=== PATIENT | male | born 1945 | race Caucasian/White ===

== ENCOUNTER 2021-03-30 22:18 | Emergency (ER) | payer MEDICARE, SELFPAY ==
[2021-03-30 22:19] VITALS: BP 193/104; PULSE 123; RESP 18; TEMP 37; O2SAT 97; BMI 27.3
--- NOTE | 2021-03-30 22:24 | XRR_ITS ---
PROCEDURE INFORMATION: Exam: XR Chest Exam date and time: 03/30/2021 10:59 PM Age: 76 years old Clinical indication: Cough and shortness of breath; Chest pain; Prior surgery; Surgery type: Stent; Additional info: Cough, SOB, cp TECHNIQUE: Imaging protocol: XR of the chest. Views: 1 view. COMPARISON: CR Chest 1 [place] [id number] 04/16/2018 12:31 PM FINDINGS: Lungs: Mild pulmonary vascular congestion and cardiomegaly. Pleural spaces: Unremarkable. No pleural effusion. No pneumothorax. Heart/Mediastinum: Unremarkable. No cardiomegaly. Bones/joints: Unremarkable. XR/XR chest 1V portable [id number] IMPRESSION: Mild pulmonary vascular congestion and cardiomegaly.
--- NOTE | 2021-03-30 22:52 | ECG_ITS ---
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 Measurements Intervals [place] Rate: 104 P: [place]: QRS: 55 QRSD: 105 T: 55 QT: 337 QTc: 445 Interpretive Statements ATRIAL FIBRILLATION WITH RAPID VENTRICULAR RESPONSE MODERATE ST DEPRESSION [0.05+ mV ST DEPRESSION] Compared to ECG 04/16/2018 14:58:10 ST (T wave) deviation now present T-wave abnormality no longer present Electronically Signed On 03-31-2021 18:23:51 CDT by Kelsy Urrutia M.D. [email or web address]/[id number]
--- NOTE | 2021-03-30 22:56 | W.ED.SOB ---
HPI - SOB/Dyspnea General: Chief Complaint: Shortness of Breath/Dyspnea Stated Complaint: cough x 4days Time Seen by Provider: 03/30/21 22:45 Source: patient Mode of arrival: ambulatory Limitations: no limitations History of Present Illness: HPI Narrative: 76-year-old male states over the last 3 to 4 days he has been having increasing cough has been productive in nature. He states he has had shortness of breath and wheezing as well. Patient denies any chest pain or fever. He is in distress here with tachypnea. Denies any vomiting or diarrhea. He denies any history of smoking. He has no history of COPD or CHF. Associated symptoms: Reports chest pain; Deny abdominal pain, fever(s), nausea or vomiting Review of Systems Const: Denies: fever(s), chills, body aches or change in appetite Eyes: Denies: blurry vision or eye discomfort ENMT: Denies: throat pain or dental pain Card: Reports: chest pain Resp: Reports: dyspnea and non-productive cough GI: Denies: abdominal pain, nausea, vomiting or diarrhea : Denies: dysuria Musc: Denies: neck pain or back pain Skin/Breast: Denies: rash Neuro: Denies: headache(s) Psych: Denies: depression Romulo/Lymph: Denies: easy bruising All/Imm: Denies: urticaria Physical Exam Const: COMMON NORMALS: no acute distress, patient oriented x3 and healthy appearing HENMT: COMMON NORMALS: normocephalic and atraumatic HEAD & SCALP: normocephalic and atraumatic Eye: COMMON NORMALS: Equal, round and reactive pupils present and EOMs intact bilaterally PUPIL: Yes Equal, round and reactive pupils present Neck/C-Spine: COMMON NORMALS: full ROM and supple Chest: COMMONS NORMALS: normal inspection of the chest and normal palpation of entire chest wall Resp: COMMON NORMALS: No retractions and No use of accessory muscles EFFORT & INSPECTION: Yes tachypneic AUSCULTATION: crackles and rales Cardio: COMMON NORMALS: No murmurs present (Cardio) RATE: tachycardic RHYTHM: abnormal rhythm irregularly irregular GI: COMMON NORMALS: Normal to inspection, nondistended, normoactive bowel sounds present, Soft to palpation, non-tender and no masses PALPATION: Yes Soft to palpation Extremity: COMMON NORMALS: normal to inspection and full ROM Neuro: COMMON NORMALS: patient oriented x3, moves all extremities and no focal motor deficits Psych: COMMON NORMALS: mental status grossly normal, Normal thought process present and cooperative THOUGHT PROCESS: Normal thought process present Skin: COMMON NORMALS: no rashes or lesions noted and no wounds GENERAL SKIN EXAM: no rashes or lesions noted Course Vital Signs: Vital signs: Vital Signs Temperature 98.6 F 03/30/21 22:19 Pulse Rate 107 H 03/31/21 01:31 Respiratory Rate 18 03/31/21 00:14 Blood Pressure 157/89 03/31/21 01:31 Pulse Oximetry 97 03/31/21 00:14 MDM - SOB/Dyspnea MDM Narrative: Medical decision making narrative: 9Cerica presents here with cough along with A. fib with RVR. His cough is actually been going on for over a year. Quinalapril believe this could be causing his cough and I will have him stop that. We will increase his metoprolol from 100 twice daily to 200 twice daily. Patient is to follow-up his PCP in 5 to 7 days return if worsening. Change agrees plan. Lab Data: Labs: Lab Results 03/30/21 03/30/21 03/30/21 Range/Units 22:50 22:50 22:50 WBC 8.6 (4.0-10.0) 10^3/ uL RBC 4.20 (4.1-5.3) 10^6/u L Hgb 12.7 (11.7-16.6) g/dL Hct 38.1 L (42.0-52.0) % MCV 90.7 (80-94) fL MCH 30.2 (28.0-34.0) pg MCHC 33.3 (30.0-36.0) g/dL RDW 13.6 (12.1-15.1) % Plt Count 249 (130-400) 10^3/c mm MPV 9.9 (7.4-10.4) fL Neut % (Auto) 72.6 % Lymph % (Auto) 16.3 % Borden % (Auto) 7.0 % Eos % (Auto) 3.0 % Baso % (Auto) 0.6 % Neut # (Auto) 6.22 (1.8-7.7) 10^3/u L Lymph # (Auto) 1.4 (0.8-4.8) 10^3/u L Borden # (Auto) 0.6 (0.2-0.9) 10^3/u L Eos # (Auto) 0.3 (0.0-0.8) 10^3/u L Baso # (Auto) 0.1 (0.0-0.1) 10^3/u L Nucleated RBC % (a uto) 0 % Nucleated RBCs # 0.0 /100WBC PT 21.40 H (12.1-14.9) SECO NDS INR 1.81 H (0.8-1.2) D-Dimer 0.34 (0-0.59) ug/mIFE U Sodium 130 L (136-145) mmol/L Potassium 3.4 L (3.5-5.1) mmol/L Chloride 89 L (98-107) mmol/L Carbon Dioxide 27 (22-29) mmol/L Anion Gap 17.4 (5-19) BUN 10 (8-23) mg/dL Creatinine 0.6 L (0.7-1.2) mg/dL GFR Calculation Not Reportable Glucose 98 (65-115) mg/dL Calculated Osmolal ity 269 L (285-295) mOsm/k g Calcium 8.4 L (8.5-10.5) mg/dL Total Bilirubin 0.4 (0.15-1.2) mg/dL AST 17 (0-40) U/L ALT 12 (0-41) U/L Alkaline Phosphata se 75 (40-130) IU/L Troponin T Baselin e (0-15) ng/L Troponin T 120 Min bisi (0-15) ng/L Delta Troponin T (0-10) ABS# NT-Pro-B Natriuret Pep 723 H (0-450) pg/mL Total Protein 7.5 (6.6-8.7) g/dL Albumin 4.0 (3.5-5.2) g/dL Globulin 3.5 (1.3-4.6) g/dL SARS-CoV-2 Ag (Rap id) (Negative) 03/30/21 03/30/21 03/31/21 Range/Units 22:50 23:00 01:00 WBC (4.0-10.0) 10^3/ uL RBC (4.1-5.3) 10^6/u L Hgb (11.7-16.6) g/dL Hct (42.0-52.0) % MCV (80-94) fL MCH (28.0-34.0) pg MCHC (30.0-36.0) g/dL RDW (12.1-15.1) % Plt Count (130-400) 10^3/c mm MPV (7.4-10.4) fL Neut % (Auto) % Lymph % (Auto) % Borden % (Auto) % Eos % (Auto) % Baso % (Auto) % Neut # (Auto) (1.8-7.7) 10^3/u L Lymph # (Auto) (0.8-4.8) 10^3/u L Borden # (Auto) (0.2-0.9) 10^3/u L Eos # (Auto) (0.0-0.8) 10^3/u L Baso # (Auto) (0.0-0.1) 10^3/u L Nucleated RBC % (a uto) % Nucleated RBCs # /100WBC PT (12.1-14.9) SECO NDS INR (0.8-1.2) D-Dimer (0-0.59) ug/mIFE U Sodium (136-145) mmol/L Potassium (3.5-5.1) mmol/L Chloride (98-107) mmol/L Carbon Dioxide (22-29) mmol/L Anion Gap (5-19) BUN (8-23) mg/dL Creatinine (0.7-1.2) mg/dL GFR Calculation Glucose (65-115) mg/dL Calculated Osmolal ity (285-295) mOsm/k g Calcium (8.5-10.5) mg/dL Total Bilirubin (0.15-1.2) mg/dL AST (0-40) U/L ALT (0-41) U/L Alkaline Phosphata se (40-130) IU/L Troponin T Baselin e 15 (0-15) ng/L Troponin T 120 Min bisi 13.30 (0-15) ng/L Delta Troponin T -1.70 L (0-10) ABS# NT-Pro-B Natriuret Pep (0-450) pg/mL Total Protein (6.6-8.7) g/dL Albumin (3.5-5.2) g/dL Globulin (1.3-4.6) g/dL SARS-CoV-2 Ag (Rap id) Negative (Negative) Imaging Data^: CXR: Radiologist's impression: [address] [address] XRay Report Signed Patient: Narciso Rider Unit #: [id number] : 1945 Age/Sex: 76 / M ADM Date: 03/30/21 Loc: ER Room/Bed: Attending Dr: Ordering Provider/Ordering MD: Chaz Chi MD Date of Service: 03/30/21 Procedure(s): XR chest 1V portable [id number] Accession Number(s): [id number] Report Number: [id number] PROCEDURE INFORMATION: Exam: XR Chest Exam date and time: 03/30/2021 10:59 PM Age: 76 years old Clinical indication: Cough and shortness of breath; Chest pain; Prior surgery; Surgery type: Stent; Additional info: Cough, SOB, cp TECHNIQUE: Imaging protocol: XR of the chest. Views: 1 view. COMPARISON: CR Chest 1 [place] [id number] 04/16/2018 12:31 PM FINDINGS: Lungs: Mild pulmonary vascular congestion and cardiomegaly. Pleural spaces: Unremarkable. No pleural effusion. No pneumothorax. Heart/Mediastinum: Unremarkable. No cardiomegaly. Bones/joints: Unremarkable. XR/XR chest 1V portable [id number] IMPRESSION: Mild pulmonary vascular congestion and cardiomegaly. EKG Data^: EKG 1: Attestation: I personally reviewed and interpreted this EKG as follows: EKG Interpretation Date: 03/30/21 EKG interpretation time: 23:03 Interpretation: afib with rvr hr [address] or t wave abnormalities qrs 105 qtc 398 EKG 2: Attestation: I personally reviewed and interpreted this EKG as follows: EKG Interpretation Date: 03/31/21 EKG interpretation time: 01:35 Interpretation: afib hr [address] or t wave abnormalities qrs 113 qtc 422 Discharge Plan Discharge Patient Disposition: Home Clinical Impression: Cough A-fib Qualifiers: Atrial fibrillation type: unspecified Qualified Code(s): I48.91 - Unspecified atrial fibrillation Condition: Stable Prescriptions: Changed metoprolol tartrate 100 mg tablet 200 mg PO BID Qty: 60 RF: 2 Discontinued quinapril 40 mg tablet BID RF: 0 No Action digoxin 250 mcg (0.25 mg) tablet DAILY RF: 0 omeprazole 40 mg capsule,delayed release(DR/EC) BID RF: 0 hydrochlorothiazide 25 mg tablet DAILY RF: 0 warfarin 3 mg tablet DAILY RF: 0 atorvastatin 20 mg tablet DAILY RF: 0 Discharge Orders: Discharge ED (Routine); Ordered 03/31/21 Ordered By: Chaz Chi Referrals: Narciso Botello DO [Primary Care Provider] - 1-3 days Discharge Diet: Advance as tolerated Discharge Activity: Resume usual activity Patient Instructions: Atrial Fibrillation (ED), Acute Cough (ED) Coding Level of Care Code 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
[2021-03-30 22:59] VITALS: BP 202/121; PULSE 104; RESP 18; O2SAT 95
[2021-03-30 23:00] VITALS: PULSE 110; RESP 18; O2SAT 95
[2021-03-30] MEDS: albuterol 8 gm MDI 2 PUFF INHALATION (23:00)
[2021-03-30 23:01] LABS: Basophils # 0.1 10^3/uL (0.0-0.1); Basophils % 0.6 %; Eosinophils # 0.3 10^3/uL (0.0-0.8); Hematocrit 38.1 % (42.0-52.0); Hemoglobin 12.7 g/dL (11.7-16.6); Lymphocytes # 1.4 10^3/uL (0.8-4.8); Lymphocytes % 16.3 %; Mean Corpuscular HGB Conc 33.3 g/dL (30.0-36.0); Mean Corpuscular Hemoglobin 30.2 pg (28.0-34.0); Mean Corpuscular Volume 90.7 fL (80-94); Mean Platelet Volume 9.9 fL (7.4-10.4); Monocytes # 0.6 10^3/uL (0.2-0.9); Neutrophils # 6.22 10^3/uL (1.8-7.7); Neutrophils % 72.6 %; Nucleated Red Blood Cells % 0 %; Platelet Count 249 10^3/cmm (130-400); Red Cell Distribution Width 13.6 % (12.1-15.1); White Blood Count 8.6 10^3/uL (4.0-10.0)
[2021-03-30 23:07] VITALS: PULSE 112
[2021-03-30] MEDS: labetalol 5 mg/mL SDV 20mL 10 MG IVP (23:07)
[2021-03-30 23:12] LABS: INR 1.81 (0.8-1.2)
[2021-03-30 23:15] LABS: D Dimer 0.34 ug/mIFEU (0-0.59)
[2021-03-30 23:19] LABS: Troponin(5th) Baseline 15 ng/L (0-15)
[2021-03-30 23:22] LABS: SARS Covid-2 Antigen Negative (Negative)
[2021-03-30 23:25] VITALS: BP 190/123; PULSE 121; O2SAT 95
[2021-03-30 23:55] LABS: Alanine Aminotransferase 12 U/L (0-41); Alkaline Phosphatase 75 IU/L (40-130); Anion Gap 17.4 (5-19); Aspartate Amino Transferase 17 U/L (0-40); Blood Urea Nitrogen 10 mg/dL (8-23); Calcium 8.4 mg/dL (8.5-10.5); Carbon Dioxide 27 mmol/L (22-29); Chloride 89 mmol/L (98-107); Globulin 3.5 g/dL (1.3-4.6); Glucose 98 mg/dL (65-115); NT Pro B Type Natriuretic Pept 723 pg/mL (0-450); Osmolality Calculated 269 mOsm/kg (285-295); Potassium 3.4 mmol/L (3.5-5.1); Sodium 130 mmol/L (136-145); Total Bilirubin 0.4 mg/dL (0.15-1.2); Total Protein 7.5 g/dL (6.6-8.7)
[2021-03-30 23:56] VITALS: BP 138/79; PULSE 105; RESP 21; O2SAT 93
[2021-03-31] VITALS: BP 147/96; PULSE 96; O2SAT 94
[2021-03-31 00:14] VITALS: PULSE 98; RESP 18; O2SAT 97
[2021-03-31] MEDS: ipratropium-albuterol 3 mL Neb INHALATION (00:14)
[2021-03-31 00:22] VITALS: PULSE 98
--- NOTE | 2021-03-31 00:52 | ECG_ITS ---
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 Measurements Intervals [place] Rate: 94 P: [place]: QRS: 39 QRSD: 113 T: 39 QT: 371 QTc: 464 Interpretive Statements ATRIAL FIBRILLATION MODERATE INTRAVENTRICULAR CONDUCTION DELAY [110+ ms QRS DURATION] MODERATE ST DEPRESSION [0.05+ mV ST DEPRESSION] Compared to ECG 03/30/2021 23:03:59 Intraventricular conduction delay now present ST (T wave) deviation still present Electronically Signed On 03-31-2021 18:27:36 CDT by Kelsy Urrutia M.D. [email or web address] Thoughtful Bread [email or web address] [id number] f
[2021-03-31 01:31] VITALS: BP 157/89; PULSE 107
[2021-03-31 02:11] VITALS: BP 174/95; PULSE 109; RESP 18; TEMP 36.6; O2SAT 94
== END 2021-03-31 02:14 | disposition home or self-care (01) ==
PROVIDERS: Emergency Provider Emergency Medicine; PCP Internal Medicine
DX: R05 Cough (principal); I48.91 Unspecified atrial fibrillation; Z79.01 Long term (current) use of anticoagulants
CPT/HCPCS: 36415; 71045; 80053; 83880; 84484; 85025; 85378; 85610; 87070; 87077; 87205; 87426; 93005; 94640; 96374; 96375; 99284; J2930; J3490; J3535

== ENCOUNTER → 2021-08-27 09:05 | Outpatient (BNVA) | payer MEDICARE, SELFPAY | PROVIDERS: PCP Internal Medicine; Visit Provider Urology | DX: R97.20 Elevated prostate specific antigen [PSA] (principal) | CPT/HCPCS: 81003; 84153 ==

== ENCOUNTER → 2021-11-30 12:49 | Outpatient (BNVA) | payer MEDICARE, SELFPAY | PROVIDERS: PCP Internal Medicine; Visit Provider Urology | DX: N40.2 Nodular prostate without lower urinary tract symptoms (principal) | CPT/HCPCS: 81003 ==

== ENCOUNTER → 2021-12-10 11:57 | Outpatient (BNVA) | payer MEDICARE, SELFPAY | PROVIDERS: PCP Internal Medicine; Visit Provider Urology | DX: N40.2 Nodular prostate without lower urinary tract symptoms (principal); R97.20 Elevated prostate specific antigen [PSA] | CPT/HCPCS: 88305 ==

== ENCOUNTER 2022-01-10 07:27 | Outpatient (CLI) | payer MEDICARE, SELFPAY ==
[2022-01-10 08:32] LABS: Blood Urea Nitrogen 9 mg/dL (8-23)
== END 2022-01-10 07:28 | disposition home or self-care (01) ==
PROVIDERS: PCP Internal Medicine; Visit Provider Urology
DX: C61 Malignant neoplasm of prostate (principal)
CPT/HCPCS: 36415; 82565; 84520

== ENCOUNTER 2022-01-10 07:29 | Outpatient (CLI) | payer MEDICARE, SELFPAY ==
--- NOTE | 2022-01-10 07:43 | NM_ITS ---
WS: [id number] NUCLEAR MEDICINE BONE SCAN Radiopharmaceutical: 25.1 Tc-99m MDP mCi IV Injection site: RIGHT antecubital Postinjection imaging delay: 1 hr CLINICAL INFORMATION: PROSTATE CANCER. History of recent fall with LEFT rib injury COMPARISON: None. FINDINGS: Bone lesions: There are no osseous lesions suspicious for metastatic disease. Focal uptake in a far L EFT anterior rib approximately 8th rib with some callus formation seen on the concurrent CT Soft tissue contours: Normal. Kidneys: Normal. Other findings: Degenerative type uptake in both AC joints and sternoclavicular joint. NM/NM bone scan whole body* [id number] IMPRESSION: 1. No evidence of osseous metastatic disease. 2. Suspected healing fracture in the far anterior 8th rib laterally as seen on the concurrent CT
--- NOTE | 2022-01-10 09:00 | CT_ITS ---
WS: [id number] CT ABDOMEN PELVIS TECHNIQUE: Noncontrast CT of the abdomen and contrast-enhanced CT of the abdomen and pelvis with charisse nal and sagittal reformatted images. CLINICAL INFORMATION: PROSTATE CANCER COMPARISON: CT December 27, 2017 DLP: 2006.[address] scans at [facility] use at least one of these dose optimization techniques: automated e xposure control; mA and/or kV adjustment per patient size (includes targeted exams where dose is matc hed to clinical indication); or iterative reconstruction. FINDINGS: Mild diffuse fatty infiltration of the liver. Hepatic cysts. Normal portal vein and splenic vein. Nor mal spleen. Normal GE junction. Normal gallbladder. Normal pancreatic parenchymal enhancement. Adrenal glands are normal. Normal renal parenchymal enhanc ement. No hydronephrosis. Small cortical cysts. Aortic calcification. Normal excretion on the delayed images. No hydronephrosis. Normal filling of the bladder. Enlarged pr ostate measuring 4.8 cm calcification. Thickening of the seminal vesicles bilaterally. Normal sigmoid colon. No evidence of high-grade small or large bowel obstruction. No bony lesions to indicate metastatic disease. Suspected healing fracture in the far anterior 8th ri b laterally likely corresponds to the bone scan findings. CT/CT abdomen pelvis wo/w [id number] IMPRESSION: 1. No evidence of metastatic disease in the abdomen or pelvis. No lymphadenopa thy. 2. Enlarged prostate with thickening of the seminal vesicles.Prostate measures 4.8 cm. 3. A few incidental hepatic cysts. 4. Normal renal parenchymal enhancement. No hydronephrosis. Normal excretion o n the delayed images. 5. No bony lesions to indicate metastatic disease. 6. Suspected healing fracture in the far anterior 8th rib laterally likely cor responds to the bone scan findings.
[2022-01-10] MEDS: iohexol 300 mg/mL 100 mL Btl IV (09:50)
== END 2022-01-10 07:30 | disposition home or self-care (01) ==
LOC: RAD 07:30
PROVIDERS: PCP Internal Medicine; Visit Provider Urology
DX: C61 Malignant neoplasm of prostate (principal); N40.0 Benign prostatic hyperplasia without lower urinary tract symptoms; K76.89 Other specified diseases of liver
CPT/HCPCS: 36415; 74178; 78306; 82565; 84520; A9561

== ENCOUNTER 2022-01-17 14:57 | Outpatient (CLI) | payer MEDICARE, SELFPAY ==
[2022-01-17 16:59] LABS: Basophils % 0.7 %; Eosinophils # 0.2 10^3/uL (0.0-0.8); Eosinophils % 3.5 %; Hematocrit 37.9 % (42.0-52.0); Hemoglobin 12.7 g/dL (11.7-16.6); Lymphocytes # 1.4 10^3/uL (0.8-4.8); Lymphocytes % 26.6 %; Mean Corpuscular HGB Conc 33.5 g/dL (30.0-36.0); Mean Corpuscular Hemoglobin 29.9 pg (28.0-34.0); Mean Corpuscular Volume 89.2 fl (80-94); Mean Platelet Volume 11.1 fL (7.4-10.4); Monocytes # 0.5 10^3/uL (0.2-0.9); Monocytes % 10.1 %; Neutrophils # 3.16 10^3/uL (1.8-7.7); Neutrophils % 58.9 %; Nucleated Red Blood Cells % 0 %; Platelet Count 165 10^3/cmm (130-400); Red Blood Count 4.25 10^6/uL (4.1-5.3); Red Cell Distribution Width 14.1 % (12.1-15.1); White Blood Count 5.4 10^3/uL (4.0-10.0)
--- NOTE | 2022-01-17 17:15 | ONC CON_ITS ---
Dr. Marcano New Patient Note Patient: Narciso Rider Unit #: [id number]: 1945 Dicatated By: Michaela Marcano M.D.Date of Visit: Jan 17, 2022 Onc MED New Patient/Consult Referring Physician: Dr. Syed Loya M.D. History of Present Illness: Mr. Alvino Rider, is a 77-year-old gentleman with a history of elevated PSA, who was referred to Dr. Loya, urologist and underwent SUYAPA exam which was abnormal with a nodular right apical lesion underwent TRUS P/biopsy on December 10, 2021 which confirmed 4 out of 10 core biopsy positive for high-grade prostate cancer including Roseville score 5+5 in the right apex core biopsy with 100% involvement and 4+4 in the right mid area with about 85% involvement and left lateral apex 4+4 about 15% involvement, with foamy gland variant. With a PSA, in August 2021 it was 22.6, on November 30, 2021 it was 25.6. Staging work-up with CT scan of abdomen and pelvis And bone scan done on January 10, 2022, showed no evidence of metastatic disease, old healing Anterior lateral eighth rib fracture. Patient has history of atrial fibrillation for which he is on chronic anticoagulation with Coumadin. Patient also has history of coronary artery disease for which he underwent stent placement in the past Patient denies smoking or alcohol use, Denies any bone pain denies any weight loss, denies any dysuria or hematuria, patient is very active and still riding horses Past Medical History: Mr. Rider's medical history consists of congestive heart failure and coronary artery disease. Past Surgical History: Mr. Rider's surgical/procedural history consists of TRUSP/bx. Medications: Acetaminophen Extra Strength 2 Tablet (of 500 mg) Oral b.i.d., Atorvastatin Calcium Tablet Oral daily, Digoxin 1 Tablet (of 250 mcg) Oral daily, Finasteride 1 Tablet (of 5 mg) Oral daily, hydroCHLOROthiazide 1 Tablet (of 25 mg) Oral daily, Ipratropium-Albuterol 1 Inhalation (of 0.5-2.5 (3) mg/3mL) Solution Inhalation four times a day, Metoprolol Tartrate 1 Tablet (of 100 mg) Oral b.i.d., Nitroglycerin 1 Tablet (of 0.4 mg) Tablet, sublingual Sublingual q 5 minutes PRN, Omeprazole 1 Tablet (of 40 mg) Tablet, enteric coated Oral b.i.d., Warfarin Sodium 1 Tablet (of 3 mg) Oral daily, Zofran ODT 1 Tablet (of 4 mg) Tablet Dispersable Oral q 4 hours PRN Allergies: No Known Allergies. Social History: Mr. Rider is . Mr. Rider no longer smokes. He has no history of drinking. Family History: Mr. Rider's mother is alive: bleeding disorder. Mr. Rider's father at age 53: heart disease, and myocardial infarction. Review Of Symptoms: Review of Systems is not available for this patient. Vital Signs: Performed on Jan 17, 2022 16:13: 5, 25.12, 2.06 sq.m, 72 in, 99 %, 63 /min, 16 /min, 161/88 mm(hg) (HIGH), 98.6 F, and 185.2 lbs (HIGH). Performance Status: 0 - Fully active, able to carry on all predisease activities without restrictions. (ECOG) Physical Examination: ENMT - No mouth sores, no thrush, no jaundice, Respiratory - Lungs are clear to auscultation, Cardiovascular - Irregular rate and rhythm, Abdomen - Soft, bowel sounds present, Extremities - No visible edema. Lab/Imaging: Most recent lab results are not available for this patient. Impression: Prostatic adenocarcinoma per TUR SP/biopsy done on December 10, 2021, final pathology report showed right apex biopsy shows Roseville score 5+5, with tumor involvement 100%, right mid lobe biopsy shows prostatic adenocarcinoma, Rose[place] score 4+4 with 85% involvement left lateral apex Clau score 4+4 about 15% involvement ,left lateral mid, Rose[place] score 4+4 with about 10% involvement with foamy gland variant, PSA checked on November 30, 2021 was 25.6, Clinically, T2a, NX MX patient has very high risk prostate cancer, Roseville score 5+5, PSA more than 20 CT scan of abdomen pelvis Done on January 10, 2022 showed no evidence of metastatic disease, Healing fracture of anterior lateral eighth rib Bone scan showed no evidence of metastatic disease History of coronary artery disease status post stent placement Atrial fibrillation, on Coumadin Plan: Discussed with patient regarding his disease status and treatment options, as per patient Dr. Loya, urologist informed him that he is not a candidate for surgery, so he was referred to us regarding further treatment options, based on his histopathology report and PSA at the time of presentation, patient was in very high risk group, Clau score 5+5, PSA more than 20 As per patient, he was told that he is not a candidate for surgery And now he is considering ADT/radiation therapy . All the side effect possible benefits associated with ADT including but not limited to hot flashes, decreased libido, generalized weakness and fatigue, gynecomastia, mood swings were mentioned, also mention about hepatic toxicity especially with Casodex, further teaching will be done by chemotherapy nurse, will start him on Casodex 50 mg p.o. daily for 1 month and also consider starting him on 3 monthly Zoladex with long-term adjuvant therapy and refer him to radiation oncology for evaluation for concurrent radiation therapy, if his follow-up PSA level shows suboptimal response, may consider adding abiraterone. We will obtain baseline CBC, CMP , testosterone level and PSA today then return to clinic in 1 month with CMP and PSA Signed By: Michaela Marcano M.D. <<Signature on File>>
[2022-01-17 17:31] LABS: Alanine Aminotransferase 15 U/L (0-41); Albumin Level 4.2 g/dL (3.5-5.2); Alkaline Phosphatase 76 IU/L (40-130); Anion Gap 14.5 (5-19); Aspartate Amino Transferase 21 U/L (0-40); Blood Urea Nitrogen 11 mg/dL (8-23); Calcium 9.1 mg/dL (8.5-10.5); Carbon Dioxide 28 mmol/L (22-29); Chloride 99 mmol/L (98-107); Globulin 2.5 g/dL (1.3-4.6); Glucose 89 mg/dL (65-115); Osmolality Calculated 285 mOsm/kg (285-295); Potassium 3.5 mmol/L (3.5-5.1); Sodium 138 mmol/L (136-145); Testosterone Total 328.4 ng/dL (193-740); Total Bilirubin 0.4 mg/dL (0.15-1.2); Total Protein 6.7 g/dL (6.6-8.7)
== END 2022-01-17 14:58 | disposition home or self-care (01) ==
PROVIDERS: Internal Medicine Hematology & Oncology; PCP Internal Medicine; Visit Provider Internal Medicine Medical Oncology
DX: C61 Malignant neoplasm of prostate (principal); I48.91 Unspecified atrial fibrillation; I25.10 Atherosclerotic heart disease of native coronary artery without angina pectoris; I50.9 Heart failure, unspecified; Z79.01 Long term (current) use of anticoagulants; Z79.899 Other long term (current) drug therapy; Z87.891 Personal history of nicotine dependence
CPT/HCPCS: 36415; 80053; 84153; 84403; 85025; 99205

== ENCOUNTER 2022-01-26 13:28 | Outpatient (CLI) | payer MEDICARE, SELFPAY ==
[2022-01-26] MEDS: lidocaine 1% INJ 20 mL INJECTION (14:00)
[2022-01-26] MEDS: goserelin acetate 10.8 mg Implant SUBCUT (14:10)
== END 2022-01-26 13:29 | disposition home or self-care (01) ==
PROVIDERS: PCP Internal Medicine; Visit Provider Internal Medicine Medical Oncology
DX: C61 Malignant neoplasm of prostate (principal)
CPT/HCPCS: 96402; J9202

== ENCOUNTER 2022-02-21 13:22 | Outpatient (CLI) | payer MEDICARE, SELFPAY ==
[2022-02-21 14:51] LABS: Alanine Aminotransferase 22 U/L (0-41); Albumin Level 4.4 g/dL (3.5-5.2); Alkaline Phosphatase 84 IU/L (40-130); Anion Gap 13.5 (5-19); Aspartate Amino Transferase 22 U/L (0-40); Blood Urea Nitrogen 17 mg/dL (8-23); Calcium 9.1 mg/dL (8.5-10.5); Carbon Dioxide 29 mmol/L (22-29); Chloride 96 mmol/L (98-107); Globulin 2.9 g/dL (1.3-4.6); Glucose 104 mg/dL (65-115); Osmolality Calculated 280 mOsm/kg (285-295); Potassium 4.5 mmol/L (3.5-5.1); Prostate Specific Antigen 0.458 ng/mL (0-4); Sodium 134 mmol/L (136-145); Total Bilirubin 0.3 mg/dL (0.15-1.2); Total Protein 7.3 g/dL (6.6-8.7)
--- NOTE | 2022-02-22 08:35 | ONC FU_ITS ---
Johnna Gifford Progress Note Patient: Narciso Rider Unit #: [id number]: 1945 Dicatated By: Johnna Gifford N.P.Date of Visit:Feb 21, 2022 Onc MED Follow-up/Prog Note Chief Complaint: Prostate cancer History of Present Illness: Mr. Alvino Rider, is a 77-year-old gentleman with a history of elevated PSA, who was referred to Dr. Loya, urologist and underwent SUYAPA exam which was abnormal with a nodular right apical lesion underwent TRUS P/biopsy on December 10, 2021 which confirmed 4 out of 10 core biopsy positive for high-grade prostate cancer including [place] score 5+5 in the right apex core biopsy with 100% involvement and 4+4 in the right mid area with about 85% involvement and left lateral apex 4+4 about 15% involvement, with foamy gland variant. With a PSA, in August 2021 it was 22.6, on November 30, 2021 it was 25.6. Staging work-up with CT scan of abdomen and pelvis done on, showed no evidence of metastatic disease, old healing rib fracture. Patient has history of atrial fibrillation for which he is on chronic anticoagulation with Coumadin. Patient also has history of coronary artery disease for which he underwent stent placement in the past Patient denies smoking or alcohol use, Denies any bone pain denies any weight loss, denies any dysuria or hematuria, patient is very active and still riding horses Patient presents today for follow-up. He started his Zoladex on 01/26/2022. He continues to have fatigue but is able to be active. He states his appetite has been good. No fever, chills, night sweats. No sinus drainage or sore throat. No shortness of breath, cough, chest pain no nausea or vomiting. He does experience constipation that is well controlled with [id number] medications. No urinary symptoms. No joint or bone pain. No headaches or dizziness. Review Of Symptoms:See above. Past Medical History: Congestive heart failure Coronary artery disease Past Surgical History: TRUSP/bx Allergies: No Known Allergies. Medications: Acetaminophen Extra Strength 2 Tablet (of 500 mg) Oral b.i.d. Atorvastatin Calcium Tablet Oral daily Digoxin 1 Tablet (of 250 mcg) Oral daily Finasteride 1 Tablet (of 5 mg) Oral daily hydroCHLOROthiazide 1 Tablet (of 25 mg) Oral daily Ipratropium-Albuterol 1 Inhalation (of 0.5-2.5 (3) mg/3mL) Solution Inhalation four times a day Metoprolol Tartrate 1 Tablet (of 100 mg) Oral b.i.d. Nitroglycerin 1 Tablet (of 0.4 mg) Tablet, sublingual Sublingual q 5 minutes PRN Omeprazole 1 Tablet (of 40 mg) Tablet, enteric coated Oral b.i.d. Warfarin Sodium 1 Tablet (of 3 mg) Oral daily Zofran ODT 1 Tablet (of 4 mg) Tablet Dispersable Oral q 4 hours PRN Family History: Mr. Rider's mother is alive: bleeding disorder. Mr. Rider's father at age 53: heart disease, and myocardial infarction. Social History: Mr. Rider is . Mr. Rider no longer smokes. He has no history of drinking. Physical Examination: Performed on Feb 21, 2022 15:24: Height - 72.00 in, Weight - 183 lbs (LOW), BSA - 2.05 sq.m, BMI - 24.82, Temperature - 97.4 F (LOW), Pulse - 63 /min, Respiration - 16 /min, BP - 178/80 mm(hg) (HIGH), O2 Sat - 99 %, Pain - 0, and Fatigue - 0. Performance Status: 0 - Fully active, able to carry on all predisease activities without restrictions. (ECOG) Constitutional Alert, cooperative, oriented. Mood and affect appropriate. Appears close to chronological age. Well nourished. Well developed. Head Normocephalic; no scars. Hematologic/Lymphatic No petechiae or purpura. No tender or palpable lymph nodes in the cervical, supraclavicular, axillary or inguinal area. Respiratory Lungs are clear to auscultation without rhonchi or wheezing. Cardiovascular Regular rate and rhythm of heart without murmurs, gallops or rubs. Abdomen Non-tender, non-distended, no masses, ascites or hepatosplenomegaly. Good bowel sounds. No guarding or rebound tenderness. Extremities No visible deformities, no cyanosis, clubbing or edema. Pulses 3+ and equal bilaterally. Musculoskeletal No tenderness or swelling, normal range of motion without obvious weakness. Psychiatric Alert and oriented times three. Coherent speech. Verbalizes understanding of our discussions today. Laboratory: Test performed on Feb 21, 2022 13:53 Sodium 134 mmol/L Potassium 4.5 mmol/L Chloride 96 mmol/L CO2 29 mmol/L Anion Gap 13.5 BUN 17 mg/dL Creatinine 0.8 mg/dL Cr Clearance (Est) 89.3500 mL/min Glucose 104 mg/dL Osmolality - Calculated 280 mOsm/kg Calcium 9.1 mg/dL Protein, Total 7.3 g/dL Albumin 4.4 g/dL Globulin 2.9 g/dL Bilirubin, Total 0.3 mg/dL ALT (SGPT) 22 U/L AST (SGOT) 22 U/L Alkaline Phosphatase 84 IU/L PSA 0.458 ng/mL Impression: Prostatic adenocarcinoma per TUR SP/biopsy done on December 10, 2021, final pathology report showed right apex biopsy shows Clau score 5+5, with tumor involvement 100%, right mid lobe biopsy shows prostatic adenocarcinoma, Clau score 4+4 with 85% involvement left lateral apex Clau score 4+4 about 15% involvement ,left lateral mid, Clau score 4+4 with about 10% involvement with foamy gland variant, PSA checked on November 30, 2021 was 25.6, Clinically, patient has very high risk prostate cancer, [place] score 5+5, PSA more than 20 CT scan of abdomen pelvis showed no evidence of metastatic disease Bone scan showed no evidence of metastatic disease History of coronary artery disease status post stent placement Atrial fibrillation, on Coumadin Plan: Discussed with patient regarding his disease status and treatment options, as per patient Dr. Loya, urologist informed him that he is not a candidate for surgery, so he was referred to us regarding further treatment options, based on his histopathology report and PSA at the time of presentation, patient was in very high risk group, Clau score 5+5, PSA more than [address] with [address] Loya regarding surgical option but patient is considering hormonal therapy/radiation therapy. All the side effect possible benefits associated with ADT including but not limited to hot flashes, decreased libido, generalized weakness and fatigue, gynecomastia, mood swings were mentioned, also mention about hepatic toxicity especially with Casodex, further teaching will be done by chemotherapy nurse, will start him on Casodex 50 mg p.o. daily for 1 month and also consider starting him on 3 monthly Zoladex with long-term adjuvant therapy and refer him to radiation oncology for evaluation for concurrent radiation therapy, if his follow-up PSA level shows suboptimal response, may consider adding abiraterone. Patient presents today for follow-up. He is tolerating his Zoladex injections well. He has been taking Casodex 50 mg p.o. daily and he was instructed to discontinue that today. His PSA has improved from 18.090 on 01/17/2022 to 0.458 today. His radiation therapy appointment has been scheduled. At this time we will hold off on adding abiraterone due to the good response he is having from the Zoladex. He will return to the clinic in 2 months for his second Zoladex injection with a CBC, CMP, PSA. Signed By: Johnna Gifford N.P. <<Signature on File>>
== END 2022-02-21 13:23 | disposition home or self-care (01) ==
PROVIDERS: PCP Internal Medicine; Visit Provider Nurse Practitioner Family
DX: C61 Malignant neoplasm of prostate (principal); I25.10 Atherosclerotic heart disease of native coronary artery without angina pectoris; Z95.811 Presence of heart assist device; I48.20 Chronic atrial fibrillation, unspecified; Z79.01 Long term (current) use of anticoagulants; Z79.818 Long term (current) use of other agents affecting estrogen receptors and estrogen levels
CPT/HCPCS: 36415; 80053; 84153; 99214

== ENCOUNTER 2022-03-16 11:29 | Outpatient (RCR) | payer MEDICARE, SELFPAY ==
--- NOTE | 2022-03-16 | CT_ITS ---
Radiation Therapy Planning CT images; total exam DLP: 976.78 mGy-cm MTDD
== END 2022-03-19 23:59 | disposition home or self-care (01) ==
LOC: ONCMED 11:29
PROVIDERS: PCP Internal Medicine; Visit Provider Radiology Radiation Oncology
DX: Z51.0 Encounter for antineoplastic radiation therapy (principal); C61 Malignant neoplasm of prostate; Z79.899 Other long term (current) drug therapy
CPT/HCPCS: 77300; 77301; 77334; 77338; 77470; Q9967

== ENCOUNTER 2022-04-19 12:45 | Oncology outpatient (recurring) (ONCR) | payer MEDICARE, SELFPAY ==
--- NOTE | 2022-03-29 14:05 | ONCRAD TMN_ITS ---
Radiation Oncology Treatment Management Note Patient Name: Narciso Rider Date of : 1945 Date of Service: 03/29/2022 Attending Physician: Abebe Ugalde M.D. Narciso Rider is a 77 year old white male diagnosed with a clinical stage IIIC (T2aN0) very high-risk stratification prostate cancer. He initially was identified to have an elevated PSA level (22.6 ng/mL) in July 2021 by his primary care physician. He was referred to Syed Loya M.D. A digital rectal exam revealed a large, right prostatic lobe nodule. Repeat PSA level was 25.6 ng/mL. He declined a biopsy at that time. A transrectal ultrasound-guided biopsy performed on December 10, 2021 demonstrated a 34 cc prostate gland with a 1.2 cm hypoechoic lesion within the right lateral aspect of the prostate. The pathology report (personally reviewed in [facility]) diagnosed an adenocarcinoma the prostate gland with a Clau score of 5+5 = 10 (grade group 5) involving the right apex (100%) and a Hague score of 4+4 = 8 (grade group 4) in the cores biopsied from the right mid-gland, left lateral apex, and left lateral mid-gland. A nuclear medicine bone scintigraphy scan and an abdominopelvic CT scan metastatic disease did not identify metastatic disease. The patient presents for radiotherapeutic options. A GnRH agonist (Zoladex) was administered on January 21, 2022. The patient has received 10 Gy of a prescribed 46 Power to the prostate and regional lymph nodes with an intensity modulated radiotherapy plan utilizing a step and shoot treatment technique. An additional 32 Power will be delivered to the prostate gland subsequent to the initial miles. He has received neoadjuvant hormonal therapy. Upon review of systems, he denied any genitourinary complaints related to radiotherapy. On physical examination, the patient weighed 187 lbs. His temperature was 96.7 ???F and the blood pressure was 164/86 mmHg. The pulse was 75 bpm and his respiratory rate was 20. There was no erythema within the treatment miles. Continue pelvic radiotherapy as prescribed. Signed by: Abebe Ugalde 03/29/2022 2:03:34 PM
--- NOTE | 2022-04-05 13:55 | ONCRAD TMN_ITS ---
Radiation Oncology Treatment Management Note Patient Name: Narciso Rider Date of : 1945 Date of Service: 04/05/2022 Attending Physician: Abebe Ugalde M.D. Narciso Rider is a 77 year old white male diagnosed with a clinical stage IIIC (T2aN0) very high-risk stratification prostate cancer. He initially was identified to have an elevated PSA level (22.6 ng/mL) in July 2021 by his primary care physician. He was referred to Syed Loya M.D. A digital rectal exam revealed a large, right prostatic lobe nodule. Repeat PSA level was 25.6 ng/mL. He declined a biopsy at that time. A transrectal ultrasound-guided biopsy performed on December 10, 2021 demonstrated a 34 cc prostate gland with a 1.2 cm hypoechoic lesion within the right lateral aspect of the prostate. The pathology report (personally reviewed in [facility]) diagnosed an adenocarcinoma the prostate gland with a Clau score of 5+5 = 10 (grade group 5) involving the right apex (100%) and a Clarinda score of 4+4 = 8 (grade group 4) in the cores biopsied from the right mid-gland, left lateral apex, and left lateral mid-gland. A nuclear medicine bone scintigraphy scan and an abdominopelvic CT scan metastatic disease did not identify metastatic disease. The patient presents for radiotherapeutic options. A GnRH agonist (Zoladex) was administered on January 21, 2022. The patient has received 20 Gy of a prescribed 46 Power to the prostate and regional lymph nodes with an intensity modulated radiotherapy plan utilizing a step and shoot treatment technique. An additional 32 Power will be delivered to the prostate gland subsequent to the initial miles. He has received neoadjuvant hormonal therapy. Upon review of systems, he reported nocturia of twice. On physical examination, the patient weighed 186 lbs. His temperature was 96.5 ???F and the blood pressure was 167/80 mmHg. The pulse was 62 bpm and his respiratory rate was 16. There was no erythema within the treatment miles. Continue pelvic radiotherapy as planned. Signed by: Abebe Ugalde 04/05/2022 1:53:49 PM
--- NOTE | 2022-04-12 14:09 | ONCRAD TMN_ITS ---
Radiation Oncology Weekly Treatment Management Patient: Tereso Chan MR#: [id number] : 1945> Attending Physician: Dr. Chico Merino Date of Service: 04/12/2022 Referring Physician(s) : Dr. Syed Loya Diagnosis: C61 - Malignant neoplasm of prostate, Diagnosed 12/10/2021 (Active) Stage IIIC, T2b, N0, M0, P>=20, G5 Radiotherapy to date: Course: Prostate 2021, Treatment Site: Prostate Ca - High-Risk, Ref. ID: [id number], Energy: 15X, Dose/Fx (cGy): 200, #Fx: , Dose Correction (cGy): 0, Total Dose (cGy): 3,000, Start Date: 03/23/2022, Elapsed Days: 20 Reason for visit: The patient is being seen today as part of his regularly scheduled weekly on treatment visits to assess for acute toxicities from radiotherapy. Review of Systems: Mr. Perdomo has developed diarrhea. He took 2 Imodium A-D last night and that controlled the problem. No other GI complaints. His bladder function is stable. He has slight burning or itching in midstream at times when he urinates. He has not had any severe discomfort. He has no hesitancy, intermittency, or difficulty getting empty. Performance status is stable. He received Zoladex 01/21/2022. Vital Signs: Performed on 04/12/2022 1:32 PM BMI - 25.118 kg/m2 (high), Height - 72 in, Weight - 185.2 lbs, Temperature - 96.6 f, Pulse - 55 /min (low), Respiration - 20 /min, O2 Sat - 100 %, Pain - 0, Fatigue - 8 and BP - 173/ 96 mm(hg)(high). Physical Exam: Alert, oriented, no acute distress. Normal gait. There is no skin reaction over the anterior pelvis or in the intergluteal fold. Imaging: Radiation therapy imaging related to accurate target localization (i.e. KV, MV and CBCT) was reviewed. Appropriate changes, if any, were made to ensure treatment accuracy. Plan: Continue treatment according to plan. We discussed his treatment volume. Signed by: Dr. Chico Merino 04/12/2022 2:06:58 PM
--- NOTE | 2022-04-19 13:47 | ONCRAD TMN_ITS ---
Radiation Oncology Treatment Management Note Patient Name: Narciso Rider Date of : 1945 Date of Service: 04/19/2022 Attending Physician: Abebe Ugalde M.D. Narciso Rider is a 77 year old white male diagnosed with a clinical stage IIIC (T2aN0) very high-risk stratification prostate cancer. He initially was identified to have an elevated PSA level (22.6 ng/mL) in July 2021 by his primary care physician. He was referred to Syed Loya M.D. A digital rectal exam revealed a large, right prostatic lobe nodule. Repeat PSA level was 25.6 ng/mL. He declined a biopsy at that time. A transrectal ultrasound-guided biopsy performed on December 10, 2021 demonstrated a 34 cc prostate gland with a 1.2 cm hypoechoic lesion within the right lateral aspect of the prostate. The pathology report (personally reviewed in [facility]) diagnosed an adenocarcinoma the prostate gland with a Clau score of 5+5 = 10 (grade group 5) involving the right apex (100%) and a Trinidad score of 4+4 = 8 (grade group 4) in the cores biopsied from the right mid-gland, left lateral apex, and left lateral mid-gland. A nuclear medicine bone scintigraphy scan and an abdominopelvic CT scan metastatic disease did not identify metastatic disease. The patient presents for radiotherapeutic options. A GnRH agonist (Zoladex) was administered on January 21, 2022. The patient has received 38 Gy of a prescribed 46 Power to the prostate and regional lymph nodes with an intensity modulated radiotherapy plan utilizing a step and shoot treatment technique. An additional 32 Power will be delivered to the prostate gland subsequent to the initial miles. He has received neoadjuvant hormonal therapy. Upon review of systems, he denied changes in urination. On physical examination, the patient weighed 182 lbs. His temperature was 96.7 ???F and the blood pressure was 156/87 mmHg. The pulse was 59 bpm and his respiratory rate was 18. There was no erythema within the treatment miles. Continue pelvic radiotherapy as prescribed. Signed by: Dr. Abebe Ugalde 04/19/2022 1:46:04 PM
== END 2022-04-19 23:59 | disposition home or self-care (01) ==
PROVIDERS: PCP Internal Medicine; Visit Provider Radiology Radiation Oncology
DX: Z51.11 Encounter for antineoplastic chemotherapy (principal); C61 Malignant neoplasm of prostate
CPT/HCPCS: 77014; 77336; 77385; 77427

== ENCOUNTER 2022-05-17 13:12 | Oncology outpatient (recurring) (ONCR) | payer MEDICARE, SELFPAY ==
--- NOTE | 2022-04-26 14:58 | ONCRAD TMN_ITS ---
Radiation Oncology Treatment Management Note Patient Name: aNrciso Rider Date of : 1945 Date of Service: 04/26/2022 Attending Physician: Abebe Ugalde M.D. Narciso Rider is a 77 year old white male diagnosed with a clinical stage IIIC (T2aN0) very high-risk stratification prostate cancer. He initially was identified to have an elevated PSA level (22.6 ng/mL) in July 2021 by his primary care physician. He was referred to Syed Loya M.D. A digital rectal exam revealed a large, right prostatic lobe nodule. Repeat PSA level was 25.6 ng/mL. He declined a biopsy at that time. A transrectal ultrasound-guided biopsy performed on December 10, 2021 demonstrated a 34 cc prostate gland with a 1.2 cm hypoechoic lesion within the right lateral aspect of the prostate. The pathology report (personally reviewed in [email or web address]) diagnosed an adenocarcinoma the prostate gland with a Clau score of 5+5 = 10 (grade group 5) involving the right apex (100%) and a [place]ne[place] score of 4+4 = 8 (grade group 4) in the cores biopsied from the right mid-gland, left lateral apex, and left lateral mid-gland. A nuclear medicine bone scintigraphy scan and an abdominopelvic CT scan metastatic disease did not identify metastatic disease. The patient presents for radiotherapeutic options. A GnRH agonist (Zoladex) was administered on January 21, 2022. The patient has received 48 Gy of a prescribed 78 Power to the prostate and regional lymph nodes with an intensity modulated radiotherapy plan utilizing a step and shoot treatment technique. He has received neoadjuvant hormonal therapy. Upon review of systems, he described fatigue. On physical examination, the patient weighed 180 lbs. His temperature was 96.6 ???F and the blood pressure was 152/75 mmHg. The pulse was 60 bpm and his respiratory rate was 16. There was no erythema within the treatment miles. Continue pelvic radiotherapy as planned. Signed by: Dr. Abebe Ugalde 04/26/2022 2:56:41 PM
[2022-04-28 12:00] LABS: Basophils % 0.7 %; Eosinophils # 0.4 10^3/uL (0.0-0.8); Eosinophils % 8.3 %; Hematocrit 37.6 % (42.0-52.0); Hemoglobin 12.8 g/dL (11.7-16.6); Lymphocytes # 0.4 10^3/uL (0.8-4.8); Lymphocytes % 9.2 %; Mean Corpuscular Hemoglobin 31.2 pg (28.0-34.0); Mean Corpuscular Volume 91.7 fl (80-94); Mean Platelet Volume 10.4 fL (7.4-10.4); Monocytes # 0.4 10^3/uL (0.2-0.9); Monocytes % 8.5 %; Neutrophils # 3.24 10^3/uL (1.8-7.7); Neutrophils % 72.9 %; Nucleated Red Blood Cells % 0 %; Platelet Count 156 10^3/cmm (130-400); Red Cell Distribution Width 14.9 % (12.1-15.1); White Blood Count 4.5 10^3/uL (4.0-10.0)
[2022-04-28 12:35] LABS: Alanine Aminotransferase 26 U/L (0-41); Albumin Level 3.8 g/dL (3.5-5.2); Alkaline Phosphatase 68 IU/L (40-130); Anion Gap 13.4 (5-19); Aspartate Amino Transferase 22 U/L (0-40); Blood Urea Nitrogen 10 mg/dL (8-23); Calcium 8.7 mg/dL (8.5-10.5); Carbon Dioxide 30 mmol/L (22-29); Chloride 92 mmol/L (98-107); Globulin 3.2 g/dL (1.3-4.6); Glucose 98 mg/dL (65-115); Osmolality Calculated 273 mOsm/kg (285-295); Potassium 3.4 mmol/L (3.5-5.1); Prostate Specific Antigen 0.075 ng/mL (0-4); Sodium 132 mmol/L (136-145); Total Bilirubin 0.4 mg/dL (0.15-1.2)
[2022-04-28] MEDS: goserelin acetate 10.8 mg Implant SUBCUT (15:33)
[2022-04-28] MEDS: lidocaine 1% INJ 20 mL SUBCUT (15:37)
--- NOTE | 2022-05-03 13:40 | ONCRAD TMN_ITS ---
Radiation Oncology Treatment Management Note Patient Name: Narciso Rider Date of : 1945 Date of Service: 05/03/2022 Attending Physician: Abebe Ugalde M.D. Narciso Rider is a 77 year old white male diagnosed with a clinical stage IIIC (T2aN0) very high-risk stratification prostate cancer. He initially was identified to have an elevated PSA level (22.6 ng/mL) in July 2021 by his primary care physician. He was referred to Syed Loya M.D. A digital rectal exam revealed a large, right prostatic lobe nodule. Repeat PSA level was 25.6 ng/mL. He declined a biopsy at that time. A transrectal ultrasound-guided biopsy performed on December 10, 2021 demonstrated a 34 cc prostate gland with a 1.2 cm hypoechoic lesion within the right lateral aspect of the prostate. The pathology report (personally reviewed in [facility]) diagnosed an adenocarcinoma the prostate gland with a Clau score of 5+5 = 10 (grade group 5) involving the right apex (100%) and a Metcalf score of 4+4 = 8 (grade group 4) in the cores biopsied from the right mid-gland, left lateral apex, and left lateral mid-gland. A nuclear medicine bone scintigraphy scan and an abdominopelvic CT scan metastatic disease did not identify metastatic disease. The patient presents for radiotherapeutic options. A GnRH agonist (Zoladex) was administered on January 21, 2022. The patient has received 58 Gy of a prescribed 78 Power to the prostate and regional lymph nodes with an intensity modulated radiotherapy plan utilizing a step and shoot treatment technique. He has received neoadjuvant hormonal therapy. Upon review of systems, he denied any new symptoms. On physical examination, the patient weighed 181 lbs. His temperature was 97 ???F and the blood pressure was 155/78 mmHg. The pulse was 59 bpm and his respiratory rate was 18. There was no erythema within the treatment miles. Continue pelvic radiotherapy as prescribed. Signed by: Dr. Abebe Ugalde 05/03/2022 1:39:39 PM
--- NOTE | 2022-05-10 13:43 | ONCRAD TMN_ITS ---
Radiation Oncology Treatment Management Note Patient Name: Narciso Rider Date of : 1945 Date of Service: 05/10/2022 Attending Physician: Abebe Ugalde M.D. Narciso Rider is a 77 year old white male diagnosed with a clinical stage IIIC (T2aN0) very high-risk stratification prostate cancer. He initially was identified to have an elevated PSA level (22.6 ng/mL) in July 2021 by his primary care physician. He was referred to Syed Loya M.D. A digital rectal exam revealed a large, right prostatic lobe nodule. Repeat PSA level was 25.6 ng/mL. He declined a biopsy at that time. A transrectal ultrasound-guided biopsy performed on December 10, 2021 demonstrated a 34 cc prostate gland with a 1.2 cm hypoechoic lesion within the right lateral aspect of the prostate. The pathology report (personally reviewed in [email or web address]) diagnosed an adenocarcinoma the prostate gland with a Clau score of 5+5 = 10 (grade group 5) involving the right apex (100%) and a Cameron score of 4+4 = 8 (grade group 4) in the cores biopsied from the right mid-gland, left lateral apex, and left lateral mid-gland. A nuclear medicine bone scintigraphy scan and an abdominopelvic CT scan metastatic disease did not identify metastatic disease. Cycle 2 of a GnRH agonist (Zoladex) was administered on April 28, 2022. The patient has received 68 Gy of a prescribed 78 Power to the prostate and regional lymph nodes with an intensity modulated radiotherapy plan utilizing a step and shoot treatment technique. He has received neoadjuvant hormonal therapy. Upon review of systems, he did not report any complaints. On physical examination, the patient weighed 179 lbs. His temperature was 97.9 ???F and the blood pressure was 174/70 mmHg. The pulse was 61 bpm and his respiratory rate was 18. There was no erythema within the treatment miles. Continue pelvic radiotherapy as planned. Signed by: Dr. Abebe Ugalde 05/10/2022 1:43:08 PM
--- NOTE | 2022-05-17 13:19 | N.ONRD TS_ITS ---
Radiation OncologyTreatment Summary Patient Name: Narciso Rider Date of : 1945 Date of Service: 05/17/2022 Attending Physician: Abebe Ugalde M.D. Narciso Rider has completed definitive prostate radiotherapy for the management of a clinical stage IIIC (T2aN0) very high-risk stratification prostate cancer. He initially was identified to have an elevated PSA level (22.6 ng/mL) in July 2021 by his primary care physician. He was referred to Syed Loya M.D. A digital rectal exam revealed a large, right prostatic lobe nodule. Repeat PSA level was 25.6 ng/mL. He declined a biopsy at that time. A transrectal ultrasound-guided biopsy performed on December 10, 2021 demonstrated a 34 cc prostate gland with a 1.2 cm hypoechoic lesion within the right lateral aspect of the prostate. The pathology report (personally reviewed in [employer]) diagnosed an adenocarcinoma the prostate gland with a Felton score of 5+5 = 10 (grade group 5) involving the right apex (100%) and a Clau score of 4+4 = 8 (grade group 4) in the cores biopsied from the right mid-gland, left lateral apex, and left lateral mid-gland. A nuclear medicine bone scintigraphy scan and an abdominopelvic CT scan metastatic disease did not identify metastatic disease. Cycle 2 of a GnRH agonist (Zoladex) was administered on April 28, 2022. Pelvic radiation therapy was delivered between the dates of March 23, 2022 through May 17, 2022. A prescribed dose of 78 Gy was delivered in 39 fractions encompassing 56 elapsed days. The prostate gland, seminal vesicles, and regional lymph node stations were treated utilizing an intensity modulated radiotherapy plan with a step and shoot treatment technique. The plan arranged nine gantry angles (0???, 40???, 80???, 120???, 160???, 200???, 240???, 280???, and 320???) replicating an arc. The collimator rotation was 0???. The field sizes spanned between 18.1 cm x 16.3 cm to 20.9 cm x 16.3 cm. The SSDs measured a minimum of 80.2 cm to a maximum of 89 cm. The ports delivered 184 MU, 208 MU, 172 MU, 160 MU, 157 MU, 167 MU, 147 MU, 169 MU, and 203 MU corresponding to the gantry angles described. The initial miles began on March 23 and continued through April 25, 2022. A prescribed dose of 46 Power was administered 23 fractions over 34 elapsed days. The prostate gland and seminal vesicles were subsequently treated incorporating and intensity modulated radiotherapy plan with a step and shoot treatment technique. The plan designed nine gantry angles (0???, 40???, 80???, 120???, 160???, 200???, 240???, 280???, and 320???) replicating an arc. The collimator rotation was 0???. The field measured between 11.3 cm x 7.8 cm to 12.6 cm x 8 cm. The SSDs breadths were 79.2 cm to 88.1 cm. The ports allocated 125 MU, 117 MU, 73 MU, 65 MU, 127 MU, 116 MU, 73 MU, 78 MU, and 90 MU corresponding to the gantry angles described. The reduced ports started on April 26, 2022 and concluded on May 17, 2022. An additional 32 Gy was allocated in 16 fractions over 22 elapsed days. All treatments were performed with the [employer] linear accelerator and an isocentric technique. High energy photons were prescribed. The dose was calculated by Anisotropic Analytic Algorithm with the plan normalized to deliver 100% of the prescription dose to 98% of the planning target volume. Signed by: Dr. Abebe Ugalde 05/17/2022 1:17:46 PM
--- NOTE | 2022-05-17 13:48 | ONCRAD TMN_ITS ---
Radiation Oncology Treatment Management Note Patient Name: Narciso Rider Date of : 1945 Date of Service: 05/17/2022 Attending Physician: Abebe Ugalde M.D. Narciso Rider is a 77 year old white male diagnosed with a clinical stage IIIC (T2aN0) very high-risk stratification prostate cancer. He initially was identified to have an elevated PSA level (22.6 ng/mL) in July 2021 by his primary care physician. He was referred to Syed Loya M.D. A digital rectal exam revealed a large, right prostatic lobe nodule. Repeat PSA level was 25.6 ng/mL. He declined a biopsy at that time. A transrectal ultrasound-guided biopsy performed on December 10, 2021 demonstrated a 34 cc prostate gland with a 1.2 cm hypoechoic lesion within the right lateral aspect of the prostate. The pathology report (personally reviewed in [employer]) diagnosed an adenocarcinoma the prostate gland with a Clau score of 5+5 = 10 (grade group 5) involving the right apex (100%) and a [place] score of 4+4 = 8 (grade group 4) in the cores biopsied from the right mid-gland, left lateral apex, and left lateral mid-gland. A nuclear medicine bone scintigraphy scan and an abdominopelvic CT scan metastatic disease did not identify metastatic disease. Cycle 2 of a GnRH agonist (Zoladex) was administered on April 28, 2022. The patient has received 78 Gy of a prescribed 78 Power to the prostate and regional lymph nodes with an intensity modulated radiotherapy plan utilizing a step and shoot treatment technique. He has received neoadjuvant hormonal therapy. Upon review of systems, he did not report any complaints. On physical examination, the patient weighed 180 lbs. His temperature was 97 ???F and the blood pressure was 168/70 mmHg. The pulse was 56 bpm and his respiratory rate was 16. There was no erythema within the treatment miles. Prostate radiotherapy was completed today. Signed by: Dr. Abebe Ugalde 05/17/2022 1:47:00 PM
== END 2022-05-19 23:59 | disposition home or self-care (01) ==
PROVIDERS: Internal Medicine Hematology & Oncology; PCP Internal Medicine; Visit Provider Radiology Radiation Oncology
DX: Z51.0 Encounter for antineoplastic radiation therapy (principal); C61 Malignant neoplasm of prostate
CPT/HCPCS: 36415; 77014; 77300; 77336; 77338; 77385; 77427; 80053; 84153; 85025; 96372; 96402; 99214; J9202

== ENCOUNTER 2022-06-14 08:49 | Oncology outpatient (recurring) (ONCR) | payer MEDICARE, SELFPAY ==
[2022-06-07 10:49] LABS: Alanine Aminotransferase 26 U/L (0-41); Albumin Level 3.9 g/dL (3.5-5.2); Alkaline Phosphatase 70 IU/L (40-130); Blood Urea Nitrogen 7 mg/dL (8-23); Calcium 8.8 mg/dL (8.5-10.5); Carbon Dioxide 31 mmol/L (22-29); Chloride 97 mmol/L (98-107); Globulin 2.9 g/dL (1.3-4.6); Glucose 96 mg/dL (65-115); Osmolality Calculated 280 mOsm/kg (285-295); Prostate Specific Antigen 0.032 ng/mL (0-4); Sodium 136 mmol/L (136-145); Total Bilirubin 0.4 mg/dL (0.15-1.2); Total Protein 6.8 g/dL (6.6-8.7)
[2022-06-07 10:50] LABS: Anion Gap 11.7 (5-19); Potassium 3.7 mmol/L (3.5-5.1)
[2022-06-07 11:13] LABS: Aspartate Amino Transferase 30 U/L (0-40)
== END 2022-06-19 23:59 | disposition home or self-care (01) ==
PROVIDERS: Internal Medicine Hematology & Oncology; PCP Internal Medicine; Visit Provider Radiology Radiation Oncology
DX: C61 Malignant neoplasm of prostate; R97.20 Elevated prostate specific antigen [PSA]; Z92.3 Personal history of irradiation
CPT/HCPCS: 36415; 80053; 84153; 99214

== ENCOUNTER 2022-07-20 14:00 | Oncology outpatient (recurring) (ONCR) | payer MEDICARE, SELFPAY ==
--- NOTE | 2022-06-24 10:52 | ONCRAD EPV_ITS ---
Radiation Oncology Follow-Up Note Patient Name: Narciso Rider Date of : 1945 Date of Service: 06/24/2022 Attending Physician: Abebe Ugalde M.D. Narciso Rider returned to my office this morning for a routinely scheduled follow-up appointment. He completed definitive prostate radiotherapy in April for the management of a clinical stage IIIC (T2aN0) very high-risk stratification prostate cancer. He initially was identified to have an elevated PSA level (22.6 ng/mL) in July 2021 by his primary care physician. He was referred to Syed Loya M.D. A digital rectal exam revealed a large, right prostatic lobe nodule. Repeat PSA level was 25.6 ng/mL. He declined a biopsy at that time. A transrectal ultrasound-guided biopsy performed on December 10, 2021 demonstrated a 34 cc prostate gland with a 1.2 cm hypoechoic lesion within the right lateral aspect of the prostate. The pathology report (personally reviewed in [employer]) diagnosed an adenocarcinoma the prostate gland with a Clau score of 5+5 = 10 (grade group 5) involving the right apex (100%) and a [place] score of 4+4 = 8 (grade group 4) in the cores biopsied from the right mid-gland, left lateral apex, and left lateral mid-gland. A nuclear medicine bone scintigraphy scan and an abdominopelvic CT scan metastatic disease did not identify metastatic disease. Cycle 2 of a GnRH agonist (Zoladex) was administered on April 28, 2022. Pelvic radiation therapy was delivered between the dates of March 23, 2022 through May 17, 2022. A prescribed dose of 78 Gy was delivered in 39 fractions encompassing 56 elapsed days. On review of systems, he On physical examination, the patient weighed 186 pounds. The temperature is 98.1???F and his blood pressure was 182/96 mmHg. The pulse was 61 bpm and his respiratory rate was 15 breaths per minute. Genitourinary exam was deferred. In summary, Mr. Rider returned for a routine post-radiotherapy follow-up. There are no significant sequelae from treatment. A PSA obtained in April was 0.03 ng/mL. He is currently receiving adjuvant ADT (Zoladex) and has an appointment to discuss chemotherapy his medical oncologist. Signed by: Dr. Abebe Ugalde 06/24/2022 10:50:20 AM
== END 2022-07-20 23:59 | disposition home or self-care (01) ==
PROVIDERS: PCP Internal Medicine; Visit Provider Radiology Radiation Oncology
DX: C61 Malignant neoplasm of prostate (principal)
CPT/HCPCS: 99024

== ENCOUNTER 2022-07-22 08:50 | Oncology outpatient (recurring) (ONCR) | payer MEDICARE, SELFPAY ==
[2022-07-22 09:49] LABS: Prostate Specific Antigen < 0.014 ng/mL (0-4)
[2022-07-22] MEDS: leuprolide 22.5 mg Kit IM (11:14)
== END 2022-08-19 23:59 | disposition home or self-care (01) ==
PROVIDERS: Internal Medicine Hematology & Oncology; PCP Internal Medicine; Visit Provider Radiology Radiation Oncology
DX: C61 Malignant neoplasm of prostate; Z79.818 Long term (current) use of other agents affecting estrogen receptors and estrogen levels; Z92.3 Personal history of irradiation; Z87.891 Personal history of nicotine dependence
CPT/HCPCS: 84153; 96402; 99214; J9217

== ENCOUNTER 2022-10-28 08:17 | Oncology outpatient (recurring) (ONCR) | payer MEDICARE, SELFPAY ==
[2022-10-28 09:34] LABS: Prostate Specific Antigen < 0.014 ng/mL (0-4)
[2022-10-28] MEDS: leuprolide 22.5 mg Kit IM (10:13)
== END 2022-11-19 23:59 | disposition home or self-care (01) ==
PROVIDERS: Internal Medicine Hematology & Oncology; PCP Internal Medicine; Visit Provider Radiology Radiation Oncology
DX: C61 Malignant neoplasm of prostate (principal); Z79.818 Long term (current) use of other agents affecting estrogen receptors and estrogen levels; Z92.3 Personal history of irradiation; Z87.891 Personal history of nicotine dependence; R53.83 Other fatigue; R53.1 Weakness
CPT/HCPCS: 84153; 96402; 99214; J9217

== ENCOUNTER 2022-11-28 00:53 | Emergency (ER) | payer MEDICARE, SELFPAY ==
[2022-11-28 00:57] VITALS: BMI 25.0
[2022-11-28 01:00] VITALS: BP 144/74; PULSE 77; RESP 17; TEMP 36.6; O2SAT 96
--- NOTE | 2022-11-28 01:11 | XRR_ITS ---
PROCEDURE INFORMATION: Exam: XR Chest Exam date and time: 11/28/2022 1:34 AM Age: 77 years old Clinical indication: Pain; Chest pressure; Additional info: Chest pain TECHNIQUE: Imaging protocol: Radiologic exam of the chest. Views: 1 view. COMPARISON: CR XR chest 1V portable [id number] 03/30/2021 11:02 PM FINDINGS: Tubes, catheters and devices: EKG monitoring leads overlie the thoracic wall. Lungs: There is no evidence of focal pulmonary consolidation. Pleural spaces: No pleural effusion or pneumothorax. Heart/Mediastinum: The heart and mediastinum are normal in size. Bones/joints: Unremarkable. XR/XR chest 1V portable [id number] IMPRESSION: No acute findings.
--- NOTE | 2022-11-28 01:11 | ECG_ITS ---
[facility] Test Date: 2022-11-28 Pat Name: Narciso Rider Department: Room: Gender: Male Him Manager: : 1945 Requested By: Silvia Vargas Order Number: [id number] Rey MD: Thien Peres M.D. Measurements Intervals [place] Rate: 59 P: 0 [place]: 0 QRS: 71 QRSD: 106 T: 36 QT: 385 QTc: 383 Interpretive Statements ATRIAL FIBRILLATION WITH SLOW VENTRICULAR RESPONSE NONSPECIFIC ST & T-WAVE ABNORMALITY ABNORMAL RHYTHM ECG Compared to ECG 03/31/2021 01:35:45 T-wave abnormality now present Intraventricular conduction delay no longer present ST (T wave) deviation no longer present Electronically Signed On 11-28-2022 20:25:34 [employer] by Thien Peres M.D. [id number]
--- NOTE | 2022-11-28 01:22 | ED_ITS ---
Documented by User: LUIS Rayo 11/28/22 04:10 HPI - Chest Pain General: Chief Complaint: Chest Pain Stated Complaint: CHEST PAIN Time Seen by Provider: 11/28/22 01:11 Source: patient Mode of arrival: EMS Limitations: no limitations History of Present Illness: Patient presents emergency department today brought by EMS for evaluation treatment of headache and chest pain. EMS report indicates patient had called them for concerns of chest pains. He reportedly took some nitro he had at home but was significantly . Patient received nitro and full dose aspirin in route by EMS and indicated to the EMS crew his chest pain was improved upon arrival. However, patient continues to complain of headache. He states his headache started prior to taking nitro and originated on the top of his head. He states that went back to the back and is now also fe lt in the front. He has not had any visual changes. He has not had any nausea or vomiting. Patient reports some diarrhea recently. Patient has had some cough but denies any fevers or sore throat. Patient's active problems list indicate prostate cancer and is currently receiving chemo injections-last injection was in October, however, patient takes digoxin, metoprolol, hydrochlorothiazide, and atorvastatin. 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 Indicatedin the room that his back was sore. Associated symptoms: Deny syncope Review of Systems General: Reports: 10 or more systems reviewed and unremarkable except in HPI and below Card: Reports: chest pain and irregular heart rhythm (chronic); Denies: syncope Resp: Reports: non-productive cough Neuro: Reports: headache(s) (originated in top of head, now back and front); Denies: dizziness, confusion, Slurred speech present or difficulty communicating thoughts PFS ED PFSH: Medical History Elevated PSA >13 September 2021. Unaware of prior remote PSAs. 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 Declined biopsy August 2021 did agree to follow-up though Surgical History History of coronary angioplasty Family History Mother Bleeding disorder Father , AT AGE 53 Heart disease Social History Smoking and tobacco status: former smoker (smoked 30 years) Alcohol intake: never Marital status: / Current occupational status: retired History of recent travel: No Physical Exam Const: COMMON NORMALS: no acute distress, patient oriented x3 and alert HENMT: COMMON NORMALS: normocephalic, atraumatic, hearing grossly normal bilaterally and moist oral mucous membranes HEAD & SCALP: normocephalic and atraumatic Eye: COMMON NORMALS: Equal, round and reactive pupils present, EOMs intact bilaterally and conjunctivae normal CONJUNCTIVA: Yes conjunctivae normal PUPIL: Yes Equal, round and reactive pupils present Neck/C-Spine: COMMON NORMALS: full ROM and no JVD Lymph: LYMPHATIC: no lymphadenopathy noted Resp: COMMON NORMALS: normal respiratory effort, No retractions, No use of accessory muscles and clear to auscultation bilaterally AUSCULTATION: clear to auscultation bilaterally Cardio: COMMON NORMALS: no JVD and regular rate RATE: regular rate RHYTHM: abnormal rhythm GI: COMMON NORMALS: Normal to inspection, nondistended, normoactive bowel sounds present, Soft to palpation and non-tender PALPATION: Yes Soft to palpation Back/Pelvis: COMMON NORMALS: negative for no thoracic nor lumbar tenderness Extremity: COMMON NORMALS: normal to inspection, full ROM and capillary refill normal Neuro: COMMON NORMALS: patient oriented x3 SENSORIUM/ORIENTATION: Yes alert Psych: COMMON NORMALS: mental status grossly normal, Normal thought process present, cooperative (Somewhat difficult to get to answer history and participate in HPI.), normal affect and activity/motor behavior normal THOUGHT PROCESS: Normal thought process present Skin: COMMON NORMALS: no rashes or lesions noted and no wounds GENERAL SKIN EXAM: no rashes or lesions noted Course Vital Signs: Vital signs: Vital Signs Temperature 97.8 F 11/28/22 01:00 Pulse Rate 68 11/28/22 05:04 Respiratory Rate 18 11/28/22 05:04 Blood Pressure 142/78 11/28/22 05:04 Pulse Oximetry 96 11/28/22 05:04 Oxygen Delivery Me thod 11/28/22 02:30 MDM - Chest Pain Medical Decision Making Patient presents to the emergency department today for complaints of chest pains as well as headache. Patient was given aspirin and nitro in route by EMS and indicated improvement of his chest pain but, patient continues to have a significant headache. Patient is currently undergoing chemotherapy. He is also on blood thinners and blood pressure medications. Lab work showed a decrease in hemoglobin but, patient is only a few weeks out from his chemotherapy injection and could be related to cancer treatment. Patient is just slightly supratherapeutic on his digoxin level. Patient is therapeutic on his PT/INR. D-dimer was negative. Chest x-ray was negative. Patient's baseline troponin is minimally elevated. Discussed with patient I do not have a good reason for his significant headache and requested CT of his head. Patient agreed. Transfer of care given to Dr. Up while still waiting for CT results. Differential Diagnosis Likely acute massive pulmonary embolism and acute myocardial infarction (ICH, TIA, pneumonia, pleural effusion, CHF) Lab Data 11/28/22 01:02 11/28/22 01:02 Radiology Impressions Chest X-Ray 11/28/22 01:11 IMPRESSION: No acute findings. Head CT 11/28/22 02:51 IMPRESSION: 1. No evidence of acute intracranial hemorrhage, midline shift of brain edema. 2. Mild ventriculomegaly that may represent central atrophy or normal pressure hydrocephalus. Workup for normal pressure hydrocephalus may be considered if clinically indicated. 3. Mild chronic microischemic changes of white matter. 4. 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 5. Paranasal sinus disease as above. Laboratory Results WBC 4.0 10^3/uL (4.0-10.0) 11/28/22 01:02 RBC 3.28 10^6/uL (4.1-5.3) L 11/28/22 01:02 Hgb 10.4 g/dL (11.7-16.6) L 11/28/22 01:02 Hct 31.8 % (42.0-52.0) L 11/28/22 01: MCV 97.0 fl (80-94) H 11/28/22 01:02 MCH 31.7 pg (28.0-34.0) 11/28/22 01:02 MCHC 32.7 g/dL (30.0-36.0) 11/28/22 01: RDW 14.4 % (12.1-15.1) 11/28/22 01:02 Plt Count 163 10^3/cmm (130-400) 11/28/22 01:02 MPV 10.3 fL (7.4-10.4) 11/28/22 01:02 Neut % (Auto) 74.1 % 11/28/22 01:02 Lymph % (Auto) 13.2 % 11/28/22 01:02 [place] % (Auto) 5.8 % 11/28/22 01:02 Eos % (Auto) 6.1 % 11/28/22 01:02 Baso % (Auto) 0.5 % 11/28/22 01:02 Neut # (Auto) 2.93 10^3/uL (1.8-7.7) 11/28/22 01:02 Lymph # (Auto) 0.5 10^3/uL (0.8-4.8) L 11/28/22 01:02 [place] # (Auto) 0.2 10^3/uL (0.2-0.9) 11/28/22 01:02 Eos # (Auto) 0.2 10^3/uL (0.0-0.8) 11/28/22 01:02 Baso # (Auto) 0.0 10^3/uL (0.0-0.1) 11/28/22 01:02 Nucleated RBC % (auto) 0 % 11/28/22 01:02 Nucleated RBCs # 0.0 /100WBC 11/28/22 01:02 PT 17.10 SECONDS (12.1-14.9) H 11/28/22 01:02 INR 1.36 (0.8-1.2) H 11/28/22 01:02 APTT 32.6 SECONDS (23.9-36.7) 11/28/22 01:02 D-Dimer 0.31 ug/mIFEU (0-0.59) 11/28/22 01:02 Sodium 139 mmol/L (136-145) 11/28/22 01:02 Potassium 3.2 mmol/L (3.5-5.1) L 11/28/22 01:02 Chloride 103 mmol/L (98-107) 11/28/22 01:02 Carbon Dioxide 25 mmol/L (22-29) 11/28/22 01:02 Anion Gap 14.2 (5-19) 11/28/22 01:02 BUN 9 mg/dL (8-23) 11/28/22 01:02 Creatinine 0.6 mg/dL (0.7-1.2) L 11/28/22 01:02 GFR Calculation Not Reportable 11/28/22 01:02 Glucose 102 mg/dL (65-115) 11/28/22 01:02 Calculated Osmolality 287 mOsm/kg (285-295) 11/28/22 01:02 Calcium 8.3 mg/dL (8.5-10.5) L 11/28/22 01:02 Total Bilirubin 0.2 mg/dL (0.15-1.2) 11/28/22 01:02 AST 17 U/L (0-40) 11/28/22 01:02 ALT 18 U/L (0-41) 11/28/22 01:02 Alkaline Phosphatase 69 U/L (40-130) 11/28/22 01:02 Troponin T Baseline 20 ng/L (0-15) H 11/28/22 01:02 Troponin T 120 Minute 18.62 ng/L (0-15) H 11/28/22 03:47 Delta Troponin T -1.38 ABS# (0-10) L 11/28/22 03:47 Total Protein 6.1 g/dL (6.6-8.7) L 11/28/22 01:02 Albumin 3.8 g/dL (3.5-5.2) 11/28/22 01:02 Globulin 2.3 g/dL (1.3-4.6) 11/28/22 01:02 Urine Color Light yellow (Yellow) 11/28/22 03:09 Urine Appearance Clear (CLEAR) 11/28/22 03:09 Urine pH 7 (5-7) 11/28/22 03:09 Ur Specific [place] 1.005 (1.005-1.030) 11/28/22 03:09 Urine Protein Neg (Negative) 11/28/22 03:09 Urine Glucose (UA) Norm (Normal) 11/28/22 03:09 Urine Ketones Negative (Negative) 11/28/22 03:09 Urine Blood 2+ (Negative) H 11/28/22 03:09 Urine Nitrate Negative (Negative) 11/28/22 03:09 Urine Bilirubin Neg (Negative) 11/28/22 03:09 Urine Urobilinogen Neg mg/dL (Negative) 11/28/22 03:09 Ur Leukocyte Esterase Negative (Negative) 11/28/22 03:09 Urine RBC 5-10 /hpf (0-2) H 11/28/22 03:09 Urine WBC 0-4 /hpf (0-5) H 11/28/22 03:09 Ur Squamous Epith Cells 0-4 /hpf (0-5) H 11/28/22 03:09 Amorphous Sediment Not Reportable 11/28/22 03:09 Urine Bacteria Trace /hpf (NONE) 11/28/22 03:09 Digoxin 1.4 ng/mL (0.6-1.2) H 11/28/22 01:02 Discharge Plan Discharge Patient Disposition: Home Clinical Impression: Chest pain Condition: Stable Prescriptions: No Action finasteride 5 mg tablet 5 mg PO DAILY acetaminophen [Tylenol Extra Strength] 500 mg tablet 1,000 mg PO BID PRN nitroglycerin 0.4 mg tablet, sublingual 0.4 mg sublingual Q5M PRN Rx Instructions: do not exceed 3 doses per episode metoprolol tartrate 100 mg tablet 200 mg PO BID diazepam 10 mg tablet 10 mg PO ONCE Qty: 1 0RF Rx Instructions: 1 hour before procedure potassium chloride 20 mEq tablet extended release 20 meq PO DAILY 2 Days Qty: 2 0RF bicalutamide 50 mg tablet See Rx Instructions .ROUTE .COMPLEX Qty: 30 3RF Dose Instruction: TAKE 1 TABLET BY MOUTH EVERY DAY Rx Instructions: TAKE 1 TABLET BY MOUTH EVERY DAY digoxin 250 mcg (0.25 mg) tablet DAILY omeprazole 40 mg capsule,delayed release(DR/EC) BID hydrochlorothiazide 25 mg tablet DAILY warfarin 3 mg tablet DAILY atorvastatin 20 mg tablet DAILY Compazine 10 mg tablet 10 mg PO Q4H PRN (Reason: Mild Nausea) Qty: 30 3RF lorazepam 1 mg tablet 0.5 - 1 mg PO Q6H PRN (Reason: Severe Nausea) Qty: 30 3RF Discharge Orders: Discharge ED (Routine); Ordered 11/28/22 Ordered By: Ryan Up Referrals: Narciso Botello DO [Primary Care Provider] - 1-3 days Patient Instructions: Chest Pain (ED) Activity Restrictions/Additional Instructions: Hold your digoxin dose today as your level was mildly high. Resume it tomorrow. Return for worsening pain, worsening shortness of breath, other concerning symptoms. See your doctor in the next couple of days. They may wish to run mo re outpatient tests. Coding Level of Care Code ED Neuroscience Director Na for Chg Fwd Exam Comprehensive Documented by User: Ryan Up DO 11/29/22 12:59 HPI - Chest Pain General: Chief Complaint: Chest Pain Stated Complaint: CHEST PAIN Time Seen by Provider: 11/28/22 01:11 PFS ED PFSH: Medical History Elevated PSA >13 September 2021. Unaware of prior remote PSAs. 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 Declined biopsy August 2021 did agree to follow-up though Surgical History History of coronary angioplasty Family History Mother Bleeding disorder Father , AT AGE 53 Heart disease Social History Smoking and tobacco status: former smoker (smoked 30 years) Alcohol intake: never Marital status: / Current occupational status: retired History of recent travel: No Course Vital Signs: Vital signs: Vital Signs Temperature 97.8 F 11/28/22 01:00 Pulse Rate 68 11/28/22 05:04 Respiratory Rate 18 11/28/22 05:04 Blood Pressure 142/78 11/28/22 05:04 Pulse Oximetry 96 11/28/22 05:04 Oxygen Delivery Me thod 11/28/22 02:30 MDM - Chest Pain Medical Decision Making Patient presents to the emergency department today for complaints of chest pains as well as headache. Patient was given aspirin and nitro in route by EMS and indicated improvement of his chest pain but, patient continues to have a significant headache. Patient is currently undergoing chemotherapy. He is also on blood thinners and blood pressure medications. Lab work showed a decrease in hemoglobin but, patient is only a few weeks out from his chemotherapy injection and could be related to cancer treatment. Patient is just slightly suprat herapeutic on his digoxin level. Patient is therapeutic on his PT/INR. D-dimer was negative. Chest x-ray was negative. Patient's baseline troponin is minimally elevated. Discussed with patient I do not have a good reason for his significant headache and requested CT of his head. Patient agreed. Transfer of care given to Dr. Up while still waiting for CT results. Taken over at change of shift. There was only mild increased ventricle size on CT likely related to age. 2nd troponin did not elevate signficantly. He'll be allowed home. Lab Data 11/28/22 01:02 11/28/22 01:02 Radiology Impressions Chest X-Ray 11/28/22 01:11 IMPRESSION: No acute findings. Head CT 11/28/22 02:51 IMPRESSION: 1. No evidence of acute intracranial hemorrhage, midline shift of brain edema. 2. Mild ventriculomegaly that may represent central atrophy or normal pressure hydrocephalus. Workup for normal pressure hydrocephalus may be considered if clinically indicated. 3. Mild chronic microischemic changes of white matter. 4. 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 5. Paranasal sinus disease as above. Laboratory Results WBC 4.0 10^3/uL (4.0-10.0) 11/28/22 01:02 RBC 3.28 10^6/uL (4.1-5.3) L 11/28/22 01:02 Hgb 10.4 g/dL (11.7-16.6) L 11/28/22 01:02 Hct 31.8 % (42.0-52.0) L 11/28/22 01:02 MCV 97.0 fl (80-94) H 11/28/22 01:02 MCH 31.7 pg (28.0-34.0) 11/28/22 01:02 MCHC 32.7 g/dL (30.0-36.0) 11/28/22 01:02 RDW 14.4 % (12.1-15.1) 11/28/22 01:02 Plt Count 163 10^3/cmm (130-400) 11/28/22 01:02 MPV 10.3 fL (7.4-10.4) 11/28/22 01:02 Neut % (Auto) 74.1 % 11/28/22 01:02 Lymph % (Auto) 13.2 % 11/28/22 01:02 [place] % (Auto) 5.8 % 11/28/22 01:02 Eos % (Auto) 6.1 % 11/28/22 01:02 Baso % (Auto) 0.5 % 11/28/22 01:02 Neut # (Auto) 2.93 10^3/uL (1.8-7.7) 11/28/22 01:02 Lymph # (Auto) 0.5 10^3/uL (0.8-4.8) L 11/28/22 01:02 [place] # (Auto) 0.2 10^3/uL (0.2-0.9) 11/28/22 01:02 Eos # (Auto) 0.2 10^3/uL (0.0-0.8) 11/28/22 01:02 Baso # (Auto) 0.0 10^3/uL (0.0-0.1) 11/28/22 01:02 Nucleated RBC % (auto) 0 % 11/28/22 01:02 Nucleated RBCs # 0.0 /100WBC 11/28/22 01:02 PT 17.10 SECONDS (12.1-14.9) H 11/28/22 01:02 INR 1.36 (0.8-1.2) H 11/28/22 01:02 APTT 32.6 SECONDS (23.9-36.7) 11/28/22 01:02 D-Dimer 0.31 ug/mIFEU (0-0.59) 11/28/22 01:02 Sodium 139 mmol/L (136-145) 11/28/22 01:02 Potassium 3.2 mmol/L (3.5-5.1) L 11/28/22 01:02 Chloride 103 mmol/L (98-107) 11/28/22 01:02 Carbon Dioxide 25 mmol/L (22-29) 11/28/22 01:02 Anion Gap 14.2 (5-19) 11/28/22 01:02 BUN 9 mg/dL (8-23) 11/28/22 01:02 Creatinine 0.6 mg/dL (0.7-1.2) L 11/28/22 01:02 GFR Calculation Not Reportable 11/28/22 01:02 Glucose 102 mg/dL (65-115) 11/28/22 01:02 Calculated Osmolality 287 mOsm/kg (285-295) 11/28/22 01:02 Calcium 8.3 mg/dL (8.5-10.5) L 11/28/22 01:02 Total Bilirubin 0.2 mg/dL (0.15-1.2) 11/28/22 01:02 AST 17 U/L (0-40) 11/28/22 01:02 ALT 18 U/L (0-41) 11/28/22 01:02 Alkaline Phosphatase 69 U/L (40-130) 11/28/22 01:02 Troponin T Baseline 20 ng/L (0-15) H 11/28/22 01:02 Troponin T 120 Minute 18.62 ng/L (0-15) H 11/28/22 03:47 Delta Troponin T -1.38 ABS# (0-10) L 11/28/22 03:47 Total Protein 6.1 g/dL (6.6-8.7) L 11/28/22 01:02 Albumin 3.8 g/dL (3.5-5.2) 11/28/22 01:02 Globulin 2.3 g/dL (1.3-4.6) 11/28/22 01:02 Urine Color Light yellow (Yellow) 11/28/22 03:09 Urine Appearance Clear (CLEAR) 11/28/22 03:09 Urine pH 7 (5-7) 11/28/22 03:09 Ur Specific [place] 1.005 (1.005-1.030) 11/28/22 03:09 Urine Protein Neg (Negative) 11/28/22 03:09 Urine Glucose (UA) Norm (Normal) 11/28/22 03:09 Urine Ketones Negative (Negative) 11/28/22 03:09 Urine Blood 2+ (Negative) H 11/28/22 03:09 Urine Nitrate Negative (Negative) 11/28/22 03:09 Urine Bilirubin Neg (Negative) 11/28/22 03:09 Urine Urobilinogen Neg mg/dL (Negative) 11/28/22 03:09 Ur Leukocyte Esterase Negative (Negative) 11/28/22 03:09 Urine RBC 5-10 /hpf (0-2) H 11/28/22 03:09 Urine WBC 0-4 /hpf (0-5) H 11/28/22 03:09 Ur Squamous Epith Cells 0-4 /hpf (0-5) H 11/28/22 03:09 Amorphous Sediment Not Reportable 11/28/22 03:09 Urine Bacteria Trace /hpf (NONE) 11/28/22 03:09 Digoxin 1.4 ng/mL (0.6-1.2) H 11/28/22 01:02 Discharge Plan Discharge Patient Disposition: Home Clinical Impression: Chest pain Condition: Stable Prescriptions: No Action finasteride 5 mg tablet 5 mg PO DAILY acetaminophen [Tylenol Extra Strength] 500 mg tablet 1,000 mg PO BID PRN nitroglycerin 0.4 mg tablet, sublingual 0.4 mg sublingual Q5M PRN Rx Instructions: do not exceed 3 doses per episode metoprolol tartrate 100 mg tablet 200 mg PO BID diazepam 10 mg tablet 10 mg PO ONCE Qty: 1 0RF Rx Instructions: 1 hour before procedure potassium chloride 20 mEq tablet extended release 20 meq PO DAILY 2 Days Qty: 2 0RF bicalutamide 50 mg tablet See Rx Instructions .ROUTE .COMPLEX Qty: 30 3RF Dose Instruction: TAKE 1 TABLET BY MOUTH EVERY DAY Rx Instructions: TAKE 1 TABLET BY MOUTH EVERY DAY digoxin 250 mcg (0.25 mg) tablet DAILY omeprazole 40 mg capsule,delayed release(DR/EC) BID hydrochlorothiazide 25 mg tablet DAILY warfarin 3 mg tablet DAILY atorvastatin 20 mg tablet DAILY Compazine 10 mg tablet 10 mg PO Q4H PRN (Reason: Mild Nausea) Qty: 30 3RF lorazepam 1 mg tablet 0.5 - 1 mg PO Q6H PRN (Reason: Severe Nausea) Qty: 30 3RF Discharge Orders: Discharge ED (Routine); Ordered 11/28/22 Ordered By: Ryan Up Referrals: Narciso Botello DO [Primary Care Provider] - 1-3 days Patient Instructions: Chest Pain (ED) Activity Restrictions/Additional Instructions: Hold your digoxin dose today as your level was mildly high. Resume it tomorrow. Return for worsening pain, worsening shortness of breath, other concerning symptoms. See your doctor in the next couple of days. They may wish to run more outpatient tests. Coding Level of Care Code ED Neuroscience Director Na for Karlyg Fwd Exam Comprehensive
[2022-11-28 01:30] LABS: Basophils % 0.5 %; Eosinophils # 0.2 10^3/uL (0.0-0.8); Eosinophils % 6.1 %; Hematocrit 31.8 % (42.0-52.0); Hemoglobin 10.4 g/dL (11.7-16.6); Lymphocytes # 0.5 10^3/uL (0.8-4.8); Lymphocytes % 13.2 %; Mean Corpuscular HGB Conc 32.7 g/dL (30.0-36.0); Mean Corpuscular Hemoglobin 31.7 pg (28.0-34.0); Mean Platelet Volume 10.3 fL (7.4-10.4); Monocytes # 0.2 10^3/uL (0.2-0.9); Monocytes % 5.8 %; Neutrophils # 2.93 10^3/uL (1.8-7.7); Neutrophils % 74.1 %; Nucleated Red Blood Cells % 0 %; Platelet Count 163 10^3/cmm (130-400); Red Blood Count 3.28 10^6/uL (4.1-5.3); Red Cell Distribution Width 14.4 % (12.1-15.1)
[2022-11-28 01:36] LABS: INR 1.36 (0.8-1.2); Partial Thromboplastin Time 32.6 SECONDS (23.9-36.7)
[2022-11-28 01:39] LABS: D Dimer 0.31 ug/mIFEU (0-0.59)
[2022-11-28 01:41] LABS: Troponin(5th) Baseline 20 ng/L (0-15)
[2022-11-28 01:44] LABS: Alanine Aminotransferase 18 U/L (0-41); Albumin Level 3.8 g/dL (3.5-5.2); Alkaline Phosphatase 69 U/L (40-130); Anion Gap 14.2 (5-19); Aspartate Amino Transferase 17 U/L (0-40); Blood Urea Nitrogen 9 mg/dL (8-23); Calcium 8.3 mg/dL (8.5-10.5); Carbon Dioxide 25 mmol/L (22-29); Chloride 103 mmol/L (98-107); Digoxin 1.4 ng/mL (0.6-1.2); Globulin 2.3 g/dL (1.3-4.6); Glucose 102 mg/dL (65-115); Osmolality Calculated 287 mOsm/kg (285-295); Potassium 3.2 mmol/L (3.5-5.1); Sodium 139 mmol/L (136-145); Total Bilirubin 0.2 mg/dL (0.15-1.2); Total Protein 6.1 g/dL (6.6-8.7)
[2022-11-28 02:30] VITALS: BP 139/85; PULSE 63; RESP 18; O2SAT 99
[2022-11-28 02:31] VITALS: RESP 16; O2SAT 98
[2022-11-28] MEDS: morphine 4 mg/mL SDV 1 mL IVP (02:31)
[2022-11-28] MEDS: ondansetron 2 mg/ML SDV 2 mL 4 MG IVP (02:31)
--- NOTE | 2022-11-28 02:51 | CTR_ITS ---
PROCEDURE INFORMATION: Exam: CT Head Without Contrast Exam date and time: 11/28/2022 2:59 AM Age: 77 years old Clinical indication: Pain; Headache not specified; Additional info: Sudden headache tonight TECHNIQUE: Imaging protocol: Computed tomography of the head without contrast. Radiation optimization: All CT scans at this facility use at least one of these dose optimization techniques: automated exposure control; mA and/or kV adjustment per patient size (includes targeted exams where dose is matched to clinical indication); or iterative reconstruction. COMPARISON: NM bone scan whole body* [id number] 01/10/2022 7:43 AM RADIATION DOSE METRICS: Total DLP (mGy-cm): 1235.98 FINDINGS: Brain: There is no evidence of intracranial hemorrhage. No mass effect or midline shift. No territorial edema. There are mild confluent periventricular hypodensities consistent with chronic microischemic changes of white matter. There is cavum septum pellucidum et vergae, anatomic variant. There is encephalomalacia of the right occipital lobe consistent with a remote infarct. There is mild cerebellar atrophy. Cerebral ventricles: There is moderate volume loss. Mild ventriculomegaly is noted, somewhat out of proportion to the degree of sulcal prominence. Paranasal sinuses: There is mucoperiosteal thickening of multiple ethmoid air cells with opacification of some bilateral air cells. There is mild mucoperiosteal thickening and a small air-fluid level in the right maxillary sinus. Mastoid air cells: The visualized mastoid air cells are well aerated. Bones/joints: No acute fracture. Soft tissues: Unremarkable. Vasculature: There is atheromatous calcification of the intracranial internal carotid and vertebral arteries. CT/CT head wo con* [id number] IMPRESSION: 1. No evidence of acute intracranial hemorrhage, midline shift of brain edema. 2. Mild ventriculomegaly that may represent central atrophy or normal pressure hydrocephalus. Workup for normal pressure hydrocephalus may be considered if clinically indicated. 3. Mild chronic microischemic changes of white matter. 4. 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 5. Paranasal sinus disease as above.
[2022-11-28] MEDS: acetaminophen 325 mg Tablet 650 MG PO (03:43)
[2022-11-28 03:46] VITALS: BP 158/91; PULSE 66; RESP 16; O2SAT 97
[2022-11-28 03:48] LABS: Add Urine Microscopic? YES; Bilirubin Urine Neg (Negative); Blood Urine 2+ (Negative); Glucose Urine UA Norm (Normal); Ketones Urine Negative (Negative); Leukocyte Esterase Urine Negative (Negative); Nitrate Urine Negative (Negative); Protein Urine Neg (Negative); Specific Gravity, Urine 1.005 (1.005-1.030); Urine Appearance Clear (CLEAR); Urine Color Light yellow (Yellow); Urobilinogen Urine Neg (Negative); pH Urine 7 (5-7)
[2022-11-28 04:03] LABS: Add Urine Culture? No; Bacteria Urine TRACE /hpf; Squamous Epithelial Cell Urine 0-4 /hpf (0-5); WBC Urine 0-4 /hpf (0-5)
[2022-11-28 04:18] LABS: Troponin 5 2HR 18.62 ng/L (0-15)
[2022-11-28 04:20] LABS: Troponin 5 2HR Delta -1.38 ABS# (0-10)
[2022-11-28 04:45] VITALS: BP 166/84; PULSE 66; RESP 12; O2SAT 97
[2022-11-28 05:04] VITALS: BP 142/78; PULSE 68; RESP 18; O2SAT 96
== END 2022-11-28 05:40 | disposition home or self-care (01) ==
PROVIDERS: Emergency Medicine; Emergency Provider Physician Assistant; PCP Internal Medicine
DX: R07.9 Chest pain, unspecified (principal); Z79.01 Long term (current) use of anticoagulants; Z85.46 Personal history of malignant neoplasm of prostate; Z98.61 Coronary angioplasty status; Z87.891 Personal history of nicotine dependence
CPT/HCPCS: 70450; 71045; 80053; 80162; 81001; 84484; 85025; 85378; 85610; 85730; 93005; 96374; 96375; 99285; J2270; J2405

== ENCOUNTER 2023-01-30 11:14 | Oncology outpatient (recurring) (ONCR) | payer MEDICARE, SELFPAY ==
[2023-01-30 12:00] LABS: Basophils % 0.8 %; Eosinophils # 0.2 10^3/uL (0.0-0.8); Eosinophils % 5.6 %; Hematocrit 36.4 % (42.0-52.0); Hemoglobin 11.5 g/dL (11.7-16.6); Lymphocytes # 0.6 10^3/uL (0.8-4.8); Lymphocytes % 17.2 %; Mean Corpuscular HGB Conc 31.6 g/dL (30.0-36.0); Mean Corpuscular Hemoglobin 29.9 pg (28.0-34.0); Mean Corpuscular Volume 94.8 fl (80-94); Mean Platelet Volume 9.6 fL (7.4-10.4); Monocytes # 0.4 10^3/uL (0.2-0.9); Monocytes % 9.9 %; Neutrophils # 2.35 10^3/uL (1.8-7.7); Neutrophils % 66.2 %; Nucleated Red Blood Cells % 0 %; Platelet Count 139 10^3/cmm (130-400); Red Blood Count 3.84 10^6/uL (4.1-5.3); Red Cell Distribution Width 14.6 % (12.1-15.1); White Blood Count 3.6 10^3/uL (4.0-10.0)
[2023-01-30 12:36] LABS: Alanine Aminotransferase 20 U/L (0-41); Albumin Level 3.9 g/dL (3.5-5.2); Alkaline Phosphatase 74 U/L (40-130); Anion Gap 15.8 (5-19); Aspartate Amino Transferase 23 U/L (0-40); Blood Urea Nitrogen 14 mg/dL (8-23); Calcium 9.2 mg/dL (8.5-10.5); Carbon Dioxide 25 mmol/L (22-29); Chloride 105 mmol/L (98-107); Glucose 108 mg/dL (65-115); Osmolality Calculated 293 mOsm/kg (285-295); Potassium 4.8 mmol/L (3.5-5.1); Sodium 141 mmol/L (136-145); Total Bilirubin 0.2 mg/dL (0.15-1.2); Total Protein 6.9 g/dL (6.6-8.7)
[2023-01-30 12:39] LABS: Prostate Specific Antigen < 0.014 ng/mL (0-4)
[2023-01-30 13:01] LABS: Testosterone Total 9.8 ng/dL (193-740)
[2023-01-30] MEDS: leuprolide 22.5 mg Kit IM (14:46)
== END 2023-02-17 23:59 | disposition home or self-care (01) ==
PROVIDERS: Internal Medicine Hematology & Oncology; PCP Internal Medicine; Visit Provider Radiology Radiation Oncology
DX: C61 Malignant neoplasm of prostate (principal); Z79.818 Long term (current) use of other agents affecting estrogen receptors and estrogen levels; Z92.3 Personal history of irradiation; Z79.899 Other long term (current) drug therapy; D72.819 Decreased white blood cell count, unspecified; D64.9 Anemia, unspecified
CPT/HCPCS: 36415; 80053; 84153; 84403; 85025; 96402; 99214; J9217

== ENCOUNTER 2023-05-04 12:24 | Oncology outpatient (recurring) (ONCR) | payer MEDICARE, SELFPAY ==
[2023-05-04 14:20] LABS: Basophils % 0.6 %; Eosinophils # 0.3 10^3/uL (0.0-0.8); Eosinophils % 8.3 %; Hematocrit 32.3 % (42.0-52.0); Hemoglobin 10.5 g/dL (11.7-16.6); Lymphocytes # 0.6 10^3/uL (0.8-4.8); Lymphocytes % 15.8 %; Mean Corpuscular HGB Conc 32.5 g/dL (30.0-36.0); Mean Corpuscular Hemoglobin 30.6 pg (28.0-34.0); Mean Corpuscular Volume 94.2 fl (80-94); Mean Platelet Volume 9.9 fL (7.4-10.4); Monocytes # 0.3 10^3/uL (0.2-0.9); Monocytes % 8.9 %; Neutrophils # 2.37 10^3/uL (1.8-7.7); Neutrophils % 65.8 %; Nucleated Red Blood Cells % 0 %; Platelet Count 152 10^3/cmm (130-400); Red Blood Count 3.43 10^6/uL (4.1-5.3); Red Cell Distribution Width 15.3 % (12.1-15.1); White Blood Count 3.6 10^3/uL (4.0-10.0)
[2023-05-04 15:01] LABS: Alanine Aminotransferase 14 U/L (0-41); Albumin Level 3.7 g/dL (3.5-5.2); Alkaline Phosphatase 72 U/L (40-130); Aspartate Amino Transferase 17 U/L (0-40); Blood Urea Nitrogen 7 mg/dL (8-23); Calcium 8.8 mg/dL (8.5-10.5); Carbon Dioxide 27 mmol/L (22-29); Chloride 104 mmol/L (98-107); Globulin 2.9 g/dL (1.3-4.6); Glucose 94 mg/dL (65-115); Osmolality Calculated 288 mOsm/kg (285-295); Prostate Specific Antigen < 0.014 ng/mL (0-4); Sodium 140 mmol/L (136-145); Total Bilirubin 0.3 mg/dL (0.15-1.2); Total Protein 6.6 g/dL (6.6-8.7)
[2023-05-04] MEDS: leuprolide 22.5 mg Kit IM (15:30)
[2023-05-04 15:44] LABS: Ferritin 32 ng/mL (30-400); Iron 48 ug/dL (59-158); Percent Saturation 14.3 % (20-50); Total Iron Binding Capacity 335 mcg/dl; Unsaturated Iron Binding 287 ug/dL (112-347)
[2023-05-04 16:01] LABS: Vitamin B12 351 pg/mL (232-1245)
[2023-05-04 16:56] VITALS: BP 151/96; PULSE 96; RESP 16; TEMP 36.2; O2SAT 96
== END 2023-05-19 23:59 | disposition home or self-care (01) ==
PROVIDERS: PCP Internal Medicine; Visit Provider Internal Medicine Hematology & Oncology
DX: C61 Malignant neoplasm of prostate (principal); Z79.818 Long term (current) use of other agents affecting estrogen receptors and estrogen levels; Z92.3 Personal history of irradiation; D72.819 Decreased white blood cell count, unspecified; D64.9 Anemia, unspecified
CPT/HCPCS: 96372; 80053; 82607; 82728; 83540; 83550; 84153; 85025; 96402; 99214; J9217

== ENCOUNTER 2023-07-02 03:17 | Observation (INO) | payer MEDICARE, SELFPAY ==
[2023-07-02] VITALS (17 sets, daily range): BP systolic 120–168; BP diastolic 68–102; PULSE 79–101; RESP 16–30; TEMP 36.4–37.1; O2SAT 86–99; BMI 27.1
--- NOTE | 2023-07-02 03:21 | ECG_ITS ---
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 Measurements Intervals Foley Rate: 80 P: 0 AK: 0 QRS: 54 QRSD: 113 T: 56 QT: 373 QTc: 432 Interpretive Statements ATRIAL FIBRILLATION MODERATE INTRAVENTRICULAR CONDUCTION DELAY [110+ ms QRS DURATION] VOLTAGE CRITERIA FOR LVH [MEETS CRITERIA IN ONE OF: R(aVL), S(V1), R(V5), R(V5/V6)+S(V1)] Compared to ECG 11/28/2022 01:07:05 Intraventricular conduction delay now present Left ventricular hypertrophy now present T-wave abnormality no longer present Electronically Signed On 07-02-2023 11:30:14 CDT by Devyn Tuttle M.D. [id number]
--- NOTE | 2023-07-02 03:21 | XRR_ITS ---
PROCEDURE INFORMATION: Exam: XR Chest Exam date and time: 07/02/2023 3:29 AM Age: 78 years old Clinical indication: Cough and shortness of breath; Patient HX: Cough with SOB. History of copd. TECHNIQUE: Imaging protocol: Radiologic exam of the chest. Views: 1 view. COMPARISON: CR XR chest 1V portable [id number] 11/28/2022 1:34 AM FINDINGS: Lungs: Small calcified nodules are noted in the periphery of the right mid lung near the convexity. Pleural spaces: Unremarkable. No pleural effusion. No pneumothorax. Heart/Mediastinum: Unremarkable. No cardiomegaly. Bones/joints: Unremarkable. XR/XR chest 1V portable [id number] IMPRESSION: No acute cardiopulmonary disease.
--- NOTE | 2023-07-02 03:22 | ED_ITS ---
HPI - SOB/Dyspnea General: Chief Complaint: Shortness of Breath/Dyspnea Stated Complaint: RESP. DISTRESS Time Seen by Provider: 07/02/23 03:21 Source: patient and EMS Mode of arrival: EMS Limitations: no limitations History of Present Illness: HPI Narrative: 78-year-old male has a history of COPD states has been having shortness of breath along with cough throughout the day he states that tonight it worsened he is given breathing treatment along with Solu-Medrol in route he does not wear oxygen at home here his room air sats 86%. States some slight right-sided chest pain that sharp in nature with his cough. Associated symptoms: Deny abdominal pain, chest pain, fever(s), nausea or vomiting Review of Systems Const: Denies: fever(s), chills, body aches or change in appetite ENMT: Denies: throat pain or dental pain Card: Denies: chest pain Resp: Reports: dyspnea and productive cough GI: Denies: abdominal pain, nausea, vomiting or diarrhea Musc: Denies: neck pain or back pain Skin/Breast: Denies: rash Neuro: Denies: headache(s) PFSH ED PFSH: Medical History Elevated PSA >13 September 2021. Unaware of prior remote PSAs. 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 Declined biopsy August 2021 did agree to follow-up though Surgical History History of coronary angioplasty Family History Mother Bleeding disorder Father , AT AGE 53 Heart disease Social History Smoking and tobacco status: former smoker (smoked 30 years) Alcohol intake: never Substance/Drug Use: never Marital status: / Current occupational status: retired Physical Exam Const: COMMON NORMALS: patient oriented x3 GENERAL APPEARANCE: ill appearing HENMT: COMMON NORMALS: normocephalic and atraumatic HEAD & SCALP: normocephalic and atraumatic Neck/C-Spine: COMMON NORMALS: full ROM and supple Chest: COMMONS NORMALS: normal inspection of the chest and normal palpation of entire chest wall Resp: COMMON NORMALS: No use of accessory muscles EFFORT & INSPECTION: Yes tachypneic, Yes respiratory distress and Yes labored AUSCULTATION: wheezes Cardio: COMMON NORMALS: regular rate, regular rhythm and No murmurs present (Cardio) RATE: regular rate RHYTHM: regular rhythm GI: COMMON NORMALS: Normal to inspection, nondistended, normoactive bowel sounds present, Soft to palpation, non-tender and no masses PALPATION: Yes Soft to palpation Extremity: COMMON NORMALS: normal to inspection and full ROM Neuro: COMMON NORMALS: patient oriented x3, moves all extremities and no focal motor deficits Psych: COMMON NORMALS: mental status grossly normal, Normal thought process present and cooperative THOUGHT PROCESS: Normal thought process present Skin: COMMON NORMALS: no rashes or lesions noted and no wounds GENERAL SKIN EXAM: no rashes or lesions noted Course Vital Signs: Vital signs: Vital Signs Temperature 98.7 F 07/02/23 03:17 Pulse Rate 87 07/02/23 03:50 Respiratory Rate 18 07/02/23 03:50 Blood Pressure 162/102 07/02/23 03:36 Pulse Oximetry 95 07/02/23 03:50 Oxygen Delivery Me thod Nasal Cannula 07/02/23 03:50 Oxygen Flow Rate 4 07/02/23 03:50 MDM - SOB/Dyspnea Medical Decision Making Patient presents here with COPD exacerbation patient is requiring oxygen he is on 3 to 4 L of oxygen currently his breathing has improved here after breathing treatments no pneumonia COVID is negative spoke to hospitalist will admit for observation at this time Medical Records I reviewed the patient's medical records. Lab Data I reviewed the patient's lab results. 07/02/23 03:19 07/02/23 03:41 Labs/Radiology: Radiology Impressions Chest X-Ray 07/02/23 03:21 IMPRESSION: No acute cardiopulmonary disease. Laboratory Results WBC 8.5 10^3/uL (4.0-10.0) 07/02/23 03:19 RBC 4.08 10^6/uL (4.1-5.3) L 07/02/23 03:19 Hgb 12.7 g/dL (11.7-16.6) 07/02/23 03:19 Hct 38.3 % (42.0-52.0) L 07/02/23 03:19 MCV 93.9 fl (80-94) 07/02/23 03:19 MCH 31.1 pg (28.0-34.0) 07/02/23 03:19 MCHC 33.2 g/dL (30.0-36.0) 07/02/23 03:19 RDW 16.1 % (12.1-15.1) H 07/02/23 03:19 Plt Count 176 10^3/cmm (130-400) 07/02/23 03:19 MPV 11.0 fL (7.4-10.4) H 07/02/23 03:19 Neut % (Auto) 78.9 % 07/02/23 03:19 Lymph % (Auto) 9.1 % 07/02/23 03:19 [place] % (Auto) 6.7 % 07/02/23 03:19 Eos % (Auto) 4.7 % 07/02/23 03:19 Baso % (Auto) 0.4 % 07/02/23 03:19 Neut # (Auto) 6.68 10^3/uL (1.8-7.7) 07/02/23 03:19 Lymph # (Auto) 0.8 10^3/uL (0.8-4.8) 07/02/23 03:19 [place] # (Auto) 0.6 10^3/uL (0.2-0.9) 07/02/23 03:19 Eos # (Auto) 0.4 10^3/uL (0.0-0.8) 07/02/23 03:19 Baso # (Auto) 0.0 10^3/uL (0.0-0.1) 07/02/23 03:19 Nucleated RBC % (auto) 0 % 07/02/23 03:19 Nucleated RBCs # 0.0 /100WBC 07/02/23 03:19 Specimen Type Arterial 07/02/23 03:25 Sample Site Radial, right 07/02/23 03:25 ABG pH 7.44 (7.35-7.45) 07/02/23 03:25 ABG pCO2 33.9 mmHg (35-45) L 07/02/23 03:25 ABG pO2 55.9 mmHg (80.0-100.0) L 07/02/23 03:25 ABG HCO3 23.0 mmol/L (22-26) 07/02/23 03:25 ABG Base Excess -0.7 mmol/L (-2.0-2.0) 07/02/23 03:25 Mike Test Pos 07/02/23 03:25 Hematocrit 38.2 % (42-52) L 07/02/23 03:25 Hgb O2 Saturation 87.5 % (95-100) L 07/02/23 03:25 Carboxyhemoglobin 0.2 %THgb (0.4-20.1) L 07/02/23 03:25 Methemoglobin 0.4 % (0.4-1.5) 07/02/23 03:25 Total Hemoglobin 12.4 g/dL (14-18) L 07/02/23 03:25 O2 Delivery Device Nc 07/02/23 03:25 O2 Liters/Min 3.0 % 07/02/23 03:25 FiO2 32.0 % 07/02/23 03:25 Board Lining Machine Operator ID Alewe 07/02/23 03:25 Sodium 136 mmol/L (136-145) 07/02/23 03:41 Potassium 4.4 mmol/L (3.5-5.1) 07/02/23 03:41 Chloride 100 mmol/L (98-107) 07/02/23 03:41 Carbon Dioxide 23 mmol/L (22-29) 07/02/23 03:41 Anion Gap 17.4 (5-19) 07/02/23 03:41 BUN 19 mg/dL (8-23) 07/02/23 03:41 Creatinine 0.8 mg/dL (0.7-1.2) 07/02/23 03:41 GFR Calculation Not Reportable 07/02/23 03:41 Glucose 124 mg/dL (65-115) H 07/02/23 03:41 Calculated Osmolality 286 mOsm/kg (285-295) 07/02/23 03:41 Calcium 8.7 mg/dL (8.5-10.5) 07/02/23 03:41 Total Bilirubin 0.3 mg/dL (0.15-1.2) 07/02/23 03:41 AST 16 U/L (0-40) 07/02/23 03:41 ALT 15 U/L (0-41) 07/02/23 03:41 Alkaline Phosphatase 71 U/L (40-130) 07/02/23 03:41 Troponin T Baseline 11 ng/L (0-15) 07/02/23 03:41 NT-Pro-B Natriuret Pep 635 pg/mL (0-450) H 07/02/23 03:41 Total Protein 6.7 g/dL (6.6-8.7) 07/02/23 03:41 Albumin 3.8 g/dL (3.5-5.2) 07/02/23 03:41 Globulin 2.9 g/dL (1.3-4.6) 07/02/23 03:41 SARS-CoV-2 Ag (Rapid) negative (Negative) 07/02/23 03:26 Discharge Plan Discharge Patient Disposition: Admitted As Inpatient Clinical Impression: Acute exacerbation of chronic obstructive airways disease Condition: Stable Prescriptions: No Action finasteride 5 mg tablet 5 mg PO DAILY acetaminophen [Tylenol Extra Strength] 500 mg tablet 1,000 mg PO BID PRN nitroglycerin 0.4 mg tablet, sublingual 0.4 mg sublingual Q5M PRN Rx Instructions: do not exceed 3 doses per episode metoprolol tartrate 100 mg tablet 200 mg PO BID diazepam 10 mg tablet 10 mg PO ONCE Qty: 1 0RF Rx Instructions: 1 hour before procedure potassium chloride 20 mEq tablet extended release 20 meq PO DAILY 2 Days Qty: 2 0RF bicalutamide 50 mg tablet See Rx Instructions .ROUTE .COMPLEX Qty: 30 3RF Dose Instruction: TAKE 1 TABLET BY MOUTH EVERY DAY Rx Instructions: TAKE 1 TABLET BY MOUTH EVERY DAY omeprazole 40 mg capsule,delayed release(DR/EC) BID hydrochlorothiazide 25 mg tablet DAILY warfarin 3 mg tablet DAILY atorvastatin 20 mg tablet DAILY Compazine 10 mg tablet 10 mg PO Q4H PRN (Reason: Mild Nausea) Qty: 30 3RF lorazepam 1 mg tablet 0.5 - 1 mg PO Q6H PRN (Reason: Severe Nausea) Qty: 30 3RF Referrals: Narciso Botello DO [Primary Care Provider] - Coding Level of Care Code 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
[2023-07-02 03:34] LABS: ABG PCO2 33.9 mmHg (35-45); ABG PH Result 7.44 (7.35-7.45); Arterial Blood Gas Hematocrit 38.2 % (42-52); Base Excess ABG -0.7 mmol/L (-2.0-2.0); Blood Gas Allen Test Pos; Blood Gas Sample Site Radial, right; Blood Gas Sample Type Arterial; Carboxyhemoglobin 0.2 %THgb (0.4-20.1); HGB O2 Sat 87.5 % (95-100); Methemoglobin 0.4 % (0.4-1.5); Oxygen Device NC; PO2 ABG 55.9 mmHg (80.0-100.0); Total Hemoglobin 12.4 g/dL (14-18)
[2023-07-02 03:36] LABS: Basophils % 0.4 %; Eosinophils # 0.4 10^3/uL (0.0-0.8); Eosinophils % 4.7 %; Hematocrit 38.3 % (42.0-52.0); Hemoglobin 12.7 g/dL (11.7-16.6); Lymphocytes # 0.8 10^3/uL (0.8-4.8); Lymphocytes % 9.1 %; Mean Corpuscular HGB Conc 33.2 g/dL (30.0-36.0); Mean Corpuscular Hemoglobin 31.1 pg (28.0-34.0); Mean Corpuscular Volume 93.9 fl (80-94); Monocytes # 0.6 10^3/uL (0.2-0.9); Monocytes % 6.7 %; Neutrophils # 6.68 10^3/uL (1.8-7.7); Neutrophils % 78.9 %; Nucleated Red Blood Cells % 0 %; Platelet Count 176 10^3/cmm (130-400); Red Blood Count 4.08 10^6/uL (4.1-5.3); Red Cell Distribution Width 16.1 % (12.1-15.1); White Blood Count 8.5 10^3/uL (4.0-10.0)
[2023-07-02] MEDS: albuterol 2.5 mg/3 mL Neb 5 MG INHALATION (03:42)
[2023-07-02 03:53] LABS: SARS Covid-2 Antigen negative (Negative)
[2023-07-02 04:16] LABS: Troponin(5th) Baseline 11 ng/L (0-15)
[2023-07-02 04:22] LABS: Alanine Aminotransferase 15 U/L (0-41); Albumin Level 3.8 g/dL (3.5-5.2); Alkaline Phosphatase 71 U/L (40-130); Anion Gap 17.4 (5-19); Aspartate Amino Transferase 16 U/L (0-40); Blood Urea Nitrogen 19 mg/dL (8-23); Calcium 8.7 mg/dL (8.5-10.5); Carbon Dioxide 23 mmol/L (22-29); Chloride 100 mmol/L (98-107); Globulin 2.9 g/dL (1.3-4.6); Glucose 124 mg/dL (65-115); NT Pro B Type Natriuretic Pept 635 pg/mL (0-450); Osmolality Calculated 286 mOsm/kg (285-295); Potassium 4.4 mmol/L (3.5-5.1); Sodium 136 mmol/L (136-145); Total Bilirubin 0.3 mg/dL (0.15-1.2); Total Protein 6.7 g/dL (6.6-8.7)
--- NOTE | 2023-07-02 07:21 | PM.HP ---
Providers/Chief Complaint Admitting Physician: Kaylah Gilmore MD Primary Care Provider: Narciso Botello DO Chief Complaint: RESP. DISTRESS History of Present Illness Narciso Rider is a 78 year old male history of A-fib, chronic anticoagulation with Coumadin, prostate cancer status post radiotherapy currently on medical therapy follows up with Dr. Marcano,Coronary disease status post stents in the past, CHF, former smoker presented today with chief complaint of productive cough and shortness of breath.His shortness of breath and symptoms of productive cough worsened that prompted his visit to the ER he has not noted significant fever, chest pain, nausea, vomiting. He has been noticing right-sided chest discomfort which sharp pain worsens with coughing spells. In the ER chest did not show any pneumonia, no leukocytosis or fever however he is requiring oxygen which is new for him and we were not able to wean him off despite breathing treatment and steroids hence decision was made to admit him and observe I have requested D-dimer, COVID antigen negative Review of Systems Const: Reports: chills Eyes: Denies: change in vision ENMT: Denies: throat pain Card: Reports: chest pain Resp: Reports: dyspnea GI: Denies: abdominal pain : Denies: flank pain or urinary dribbling Musc: Denies: neck pain Skin/Breast: Reports: rash Neuro: Denies: headache(s) Psych: Reports: anxiety Medications/Allergies Home Medications Medication Instructions Recorded Confirmed Last Taken Type atorvastatin 20 mg tablet 20 mg PO QPM 03/31/21 07/02/23 Unknown History hydrochlorothiazide 25 mg tablet 25 mg PO DAILY 03/31/21 07/02/23 Unknown History omeprazole 40 mg capsule,delayed 40 mg PO BID 03/31/21 07/02/23 Unknown History release acetaminophen 500 mg tablet 1,000 mg PO BID PRN Pain 08/27/21 07/02/23 Unknown History (Tylenol Extra Strength) finasteride 5 mg tablet 5 mg PO DAILY 08/27/21 07/02/23 Unknown History nitroglycerin 0.4 mg sublingual 0.4 mg sublingual Q5M PRN Chest 08/27/21 07/02/23 Unknown History tablet Pain metoprolol tartrate 100 mg tablet 200 mg PO BID 11/30/21 07/02/23 Unknown History potassium chloride 20 mEq 20 meq PO DAILY 2 days #2 tabs 04/28/22 07/02/23 Unknown Rx tablet,extended release lorazepam 1 mg tablet 0.5 - 1 mg PO Q6H PRN Severe 07/22/22 07/02/23 Unknown Rx Nausea #30 tabs prochlorperazine maleate 10 mg 10 mg PO Q4H PRN Mild Nausea #30 /01/1107/02/23 Unknown Rx tablet (Compazine) tabs warfarin 2 mg tablet See Rx Instructions .Route .COMPLEX 07/02/23 07/02/23 Unknown History Allergies Allergy/AdvReac Type Severity Reaction Status Date / Time No Known Allergies Allergy Verified 07/02/23 09:34 PFSH Acute PFSH: Medical History Elevated PSA >13 September 2021. Unaware of prior remote PSAs. 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 Declined biopsy August 2021 did agree to follow-up though Surgical History History of coronary angioplasty Family History Mother Bleeding disorder Father , AT AGE 53 Heart disease Social History Smoking and tobacco status: former smoker (smoked 30 years) Alcohol intake: never Substance/Drug Use: never Marital status: / Current occupational status: retired Vitals/I&O/Wt Last Vital Signs Temp 97.7 F 07/02/23 07:11 Pulse 96 07/02/23 07:11 Resp 18 07/02/23 07:11 BP 148/84 07/02/23 07:11 Pulse Ox 96 07/02/23 07:11 O2 Del Method Nasal Cannula 07/02/23 07:11 O2 Flow Rate 2 07/02/23 06:05 07/01/23 07/02/23 07/02/23 22:59 06:59 14:59 Output Total 400 / 400 Balance -400 / -400 Weight last 48 hrs Weight 90.718 kg Physical Exam Narrative: Pleasant cooperative male Variable S1-S2 without RVR Abdomen soft gcs 15 No significant wheezing or audible stridor Nonfocal neuro exam GCS 15 Appears stated age Currently on 2 L of oxygen No respiratory distress No conversational dyspnea Edema of legs Hard of hearing Data 07/02/23 03:19 07/02/23 03:41 Micro: Microbiology 07/02/23 06:15 Blood Culture - Preliminary Blood SPECIMEN COLLECTED A&P Assessment and plan (1) Acute exacerbation of chronic obstructive airways disease: (2) Prostate cancer: Plan Acute hypoxia Concern related to COPD as patient has history of smoking in the past Chest x-ray showing mild pulmonary vascular congestion with hyperinflated lungs: low dose lasix No official diagnosis of COPD with pulmonary function test Request D-dimer to rule out PE I will request echo as patient carries history of congestive heart failure however no significant signs of heart failure at this point, chest pressure without pulm edema I will start patient on azithromycin for possible bronchitis Patient is afebrile with no signs of pneumonia or leukocytosis Start DuoNeb Patient will need optimization of inhalers at the time of discharge and home oxygen evaluation He will also need pulmonary referral for pulmonary function test Patient is stating that he only uses albuterol nebulizer at home which is prescribed by the PCP Mild acute CHF exacerbation Preserved ejection fraction We will give him IV Lasix with potassium supplementation, chest x-ray consistent with mild vascular congestion A-fib without RVR Continue anticoagulating agent and metoprolol Right-sided pleuritic pain No history of metastatic disease as per previous bone scan Troponin trending down without significant delta Patient carries history of coronary disease Full code Cardiac diet DVT prophylaxis covered with Coumadin Anticipate discharge within 48 hours Attestations Medical Necessity Statement*: Anticipating discharge within 48 hours Diagnoses Acute exacerbation of chronic obstructive airways disease J44.1 Prostate cancer C61
[2023-07-02 08:06] LABS: D Dimer 0.31 ug/mIFEU (0-0.59)
[2023-07-02 08:14] LABS: Troponin 5 2HR 12.94 ng/L (0-15); Troponin 5 2HR Delta 1.94 ABS# (0-10)
[2023-07-02] MEDS: ipratropium-albuterol 3 mL Neb INHALATION ×3 (08:39→20:17)
[2023-07-02] MEDS: potassium chloride ER 20 mEq Tablet PO (08:53)
[2023-07-02] MEDS: sennosides-docusate Tablet 1 TAB PO (08:53)
[2023-07-02] MEDS: predniSONE 20 mg Tablet 40 MG PO ×2 (08:53→08:56)
[2023-07-02] MEDS: atorvastatin 40 mg Tablet 20 MG PO (08:53)
[2023-07-02] MEDS: hydroCHLOROthiazide 25 mg Tablet PO (08:54)
[2023-07-02] MEDS: finasteride 5 mg Tablet PO (08:54)
[2023-07-02] MEDS: metoprolol tartrate 50 mg Tablet 100 MG PO ×2 (08:54→18:18)
[2023-07-02] MEDS: azithromycin 250 mg Tablet 500 MG PO (08:54)
--- NOTE | 2023-07-02 08:59 | ECG_ITS ---
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 Measurements Intervals [place] Rate: 95 P: 0 OK: 0 QRS: 35 QRSD: 114 T: 19 QT: 375 QTc: 473 Interpretive Statements ATRIAL FIBRILLATION MODERATE INTRAVENTRICULAR CONDUCTION DELAY [110+ ms QRS DURATION] MINIMAL VOLTAGE CRITERIA FOR LVH, CONSIDER NORMAL VARIANT [MEETS CRITERIA IN ONE OF: R(aVL), S(V1), R(V5), R(V5/V6)+S(V1)] ABNORMAL RHYTHM ECG Compared to ECG 07/02/2023 03:33:05 No significant changes Electronically Signed On 07-02-2023 11:38:40 CDT by Devyn Tuttle M.D. [email or web address]
[2023-07-02] MEDS: FUROsemide 10 mg/mL SDV 2mL 20 MG IVP ×2 (09:08→15:58)
[2023-07-02 10:34] LABS: INR 2.08 (0.8-1.2)
[2023-07-02] MEDS: warfarin 3 mg Tablet PO (10:53)
[2023-07-02 11:10] LABS: Troponin 5 6HR 11.71 ng/L (0-15); Troponin 5 6HR Delta 0.71 ng/L (0-12)
--- NOTE | 2023-07-02 15:25 | PM.MISC ---
Miscellaneous Note Purpose of Documentation: Overnight labs and H&P reviewed. Patient reports breathing is slightly better. However still difficult to take a deep breath. Make Duonebs scheduled, add budesonide inhalation. Hold HCTZ while on Lasix. D dimer negative, less likely PE
[2023-07-02] MEDS: budesonide 0.5 mg/2 mL Neb INHALATION (20:17)
[2023-07-03] VITALS (7 sets, daily range): BP systolic 148–155; BP diastolic 77–86; PULSE 72–82; RESP 16–18; TEMP 36.5–36.6; O2SAT 96–98
[2023-07-03] MEDS: ipratropium-albuterol 3 mL Neb INHALATION ×2 (01:03→09:29)
[2023-07-03 04:53] LABS: Basophils % 0.1 %; Hematocrit 33.4 % (42.0-52.0); Hemoglobin 11.3 g/dL (11.7-16.6); Lymphocytes # 0.7 10^3/uL (0.8-4.8); Lymphocytes % 6.3 %; Mean Corpuscular HGB Conc 33.8 g/dL (30.0-36.0); Mean Corpuscular Volume 91.5 fl (80-94); Monocytes # 0.5 10^3/uL (0.2-0.9); Monocytes % 4.8 %; Neutrophils # 9.76 10^3/uL (1.8-7.7); Neutrophils % 88.3 %; Nucleated Red Blood Cells % 0 %; Platelet Count 154 10^3/cmm (130-400); Red Blood Count 3.65 10^6/uL (4.1-5.3); Red Cell Distribution Width 15.4 % (12.1-15.1); White Blood Count 11.1 10^3/uL (4.0-10.0)
[2023-07-03 05:05] LABS: INR 2.41 (0.8-1.2)
[2023-07-03 05:23] LABS: Anion Gap 16.6 (5-19); Blood Urea Nitrogen 16 mg/dL (8-23); C Reactive Protein 18.6 mg/L (0.0-4.9); Carbon Dioxide 24 mmol/L (22-29); Chloride 94 mmol/L (98-107); Glucose 130 mg/dL (65-115); Magnesium 1.6 mg/dL (1.7-2.3); Osmolality Calculated 275 mOsm/kg (285-295); Phosphorus 4.1 mg/dL (2.5-4.5); Potassium 3.6 mmol/L (3.5-5.1); Sodium 131 mmol/L (136-145)
[2023-07-03] MEDS: predniSONE 20 mg Tablet 40 MG PO (08:12)
[2023-07-03] MEDS: atorvastatin 40 mg Tablet 20 MG PO (08:12)
[2023-07-03] MEDS: metoprolol tartrate 50 mg Tablet 100 MG PO (08:12)
[2023-07-03] MEDS: finasteride 5 mg Tablet PO (08:13)
[2023-07-03] MEDS: azithromycin 250 mg Tablet 500 MG PO (08:13)
[2023-07-03] MEDS: sennosides-docusate Tablet 1 TAB PO (08:14)
[2023-07-03] MEDS: potassium chloride ER 20 mEq Tablet PO (08:14)
[2023-07-03] MEDS: warfarin 3 mg Tablet PO (08:23)
--- NOTE | 2023-07-03 09:26 | USCV_ITS ---
Narciso Rider Age: 78 Gender: M : 1945 Exam Date: 07/03/2023 12:29 Ordering Phys: Sal Juarez MD Technologist: Klever Rodriguez Exam Location: [facility] [place] Indication: CHF BP: 134 / 76 HR: 87 Rhythm: Sinus Technical Quality: Adequate MEASUREMENTS (Male / Female) Normal Values 2D ECHO LV Diastolic Diameter PLAX 4.5 cm 4.2 - 5.9 / 3.9 - 5.3 cm LV Systolic Diameter PLAX 3.2 cm IVS Diastolic Thickness 1.3 cm 0.6 - 1.0 / 0.6 - 0.9 cm IVS Systolic Thickness 1.6 cm LVPW Diastolic Thickness 1.1 cm 0.6 - 1.0 / 0.6 - 0.9 cm LVPW Systolic Thickness 1.7 cm LVOT Diameter 2.1 cm LV Ejection Fraction 2D Teich 55.4 % LV Ejection Fraction MOD 2C 62.4 % LV Ejection Fraction 2C AL 62.3 % LA Diameter 3.8 cm IVC Diameter 1.6 cm M-MODE Aortic Annulus Diameter 3.8 cm LA Ao Ratio MM 0.9 MV E Point Septal Separation 1.0 cm DOPPLER AV Peak Velocity 111.0 cm/s LVOT Peak Velocity 79.0 cm/s AV Area Cont Eq vti 1.8 cm squared AV Area Cont Eq pk 2.5 cm squared MV Area PHT 5.0 cm squared Mitral E to A Ratio 3.2 MV E' Velocity 62.0 cm/s Mitral E to MV E' Ratio 9.9 Mitral E to LV E' Lateral Ratio 8.6 Mitral E to LV E' Septal Ratio 11.6 TR Peak Velocity 239.0 cm/s TR Peak Gradient 22.8 mmHg Right Atrial Pressure 3.0 mmHg Pulmonary Artery Systolic Pressu 25.8 mmHg RV Acceleration Time 0.1 s FINDINGS Left Ventricle Left ventricle is normal in size. LV systolic function is normal with EF of 55 to 60%. No regional wall motion abnormalities are seen. Right Ventricle Normal in size and function Right Atrium Normal in size Left Atrium Dilated Mitral Valve Structurally normal mitral valve. Mild mitral regurgitation. Aortic Valve Structurally normal aortic valve. No significant stenosis. Mild aortic regurgitation. Tricuspid Valve Mild tricuspid regurgitation. Pulmonary artery systolic pressure is normal. Pulmonic Valve Not well visualized Pericardium Normal Aorta Normal in size IVC Appears to be normal CONCLUSIONS LV systolic function is normal with EF of 55 to 60%. Left atrial dilation Mild mitral regurgitation Mild aortic regurgitation Mild tricuspid regurgitation Compared to prior echocardiogram from 2017, no significant changes are noted. Richar Ness MD (Electronically Signed) Final Date: 03 July 2023 18:26 S
[2023-07-03] MEDS: budesonide 0.5 mg/2 mL Neb INHALATION (09:29)
[2023-07-03] MEDS: magnesium sulfate premix 2 GM/50 ML PIGGYBACK IV (10:22)
--- NOTE | 2023-07-03 12:02 | P.DS_ITS ---
Discharge Providers Date of Admission: 07/02/23 06:34 Date of Discharge: July 03, 2023 Attending Provider at Admission: Kaylah Gilmore MD Attending Provider at Discharge: Sal Juarez Primary Care Provider: Narciso Botello DO Diagnoses at Discharge Discharge Diagnosis (1) Acute exacerbation of chronic obstructive airways disease: Status: Acute (2) Prostate cancer: Status: Acute Reason for Visit Reason for Visit: RESP. DISTRESS Hospital Course Hospital Course 78-year-old gentleman with history of A-fib on anticoagulation with Coumadin, prostate cancer, CAD, status post stenting, CHF, former smoker, was admitted after presenting with worsening productive cough, also had an episode of right- sided chest discomfort. On presentation with finding of acute bronchitis with suspected underlying COPD with acute exacerbation, hypoxia, additionally with finding of pulmonary vascular congestion and suspected mild acute CHF, possibly diastolic, type unknown. Was started on prednisone, azithromycin, breathing treatments. Additionally received IV Lasix and potassium supplementation. Weaned off oxygen down to room air. This morning initially feeling not the best, with some upper respiratory symptoms, but in the afternoon doing much better, ambulating without oxygen, did not qualify for oxygen on home O2 study. Will complete brief course of prednisone and antibiotic at home and is asked to follow-up with primary provider for reassessment, and after recovers please refer for additional assessment by PFT. Currently volume status is compensated. Does not appear in decompensated CHF on exam. He is referred for assessment by outpatient TTE. Asked to maintain cardiac diet. Prescription given for Lasix as needed in case of edema or weight gain. Physical Exam Const: COMMON NORMALS: patient oriented x3 and alert GENERAL APPEARANCE: cooperative ORIENTATION/CONSCIOUSNESS: Yes awake HENMT: COMMON NORMALS: oropharynx normal Neck/C-Spine: COMMON NORMALS: no JVD Resp: COMMON NORMALS: normal respiratory effort AUSCULTATION: rhonchi (mild) Cardio: COMMON NORMALS: no JVD, regular rhythm, S1 normal heart sound present, S2 normal heart sound present and No murmurs present (Cardio) RHYTHM: regular rhythm HEART SOUNDS: S1 normal heart sound present and S2 normal heart sound present GI: COMMON NORMALS: Normal to inspection, nondistended, normoactive bowel sounds present, Soft to palpation and non-tender PALPATION: Yes Soft to palpation Extremity: COMMON NORMALS: no joint enlargement and no pedal edema Neuro: COMMON NORMALS: patient oriented x3 and moves all extremities SENSORIUM/ORIENTATION: Yes alert Skin: COMMON NORMALS: no rashes or lesions noted GENERAL SKIN EXAM: no rashes or lesions noted Discharge Data Studies Completed and Pending Completed Studies During Hospitalization Category Date Time Status XR chest 1V portable [id number] Stat Exams 07/02/23 03:21 Completed Pending at discharge Category Date Time Status Basic Metabolic Panel AM LABS Lab 07/04/23 04:00 Ordered Basic Metabolic Panel AM LABS Lab 07/05/23 04:00 Ordered Basic Metabolic Panel AM LABS Lab 07/06/23 04:00 Ordered Blood Culture Stat Lab 07/02/23 09:28 Results Complete Blood Count w/Auto AM LABS Lab 07/04/23 04:00 Ordered Complete Blood Count w/Auto AM LABS Lab 07/05/23 04:00 Ordered Complete Blood Count w/Auto AM LABS Lab 07/06/23 04:00 Ordered Magnesium AM LABS Lab 07/04/23 04:00 Ordered Respiratory Panel 2 Routine Lab 07/03/23 09:27 Ordered CV. echo complete* [id number] Routine Ultrasound 07/03/23 09:26 Ordered Radiology Impressions Chest X-Ray 07/02/23 03:21 IMPRESSION: No acute cardiopulmonary disease. Laboratory Results WBC 11.1 10^3/uL (4.0-10.0) H 07/03/23 04:19 RBC 3.65 10^6/uL (4.1-5.3) L 07/03/23 04:19 Hgb 11.3 g/dL (11.7-16.6) L 07/03/23 04:19 Hct 33.4 % (42.0-52.0) L 07/03/23 04:19 MCV 91.5 fl (80-94) 07/03/23 04:19 MCH 31.0 pg (28.0-34.0) 07/03/23 04:19 MCHC 33.8 g/dL (30.0-36.0) 07/03/23 04:19 RDW 15.4 % (12.1-15.1) H 07/03/23 04:19 Plt Count 154 10^3/cmm (130-400) 07/03/23 04:19 MPV 11.0 fL (7.4-10.4) H 07/03/23 04:19 Neut % (Auto) 88.3 % 07/03/23 04:19 Lymph % (Auto) 6.3 % 07/03/23 04:19 [place] % (Auto) 4.8 % 07/03/23 04:19 Eos % (Auto) 0.0 % 07/03/23 04:19 Baso % (Auto) 0.1 % 07/03/23 04:19 Neut # (Auto) 9.76 10^3/uL (1.8-7.7) H 07/03/23 04:19 Lymph # (Auto) 0.7 10^3/uL (0.8-4.8) L 07/03/23 04:19 [place] # (Auto) 0.5 10^3/uL (0.2-0.9) 07/03/23 04:19 Eos # (Auto) 0.0 10^3/uL (0.0-0.8) 07/03/23 04:19 Baso # (Auto) 0.0 10^3/uL (0.0-0.1) 07/03/23 04:19 Nucleated RBC % (auto) 0 % 07/03/23 04:19 Nucleated RBCs # 0.0 /100WBC 07/03/23 04:19 PT 27.10 SECONDS (12.1-14.9) H 07/03/23 04:19 INR 2.41 (0.8-1.2) H 07/03/23 04:19 D-Dimer 0.31 ug/mIFEU (0-0.59) 07/02/23 03:45 Specimen Type Arterial 07/02/23 03:25 Sample Site Radial, right 07/02/23 03:25 ABG pH 7.44 (7.35-7.45) 07/02/23 03:25 ABG pCO2 33.9 mmHg (35-45) L 07/02/23 03:25 ABG pO2 55.9 mmHg (80.0-100.0) L 07/02/23 03:25 ABG HCO3 23.0 mmol/L (22-26) 07/02/23 03:25 ABG Base Excess -0.7 mmol/L (-2.0-2.0) 07/02/23 03:25 Mike Test Pos 07/02/23 03:25 Hematocrit 38.2 % (42-52) L 07/02/23 03:25 Hgb O2 Saturation 87.5 % (95-100) L 07/02/23 03:25 Carboxyhemoglobin 0.2 %THgb (0.4-20.1) L 07/02/23 03:25 Methemoglobin 0.4 % (0.4-1.5) 07/02/23 03:25 Total Hemoglobin 12.4 g/dL (14-18) L 07/02/23 03:25 O2 Delivery Device Nc 07/02/23 03:25 O2 Liters/Min 3.0 % 07/02/23 03:25 FiO2 32.0 % 07/02/23 03:25 Trust Officer ID Alewe 07/02/23 03:25 Sodium 131 mmol/L (136-145) L 07/03/23 04:19 Potassium 3.6 mmol/L (3.5-5.1) 07/03/23 04:19 Chloride 94 mmol/L (98-107) L 07/03/23 04:19 Carbon Dioxide 24 mmol/L (22-29) 07/03/23 04:19 Anion Gap 16.6 (5-19) 07/03/23 04:19 BUN 16 mg/dL (8-23) 07/03/23 04:19 Creatinine 0.6 mg/dL (0.7-1.2) L 07/03/23 04:19 GFR Calculation Not Reportable 07/03/23 04:19 Glucose 130 mg/dL (65-115) H 07/03/23 04:19 Calculated Osmolality 275 mOsm/kg (285-295) L 07/03/23 04:19 Calcium 9.0 mg/dL (8.5-10.5) 07/03/23 04:19 Phosphorus 4.1 mg/dL (2.5-4.5) 07/03/23 04:19 Magnesium 1.6 mg/dL (1.7-2.3) L 07/03/23 04:19 Total Bilirubin 0.3 mg/dL (0.15-1.2) 07/02/23 03:41 AST 16 U/L (0-40) 07/02/23 03:41 ALT 15 U/L (0-41) 07/02/23 03:41 Alkaline Phosphatase 71 U/L (40-130) 07/02/23 03:41 Troponin T Baseline 11 ng/L (0-15) 07/02/23 03:41 Troponin T 120 Minute 12.94 ng/L (0-15) 07/02/23 06:15 Delta Troponin T 1.94 ABS# (0-10) 07/02/23 06:15 Troponin T Hi Sens 6Hr 11.71 ng/L (0-15) 07/02/23 09:28 Troponin T Hi Sens 6Hr Delta 0.71 ng/L (0-12) 07/02/23 09:28 C-Reactive Protein 18.6 mg/L (0.0-4.9) H 07/03/23 04:19 NT-Pro-B Natriuret Pep 635 pg/mL (0-450) H 07/02/23 03:41 Total Protein 6.7 g/dL (6.6-8.7) 07/02/23 03:41 Albumin 3.8 g/dL (3.5-5.2) 07/02/23 03:41 Globulin 2.9 g/dL (1.3-4.6) 07/02/23 03:41 SARS-CoV-2 Ag (Rapid) negative (Negative) 07/02/23 03:26 Vitals Last Vital Signs Temp 97.7 F 07/03/23 11:12 Pulse 72 07/03/23 11:12 Resp 17 07/03/23 11:12 BP 155/80 07/03/23 11:12 Pulse Ox 98 07/03/23 11:34 O2 Del Method Nasal Cannula 07/03/23 09:25 O2 Flow Rate 1 07/03/23 09:25 Discharge Plan Discharge Patient Disposition: Home Condition: Stable Prescriptions: New azithromycin 250 mg Tablet 250 mg PO DAILY Qty: 4 0RF prednisone 20 mg Tablet 40 mg PO DAILY Qty: 4 0RF albuterol sulfate 90 mcg/actuation HFA aerosol inhaler 2 inh inhalation Q6H PRN (Reason: shortness of breath or wheezing) Qty: 8.5 0RF benzonatate 100 mg Capsule 200 mg PO Q6H PRN (Reason: Cough) Qty: 30 0RF guaifenesin [Mucinex] 600 mg Tablet Extended Release 12hr 1,200 mg PO BID Qty: 60 0RF furosemide 20 mg tablet 20 mg PO QAM PRN (Reason: edema) Qty: 30 0RF Continued finasteride 5 mg tablet 5 mg PO DAILY acetaminophen [Tylenol Extra Strength] 500 mg tablet 1,000 mg PO BID PRN (Reason: Pain) nitroglycerin 0.4 mg tablet, sublingual 0.4 mg sublingual Q5M PRN (Reason: Chest Pain) Rx Instructions: do not exceed 3 doses per episode metoprolol tartrate 100 mg tablet 200 mg PO BID potassium chloride 20 mEq tablet extended release 20 meq PO DAILY 2 Days Qty: 2 0RF omeprazole 40 mg capsule,delayed release(DR/EC) 40 mg PO BID hydrochlorothiazide 25 mg tablet 25 mg PO DAILY atorvastatin 20 mg tablet 20 mg PO QPM prochlorperazine maleate [Compazine] 10 mg tablet 10 mg PO Q4H PRN (Reason: Mild Nausea) Qty: 30 3RF lorazepam 1 mg tablet 0.5 - 1 mg PO Q6H PRN (Reason: Severe Nausea) Qty: 30 3RF warfarin 2 mg tablet See Rx Instructions .ROUTE .COMPLEX Rx Instructions: 2 mg ON AND 4MG ON ALL OTHER DAYS Discharge Orders: Discharge Order (Routine); Ordered 07/03/23 Ordered By: Sal Juarez Other Ambulatory Orders: CV. echo complete* [id number] (Routine) Timeframe: 2 Days Facility: [facility] - Location: Radiology Ordered By: Sal Juarez Referrals: Narciso Botello DO [Primary Care Provider] - 07/05/23 2:30 pm Discharge Diet: Cardiac Discharge Activity: Increase activity as tolerated Patient Instructions: Benzonatate (By mouth), Furosemide (By mouth), Prednisone (By mouth), Guaifenesin (By mouth), Azithromycin (By mouth), Heart Failure (GEN), Acute Bronchitis (GEN), COPD (Chronic Obstructive Pulmonary Disease) (GEN) Activity Restrictions/Additional Instructions: Continue flutter valve, complete antibiotic and prednisone course. Please follow-up with your primary doctor for reassessment after bronchitis, suspected undiagnosed chronic obstructive airway disease. Please have your [facility] doctor refer you for pulmonary function testing once you recover from acute episode. Discussed with your primary doctor also concern for mild acute decompensation of congestive heart failure which improved with diuretic. You are prescribed Lasix as needed in case of worsening edema or weight gain more than 3 pounds in 2 days. You are referred for echocardiogram for additional assessment, please discuss with your primary doctor regarding the results. Seek medical attention in case of any worsening or new concerning symptomsIncluding any worsening shortness of breath, chest pain or pressure, lower extremity swelling despite taking a diuretic, ability to urinate, or any other concerns. Discharge Attestations Time Spent in Discharge Care*: greater than 30 min Quality Metrics Clinical Quality Measures [ No reported AMI, CVA or VTE this stay] Coding Level of Care Code 13050 Total time (in minutes) for Discharge: 40 Diagnoses Acute exacerbation of chronic obstructive airways disease J44.1 Prostate cancer C61
== END 2023-07-03 13:56 | disposition home or self-care (01) ==
LOC: ER 05:21 → MEDSURG 05:53
PROVIDERS: Student in an Organized Health Care Education/Training Program; Admitting Provider Internal Medicine; Emergency Provider Emergency Medicine; PCP Internal Medicine; Visit Provider Internal Medicine
DX: J44.1 Chronic obstructive pulmonary disease with (acute) exacerbation (principal); I48.91 Unspecified atrial fibrillation; I50.9 Heart failure, unspecified; I25.10 Atherosclerotic heart disease of native coronary artery without angina pectoris; I08.3 Combined rheumatic disorders of mitral, aortic and tricuspid valves; I45.9 Conduction disorder, unspecified; Z79.899 Other long term (current) drug therapy; Z79.01 Long term (current) use of anticoagulants; Z85.46 Personal history of malignant neoplasm of prostate; Z92.3 Personal history of irradiation; Z87.891 Personal history of nicotine dependence; Z95.5 Presence of coronary angioplasty implant and graft; Z99.81 Dependence on supplemental oxygen
CPT/HCPCS: 36415; 36600; 71045; 80048; 80053; 82805; 83735; 83880; 84100; 84484; 85025; 85378; 85610; 86140; 87040; 87426; 93005; 93306; 94640; 94664; 94760; 96365; 96375; 96376; 99285; G0378; J1940; J3475; J7512; J7613; J7626; J8999; Q0144

== ENCOUNTER 2023-08-03 12:19 | Oncology outpatient (recurring) (ONCR) | payer MEDICARE, SELFPAY ==
[2023-08-03 12:41] LABS: Basophils % 0.9 %; Eosinophils # 0.3 10^3/uL (0.0-0.8); Eosinophils % 6.8 %; Hematocrit 36.2 % (37-53); Lymphocytes # 0.5 10^3/uL (0.8-4.8); Lymphocytes % 12.6 %; Mean Corpuscular HGB Conc 33.1 g/dL (30-55); Mean Corpuscular Hemoglobin 32.1 pg (27-33); Mean Corpuscular Volume 96.8 fl (82-101); Mean Platelet Volume 10.2 fL (7.4-10.4); Monocytes # 0.4 10^3/uL (0.2-0.9); Monocytes % 10.3 %; Neutrophils # 2.95 10^3/uL (1.8-7.7); Neutrophils % 68.9 %; Nucleated Red Blood Cells % 0 %; Platelet Count 149 10^3/cmm (157-399); Red Blood Count 3.74 10^6/uL (3.85-5.65); Red Cell Distribution Width 15.3 % (12.1-15.1); White Blood Count 4.28 10^3/uL (3.29-11.43)
[2023-08-03 13:19] LABS: Alanine Aminotransferase 13 U/L (0-41); Alkaline Phosphatase 74 U/L (40-130); Aspartate Amino Transferase 14 U/L (0-40); Blood Urea Nitrogen 11 mg/dL (8-23); Calcium 8.6 mg/dL (8.5-10.5); Carbon Dioxide 26 mmol/L (22-29); Chloride 103 mmol/L (98-107); Globulin 2.7 g/dL (1.3-4.6); Glucose 87 mg/dL (65-115); Osmolality Calculated 285 mOsm/kg (285-295); Sodium 138 mmol/L (136-145); Total Bilirubin 0.3 mg/dL (0.15-1.2); Total Protein 6.7 g/dL (6.6-8.7)
[2023-08-03 13:25] LABS: Prostate Specific Antigen < 0.014 ng/mL (0-4)
[2023-08-03] MEDS: leuprolide 22.5 mg Kit IM (13:53)
== END 2023-08-19 23:59 | disposition home or self-care (01) ==
PROVIDERS: Internal Medicine Medical Oncology; PCP Internal Medicine; Visit Provider Internal Medicine Hematology & Oncology
DX: C61 Malignant neoplasm of prostate (principal); Z79.818 Long term (current) use of other agents affecting estrogen receptors and estrogen levels; Z79.899 Other long term (current) drug therapy; Z92.3 Personal history of irradiation; D72.819 Decreased white blood cell count, unspecified; D64.9 Anemia, unspecified; Z53.9 Procedure and treatment not carried out, unspecified reason
CPT/HCPCS: 36415; 80053; 84153; 85025; 96402; 99214; J9217

== ENCOUNTER 2023-11-02 08:49 | Oncology outpatient (recurring) (ONCR) | payer MEDICARE, SELFPAY ==
[2023-11-02 10:39] LABS: Basophils % 0.5 %; Eosinophils # 0.3 10^3/uL (0.0-0.8); Eosinophils % 6.9 %; Hematocrit 38.6 % (37-53); Lymphocytes # 0.5 10^3/uL (0.8-4.8); Lymphocytes % 11.8 %; Mean Corpuscular HGB Conc 32.6 g/dL (30-55); Mean Corpuscular Hemoglobin 32.1 pg (27-33); Mean Corpuscular Volume 98.2 fl (82-101); Mean Platelet Volume 10.3 fL (7.4-10.4); Monocytes # 0.3 10^3/uL (0.2-0.9); Monocytes % 6.9 %; Neutrophils % 73.4 %; Nucleated Red Blood Cells % 0 %; Platelet Count 186 10^3/cmm (157-399); Red Blood Count 3.93 10^6/uL (3.85-5.65); Red Cell Distribution Width 13.2 % (12.1-15.1); White Blood Count 4.08 10^3/uL (3.29-11.43)
[2023-11-02 11:14] LABS: Alanine Aminotransferase 14 U/L (0-41); Alkaline Phosphatase 80 U/L (40-130); Anion Gap 11.7 (5-19); Aspartate Amino Transferase 13 U/L (0-40); Blood Urea Nitrogen 13 mg/dL (8-23); Calcium 8.9 mg/dL (8.5-10.5); Carbon Dioxide 29 mmol/L (22-29); Chloride 101 mmol/L (98-107); Glucose 89 mg/dL (65-115); Osmolality Calculated 286 mOsm/kg (285-295); Potassium 3.7 mmol/L (3.5-5.1); Sodium 138 mmol/L (136-145); Total Bilirubin 0.4 mg/dL (0.15-1.2)
[2023-11-02 11:18] LABS: Prostate Specific Antigen < 0.014 ng/mL (0-4)
[2023-11-02 11:46] LABS: Testosterone Total 24.2 ng/dL (193-740)
[2023-11-02] MEDS: leuprolide 22.5 mg Kit IM (11:59)
[2023-11-02 12:05] VITALS: BP 170/90; PULSE 81; RESP 18; TEMP 36.2; O2SAT 99
== END 2023-11-19 23:59 | disposition home or self-care (01) ==
PROVIDERS: Nurse Practitioner Family; PCP Internal Medicine; Visit Provider Internal Medicine Hematology & Oncology
DX: C61 Malignant neoplasm of prostate (principal); Z79.818 Long term (current) use of other agents affecting estrogen receptors and estrogen levels; Z79.899 Other long term (current) drug therapy; Z92.3 Personal history of irradiation; D72.819 Decreased white blood cell count, unspecified; D64.9 Anemia, unspecified
CPT/HCPCS: 36415; 80053; 84153; 84403; 85025; 96402; 99214; J9217

== ENCOUNTER 2024-01-25 09:20 | Oncology outpatient (recurring) (ONCR) | payer MEDICARE, SELFPAY ==
[2024-01-25 09:59] LABS: Eosinophils # 0.2 10^3/uL (0.0-0.8); Eosinophils % 5.6 %; Hematocrit 36.7 % (37-53); Lymphocytes # 0.7 10^3/uL (0.8-4.8); Lymphocytes % 16.9 %; Mean Corpuscular HGB Conc 33.2 g/dL (30-55); Mean Corpuscular Hemoglobin 32.4 pg (27-33); Mean Corpuscular Volume 97.6 fl (82-101); Mean Platelet Volume 10.3 fL (7.4-10.4); Monocytes # 0.3 10^3/uL (0.2-0.9); Monocytes % 8.6 %; Neutrophils # 2.67 10^3/uL (1.8-7.7); Neutrophils % 67.4 %; Nucleated Red Blood Cells % 0 %; Platelet Count 147 10^3/cmm (157-399); Red Blood Count 3.76 10^6/uL (3.85-5.65); Red Cell Distribution Width 13.7 % (12.1-15.1); White Blood Count 3.96 10^3/uL (3.29-11.43)
[2024-01-25 10:32] LABS: Alanine Aminotransferase 18 U/L (0-41); Albumin Level 3.7 g/dL (3.5-5.2); Alkaline Phosphatase 91 U/L (40-130); Anion Gap 14.7 (5-19); Aspartate Amino Transferase 16 U/L (0-40); Blood Urea Nitrogen 13 mg/dL (8-23); Calcium 8.6 mg/dL (8.5-10.5); Carbon Dioxide 27 mmol/L (22-29); Chloride 100 mmol/L (98-107); Globulin 3.3 g/dL (1.3-4.6); Glucose 95 mg/dL (65-115); Osmolality Calculated 284 mOsm/kg (285-295); Potassium 4.7 mmol/L (3.5-5.1); Sodium 137 mmol/L (136-145); Testosterone Total 20.9 ng/dL (193-740); Total Bilirubin 0.3 mg/dL (0.15-1.2)
[2024-01-25 10:37] LABS: Prostate Specific Antigen < 0.014 ng/mL (0-4)
[2024-01-25] MEDS: leuprolide 22.5 mg Kit IM (11:29)
[2024-01-25 11:34] VITALS: BP 140/98; PULSE 78; RESP 17; TEMP 36.6; O2SAT 98
== END 2024-02-18 23:59 | disposition home or self-care (01) ==
LOC: ONCMED 09:21
PROVIDERS: Nurse Practitioner Family; PCP Internal Medicine; Visit Provider Internal Medicine Hematology & Oncology
DX: C61 Malignant neoplasm of prostate (principal); Z79.818 Long term (current) use of other agents affecting estrogen receptors and estrogen levels; Z79.899 Other long term (current) drug therapy; Z92.3 Personal history of irradiation; D72.819 Decreased white blood cell count, unspecified; D64.9 Anemia, unspecified
CPT/HCPCS: 36415; 80053; 84153; 84403; 85025; 96402; 99214; J9217

== ENCOUNTER 2024-02-02 09:11 | Outpatient (CLI) | payer MEDICARE, SELFPAY ==
--- NOTE | 2024-02-02 10:00 | USCV_ITS ---
Narciso Rider Age: 79 Gender: M : 1945 Exam Date: 02/02/2024 09:33 Ordering Phys: Emerald Zamarripa APRN Technologist: MAYRA [place] [facility] [place] Indication: LE Swelling and Pain Risk Factors: Previous Vascular Surgery: RIGHT LEFT BP: 157.0 / 86.00 BP: 162.0/ 88.00 0 0 Waveform Velocity (cm/s) Velocity (cm/s) Waveform Triphasic 51.0 Iliac Prox Triphasic 57.3 Iliac Mid Triphasic 78.5 Iliac Distal Triphasic CO CHAIRMAN 134.0 Triphasic 73.0 SFA Prox Triphasic 83.0 SFA Mid Triphasic 86.0 SFA Dist Triphasic 37.0 POP Triphasic 69.0 TIRE SPECIALIST Triphasic 100.0 DPA 1.1 STARR FINDINGS 1.07 STARR based off of DPA TIRE SPECIALIST was noncompressible Mild to moderate plaque in the SFA CONCLUSIONS Normal resting STARR on the right side. Mild to moderate plaque in the superficial femoral artery No significant stenosis, based on the above findings Dr Thien Peres MD [facility] (Electronically Signed) Final Date: 02 February 2024 18:22 S
== END 2024-02-02 09:12 | disposition home or self-care (01) ==
LOC: RAD 09:11
PROVIDERS: PCP Internal Medicine; Visit Provider Nurse Practitioner Family
DX: I70.211 Atherosclerosis of native arteries of extremities with intermittent claudication, right leg (principal); R55 Syncope and collapse
CPT/HCPCS: 93926

== ENCOUNTER → 2024-02-20 13:26 | Outpatient (BNVA) | payer MEDICARE, SELFPAY | PROVIDERS: PCP Internal Medicine; Visit Provider Nurse Practitioner Family | DX: L57.0 Actinic keratosis (principal); C44.222 Squamous cell carcinoma of skin of right ear and external auricular canal; D48.5 Neoplasm of uncertain behavior of skin; C61 Malignant neoplasm of prostate; L81.4 Other melanin hyperpigmentation; D22.4 Melanocytic nevi of scalp and neck; L85.3 Xerosis cutis; L57.8 Other skin changes due to chronic exposure to nonionizing radiation; D84.9 Immunodeficiency, unspecified | CPT/HCPCS: 11102; 17000; 69100; 99213 ==

== ENCOUNTER → 2024-03-20 08:24 | Outpatient (BNVA) | payer MEDICARE, SELFPAY | PROVIDERS: PCP Internal Medicine; Visit Provider Dermatology | DX: D48.5 Neoplasm of uncertain behavior of skin (principal); C44.529 Squamous cell carcinoma of skin of other part of trunk; L57.0 Actinic keratosis; L82.0 Inflamed seborrheic keratosis; L82.1 Other seborrheic keratosis; L81.4 Other melanin hyperpigmentation | CPT/HCPCS: 11102; 13101; 17000; 17110; 17313; 99213 ==

== ENCOUNTER → 2024-04-01 10:25 | Outpatient (BNVA) | payer MEDICARE, SELFPAY | PROVIDERS: PCP Internal Medicine; Visit Provider Dermatology | DX: Z48.02 Encounter for removal of sutures (principal) | CPT/HCPCS: 99212 ==

== ENCOUNTER 2024-04-18 10:38 | Oncology outpatient (recurring) (ONCR) | payer MEDICARE, SELFPAY ==
[2024-04-18 11:23] LABS: Basophils % 0.9 %; Eosinophils # 0.2 10^3/uL (0.0-0.8); Eosinophils % 5.2 %; Hematocrit 36.8 % (37-53); Lymphocytes # 0.7 10^3/uL (0.8-4.8); Lymphocytes % 20.3 %; Mean Corpuscular HGB Conc 32.3 g/dL (30-55); Mean Corpuscular Hemoglobin 30.6 pg (27-33); Mean Corpuscular Volume 94.6 fl (82-101); Mean Platelet Volume 10.3 fL (7.4-10.4); Monocytes # 0.3 10^3/uL (0.2-0.9); Monocytes % 8.9 %; Neutrophils # 2.09 10^3/uL (1.8-7.7); Neutrophils % 64.4 %; Nucleated Red Blood Cells % 0 %; Platelet Count 150 10^3/cmm (157-399); Red Blood Count 3.89 10^6/uL (3.85-5.65); White Blood Count 3.25 10^3/uL (3.29-11.43)
[2024-04-18 12:05] LABS: Alanine Aminotransferase 12 U/L (0-41); Albumin Level 3.9 g/dL (3.5-5.2); Alkaline Phosphatase 85 U/L (40-130); Aspartate Amino Transferase 15 U/L (0-40); Blood Urea Nitrogen 10 mg/dL (8-23); Calcium 8.5 mg/dL (8.5-10.5); Carbon Dioxide 26 mmol/L (22-29); Chloride 103 mmol/L (98-107); Globulin 3.1 g/dL (1.3-4.6); Glucose 104 mg/dL (65-115); Osmolality Calculated 283 mOsm/kg (285-295); Sodium 137 mmol/L (136-145); Total Bilirubin 0.3 mg/dL (0.15-1.2)
[2024-04-18 12:08] LABS: Anion Gap 12.8 (5-19); Potassium 4.8 mmol/L (3.5-5.1); Prostate Specific Antigen < 0.014 ng/mL (0-4)
[2024-04-18] MEDS: leuprolide 22.5 mg Kit IM (14:15)
== END 2024-04-19 23:59 | disposition home or self-care (01) ==
PROVIDERS: Nurse Practitioner Family; PCP Internal Medicine; Visit Provider Internal Medicine Hematology & Oncology
DX: Z53.9 Procedure and treatment not carried out, unspecified reason (principal); C61 Malignant neoplasm of prostate; Z79.899 Other long term (current) drug therapy; Z51.12 Encounter for antineoplastic immunotherapy; Z79.818 Long term (current) use of other agents affecting estrogen receptors and estrogen levels
CPT/HCPCS: 36415; 80053; 84153; 84403; 85025; 96402; 99214; J9217

== ENCOUNTER → 2024-04-22 08:57 | Outpatient (BNVA) | payer MEDICARE, SELFPAY | PROVIDERS: PCP Internal Medicine; Visit Provider Dermatology | DX: C44.329 Squamous cell carcinoma of skin of other parts of face (principal) | CPT/HCPCS: 13132; 17311 ==

== ENCOUNTER → 2024-04-30 13:27 | Outpatient (BNVA) | payer MEDICARE, SELFPAY | PROVIDERS: PCP Internal Medicine; Visit Provider Internal Medicine | DX: R07.9 Chest pain, unspecified (principal); I48.91 Unspecified atrial fibrillation; M79.606 Pain in leg, unspecified; I25.10 Atherosclerotic heart disease of native coronary artery without angina pectoris | CPT/HCPCS: 93005; 99214 ==

== ENCOUNTER 2024-05-16 14:15 | Oncology outpatient (recurring) (ONCR) | payer MEDICARE, SELFPAY ==
--- NOTE | 2024-05-14 12:30 | USCV_ITS ---
Narciso Rider Age: 79 Gender: M : 1945 Exam Date: 05/14/2024 12:32 Ordering Phys: Richar Ness M.D ([email or web address]) Technologist: EVERARDO [place] [facility] [place]ication: HISTORY: Pt's legs are hurting. PROCEDURES: FINDINGS: Some Reflux The veins were found to be easily compressible with spontaneous blood flow. Non pulsatile flow pattern. Significant venous reflux. Noted at the level of the saphenofemoral junction, proximal, mid and distal greater saphenous vein segments on the right side. The reflux time where or 2.23, 1.28, 0.82 and 0.82 seconds respectively at these levels. The venous diameter was 0.56, 0.38, 0.32 and 0.26 cm respectively. These segments are around 1 cm deep from the surface. On the left side, significant venous reflux was noted at the saphenofemoral junction, proximal, mid and below-knee segments of the greater saphenous vein. The venous segments were measuring 0.5, 0.3, 0.3 and 0.12 cm in diameter. The proximal and mid 70 segments were greater than 1 cm deep from the surface. The below-knee segment was 0.7 cm deep from the surface CONCLUSIONS 1. Normal evidence of any DVT in the above-mentioned veins 2. Significant venous reflux at the proximal, mid and distal segments of the greater saphenous vein on the right side. But the venous segments were of small caliber and just about 1 cm deep from the surface 3. On the left side, Significant venous reflux were noted at the proximal, mid and below-knee segments of the greater saphenous vein. The venous segments were of relatively small caliber. The proximal and mid segment were greater than 1 cm deep from the surface. The below-knee segment was found to be superficial. 4. No significant reflux in the deep veins Dr Thien Peres MD [facility] (Electronically Signed) Final Date: 17 May 2024 15:30 S
--- NOTE | 2024-05-16 14:15 | USCV_ITS ---
TeresoNarciso bazzi Age: 79 Gender: M : 1945 Exam Date: 05/16/2024 14:04 Ordering Phys: Richar Ness M.D ([email or web address]) Technologist: CARINA Exam Location: [facility] [place] Indication: LE PAIN Risk Factors: Previous Vascular Surgery: RIGHT LEFT BP: 113.0 / 84.00 BP: 191.0/ 110.00 0 0 Waveform Velocity (cm/s) Velocity (cm/s) Waveform Triphasic 54.8 Iliac Prox 46.5 Triphasic Triphasic 51.4 Iliac Mid 38.9 Triphasic Triphasic 70.0 Iliac Distal 104.1 Triphasic Triphasic 77.0 ECG TECHNICIAN 74.0 Triphasic Triphasic 104.0 SFA Prox 105.0 Triphasic Triphasic 86.0 SFA Mid 56.0 Biphasic Triphasic 86.0 SFA Dist 63.0 Biphasic Triphasic 46.0 POP 57.0 Biphasic Triphasic 82.0 CRITICAL CARE TRANSPORT NURSE 55.0 Biphasic Triphasic 115.0 DPA 68.0 Biphasic FINDINGS STARR could not be calculated due to vessels being noncompressible. Mild diffuse plaque in the iliac, femoral and popliteal arteries bilaterally. Normal arterial Doppler waveforms bilaterally on the right side Near normal arterial Doppler waveforms on the left side Ankle vessels are noncompressible bilateral CONCLUSIONS 1. Mild diffuse plaques in the iliac, femoral and popliteal arteries bilaterally 2. Normal/near normal Doppler waveforms bilaterally. 3. Features suggestive of extensive arterial sclerosis with no significant obstruction Dr Thien Peres MD [facility] (Electronically Signed) Final Date: 17 May 2024 20:29 S
== END 2024-05-19 23:59 | disposition home or self-care (01) ==
LOC: ONCMED 06-04 07:34
PROVIDERS: PCP Internal Medicine; Visit Provider Internal Medicine
DX: C61 Malignant neoplasm of prostate (principal); Z79.818 Long term (current) use of other agents affecting estrogen receptors and estrogen levels; Z79.899 Other long term (current) drug therapy; Z92.3 Personal history of irradiation; D72.819 Decreased white blood cell count, unspecified; D64.9 Anemia, unspecified; M79.604 Pain in right leg; M79.605 Pain in left leg
CPT/HCPCS: 93925; 93970

== ENCOUNTER 2024-05-30 08:19 | Outpatient (CLI) | payer MEDICARE, SELFPAY ==
--- NOTE | 2024-05-30 08:53 | ECG_ITS ---
[facility] Test Date: 2024-05-30 Pat Name: Narciso Rider Department: Room: Gender: Male Process Improvement Consultant: : 1945 Requested By: Richar Ness Order Number: [id number] Reading MD: Interpretive Statements Lung unchanged pre/post procedure; Intraprocedure shortess of breath; Symptoms resoled by discharge [email or web address]
--- NOTE | 2024-05-30 08:53 | NMCV_ITS ---
NM jackson perf SPECT r/s* [id number] Narciso Rider Age: 79 Gender: M : 1945 Exam Date: 05/30/2024 09:56 Ordering Phys: Richar Ness M.D ([email or web address]) Technologist: JEAN Guido Exam Location: [facility] Indications: CP STRESS TEST [facility] IMAGE PROTOCOL Rest/Stress 1 Lexiscan Day Radiopharmaceutical Dose (mCi) Administration Site Administered by Rest: Tc-99m 10.7 IV JEAN Gudio Sestamibi Stress:Tc-99m 32.6 IV JEAN Guido Sestamibi Rest: 30-May-2024 60 Discovery 630 Stress: 30-May-2024 30 Discovery 630 0.4mg Lexiscan. Images obtained in supine and prone position. SPECT RESULTS Technical Quality: Excellent Raw Data Analysis: Normal Image Corrections: No attenuation or motion correction applied Summed Stress Score: 10 Summed Rest Score: 12 Summed Difference Score: 0 PERFUSION FINDINGS There is a large area of fixed perfusion defect noted in the inferior and inferolateral muller. 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 FUNCTIONAL RESULTS (calculated via Gated SPECT) Stress Image LV EF (%): 56 Stress EDV (mL):120 TID: 0.98 Stress ESV (mL):53 FUNCTIONAL FINDINGS: There is normal left ventricular systolic function. IMPRESSIONS 1. Abnormal myocardial perfusion imaging with large area of prior infarct seen in the RCA and left circumflex artery territory. 2. LV systolic function is normal. Richar Ness MD (Electronically Signed) Final Date: 31 May 2024 09:07 S
[2024-05-30 08:59] VITALS: BMI 27.0
[2024-05-30] MEDS: regadenoson 0.4 Mg/5 ml Syringe IVP (10:39)
[2024-05-30 11:06] VITALS: BP 157/96; PULSE 88
== END 2024-05-30 08:20 | disposition home or self-care (01) ==
PROVIDERS: PCP Internal Medicine; Visit Provider Internal Medicine
DX: R07.9 Chest pain, unspecified (principal); R94.39 Abnormal result of other cardiovascular function study
CPT/HCPCS: 36415; 78452; 93017; 96374; A9500; J2785

== ENCOUNTER → 2024-07-02 13:44 | Outpatient (BNVA) | payer MEDICARE, SELFPAY | PROVIDERS: PCP Internal Medicine; Visit Provider Internal Medicine | DX: M79.606 Pain in leg, unspecified (principal); I25.10 Atherosclerotic heart disease of native coronary artery without angina pectoris; I48.91 Unspecified atrial fibrillation; R07.9 Chest pain, unspecified; Z87.891 Personal history of nicotine dependence; Z79.01 Long term (current) use of anticoagulants | CPT/HCPCS: 99214 ==

== ENCOUNTER → 2024-07-18 11:13 | Outpatient (BNVA) | payer MEDICARE, SELFPAY | PROVIDERS: PCP Internal Medicine; Visit Provider Nurse Practitioner Family | DX: L57.0 Actinic keratosis (principal); I87.2 Venous insufficiency (chronic) (peripheral); D84.9 Immunodeficiency, unspecified; L85.3 Xerosis cutis; L81.4 Other melanin hyperpigmentation; D22.4 Melanocytic nevi of scalp and neck; Z85.828 Personal history of other malignant neoplasm of skin | CPT/HCPCS: 17000; 99213 ==

== ENCOUNTER 2024-07-24 06:00 | Oncology outpatient (recurring) (ONCR) | payer MEDICARE, SELFPAY | END 2024-08-19 23:59 | disposition home or self-care (01) | PROVIDERS: PCP Internal Medicine; Visit Provider Nurse Practitioner Family | DX: C61 Malignant neoplasm of prostate (principal); Z79.899 Other long term (current) drug therapy; M79.604 Pain in right leg; M79.605 Pain in left leg; Z51.11 Encounter for antineoplastic chemotherapy; Z79.818 Long term (current) use of other agents affecting estrogen receptors and estrogen levels; Z92.3 Personal history of irradiation; Z87.891 Personal history of nicotine dependence; R05.3 Chronic cough | CPT/HCPCS: 71260; 74177 ==

== ENCOUNTER 2024-07-24 12:44 | Oncology outpatient (recurring) (ONCR) | payer MEDICARE, SELFPAY ==
[2024-07-11 13:00] LABS: Basophils % 0.9 %; Eosinophils # 0.3 10^3/uL (0.0-0.8); Eosinophils % 6.9 %; Hematocrit 39.5 % (37-53); Lymphocytes # 0.7 10^3/uL (0.8-4.8); Lymphocytes % 16.9 %; Mean Corpuscular HGB Conc 31.9 g/dL (30-55); Mean Corpuscular Hemoglobin 30.8 pg (27-33); Mean Corpuscular Volume 96.6 fl (82-101); Mean Platelet Volume 10.5 fL (7.4-10.4); Monocytes # 0.4 10^3/uL (0.2-0.9); Monocytes % 8.5 %; Neutrophils # 2.91 10^3/uL (1.8-7.7); Neutrophils % 66.6 %; Nucleated Red Blood Cells % 0 %; Platelet Count 162 10^3/cmm (157-399); Red Blood Count 4.09 10^6/uL (3.85-5.65); Red Cell Distribution Width 14.4 % (12.1-15.1); White Blood Count 4.37 10^3/uL (3.29-11.43)
[2024-07-11 13:29] LABS: Alanine Aminotransferase 16 U/L (0-41); Albumin Level 4.1 g/dL (3.5-5.2); Alkaline Phosphatase 94 U/L (40-130); Anion Gap 14.4 (5-19); Aspartate Amino Transferase 18 U/L (0-40); Blood Urea Nitrogen 11 mg/dL (8-23); Calcium 8.8 mg/dL (8.5-10.5); Carbon Dioxide 27 mmol/L (22-29); Chloride 102 mmol/L (98-107); Creatinine Clr Calc Pharmacy 84.4838; Globulin 3.2 g/dL (1.3-4.6); Glucose 99 mg/dL (65-115); Osmolality Calculated 287 mOsm/kg (285-295); Potassium 4.4 mmol/L (3.5-5.1); Sodium 139 mmol/L (136-145); Testosterone Total 28.6 ng/dL (193-740); Total Bilirubin 0.3 mg/dL (0.15-1.2); Total Protein 7.3 g/dL (6.6-8.7)
[2024-07-11 13:34] LABS: Prostate Specific Antigen < 0.014 ng/mL (0-4)
[2024-07-11] MEDS: leuprolide 22.5 mg Kit IM (15:42)
--- NOTE | 2024-07-24 14:15 | CT_ITS ---
WS: [id number] CT CHEST, ABDOMEN AND PELVIS WITH CONTRAST HISTORY: significant abdominal pain, hx prostate cancer, lower abdominal pain and short of breath for 2 months. TECHNIQUE: Contiguous 5 mm axial imaging performed through the chest, abdomen and pelvis with IV cont rast, oral contrast has been provided. Coronal and sagittal reformats chest. Coronal and sagittal ref ormats through the abdomen and pelvis. All CT scans at [facility] use at least one of these d ose optimization techniques: automated exposure control; mA and/or kV adjustment per patient size (in cludes targeted exams where dose is matched to clinical indication); or iterative reconstruction. CONTRAST: Omnipaque 350; 100 mL IV. DLP: 1003.02 mGy.cm COMPARISON: 01/10/2022 CT abdomen and pelvis, chest CT 12/14/[address]: Mild breathing motion artifact. Lungs are hyperexpanded from emphysema. There are a few sca ttered benign granulomata which are calcified. No mass, nodule or pneumonia. Small nodules may be obs cured with this at amount of breathing. No pericardial or pleural effusions. The heart is slightly en larged. More significant LEFT atrial enlargement. No mediastinal or hilar lymph nodes. There is a sma ll amount of debris layering in the posterior trachea. This is likely secretions due to its frothy ap pearance and there are few foci of air present. Moderate atherosclerotic plaque thoracic aorta. Plaqu e extends into the great vessels. Moderate increase in thoracic kyphosis. Bones are significantly ost eopenic. Bridging along the anterior longitudinal ligament. Mild anterior wedging of T11. No osteobla stic disease noted. Abdomen CT: Normal size liver and spleen. There are a few scattered stable hypodensities within the l iver. Normal portal vein. No bile duct dilatation. Normal gallbladder and pancreas. No adrenal mass. Normal size kidneys with no hydronephrosis. Bilateral small cortical cysts are stable. No solid mass. Dense atherosclerotic plaque within the abdominal aorta. No aneurysm. Moderate plaque at the origin of the celiac axis and SMA. Plaque continues throughout the SMA but no obstruction. No thrombus. No small bowel obstruction. Stomach is normally distended. There is mild constipation but no obstruct ing lesion in the colon. No colitis. Pelvic CT: No free fluid or adenopathy. Moderate atherosclerotic plaque continues into the iliac and femoral arteries. No mass identified in the pelvis. Urinary bladder is moderately well distended. Mild increase in the lumbar lordosis. No osteoblastic or osteolytic disease. CT/CT chest abdpel w/*[id number] IMPRESSION: 1. Chronic emphysematous changes with no pneumonia or mass identified. 2. No adenopathy in the chest, abdomen or pelvis. 3. Increased soft tissue in the posterior dependent trachea has the appearance most consistent with bronchial secretions. 4. Moderate atherosclerotic plaque within the abdominal aorta and mesenteric a rteries. There is no occlusion but there is a component of mild to moderate tasia nosis of the SMA and celiac axis. 5. No GI tract obstruction. 6. No ascites. 7. Bones are diffusely osteopenic. No osteoblastic or osteolytic disease ident ified.
[2024-07-24] MEDS: iohexol 350 mg/mL 500 mL Btl (per mL) PO (14:41)
[2024-07-24] MEDS: iohexol 350 mg/mL 500 mL Btl (per mL) IV (14:41)
== END 2024-07-24 23:59 | disposition home or self-care (01) ==
LOC: RAD 12:44 → ONCMED 12:44
PROVIDERS: PCP Internal Medicine; Visit Provider Nurse Practitioner Family
DX: Z53.9 Procedure and treatment not carried out, unspecified reason
CPT/HCPCS: 71260; 74177; 80053; 84153; 84403; 85025; 96402; 99214; J9217

== ENCOUNTER 2024-10-03 10:24 | Oncology outpatient (recurring) (ONCR) | payer MEDICARE, SELFPAY ==
[2024-10-03 10:43] LABS: Basophils % 0.7 %; Eosinophils # 0.2 10^3/uL (0.0-0.8); Eosinophils % 5.1 %; Hematocrit 36.2 % (37-53); Lymphocytes # 0.9 10^3/uL (0.8-4.8); Lymphocytes % 20.6 %; Mean Corpuscular HGB Conc 32.3 g/dL (30-55); Mean Corpuscular Hemoglobin 30.2 pg (27-33); Mean Corpuscular Volume 93.3 fl (82-101); Mean Platelet Volume 9.9 fL (7.4-10.4); Monocytes # 0.5 10^3/uL (0.2-0.9); Monocytes % 12.3 %; Neutrophils # 2.52 10^3/uL (1.8-7.7); Neutrophils % 61.1 %; Nucleated Red Blood Cells % 0 %; Platelet Count 170 10^3/cmm (157-399); Red Blood Count 3.88 10^6/uL (3.85-5.65); Red Cell Distribution Width 14.3 % (12.1-15.1); White Blood Count 4.13 10^3/uL (3.29-11.43)
[2024-10-03 11:09] LABS: Albumin Level 4.1 g/dL (3.5-5.2); Alkaline Phosphatase 88 U/L (40-130); Anion Gap 14.7 (5-19); Aspartate Amino Transferase 19 U/L (0-40); Blood Urea Nitrogen 12 mg/dL (8-23); Calcium 8.3 mg/dL (8.5-10.5); Carbon Dioxide 27 mmol/L (22-29); Chloride 100 mmol/L (98-107); Creatinine Clr Calc Pharmacy 84.6692; Globulin 2.9 g/dL (1.3-4.6); Glucose 93 mg/dL (65-115); Osmolality Calculated 283 mOsm/kg (285-295); Potassium 4.7 mmol/L (3.5-5.1); Sodium 137 mmol/L (136-145); Total Bilirubin 0.3 mg/dL (0.15-1.2)
[2024-10-03 11:11] LABS: Prostate Specific Antigen < 0.014 ng/mL (0-4)
[2024-10-03 11:21] LABS: Alanine Aminotransferase 19 U/L (0-41)
[2024-10-03] MEDS: leuprolide 22.5 mg Kit IM (14:21)
== END 2024-10-19 23:59 | disposition home or self-care (01) ==
PROVIDERS: PCP Internal Medicine; Visit Provider Nurse Practitioner Family
DX: C61 Malignant neoplasm of prostate (principal); Z51.11 Encounter for antineoplastic chemotherapy; Z87.891 Personal history of nicotine dependence; K92.1 Melena; Z79.899 Other long term (current) drug therapy
CPT/HCPCS: 36415; 80053; 84153; 84403; 85025; 96402; 99214; J9217

== ENCOUNTER → 2024-11-18 09:52 | Outpatient (BNVA) | payer MEDICARE, SELFPAY | PROVIDERS: PCP Internal Medicine; Visit Provider Nurse Practitioner Family | DX: L81.4 Other melanin hyperpigmentation (principal); D18.01 Hemangioma of skin and subcutaneous tissue; Z08 Encounter for follow-up examination after completed treatment for malignant neoplasm; Z85.828 Personal history of other malignant neoplasm of skin; L82.0 Inflamed seborrheic keratosis; L53.8 Other specified erythematous conditions; L57.0 Actinic keratosis | CPT/HCPCS: 17000; 17110; 99213 ==

== ENCOUNTER 2025-01-02 11:19 | Oncology outpatient (recurring) (ONCR) | payer MEDICARE, SELFPAY ==
[2025-01-02 12:39] LABS: Basophils % 0.5 %; Eosinophils # 0.1 10^3/uL (0.0-0.8); Eosinophils % 2.4 %; Hematocrit 34.6 % (37-53); Lymphocytes # 0.7 10^3/uL (0.8-4.8); Lymphocytes % 18.4 %; Mean Corpuscular HGB Conc 31.8 g/dL (30-55); Mean Corpuscular Hemoglobin 28.9 pg (27-33); Mean Corpuscular Volume 90.8 fl (82-101); Mean Platelet Volume 10.4 fL (7.4-10.4); Monocytes # 0.3 10^3/uL (0.2-0.9); Monocytes % 8.6 %; Neutrophils # 2.61 10^3/uL (1.8-7.7); Neutrophils % 69.8 %; Nucleated Red Blood Cells % 0 %; Platelet Count 153 10^3/cmm (157-399); Red Blood Count 3.81 10^6/uL (3.85-5.65); Red Cell Distribution Width 15.1 % (12.1-15.1); White Blood Count 3.74 10^3/uL (3.29-11.43)
[2025-01-02 12:59] LABS: Alanine Aminotransferase 14 U/L (0-41); Albumin Level 3.9 g/dL (3.5-5.2); Alkaline Phosphatase 90 U/L (40-130); Anion Gap 16.2 (5-19); Aspartate Amino Transferase 20 U/L (0-40); Blood Urea Nitrogen 11 mg/dL (8-23); Calcium 8.9 mg/dL (8.5-10.5); Carbon Dioxide 25 mmol/L (22-29); Chloride 98 mmol/L (98-107); Creatinine Clr Calc Pharmacy 84.3614; Globulin 3.3 g/dL (1.3-4.6); Glucose 107 mg/dL (65-115); Osmolality Calculated 280 mOsm/kg (285-295); Potassium 4.2 mmol/L (3.5-5.1); Sodium 135 mmol/L (136-145); Total Bilirubin 0.3 mg/dL (0.15-1.2); Total Protein 7.2 g/dL (6.6-8.7)
[2025-01-02 13:21] LABS: Prostate Specific Antigen < 0.014 ng/mL (0-4)
[2025-01-02] MEDS: leuprolide 22.5 mg Kit IM (14:06)
== END 2025-01-17 23:59 | disposition home or self-care (01) ==
PROVIDERS: PCP Internal Medicine; Visit Provider Nurse Practitioner Family
DX: Z51.11 Encounter for antineoplastic chemotherapy (principal); Z79.818 Long term (current) use of other agents affecting estrogen receptors and estrogen levels; C61 Malignant neoplasm of prostate; I48.91 Unspecified atrial fibrillation; K92.1 Melena; D64.9 Anemia, unspecified; Z79.01 Long term (current) use of anticoagulants; Z87.891 Personal history of nicotine dependence; Z92.3 Personal history of irradiation; R10.32 Left lower quadrant pain
CPT/HCPCS: 36415; 80053; 84153; 84403; 85025; 96402; 99213; J9217

== ENCOUNTER → 2025-04-17 10:35 | Outpatient (BNVA) | payer MEDICARE, SELFPAY | PROVIDERS: PCP Internal Medicine; Visit Provider Nurse Practitioner Family | DX: L82.1 Other seborrheic keratosis (principal); L81.4 Other melanin hyperpigmentation; B35.3 Tinea pedis; D18.01 Hemangioma of skin and subcutaneous tissue; Z08 Encounter for follow-up examination after completed treatment for malignant neoplasm; Z85.828 Personal history of other malignant neoplasm of skin; S10.86XA Insect bite of other specified part of neck, initial encounter; X58.XXXA Exposure to other specified factors, initial encounter; L57.0 Actinic keratosis | CPT/HCPCS: 10120; 17000; 99213 ==

== ENCOUNTER 2025-05-01 12:19 | Oncology outpatient (recurring) (ONCR) | payer MEDICARE, SELFPAY ==
[2025-05-01 13:00] LABS: Basophils % 0.8 %; Eosinophils # 0.1 10^3/uL (0.0-0.8); Eosinophils % 3.7 %; Hematocrit 29.6 % (37-53); Lymphocytes # 0.6 10^3/uL (0.8-4.8); Lymphocytes % 16.5 %; Mean Corpuscular HGB Conc 29.4 g/dL (30-55); Mean Corpuscular Hemoglobin 25.5 pg (27-33); Mean Corpuscular Volume 86.8 fl (82-101); Mean Platelet Volume 10.2 fL (7.4-10.4); Monocytes # 0.4 10^3/uL (0.2-0.9); Monocytes % 9.3 %; Neutrophils % 69.4 %; Nucleated Red Blood Cells % 0 %; Platelet Count 185 10^3/cmm (157-399); Red Blood Count 3.41 10^6/uL (3.85-5.65); Red Cell Distribution Width 18.5 % (12.1-15.1); White Blood Count 3.75 10^3/uL (3.29-11.43)
[2025-05-01 13:36] LABS: Alanine Aminotransferase 10 U/L (0-41); Albumin Level 3.6 g/dL (3.5-5.2); Alkaline Phosphatase 77 U/L (40-130); Anion Gap 16.6 (5-19); Aspartate Amino Transferase 14 U/L (0-40); Blood Urea Nitrogen 7 mg/dL (8-23); Calcium 7.9 mg/dL (8.5-10.5); Carbon Dioxide 24 mmol/L (22-29); Chloride 102 mmol/L (98-107); Globulin 2.5 g/dL (1.3-4.6); Glucose 95 mg/dL (65-115); Lactate Dehydrogenase 183 U/L (135-225); Osmolality Calculated 286 mOsm/kg (285-295); Potassium 3.6 mmol/L (3.5-5.1); Sodium 139 mmol/L (136-145); Testosterone Total 25.7 ng/dL (193-740); Total Bilirubin 0.2 mg/dL (0.15-1.2); Total Protein 6.1 g/dL (6.6-8.7)
[2025-05-01 13:39] LABS: Prostate Specific Antigen < 0.014 ng/mL (0-4)
[2025-05-01 14:45] LABS: Calcium 8.5 mg/dL (8.5-10.5)
[2025-05-01 15:02] LABS: 25 Hydroxy Vitamin D 12 ng/mL (30-100)
[2025-05-01 15:32] LABS: Parathyroid Hormone 62.1 pg/mL (15-65)
== END 2025-05-19 23:59 | disposition home or self-care (01) ==
PROVIDERS: Internal Medicine; PCP Internal Medicine; Visit Provider Nurse Practitioner Family
DX: Z08 Encounter for follow-up examination after completed treatment for malignant neoplasm (principal); Z85.46 Personal history of malignant neoplasm of prostate; R03.0 Elevated blood-pressure reading, without diagnosis of hypertension; K92.1 Melena; D64.9 Anemia, unspecified; I48.91 Unspecified atrial fibrillation; I25.10 Atherosclerotic heart disease of native coronary artery without angina pectoris; R10.9 Unspecified abdominal pain; E83.51 Hypocalcemia; K31.7 Polyp of stomach and duodenum; N40.2 Nodular prostate without lower urinary tract symptoms; Z92.3 Personal history of irradiation; R97.20 Elevated prostate specific antigen [PSA]; Z87.891 Personal history of nicotine dependence
CPT/HCPCS: 36415; 80053; 82306; 82310; 83615; 83970; 84153; 84403; 85025; 99214

== ENCOUNTER → 2025-05-21 09:26 | Outpatient (BNVA) | payer MEDICARE, SELFPAY | PROVIDERS: PCP Family Medicine; Visit Provider Internal Medicine | DX: I25.10 Atherosclerotic heart disease of native coronary artery without angina pectoris (principal); I48.91 Unspecified atrial fibrillation; M79.606 Pain in leg, unspecified; Z98.61 Coronary angioplasty status; Z87.891 Personal history of nicotine dependence | CPT/HCPCS: 99214 ==

== ENCOUNTER 2025-07-31 10:53 | Oncology outpatient (recurring) (ONCR) | payer MEDICARE, SELFPAY ==
[2025-07-31 11:18] LABS: Hematocrit 36.8 % (37-53); Hemoglobin 11.60 g/dL (11.27-16.99); Mean Corpuscular HGB Conc 31.5 g/dL (30-55); Mean Corpuscular Hemoglobin 29.9 pg (27-33); Mean Corpuscular Volume 94.8 fl (82-101); Nucleated Red Blood Cells % 0 %; Platelet Count 181 10^3/cmm (157-399); Red Blood Count 3.88 10^6/uL (3.85-5.65); White Blood Count 5.86 10^3/uL (3.29-11.43)
[2025-07-31 11:36] LABS: Alanine Aminotransferase 15 U/L (0-41); Albumin Level 4.0 g/dL (3.5-5.2); Alkaline Phosphatase 95 U/L (40-130); Anion Gap 14.1 (5-19); Aspartate Amino Transferase 16 U/L (0-40); Blood Urea Nitrogen 12 mg/dL (8-23); Calcium 9.0 mg/dL (8.5-10.5); Carbon Dioxide 25 mmol/L (22-29); Chloride 104 mmol/L (98-107); Globulin 3.3 g/dL (1.3-4.6); Glucose 89 mg/dL (65-115); Osmolality Calculated 287 mOsm/kg (285-295); Potassium 4.1 mmol/L (3.5-5.1); Sodium 139 mmol/L (136-145); Total Protein 7.3 g/dL (6.6-8.7)
[2025-07-31 11:47] LABS: Prostate Specific Antigen < 0.014 ng/mL (0-4)
== END 2025-08-19 23:59 | disposition home or self-care (01) ==
PROVIDERS: Internal Medicine; PCP Family Medicine; Visit Provider Nurse Practitioner Family
DX: Z08 Encounter for follow-up examination after completed treatment for malignant neoplasm (principal); Z85.46 Personal history of malignant neoplasm of prostate; E83.51 Hypocalcemia; D64.9 Anemia, unspecified; R97.20 Elevated prostate specific antigen [PSA]; I48.20 Chronic atrial fibrillation, unspecified; Z87.891 Personal history of nicotine dependence; Z92.3 Personal history of irradiation; Z79.899 Other long term (current) drug therapy; I25.10 Atherosclerotic heart disease of native coronary artery without angina pectoris
CPT/HCPCS: 36415; 80053; 82306; 83615; 84153; 84403; 85025; 99213

== ENCOUNTER 2025-08-19 16:25 | Emergency (ER) | payer MEDICARE, SELFPAY ==
--- OUTSIDE RECORDS SUMMARY | 2025-08-14 06:33 | XMS_ITS | Encounter Summary ---
Author Organization [facility] Address [address] [place] [address] Care Team Providers Care Consultant Dietitian Name Role Phone Unavailable Primary Care Provider Unavailabl e Reason for Visit * Auth/Cert (Routine) Specialty Diagnoses / Procedures Referred By Contac t Referred To Contact Cardiology Diagnoses Atrial fibrillation, persistent (CMS/HCC) Procedures UT PERQ CLSR TCAT L ATR APNDGE W/ENDOCARDIAL IMPLNT UT ECHO PAOLA GUID TCAT ICAR/VESSEL STRUCTURAL INTVN Left atrial appendage closure percutaneous Kimberlyn Barba DO [address] [place] [phone] Phone: tel: fax: [facility] Supervisor [address] [place] [address] Phone: tel: fax: Referral ID Status Reason Start Date Expiration Date Visits Re quested Visits Authorized [id number] 1 1 Encounter Details Date Type Department Care Team (Latest Contact Info) Description 08/14/2025 6:33 AM CDT - 08/15/2025 3:57 PM CDT Hospital Encounter [facility] 4B Cardiac [address] [place] [address] Kimberlyn Barba DO [address] [place] [phone] Atrial fibrillation, persistent (CMS/HCC) Discharge Disposition: Home or Self Care Social History Tobacco Use Types Packs/Day Years Used Date Smoking Tobacco: Former Cigarettes Smokeless Tobacco: Never Tobacco Cessation:Counseling Given: Not Answered Alcohol Use Standard Drinks/Week Comments Never 0 (1 standard drink = 0.6 oz pur e alcohol) Feeling Safe Answer Date Recorded Are you in a relationship wi th someone who hurts you emotionally and/or physically? 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 Gender Identity Not on file Sexual Orientation Not on file documented as of this encounter Last Filed Vital Signs Vital Sign Reading Time Taken Comments Blood Pressure 154/89 08/15/2025 12:42 PM CDT Pulse 95 08/15/2025 12:42 PM CDT Temperature 36.2 C (97.2 F) 08/15/2025 12:42 PM CDT Respiratory Rate 18 08/15/2025 12:4 2 PM CDT Oxygen Saturation 97% 08/15/2025 12: 42 PM CDT Inhaled Oxygen Concentration - - Weight 87.9 kg (193 lb 12.6 oz) 08/14/2025 7:00 PM CDT Height 182.9 cm (6') 08/14/2025 7:00 PM CDT Body Mass Index 26.28 08/14/2025 7:00 PM CDT documented in this encounter Discharge Summaries * Noris Nunn FNP - 08/15/2025 2:18 PM CDT [facility] Discharge Summary Narciso Rider 80 y.o. male 1945 CSN: [id number] Date of Admission: 08/14/2025 Date of Discharge: 08/15/2025 Discharging Physician: FADI Soto PCP: No primary care provider on file. LOS: 1 day Code Status at Discharge: Full Code Dispo: Home Labs and studies from this hospitalization needing follow up: none Follow-up: Cardiology 4-6 weeks Discharge Diagnoses and Relevant Hospital Course: There are no hospital problems to display for this patient. Narciso Rider is a 80 y.o. male with a hx of chronic afib, CAD< dyslipidemia, HTN, GIB who was admitted to [facility] on 08/14/2025 to undergo watchman which was unsuccessful. He is discharged today in stable condition. Discharge medications and new prescriptions: Medication List CONTINUE taking these medications atorvastatin 20 mg tablet Commonly known as: LIPITOR Take 20 mg by mouth daily. Refills: 0 cholecalciferol 1,250 mcg (50,000 unit) Capsule Take 50,000 Units by mouth every 7 days. Refills: 0 dilTIAZem 120 mg Controlled Delivery 24 hour capsule Commonly known as: CARDIZEM CD, CARTIA XT Take 120 mg by mouth daily. Refills: 0 ferrous gluconate 324 mg (38 mg iron) tablet Take 324 mg by mouth daily. Refills: 0 finasteride 5 mg tablet Commonly known as: PROSCAR Take 5 mg by mouth daily at bedtime. Refills: 0 rbygqgjaymn-hevdgavanxhb-zxbkwegwjc 200-62.5-25 mcg Disk with Device Commonly known as: TRELEGY ELLIPTA Take 1 Puff by inhalation daily. Refills: 0 ipratropium-albuteroL 0.5 mg-3 mg(2.5 mg base)/3 mL Solution for Nebulization Commonly known as: DUONEB Take 3 mL by inhalation every 6 hours as needed. Refills: 0 ketoconazole 2 % Cream Commonly known as: NIZORAL Apply to affected area daily. Refills: 0 mupirocin 2 % Ointment Commonly known as: BACTROBAN APPLY A SMALL AMOUNT TO AFFECTED AREA 3 TIMES A DAY Refills: 0 nitroglycerin 0.4 mg Tablet, Sublingual Commonly known as: NITROSTAT Place 0.4 mg under tongue every 5 minutes as needed. Refills: 0 omeprazole 40 mg Capsule, Delayed Release(E.C.) Commonly known as: PriLOSEC Take 40 mg by mouth 2 times daily. Refills: 0 triamcinolone acetonide 0.1 % Cream Commonly known as: KENALOG Apply to affected area 2 times daily. Refills: 0 STOP taking these medications metoprolol tartrate 100 mg tablet Commonly known as: LOPRESSOR Consultants: None Procedures performed: Procedure(s) (LRB): Left atrial appendage closure percutaneous (N/A) Discharge Lab Data: (Please note date of lab as some may have preceeded admission) Recent Labs 08/14/25 0728 WBC 5.3 HGB 12.0* HCT 37.3* PLT 161 NA 141 K 3.8 CL 103 CO2 25 BUN 12 CREAT 0.71 GLUCOSE 93 ALT 15 AST 17 Estimated Creatinine Clearance: 63.6 mL/min (by C-G formula based on SCr of 0.71 mg/dL). Discharge Exam: BP (!) 154/89 (BP Location: Right arm, Patient Position (BP): Supine) Pulse 95 Temp 97.2 ??F (36.2 ??C) (Temporal) Resp 18 Ht 6' (1.829 m) Wt 87.9 kg (193 lb 12.6 oz) SpO2 97% BMI 26.28kg/m?? Last documented weight: Weight: 87.9 kg (193 lb 12.6 oz) (08/14/25 1900) Physical Exam: GEN: A/O x3; cooperative LUNGS: unlabored respirations; breath sounds clear HEART: RRR EXTREMITIES: No edema NEURO: grossly intact Discharge Condition: stable. Activity: no heavy lifting, pushing, pulling with the implant side for 4 days Primary Emergency Contact: Morena Hardin Signed: FADI Soto This discharge took less than 30 minutes of time to prepare Cosigned by Kimberlyn Barba DO at 08/18/2025 6:30 PM CDT documented in this encounter Discharge Instructions * Discharge Instructions* Juanita Reece RN - 08/15/2025 3:13 PM CDT [facility] Discharge Instructions Discharge & Transfer patient to: Home Symptoms/Diagnosis: <principal problem not specified> Procedures Performed, if any: Procedure(s) (LRB): Left atrial appendage closure percutaneous (N/A) Follow up PCP Your physician, No primary care provider on file., has been notified of this hospitalization. Follow-up: You must follow up with No primary care provider on file. in 3-5 days Follow up consultants With cardiology in 5 weeks No future appointments. If the office does not reach you to make a follow up appointment, please call [phone]. Activity level: up as tolerated DIET: DIET CARDIAC Low Cholesterol (AHA),; 2GM Sodium (Low), Wound Care: Follow up in the Emergency Room For any recurrence or worsening of admission concerns, chest pain, palpitations, shortness of breath, coughing blood, nausea, vomiting, diarrhea, pain, fever, chills, bleeding, bloody or tarry stools, change to urine or bowel output, Contact hospitalist office [phone] for questions if patients are discharged by [facility]. * Attachments The following attachments cannot be sent through Care Everywhere. * Left Atrial Appendage Closure: Percutaneous: Post op (American) * Bacterial Endocarditis (American) * Stroke: Symptoms: General Info (American) documented in this encounter Medications at Time of Discharge dilTIAZem (CARDIZEM CD, CARTIA XT) 120 mg Controlled Delivery 24 hour capsule Take 120 mg by mouth daily. atorvastatin (LIPITOR) 20 mg tablet Take 20 mg by mouth daily. cholecalciferol 1,250 mcg (50,000 unit) Capsule Take 50,000 Units by mouth every 7 days. ferrous gluconate 324 mg (38 mg iron) tablet Take 324 mg by mouth daily. 05/12/2025 finasteride (PROSCAR) 5 mg tablet Take 5 mg by mouth daily at bedtime. fluticasone-umecli dinium-vilanterol (TRELEGY ELLIPTA) 200-62.5-25 mcg Disk with Device Take 1 Puff by inhalation daily. ipratropium-albute roL (DUONEB) 0.5 mg-3 mg(2.5 mg base)/3 mL Solution for Nebulization Take 3 mL by inhalation every 6 hours as needed. ketoconazole (NIZORAL) 2 % Cream Apply to affected area daily. omeprazole (PriLOSEC) 40 mg Capsule, Delayed Release(E.C.) Take 40 mg by mouth 2 times daily. triamcinolone acetonide (KENALOG) 0.1 % Cream Apply to affected area 2 times daily. mupirocin (BACTROBAN) 2 % Ointment APPLY A SMALL AMOUNT TO AFFECTED AREA 3 TIMES A DAY 04/22/2025 nitroglycerin (NITROSTAT) 0.4 mg Tablet, Sublingual Place 0.4 mg under tongue every 5 minutes as needed. documented as of this encounter Progress Notes * Shaunna Colmenares RN - 08/15/2025 3:22 PM CDT Narciso Rider will be discharged via ambulatory to home. Narciso Rider is accompanied by spouse and will be transported via private vehicle. Patient and his verbalized understanding of discharge instructions and s/s to return to ER for. * Shaunna Colmenares RN - 08/15/2025 3:11 PM CDT IV's removed. here to pick patient up for discharge. documented in this encounter H&P Notes * Kimberlyn Barba DO - 08/14/2025 5:31 PM CDT Unsuccessful Watchman deployment secondary to angulation. He had some chest pain post-procedure. ECG reviewed. Stat echo reviewed, no effusion. Plan on admitting to monitor closer. * Kimberlyn Barba DO - 08/14/2025 10:04 AM CDT CARDIOLOGY CLINIC NOTE PT. NAME: Narciso Rider 1945 PT. NUMBER: [id number] DATE: 08/14/2025 TIME: 3:04 PM PRIMARY CARE PHYSICIAN: No primary care provider on file. Referring: Dr. Reardon CHIEF COMPLAINT: watchman HISTORY OF PRESENT ILLNESS: Narciso Rider is a 80 y.o. male with chronic afib, CAD, dyslipidemia, HTN and hx of GI bleed. He has been evaluated for Watchman and presents today for planned MEAGAN occluder placement. He has history of GI bleeds and has not been able to take AC. He has a high [id number] score Past Medical History: Diagnosis Date Atrial fibrillation (CMS/HCC) 07/08/2025 Coronary artery disease Dyslipidemia 07/08/2025 Dyspnea on exertion Emphysema of lung (CMS/HCC) Essential hypertension 07/08/2025 History of GI bleed 07/08/2025 Malignant neoplasm (CMS/HCC) prostate Stroke (CMS/HCC) no residual Past Surgical History: Procedure Laterality Date HX PTCA I've reviewed the home and current hospital medications. Prior to Admission Medications Prescriptions Last Dose Informant Patient Reported? Taking? atorvastatin (LIPITOR) 20 mg tablet 08/14/2025 Morning Yes Yes Sig: Take 20 mg by mouth daily. cholecalciferol 1,250 mcg (50,000 unit) Capsule 08/14/2025 Morning Yes Yes Sig: Take 50,000 Units by mouth every 7 days. dilTIAZem (CARDIZEM CD, CARTIA XT) 120 mg Controlled Delivery 24 hour capsule 08/14/2025 Morning YesYes Sig: Take 120 mg by mouth daily. ferrous gluconate 324 mg (38 mg iron) tablet 08/14/2025 Morning Yes Yes Sig: Take 324 mg by mouth daily. finasteride (PROSCAR) 5 mg tablet 08/14/2025 Morning Yes Yes Sig: Take 5 mg by mouth daily at bedtime. ngkevzpecrh-bdacilpxkxie-emygacwyae (TRELEGY ELLIPTA) 200-62.5-25 mcg Disk with Device 08/14/2025 Morning Yes Yes Sig: Take 1 Puff by inhalation daily. ipratropium-albuteroL (DUONEB) 0.5 mg-3 mg(2.5 mg base)/3 mL Solution for Nebulization 08/13/2025 Yes Yes Sig: Take 3 mL by inhalation every 6 hours as needed. ketoconazole (NIZORAL) 2 % Cream Yes Yes Sig: Apply to affected area daily. metoprolol tartrate (LOPRESSOR) 100 mg tablet Yes Yes Sig: Take 200 mg by mouth 2 times daily. mupirocin (BACTROBAN) 2 % Ointment Yes No Sig: APPLY A SMALL AMOUNT TO AFFECTED AREA 3 TIMES A DAY nitroglycerin (NITROSTAT) 0.4 mg Tablet, Sublingual Unknown Yes No Sig: Place 0.4 mg under tongue every 5 minutes as needed. omeprazole (PriLOSEC) 40 mg Capsule, Delayed Release(E.C.) 08/14/2025 Morning Yes Yes Sig: Take 40 mg by mouth 2 times daily. triamcinolone acetonide (KENALOG) 0.1 % Cream Yes Yes Sig: Apply to affected area 2 times daily. Facility-Administered Medications: None No Known Allergies No family history on file. Social History Socioeconomic History Marital status: Spouse name: Not on file Number of children: Not on file Years of education: Not on file Highest education level: Not on file Occupational History Not on file Tobacco Use Smoking status: Former Types: Cigarettes Smokeless tobacco: Never Vaping Use Vaping status: Never Used Substance and Sexual Activity Alcohol use: Never Drug use: Never Sexual activity: Not on file Other Topics Concern Not on file Social History Narrative Not on file Social Drivers of Health Food Insecurity: Not on file (08/13/2025) Transportation Needs: No Transportation Needs (08/13/2025) Transportation Needs Patient needs follow up regarding:: 1 Feeling Safe: Not At Risk (08/13/2025) Feeling Safe Patient has indicated abuse: : No Housing Stability: Not on file PHYSICAL EXAM: BP (!) 191/96 (BP Location: Right arm, Patient Position (BP): Supine) Pulse 67 Temp 97 ??F (36.1 ??C) (Temporal) Ht 6' (1.829 m) Wt 89.5 kg (197 lb 5 oz) SpO2 98% BMI 26.76 kg/m?? GENERAL: Well nourished, alert, no acute distress SKIN: Warm and dry, no rashes noted HEENT: Conjunctivae clear, oropharynx moist NECK: Supple, jugular venous pressure normal, CHEST: Clear to ausculation, good breath sounds bilaterally CV: irreg, irreg normal S1 and S2, no murmur gallop rub or click ABDOMEN: Soft, nontender EXTREMITIES: No clubbing, cyanosis, edema NEURO: No gross focal or lateralizing deficits PULSES: carotid pulses 2+ and symmetric. No carotid bruits. + 2 pedal pulses bilaterally. LAB: I have reviewed the available labs. IMPRESSIONS: Afib. Afib diagnosis, treatment options, risk, and expected outcomes reviewed. [id number] Moderate-High Risk 3 Total Score 1 Hypertension Hx 2 Age HAS-BLED High Risk 3 Total Score 1 Hypertension Hx 1 Age 1 Taking NSAIDS/Antiplatelet Medication Presents today for planned Watchman. The risks and benefits of the procedure were described in simple details. Risks including: bleeding, need for blood transfusion, arrhythmia, need for emergent surgery, renal failure, allergic reactions, myocardial infarction, stroke and . All questions wereanswered. Informed consent was signed. Anesthesia Kimberlyn Barba DO documented in this encounter Consult Notes * Funmilayo Romano RN - 08/15/2025 6:08 AM CDT Cardiac Rehab screening, per approved protocol. EHR reviewed. Will not initiate for service at thistime in view of patient???s condition not meeting criteria for Cardiac Rehab services. documented in this encounter OR Notes * Richa-OP - Sandra Terrazas RN - 08/14/2025 4:[address] Barba and technology architect at bedside. - SL * Richa-OP - Sandra Terrazas RN - 08/14/2025 4:33 PM CDT Echo called back and states they are coming in to do echo. - SL documented in this encounter Miscellaneous Notes * Care Plan - Mary Lee LPN - 08/15/2025 5:22 AM CDT Shift Summary Pain increased overnight, requiring administration of HYDROcodone-acetaminophen for frequent, radiating upper back pain. Blood pressure remained elevated throughout the shift, with a notable spike at 3:55 AM and RN notification. Troponin levels were elevated on both baseline and 2-hour labs, with no significant delta change. No falls or injuries occurred, and safety checks were consistently completed. Overall, the patient remained alert and oriented, with discharge planning actively discussed. Infection Risk/Actual: Infection prevention, control, or resolution by discharge: No redness was present on skin checks and wound documentation remained within defined limits throughout the shift. Safety/Fall: Absence of fall, injury, harm during hospitalization: No falls occurred and fall risk remained low with appropriate safety checks completed and nurse agreement with risk assessment. AI [employer] generation of preceding information. Patient stable and responding to therapy. Progressing with goals, and remains to be observed on unit. * Care Plan - Caity Carson RN - 08/14/2025 7:51 AM CDT Clinical documentation reviewed. Comprehensive Discharge Planning Risk Assessment was completed. Documentation Related to CDPA score CDPA Documentation Ambulation: independent Transferring: independent Toileting: independent Bathing: independent Dressing: independent Eating: independent Communication: understands/communicates w/o difficulty Weight-Bearing Status: no weight-bearing restrictions Living Arrangements: Lives alone Total Score of 9 or below does not identify immediate needs for discharge. CDPA Risk Assessment Total Score: 11 8 Age 3 Prior Living Status Criteria that do not apply: Self-reported walking limitation Disability Please place consult if needs for discharge are identified. Care Management will continue to follow for discharge planning. 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 [address] [place] [phone] Kimberlyn Barba DO [address] [place] [phone] Dolores Nicole, FADI [address] [place] [phone] Pending Results Name Type Priority Associated Diagnoses Date/Time ECHO TRANSESOPHAGEAL GUIDANCE Echocardiogram Routine Atrial fibrillation, persistent (CMS/HCC) 08/14/2025 3:14 PM CDT Scheduled Orders Name Type Priority Associated Diagnoses Order Schedule ECHO TRANSESOPHAGEAL GUIDANCE Echocardiogram Routine Atrial fibrillation, persistent (CMS/HCC) Rad Once for 1 Occurrences starting 08/14/2025 until 08/14/2025 documented as of this encounter Procedures Procedure Name Priority Date/Time Associated Diagnosis Comments TELEMETRY REPORT 08/18/2025 3:37 AM CDT TROPONIN 6 HR, 5TH GEN Timed Study 08/15/2025 5:08 AM CDT TROPONIN 2 HR, 5TH GEN Timed Study 08/15/2025 1:09 AM CDT TROPONIN BASELINE, 5TH GEN Stat 08/14/2025 11:25 PM CDT ECHO LIMITED W DOPPLER AND COLOR FLOW Stat 08/14/2025 5:04 PM CDT EKG 12-LEAD Stat 08/14/2025 4:28 PM CDT LEFT ATRIAL APPENDAGE CLOSURE PERCUTANEOUS Routine 08/14/2025 2:59 PM CDT Atrial fibrillation, persistent (CMS/HCC) POC ACTIVATED CLOTTING TIME Routine 08/14/2025 2:38 PM CDT POC ACTIVATED CLOTTING TIME Routine 08/14/2025 2:26 PM CDT POC ACTIVATED CLOTTING TIME Routine 08/14/2025 2:11 PM CDT VERIFICATION BLOOD GROUP Stat 08/14/2025 7:30 AM CDT EKG 12-LEAD Pending Discharge 08/14/2025 7:28 AM CDT Atrial fibrillation, persistent (CMS/HCC) CBC WITH DIFFERENTIAL Routine 08/14/2025 7:28 AM CDT Atrial fibrillation, persistent (CMS/HCC) BRAIN NATRIURETIC PEPTIDE, BNP OR PROBNP Routine 08/14/2025 7:28 AM CDT Atrial fibrillation, persistent (CMS/HCC) COMPREHENSIVE METABOLIC PANEL Routine 08/14/2025 7:28 AM CDT Atrial fibrillation, persistent (CMS/HCC) TYPE AND SCREEN Routine 08/14/2025 7:25 AM CDT Atrial fibrillation, persistent (CMS/HCC) PREPARE RED BLOOD CELLS Routine 08/14/2025 6:52 AM CDT PREPARE RED BLOOD CELLS Routine 08/14/2025 6:52 AM CDT Atrial fibrillation, persistent (CMS/HCC) documented in this encounter Results * TELEMETRY REPORT (08/18/2025 3:37 AM CDT) us Provider Scanning ECG ORDERABLES Final Result * (ABNORMAL) TROPONIN 6 HR, 5TH GEN (08/15/2025 5:08 AM CDT) TROPONIN T, 6 HR 5TH GEN 31(H) <=15 ng/L 08/15/2025 6:11 AM CDT [facility] [employer] [facility] DELTA 6HR TROPONIN T -1 See Interp. 08/15/2025 6:11 AM CDT [facility] Blood Venipuncture / Unknown 08/15/2025 5:08 AM CDT 08/15/2025 5:36 AM CDT Narrative [facility] [employer] [facility] - 08/15/2025 6:11 AM CDT Troponin elevated. Delta indeterminate. Delay in collection of timed specimen beyond recommended collection interval. Results must be interpreted in clinical context. Prieto Tobar II, DO CHEMISTRY ORDERABL ES Final Result [facility] CLIA # [id number] [address] [facility] [place] [address] * (ABNORMAL) TROPONIN 2 HR, 5TH GEN (08/15/2025 1:09 AM CDT) TROPONIN T, 2 HR 5TH GEN 32(H) <=15 ng/L 08/15/2025 2:14 AM CDT [facility] DELTA 2HR TROPONIN T 0 See Interp. 08/15/2025 2:14 AM CDT [facility] Blood Venipuncture / Unknown 08/15/2025 1:09 AM CDT 08/15/2025 1:40 AM CDT Narrative [facility] [employer] [facility] - 08/15/2025 2:14 AM CDT Troponin elevated. Delta not changing. Delay in collection of timed specimen beyond recommended collection interval. Results must be interpreted in clinical context. Prieto Tobar II, DO CHEMISTRY ORDERABL ES Final Result [facility] CLIA # [id number] [address] [place] [address] * (ABNORMAL) TROPONIN BASELINE, 5TH GEN (08/14/2025 11:25 PM CDT) TROPONIN T, BASELINE 5TH GEN 32(H) <=15 ng/L 08/15/2025 12:05 AM CDT [facility] Blood Venipuncture / Unknown 08/14/2025 11:25 PM CDT 08/14/2025 11:32 PM CDT [facility] [employer] [facility] - 08/15/2025 12:05 AM CDT Troponin elevated. Prieto Tobar II, DO CHEMISTRY ORDERABL ES Final Result [facility] CLIA # [id number] [address] [facility] [place] [address] * ECHO LIMITED W DOPPLER AND COLOR FLOW (08/14/2025 5:04 PM CDT) EJECTION FRACTION EF: INTERFACE SYSTEM 08/14/2025 4:47 PM CDT Narrative INTERFACE SYSTEM - 08/15/2025 3:22 PM CDT [facility] Cardiovascular Services Echocardiography Laboratory [address] [place] [address] Limited Transthoracic Echocardiography Patient: Narciso Rider Study ECHO LIMITED Regina Farah ID: Gender: M : 1945 Age: 80 Room: [facility] Study 08/14/2025 Pt Inpatient Date: Status: Study 04:47:01 PM CSN #: [id number] Time: Ordering:Kimberlyn Barba DO Summary and Conclusion: - Study data: A limited echo was performed - Left ventricle: Global systolic function is at the lower limits of normal. The estimated ejection fraction is 50-55%. - Right ventricle: Systolic function is normal. - Left atrium: The atrium is dilated. - Right atrium: The atrium is upper normal to mildly dilated. Procedure information: No prior study is available for comparison. Study status: Routine. Procedure: A transthoracic echocardiogram was performed. Image quality was adequate. Scanning was performed from the parasternal, apical, and subcostal acoustic windows. A limited echo was performed Study components: limited 2D. Blood pressure: 171/113 Study date: 08/14/2025. Study time: 04:47 PM. Location: Catheterization laboratory. Cardiac Anatomy: LEFT VENTRICLE: Global systolic function is at the lower limits of normal. The estimated ejection fraction is 50-55%. RIGHT VENTRICLE: Systolic function is normal. LEFT ATRIUM: The atrium is dilated. RIGHT ATRIUM: The atrium is upper normal to mildly dilated. ATRIAL SEPTUM: Not well visualized. AORTIC VALVE: Not well visualized. MITRAL VALVE: Not well visualized. TRICUSPID VALVE: Not well visualized. PULMONIC VALVE: Not visualized. PERICARDIUM: There is no pericardial effusion. PULMONARY ARTERY: Systolic pressure cannot be accurately estimated. [facility] Echo Labs are accredited with the Intersocietal Accreditation Commission - Echocardiography. Prepared and Electronically Authenticated Kimberlyn Barba DO Confirmed 08/15/2025 15:22 Procedure Note Kimberlyn Barba, DO - 08/15/2025 [facility] Cardiovascular Services Echocardiography Laboratory [facility] [place] [address] Limited Transthoracic Echocardiography Patient: Narciso Rider Study ECHO LIMITEDW Liban Farah ID: Gender: M : 1945 Age: 80 Room: [facility] Study 08/14/2025 Pt Inpatient Date: Status: Study 04:47:01 PM CSN #: [id number] Time: Ordering:Kimberlyn Barba DO Summary and Conclusion: - Study data: A limited echo was performed - Left ventricle: Global systolic function is at the lower limits ofnormal. The estimated ejection fraction is 50-55%. - Right ventricle: Systolic function is normal. - Left atrium: The atrium is dilated. - Right atrium: The atrium is upper normal to mildly dilated. Procedure information: No prior study is available for comparison.Study status: Routine. Procedure: A transthoracic echocardiogram wasperformed. Image quality was adequate. Scanning was performed from the parasternal, apical, and subcostal acoustic windows. A limited echo wasperformed Study components: limited 2D. Blood pressure: 171/113 Studydate: 08/14/2025. Study time: 04:47 PM. Location: Catheterizationlaboratory. Cardiac Anatomy: LEFT VENTRICLE: Global systolic function is at the lower limits ofnormal. The estimated ejection fraction is 50-55%. RIGHT VENTRICLE: Systolic function is normal. LEFT ATRIUM: The atrium is dilated. RIGHT ATRIUM: The atrium is upper normal to mildly dilated. ATRIAL SEPTUM: Not well visualized. AORTIC VALVE: Not well visualized. MITRAL VALVE: Not well visualized. TRICUSPID VALVE: Not well visualized. PULMONIC VALVE: Not visualized. PERICARDIUM: There is no pericardial effusion. PULMONARY ARTERY: Systolic pressure cannot be accurately estimated. [facility] are accredited with theIntersocietal Accreditation Commission - Echocardiography. Prepared and Electronically Authenticated Kimberlyn Barba DO Confirmed 08/15/2025 15:22 us Kimberlyn Barba DO ORDERABLES Final Re sult INTERFACE SYSTEM Refer to clinic/hospital department * EKG 12-LEAD (08/14/2025 4:28 PM CDT) 08/14/2025 4:28 PM CDT Narrative INTERFACE SYSTEM - 08/14/2025 5:41 [place] [address] Test Date: 2025-08-14 Pat Name: [facility] Department: 12 Room: PACU PO CVOR PACU Gender: Male Transaction Coordinator: [id number] : 1945 Requested By: Order Number: [id number] Reading MD: Soila Cast Measurements Intervals [place] Rate: 88 P: 0 UT: 0 QRS: 40 QRSD: 108 T: 66 QT: 410 QTc: 496 Interpretive Statements Atrial fibrillation Incomplete left bundle branch block Minimal voltage criteria for LVH, may be normal variant ( Sokolow-Ramon ) Nonspecific ST abnormality QTcB >= 480 msec Abnormal ECG Electronically Signed On 08-14-2025 17:41:05 CDT by Soila Cast Procedure Note Soila Cast MD - 08/14/[address] [address] Test Date: 2025-08-14 Pat Name: [facility] Department: 12 Room: PACU PO CVOR PACU Gender: Male Transaction Coordinator: [id number] : 1945 Requested By: Order Number: [id number] Reading MD: Soila Cast Measurements Intervals [place] Rate: 88 P: 0 UT: 0 QRS: 40 QRSD: 108 T: 66 QT: 410 QTc: 496 Interpretive Statements Atrial fibrillation Incomplete left bundle branch block Minimal voltage criteria for LVH, may be normal variant ( Sokolow-Ramon ) Nonspecific ST abnormality QTcB >= 480 msec Abnormal ECG Electronically Signed On 08-14-2025 17:41:05 CDT by Soila Cast Prieto Rayshawn Heckathorn II, DO ECG ORDERABLES Fi nal Result Performing Organization Address City/[facility]/ZIP Co de Phone Number INTERFACE SYSTEM Refer to clinic/hospital department * LEFT ATRIAL APPENDAGE CLOSURE PERCUTANEOUS (08/14/2025 2:59 PM CDT) Narrative [facility] - 08/15/2025 2:41 PM CDT Unsuccessful Watchman deployment Procedural Indications Significant difficulty crossing intraatrial septum. When we were able to cross with the sheath. The trajectory was suitable for appendage. Kimberlyn Barba DO CUP EP ORDERABLES Final Result Performing Organization Address [facility] Co de Phone Number [facility] CLIA [id number] [address] [facility] [address] [place] [id number], [place] [phone] * (ABNORMAL) POC ACTIVATED CLOTTING TIME (08/14/2025 2:38 PM CDT) ACTIVATED CLOTTING TIME POC 343(H) 116 - 140 sec 08/14/2025 2:38 PM CDT [facility] Blood 08/14/2025 2:38 PM CDT 08/14/2025 2:48 PM CDT Kimberlyn Barba DO POINT OF CARE TESTING Fi nal Result Performing Organization Address [facility] Co de Phone Number [facility] CLIA # [id number] [address] [place] [address] * (ABNORMAL) POC ACTIVATED CLOTTING TIME (08/14/2025 2:26 PM CDT) ACTIVATED CLOTTING TIME POC 297(H) 116 - 140 sec 08/14/2025 2:26 PM CDT [facility] Blood 08/14/2025 2:26 PM CDT 08/14/2025 2:48 PM CDT Kimberlyn Barba DO POINT OF CARE TESTING Fi nal Result Performing Organization Address [facility] Co de Phone Number [facility] [employer] [facility] CLIA # [id number] [address] [place] [address] * (ABNORMAL) POC ACTIVATED CLOTTING TIME (08/14/2025 2:11 PM CDT) [facility] ACTIVATED CLOTTING TIME POC 256(H) 116 - 140 sec 08/14/2025 2:11 PM CDT [facility] [employer] [facility] Blood 08/14/2025 2:11 PM CDT 08/14/2025 2:13 PM CDT Kimberlyn Barba DO POINT OF CARE TESTING Fi nal Result Performing Organization Address [facility] Co de Phone Number [facility] [employer] [facility] CLIA # [id number] [address] [address] * VERIFICATION BLOOD GROUP (08/14/2025 7:30 AM CDT) [facility] ABO GROUP O 08/14/2025 8:25 AM CDT [facility] [employer] [facility] RH (D) TYPE Positive 08/14/2025 8:25 AM CDT [facility] [employer] SERVICES -- [place] Blood Venipuncture / Unknown 08/14/2025 7:30 AM CDT 08/14/2025 7:35 AM CDT Kimberlyn Barba DO BLOOD BANK ORDERABLES Fi nal Result Performing Organization Address [facility] Co de Phone Number [facility] [employer] [facility] CLIA#[id number] [address] [place] [address], * EKG 12-LEAD (08/14/2025 7:28 AM CDT) 08/14/2025 7:28 AM CDT Narrative INTERFACE SYSTEM - 08/14/2025 11:26 [place] [address] Test Date: 2025-08-14 Pat Name: [facility] Department: 12 Room: [facility] 01 Gender: Male Transaction Coordinator: [id number] : 1945 Requested By: Order Number: [id number] Reading MD: Soila Cast Measurements Intervals [place] Rate: 70 P: 0 UT: 0 QRS: 56 QRSD: 104 T: 59 QT: 414 QTc: 447 Interpretive Statements Atrial fibrillation Minimal voltage criteria for LVH, may be normal variant ( Sokolow-Ramon ) Abnormal ECG Electronically Signed On 08-14-2025 11:26:51 CDT by Soila Cast Procedure Note Soila Cast MD - 08/14/2025 [place] [address] Test Date: 2025-08-14 Pat Name: [facility] Department: 12 Room: [place] [address] Gender: Male Transaction Coordinator: [id number] : 1945 Requested By: Order Number: [id number] Reading MD: Soila Cast Measurements Intervals [place] Rate: 70 P: 0 UT: 0 QRS: 56 QRSD: 104 T: 59 QT: 414 QTc: 447 Interpretive Statements Atrial fibrillation Minimal voltage criteria for LVH, may be normal variant ( Sokolow-Ramon ) Abnormal ECG Electronically Signed On 08-14-2025 11:26:51 CDT by Soila Cast us Kimberlyn Barba DO ECG ORDERABLES Final Re sult INTERFACE SYSTEM Refer to clinic/hospital department * COMPREHENSIVE METABOLIC PANEL (08/14/2025 7:28 AM CDT) SODIUM 141 136 - 145 mmol/L 08/14/2025 8:16 AM [facility] POTASSIUM 3.8 3.5 - 5.1 mmol/L 08/14/2025 8:16 AM [facility] CHLORIDE 103 98 - 107 mmol/L 08/14/2025 8:16 AM [facility] CO2 25 22 - 29 mmol/L 08/14/2025 8:16 AM [facility] CALCIUM 9.5 8.8 - 10.2 mg/dL 08/14/2025 8:16 AM [facility] BUN 12 8 - 23 mg/dL 08/14/2025 8:16 AM [facility] CREATININE 0.71 0.67 - 1.17 mg/dL 08/14/2025 8:16 AM [facility] Comment:The GFR result is no t clinically significant on patients <18 or >70 years of age. GLUCOSE 93 74 - 99 mg/dL 08/14/2025 8:16 AM [facility] TOTAL PROTEIN 7.1 6.4 - 8.3 g/dL 08/14/2025 8:16 AM [facility] ALBUMIN 3.9 3.5 - 5.2 g/dL 08/14/2025 8:16 AM [facility] BILIRUBIN TOTAL 0.4 0.0 - 1.0 mg/dL 08/14/2025 8:16 AM [facility] ALKALINE PHOSPHATASE 98 40 - 129 U/L 08/14/2025 8:16 AM [facility] AST 17 10 - 50 U/L 08/14/2025 8:16 AM [facility] ALT 15 <=50 U/L 08/14/2025 8:16 AM [facility] GFR >60 mL/min/1.7 3 sq meter 08/14/2025 8:16 AM [facility] Comment:eGFR calculated with 2020 CKD-EPI equation. Vegetarian diet, extremely high or low muscle mass, and may affect results. Cystatin C with Glomerular Filtration Rate is a suitable alternative for these patients. ANION GAP 13 9 - 20 mmol/L 08/14/2025 8:16 AM CDT [facility] Blood Venipuncture / Unknown 08/14/2025 7:28 AM CDT 08/14/2025 7:35 AM CDT us Kimberlyn Barba DO CHEMISTRY ORDERABLES Fin al Result [facility] CLIA # [id number] [address] [address] [place] [address] * (ABNORMAL) CBC WITH DIFFERENTIAL (08/14/2025 7:28 AM CDT) Pathologist [facility] WBC 5.3 4.8 - 10.8 K/uL 08/14/2025 7:40 AM CDT [facility] RBC 3.91(L) 4.60 - 6.20 M/uL 08/14/2025 7:40 AM CDT [facility] HEMOGLOBIN 12.0(L) 14.0 - 18.0 g/dL 08/14/2025 7:40 AM T [facility] HEMATOCRIT 37.3(L) 41.0 - 53.0 % 08/14/2025 7:40 AM CDT [facility] MCV 95.4 84.0 - 103.0 fL 08/14/2025 7:40 AM CDT [facility] MCH 30.7 27.0 - 34.0 pg 08/14/2025 7:40 AM CDT [facility] MCHC 32.2 30.0 - 35.0 g/dL 08/14/2025 7:40 AM CDT [facility] PLATELETS 161 140 - 440 K/uL 08/14/2025 7:40 AM CDT [facility] MPV 9.9 8.9 - 12.8 fL 08/14/2025 7:40 AM CDT [facility] RDW 18.2(H) 11.0 - 14.5 % 08/14/2025 7:40 AM [facility] RDW-STDEV 64.4(H) 37.0 - 54.0 fL 08/14/2025 7:40 AM T [facility] NEUTROPHILS 71 42 - 75 % 08/14/2025 7:40 AM [facility] LYMPHOCYTES 16(L) 24 - 44 % 08/14/2025 7:40 AM [facility] MONOCYTES 7 2 - 10 % 08/14/2025 7:40 AM T [facility] EOSINOPHILS 5 0 - 7 % 08/14/2025 7:40 AM T [facility] BASOPHILS 1 0 - 1 % 08/14/2025 7:40 AM [facility] IMMATURE GRANULOCYTES 1 0 - 2 % 08/14/2025 7:40 AM [facility] NEUTROPHIL ABSOLUTE 3.81 2.00 - 8.00 K/uL 08/14/2025 7:40 AM [facility] LYMPHOCYTE ABSOLUTE 0.83(L) 1.20 - 4.00 K/uL 08/14/2025 7:40 AM [facility] MONOCYTE ABSOLUTE 0.39 0.10 - 0.60 K/uL 08/14/2025 7:40 AM [facility] EOSINOPHIL ABSOLUTE 0.25 0.00 - 0.70 K/uL 08/14/2025 7:40 AM [facility] BASOPHILS ABSOLUTE 0.03 0.00 - 0.20 K/uL 08/14/2025 7:40 AM [facility] IMMATURE GRANULOCYTES ABSOLUTE 0.03 0.00 - 0.10 K/uL 08/14/2025 7:40 AM [facility] SMEAR REVIEWED: NA - Not Applicable 08/14/2025 7:40 AM [facility] Blood Venipuncture / Unknown 08/14/2025 7:28 AM CDT 08/14/2025 7:35 AM CDT Kimberlyn Barba DO HEMATOLOGY ORDERABLES Fi nal Result Performing Organization Address [facility] Co de Phone Number [facility] [employer] [facility] CLIA # [id number] [address] [address] * (ABNORMAL) BRAIN NATRIURETIC PEPTIDE, BNP OR PROBNP (08/14/2025 7:28 AM CDT) PROBNP, N TERMINAL 1,671(H) 0 - 450 pg/mL 08/14/2025 8:16 AM CDT [facility] [employer] [facility] Comment: INTERPRETIVE COMMENT based on diagnosis: Diagnostic NT pro-BNP cutoffs for Heart Failure in the absence of renal failure is suggested for the following ranges <75 years: <125 pg/mL >=75 years: <450 pg/mL Exclusionary rule out cut-point for Acute Decompensated Heart Failure(ADHF) All ages: <300 pg/mL Diagnostic NT pro-BNP cutoffs for Acute Decompensated Heart Failure(ADHF) in the absence of renal failure is suggested for the following ages <50 years: > 450 pg/mL 50-75 years: > 900 pg/mL >75 years: >1800 pg/mL Blood Venipuncture / Unknown 08/14/2025 7:28 AM CDT 08/14/2025 7:35 AM CDT Kimberlyn Barba DO CHEMISTRY ORDERABLES Fin al Result Performing Organization Address [facility]/ZIP Co de Phone Number [facility] [employer] [facility] CLIA # [id number] [address] [address] * TYPE AND SCREEN (08/14/2025 7:25 AM CDT) ABO GROUP O 08/14/2025 8:52 AM CDT [facility] [place] RH (D) TYPE Positive 08/14/2025 8:52 AM CDT [facility] [employer] [facility] [place] ANTIBODY SCREEN Negative 08/14/2025 8:52 AM CDT [facility] [place] Blood Venipuncture / Unknown 08/14/2025 7:25 AM CDT 08/14/2025 7:35 AM CDT Kimberlyn Barba DO BLOOD BANK ORDERABLES Ed ited Result - Final Performing Organization Address [facility]/ZIP Co de Phone Number [facility] [place] CLIA#[id number] [address] [phone] * PREPARE RED BLOOD CELLS (08/14/2025 6:52 AM CDT) COMPONENT TYPE [id number] [facility] [place] COMPONENT IDENTIFICATION [id number] [facility] [place] UNIT ABO O [employer] [facility] -- [place] UNIT RH [facility] [place] CROSSMATCH Compatible [facility] [place] COMPONENT STATUS Returned [facility] [place] COMPONENT EXPIRATION DATE/TIME [facility] [place] COMPONENT CODING SYSTEM [address] [facility] [place] VOLUME, BLOOD PRODUCT 350 [facility] [place] 08/14/2025 6:52 AM CDT Kimberlyn Barba DO LAB TRANSFUSION ORDERABL ES Edited Result - Final Performing Organization Address [facility] Co de Phone Number [facility] [place] CLIA#[id number] [address] [place] [address], * PREPARE RED BLOOD CELLS (08/14/2025 6:52 AM CDT) COMPONENT TYPE [id number] [facility] [place] COMPONENT IDENTIFICATION [id number] [facility] [place] UNIT ABO O [employer] [facility] [place] UNIT RH POS [employer] [facility] [place] CROSSMATCH Compatible [facility] [place] COMPONENT STATUS Returned [facility] [place] COMPONENT EXPIRATION DATE/TIME [id number] [facility] [place] COMPONENT CODING SYSTEM 5100 [facility] [place] VOLUME, BLOOD PRODUCT 350 [facility] [place] Other, specify 08/14/2025 6: 52 AM CDT us Kimberlyn Barba DO LAB TRANSFUSION ORDERABL ES Edited Result - Final [facility] [place] CLIA#[id number] [address] [place] [address], [place] [phone] documented in this encounter Visit Diagnoses Diagnosis Atrial fibrillation, persistent (CMS/HCC) Atrial fibrillation Atrial fibrillation, persistent (CMS/HCC) Atrial fibrillation documented in this encounter Admitting Diagnoses Diagnosis Atrial fibrillation, persistent (CMS/HCC) Atrial fibrillation documented in this encounter Administered Medications Inactive Administered Medications - up to 3 most recent administrations Medication Order MAR Action Action Date Dose Rate Site aspirin (JAQUELIN CHEWABLE) chewable tablet 81 mg 81 mg, Oral, PRE-PROCEDURE ONCE, 1 dose, Starting on Mon08/14/25 at 0651, Until Mon08/14/25 at 0759, Routine, Pre-Procedure (Invasive Cardiology)Indications:Atrial fibrillation, persistent (CMS/HCC) Given 08/14/2025 7:59 AM CDT 81 mg atorvastatin (LIPITOR) tablet 20 mg 20 mg, Oral, DAILY, First dose on Mon08/15/25 at 0900, Until Discontinued, Routine, Previous Med: atorvastatin (LIPITOR) 20 mg tablet - Orig Sig - Take 20 mg by mouth daily. Given 08/15/2025 8:47 AM CDT 20 mg dilTIAZem (CARDIZEM CD, CARTIA XT) SR 24 hour capsule 120 mg 120 mg, Oral, DAILY, First dose on Mon08/15/25 at 0900, Until Discontinued, Routine, Previous Med: dilTIAZem (CARDIZEM CD, CARTIA XT) 120 mg Controlled Delivery 24 hour capsule - Orig Sig - Take 120 mg by mouth daily. Given 08/15/2025 9:13 AM CDT 120 mg fentaNYL (PF) (SUBLIMAZE) 50 mcg/mL injection 50 mcg 50 mcg, IV, POST-PROCEDURE Q 3 MINUTES PRN, 5 doses, Starting on Mon08/14/25 at 1251, Until Mon08/14/25 at 1858, Pain, Mild, Pain, Moderate, Routine, PACU Given 08/14/2025 4:33 PM CDT 50 mcg fluticasone furoate-vilanteroL (BREO ELLIPTA) 100-25 mcg/dose inhaler 1 Puff 1 Puff, Inhalation, DAILY RESPIRATORY, First dose on Mon08/15/25 at 0800, Until Discontinued, Routine Given 08/15/2025 8:47 AM CDT 1 Puff hydrALAZINE (APRESOLINE) 20 mg/mL injection 5 mg 5 mg, IV, ONE TIME ONLY, 1 dose, On Mon08/14/25 at 1615, Routine Given 08/14/2025 4:06 PM CDT 5 mg HYDROcodone-acetaminophen (NORCO) 5-325 mg per tablet 1 Tablet 1 Tablet, Oral, EVERY 4 HOURS PRN, Starting on Mon08/14/25 at 1732, Until Mon08/15/25 at 1802, Pain (See admin instructions), Routine Given 08/15/2025 4:27 AM CDT 1 Tablet HYDROmorphone (PF) (DILAUDID) injection 0.5 mg 0.5 mg, IV, POST-PROCEDURE Q 5 MINUTES PRN, 5 doses, Starting on Mon08/14/25 at 1251, Until Mon08/14/25 at 1858, Pain, Severe, Routine, PACU Given 08/14/2025 4:55 PM CDT 0.5 mg labetaloL (NORMODYNE;TRANDATE) 5 mg/mL injection 10 mg 10 mg, IV, ONE TIME ONLY, 1 dose, On Mon08/14/25 at 1545, Stat Given 08/14/2025 3:39 PM CDT 10 mg labetaloL (NORMODYNE;TRANDATE) 5 mg/mL injection 10 mg 10 mg, IV, ONE TIME ONLY, 1 dose, On Mon08/14/25 at 1600, Routine Given 08/14/2025 3:51 PM CDT 10 mg lactated ringers infusion IV, at 100 mL/hr, CONTINUOUS, Starting on Mon08/14/25 at 0700, Until Mon08/15/25 at 1802, Routine, Pre-op naloxone (NARCAN) 0.4 mg/mL injection 0.1-0.4 mg 0.1-0.4 mg, IV, SEE ADMIN INSTRUCTIONS, Starting on Vannesa 08/14/25 at 1251, Until Mon08/15/25 at 1802, Routine, PACU sodium chloride 0.9 % infusion IV, at 30 mL/hr, CONTINUOUS, Starting on Vannesa 08/14/25 at 0700, Until Mon08/15/25 at 0659, Routine, Pre-Procedure (Invasive Cardiology)Indications:Atrial fibrillation, persistent (CMS/HCC) New Bag 08/14/2025 1:44 PM CDT New Bag 08/14/2025 1:25 PM CDT Continue from Pre-Op 08/14/2025 1:24 PM CDT 30 mL/hr sodium chloride flush injection 10 mL 10 mL, IV, SEE ADMIN INSTRUCTIONS, Starting on Vannesa 08/14/25 at 0651, Until Mon08/15/25 at 1802, Routine, Pre-op umeclidinium (INCRUSE ELLIPTA) 62.5 mcg/actuation inhaler 1 Puff 1 Puff, Inhalation, DAILY RESPIRATORY, First dose on Mon08/15/25 at 0800, Until Discontinued, Routine Given 08/15/2025 8:47 AM CDT 1 Puff documented in this encounter Active and Recently Administered Medications Times are shown in CDT. Scheduled Medication Order 08/13/2025 08/14/2025 08/15/2025 aspirin (JAQUELIN CHEWABLE) chewable tablet 81 mg (COMPLETED) 81 mg, Oral, PRE-PROCEDURE ONCE, 1 dose, Starting on Mon08/14/25 at 0651, Until Mon08/14/25 at 0759, Routine, Pre-Procedure (Invasive Cardiology) 0759 (Given - Provider: Ana M Hickman RN) atorvastatin (LIPITOR) tablet 20 mg 20 mg, Oral, DAILY, First dose on Mon08/15/25 at 0900, Until Discontinued, Routine, Previous Med: atorvastatin (LIPITOR) 20 mg tablet - Orig Sig - Take 20 mg by mouth daily. 0847 (Given - Provid er: Shaunna Colmenares RN) dilTIAZem (CARDIZEM CD, CARTIA XT) SR 24 hour capsule 120 mg 120 mg, Oral, DAILY, First dose on Mon08/15/25 at 0900, Until Discontinued, Routine, Previous Med: dilTIAZem (CARDIZEM CD, CARTIA XT) 120 mg Controlled Delivery 24 hour capsule - Orig Sig - Take 120 mg by mouth daily. 0913 (Given - Provid er: Shaunna Colmenares RN) finasteride (PROPECIA) tablet 5 mg 5 mg, Oral, DAILY AT BEDTIME, First dose on Mon08/15/25 at 2100, Until Discontinued, Routine, Previous Med: finasteride (PROSCAR) 5 mg tablet - Orig Sig - Take 5 mg by mouth daily at bedtime. fluticasone furoate-vilanteroL (BREO ELLIPTA) 100-25 mcg/dose inhaler 1 Puff 1 Puff, Inhalation, DAILY RESPIRATORY, First dose on Mon08/15/25 at 0800, Until Discontinued, Routine 0847 (Given - Provid er: Shaunna Colmenares RN) hydrALAZINE (APRESOLINE) 20 mg/mL injection 5 mg (COMPLETED) 5 mg, IV, ONE TIME ONLY, 1 dose, On Mon08/14/25 at 1615, Routine 1606 (Given - Provider: Rula Briones RN) labetaloL (NORMODYNE;TRANDATE) 5 mg/mL injection 10 mg (COMPLETED) 10 mg, IV, ONE TIME ONLY, 1 dose, On Mon08/14/25 at 1545, Stat 1539 (Given - Provider: Rula Briones RN) labetaloL (NORMODYNE;TRANDATE) 5 mg/mL injection 10 mg (COMPLETED) 10 mg, IV, ONE TIME ONLY, 1 dose, On Mon08/14/25 at 1600, Routine 1551 (Given - Provider: Rula Briones RN) naloxone (NARCAN) 0.4 mg/mL injection 0.1-0.4 mg 0.1-0.4 mg, IV, SEE ADMIN INSTRUCTIONS, Starting on Mon08/14/25 at 1251, Until Mon08/15/25 at 1802, Routine, PACU sodium chloride flush injection 10 mL 10 mL, IV, SEE ADMIN INSTRUCTIONS, Starting on Mon08/14/25 at 0651, Until Mon08/15/25 at 1802, Routine, Pre-op umeclidinium (INCRUSE ELLIPTA) 62.5 mcg/actuation inhaler 1 Puff 1 Puff, Inhalation, DAILY RESPIRATORY, First dose on Mon08/15/25 at 0800, Until Discontinued, Routine 0847 (Given - Provid er: Shaunna Colmenares RN) Continuous Medication Order 08/13/2025 08/14/2025 08/15/2025 lactated ringers infusion IV, at 100 mL/hr, CONTINUOUS, Starting on Vannesa 08/14/25 at 0700, Until Mon08/15/25 at 1802, Routine, Pre-op 0700 (Due) sodium chloride 0.9 % infusion () IV, at 30 mL/hr, CONTINUOUS, Starting on Vannesa 08/14/25 at 0700, Until Mon08/15/25 at 0659, Routine, Pre-Procedure (Invasive Cardiology) 0730 (New Bag - Provider: Ana M Hickman RN)1324 (Continue from Pre-Op - Provider: Jose Eduardo Mckeon CRNA)1324 (Paused - Provider: Jose Eduardo Mckeon CRNA - Comment: Switch to gravity)1325 (New Bag - Provider: Jose Eduardo Mckeon CRNA)1344 (New Bag - Provider: Jose Eduardo Mckeon CRNA)1524 (Stopped - Provider: Diane Camarena CRNA) PRN Medication Order 08/13/2025 08/14/2025 08/15/2025 ALPRAZolam (XANAX) tablet 0.25 mg 0.25 mg, Oral, FOUR TIMES DAILY PRN, Starting on Vannesa 08/14/25 at 1733, Until Mon08/15/25 at 1802, Anxiety, Routine fentaNYL (PF) (SUBLIMAZE) 50 mcg/mL injection 50 mcg (CANCELED) 50 mcg, IV, POST-PROCEDURE Q 3 MINUTES PRN, 5 doses, Starting on Vannesa 08/14/25 at 1251, Until Vannesa 08/14/25 at 1858, Pain, Mild, Pain, Moderate, Routine, PACU 1633 (Given - Provider: Rula Briones RN) HYDROcodone-acetaminophen (NORCO) 5-325 mg per tablet 1 Tablet 1 Tablet, Oral, EVERY 4 HOURS PRN, Starting on Vannesa 08/14/25 at 1732, Until Mon08/15/25 at 1802, Pain (See admin instructions), Routine 0427 (Given - Provid er: Mary Lee LPN) HYDROmorphone (PF) (DILAUDID) injection 0.5 mg (CANCELED) 0.5 mg, IV, POST-PROCEDURE Q 5 MINUTES PRN, 5 doses, Starting on Vannesa 08/14/25 at 1251, Until Vannesa 08/14/25 at 1858, Pain, Severe, Routine, PACU 1655 (Given - Provider: Rula Briones RN) iopamidoL (ISOVUE-300) 61% injection (drawn from multi-use bulk pack) (CANCELED) ONE TIME PRN, Starting on Mon08/14/25 at 1455, Until Mon08/14/25 at 1500, Routine, Intra-Procedure (Invasive Cardiology) 1455 (Given - Provider: Kimberlyn Barba DO) lidocaine 1 % (XYLOCAINE) injection (CANCELED) ONE TIME PRN, Starting on Vannesa 08/14/25 at 1356, Until Vannesa 08/14/25 at 1500, Routine, Intra-Procedure (Invasive Cardiology) 1356 (Given - Provider: Kimberlyn Barba DO) nitroglycerin (NITROSTAT) tablet 0.4 mg 0.4 mg, Sublingual, EVERY 5 MINUTES PRN, Starting on Mon08/14/25 at 1732, Until Mon08/15/25 at 1802, Chest Pain, Routine, Previous Med: nitroglycerin (NITROSTAT) 0.4 mg Tablet, Sublingual - Orig Sig - Place 0.4 mg under tongue every 5 minutes as needed. documented in this encounter
--- OUTSIDE RECORDS SUMMARY | 2025-08-14 11:30 | XMS_ITS | Encounter Summary ---
Author Organization [facility] Address [address] [place] [address] Care Team Providers Care Manager Inspection Name Role Phone Unavailable Primary Care Provider Unavailabl e Reason for Visit * Auth/Cert (Routine) Specialty Diagnoses / Procedures Referred By Contac t Referred To Contact Cardiology Diagnoses Atrial fibrillation, persistent (CMS/HCC) Procedures IA PERQ CLSR TCAT L ATR APNDGE W/ENDOCARDIAL IMPLNT IA ECHO PAOLA GUID TCAT ICAR/VESSEL STRUCTURAL INTVN Left atrial appendage closure percutaneous Kimberlyn Barba DO [address] [place] [phone] Phone: tel: fax: 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 Cardiac Charging Crane Operator [address] [place] [address] Kibmerlyn Barba DO [address] [place] [phone] Left atrial appendage closure percutaneous Surgery Details Date/Time Status Location OR Service Patient Class Case Class Case Type Trauma Case? 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 Gender Identity Not on file Sexual Orientation Not on file documented as of this encounter Last Filed Vital Signs Vital Sign Reading Time Taken Comments Blood Pressure 191/96 08/14/2025 7:00 AM CDT Pulse 67 08/14/2025 7:00 AM CDT Temperature 36.1 C (97 F) 08/14/2025 7:00 AM CDT Respiratory Rate - - Oxygen Saturation 98% 08/14/2025 7:00 AM CDT Inhaled Oxygen Concentration - - Weight 89.5 kg (197 lb 5 oz) 08/14/2025 7:36 AM CDT Height 182.9 cm (6') 08/14/2025 7:36 AM CDT Body Mass Index 26.28 08/14/2025 7:00 PM CDT documented in this encounter Discharge Summaries * Noris Nunn FNP - 08/15/2025 2:18 PM CDT [facility] Discharge Summary Narciso Rider 80 y.o. male 1945 CSN: [id number] Date of Admission: 08/14/2025 Date of Discharge: [...] dyslipidemia, HTN, GIB who was admitted to [facility] on 08/14/2025 to undergo watchman which was [...] by mouth daily at bedtime. Refills: 0 hzeboyclyiw-zquxezjrbqej-mmqmxhkgpe 200-62.5-25 mcg Disk with Device Commonly known [...] Reece RN - 08/15/2025 3:[address] [facility] Discharge Instructions Discharge & Transfer patient to: [...] make a follow up appointment, please call [phone]. Activity level: up as tolerated DIET: DIET CARDIAC Low Cholesterol (AHA),; 2GM Sodium (Low), Wound Care: Follow up in the Emergency Room For any recurrence or worsening of admission concerns, chest pain, palpitations, shortness of breath, coughing blood, nausea, vomiting, diarrhea, pain, fever, chills, bleeding, bloody or tarry stools, change to urine or bowel output, Contact hospitalist office [phone] for questions if patients are discharged by [facility]ist[facility]. * Attachments The following attachments cannot be sent through Care Everywhere. 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 NAME: Narciso Rider 1945 PT. NUMBER: [id number] DATE: 08/14/2025 TIME: 3:04 PM PRIMARY CARE [...] to take AC. He has a high ZSDHT1Nqme score Past Medical History: Diagnosis Date Atrial [...] 5 mg by mouth daily at bedtime. qufbexbvlvv-gawdesqohmji-dwjhqieaxl (TRELEGY ELLIPTA) 200-62.5-25 mcg Disk with Device [...] treatment options, risk, and expected outcomes reviewed. [id number] Moderate-High Risk 3 Total Score 1 Hypertension [...] 08/14/2025 4:[address] Barba and product safety technical assistant at bedside. - SL * Richa-OP - [...] st Contact Info) Description 09/30/2025 9:00 AM PLATE FITTER Office Visit [facility] [address] [facility] [address] [place] [phone] Kimberlyn Barba, DO [address] [place] [phone] Dolores Nicole, DIESEL LOCOMOTIVE ENGINEER [address] [place] [phone] Pending Results Name Type Priority Associated Diagnoses [...] 31(H) <=15 ng/L 08/15/2025 6:11 AM CDT [facility] [employer] [facility] DELTA 6HR TROPONIN T -1 See Interp. 08/15/2025 6:11 AM CDT [facility] Blood Venipuncture / Unknown 08/15/2025 5:08 AM CDT 08/15/2025 5:36 AM CDT [facility] [employer] [facility] - 08/15/2025 6:11 AM CDT Troponin elevated. Delta indeterminate. Delay in collection of timed specimen beyond recommended collection interval. Results must be interpreted in clinical context. Prieto Tabares Ekaterina II, DO CHEMISTRY ORDERABL ES Final Result Performing Organization Address [facility] Co de Phone Number [facility] CLIA # [id number] [address] [place] [address] * (ABNORMAL) TROPONIN 2 HR, 5TH GEN (08/15/2025 1:09 AM CDT) TROPONIN T, 2 HR 5TH GEN 32(H) <=15 ng/L 08/15/2025 2:14 AM CDT [facility] DELTA 2HR TROPONIN T 0 See Interp. 08/15/2025 2:14 AM CDT [facility] [employer] [facility] Blood Venipuncture / Unknown 08/15/2025 1:09 AM CDT 08/15/2025 1:40 AM CDT [facility] [employer] [facility] - 08/15/2025 2:14 AM CDT Troponin elevated. Delta not changing. Delay in collection of timed specimen beyond recommended collection interval. Results must be interpreted in clinical context. Prieto Rayshawnbenito Tobar II, DO CHEMISTRY ORDERABL ES Final Result Performing Organization Address [facility] Co de Phone Number [facility] CLIA # [id number] [address] [place] [address] * (ABNORMAL) TROPONIN BASELINE, 5TH GEN (08/14/2025 11:25 PM CDT) TROPONIN T, BASELINE 5TH GEN 32(H) <=15 ng/L 08/15/2025 12:05 AM CDT [facility] [employer] [facility] Blood Venipuncture / Unknown 08/14/2025 11:25 PM CDT 08/14/2025 11:32 PM CDT Narrative [facility] - 08/15/2025 12:05 AM CDT Troponin elevated. Prieto Brownafrica II, DO CHEMISTRY ORDERABL ES Final Result [facility] CLIA # [id number] [address] [address] * ECHO LIMITED W DOPPLER AND COLOR FLOW (08/14/2025 5:04 PM CDT) EJECTION FRACTION EF: INTERFACE SYSTEM 08/14/2025 4:47 PM CDT [facility] INTERFACE SYSTEM - 08/15/2025 3:22 PM CDT [facility] Cardiovascular Services Echocardiography Laboratory [address] [place] [address] Limited Transthoracic Echocardiography Patient: Narciso Rider Study ECHO LIMITED Regina Farah ID: Gender: M : 1945 Age: 80 Room: [facility] Study 08/14/2025 Pt Inpatient Date: Status: Study 04:47:01 PM CSN #: [id number] Time: Ordering:Kimberlyn Barba DO Summary and Conclusion: [...] ARTERY: Systolic pressure cannot be accurately estimated. [facility] Echo Labs are accredited with the Intersocietal Accreditation Commission - Echocardiography. Prepared and Electronically Authenticated Kimberlyn Barba DO Confirmed 08/15/2025 15:22 Procedure Note Kimberlyn Barba, DO - 08/15/[address] [facility] Cardiovascular Services Echocardiography Laboratory Critical access hospital[address] [place] [address] Limited Transthoracic Echocardiography Patient: Narciso Rider Study ECHO CORNELIOW Liban Farah ID: Gender: Nadya : 1945 Age: 80 Room: [facility] Study 08/14/2025 Pt Inpatient Date: Status: Study 04:47:01 PM CSN #: [id number] Time: Ordering:Kimberlyn Barba DO Summary and Conclusion: [...] ARTERY: Systolic pressure cannot be accurately estimated. [facility] Echo Labs are accredited with [facility] Accreditation Commission - Echocardiography. 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: [id number] : 1945 Requested By: Order Number: [id number] Reading MD: Soila Cast Measurements Intervals Beauty Rate: 88 P: 0 IA: 0 QRS: 40 QRSD: 108 T: 66 QT: 410 QTc: 496 Interpretive Statements Atrial fibrillation Incomplete left bundle branch block Minimal voltage criteria for LVH, may be normal variant ( Sokolow-Ramon ) Nonspecific ST abnormality QTcB >= 480 msec Abnormal ECG Electronically Signed On 08-14-2025 17:41:05 CDT by Soila Cast Procedure Note Soila Cast MD - 08/14/[address] [address] Test Date: 2025-08-14 Pat Name: NARCISO [facility] Department: 12 Room: PACU PO CVOR PACU Gender: Male 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: [id number] : 1945 Requested By: Order Number: [id number] Reading MD: Soila Cast Measurements Intervals Beauty Rate: 88 P: 0 IA: 0 QRS: 40 QRSD: 108 T: 66 QT: 410 QTc: 496 Interpretive Statements Atrial fibrillation Incomplete left bundle branch block Minimal voltage criteria for LVH, may be normal variant ( Sokolow-Ramon ) Nonspecific ST abnormality QTcB >= 480 msec Abnormal ECG Electronically Signed On 08-14-2025 17:41:05 CDT by Soila Cast Prieto Tobar II, DO ECG ORDERABLES Fi nal Result Performing Organization Address [facility] Co de Phone Number INTERFACE SYSTEM Refer to clinic/hospital department * LEFT ATRIAL APPENDAGE CLOSURE PERCUTANEOUS (08/14/2025 2:59 PM CDT) Narrative [facility] - 08/15/2025 2:41 PM CDT Unsuccessful Watchman deployment Procedural Indications Significant difficulty crossing intraatrial septum. When we were able to cross with the sheath. The trajectory was suitable for appendage. Kimberlyn Barba DO CUP EP ORDERABLES Final Result Performing Organization Address [facility] de Phone Number [facility] CLIA [id number] [address] [place] [address], [place] [phone] * (ABNORMAL) POC ACTIVATED CLOTTING TIME (08/14/2025 2:38 PM CDT) ACTIVATED CLOTTING TIME POC 343(H) 116 - 140 sec 08/14/2025 2:38 PM CDT [facility] [employer] [facility] Blood 08/14/2025 2:38 PM CDT 08/14/2025 2:48 PM CDT Kimberlyn Barba DO POINT OF CARE TESTING Fi nal Result Performing Organization Address [facility] Co de Phone Number [facility] CLIA # [id number] [address] [place] [address] * (ABNORMAL) POC ACTIVATED CLOTTING TIME (08/14/2025 2:26 PM CDT) ACTIVATED CLOTTING TIME POC 297(H) 116 - 140 sec 08/14/2025 2:26 PM CDT [facility] [employer] [facility] Blood 08/14/2025 2:26 PM CDT 08/14/2025 2:48 PM CDT Kimberlyn Barba DO POINT OF CARE TESTING Fi nal Result Performing Organization Address City/[facility]/ZIP Co de Phone Number [facility] CLIA # [id number] [address] [address] [place] [address] * (ABNORMAL) POC ACTIVATED CLOTTING TIME (08/14/2025 2:11 PM CDT) ACTIVATED CLOTTING TIME POC 256(H) 116 - 140 sec 08/14/2025 2:11 PM CDT [facility] [employer] [facility] Blood 08/14/2025 2:11 PM CDT 08/14/2025 2:13 PM CDT Kimberlyn Barba DO POINT OF CARE TESTING Fi nal Result Performing Organization Address [facility] Co de Phone Number [facility] CLIA # [id number] [address] [address] * VERIFICATION BLOOD GROUP (08/14/2025 7:30 AM CDT) ABO GROUP O 08/14/2025 8:25 AM CDT [facility] RH (D) TYPE Positive 08/14/2025 8:25 AM CDT [facility] [place] Blood Venipuncture / Unknown 08/14/2025 7:30 AM CDT 08/14/2025 7:35 AM CDT Kimberlyn Barba DO BLOOD BANK ORDERABLES Fi nal Result [facility] -- [facility]#[id number] [address] [place] [address], [place] [phone] * EKG 12-LEAD (08/14/2025 7:28 AM CDT) 08/14/2025 7:28 AM CDT Narrative INTERFACE SYSTEM - 08/14/2025 11:[place] [address] Test Date: 2025-08-14 Pat Name: NARCISO RIDER Department: 12 Room: [place] [address] Gender: Male 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: [id number] : 1945 Requested By: Order Number: [id number] Reading MD: Soila Cast Measurements Intervals Beauty Rate: 70 P: 0 IA: 0 QRS: 56 QRSD: 104 T: 59 QT: 414 QTc: 447 Interpretive Statements Atrial fibrillation Minimal voltage criteria for LVH, may be normal variant ( Sokolow-Ramon ) Abnormal ECG Electronically Signed On 08-14-2025 11:26:51 CDT by Soila Cast Procedure Note Soila Cast MD - 08/14/[address] [address] Test Date: 2025-08-14 Pat Name: NARCISO RIDER Department: 12 Room: [place] [address] Gender: Male 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: [id number] : 1945 Requested By: Order Number: [id number] Reading MD: Soila Cast Measurements Intervals Beauty Rate: 70 P: 0 IA: 0 QRS: 56 QRSD: 104 T: 59 QT: 414 QTc: 447 Interpretive Statements Atrial fibrillation Minimal voltage criteria for LVH, may be normal variant ( Sokolow-Ramon ) Abnormal ECG Electronically Signed On 08-14-2025 11:26:51 CDT by Sunthosh Parvathaneni us Kimberlyn Barba DO ECG ORDERABLES Final Re sult INTERFACE SYSTEM Refer to clinic/hospital department * COMPREHENSIVE METABOLIC PANEL (08/14/2025 7:28 AM CDT) SODIUM 141 136 - 145 mmol/L 08/14/2025 8:16 AM T [facility] [employer] [facility] POTASSIUM 3.8 3.5 - 5.1 mmol/L 08/14/2025 8:16 AM [facility] CHLORIDE 103 98 - 107 mmol/L 08/14/2025 8:16 AM [facility] [employer] [facility] CO2 25 22 - 29 mmol/L 08/14/2025 8:16 AM [facility] CALCIUM 9.5 8.8 - 10.2 mg/dL 08/14/2025 8:16 AM [facility] [employer] [facility] BUN 12 8 - 23 mg/dL 08/14/2025 8:16 AM [facility] CREATININE 0.71 0.67 - 1.17 mg/dL 08/14/2025 8:16 AM [facility] [employer] [facility] Comment:The GFR result is no t clinically significant on patients <18 or >70 years of age. GLUCOSE 93 74 - 99 mg/dL 08/14/2025 8:16 AM [facility] TOTAL PROTEIN 7.1 6.4 - 8.3 g/dL 08/14/2025 8:16 AM [facility] [employer] [facility] ALBUMIN 3.9 3.5 - 5.2 g/dL 08/14/2025 8:16 AM [facility] [employer] [facility] BILIRUBIN TOTAL 0.4 0.0 - 1.0 mg/dL 08/14/2025 8:16 AM [facility] ALKALINE PHOSPHATASE 98 40 - 129 U/L 08/14/2025 8:16 AM [facility] [employer] [facility] AST 17 10 - 50 U/L 08/14/2025 8:16 AM [facility] [employer] [facility] ALT 15 <=50 U/L 08/14/2025 8:16 AM CDT [facility] GFR >60 mL/min/1.7 3 sq meter 08/14/2025 8:16 AM T [facility] Comment:eGFR calculated with 2020 CKD-EPI equation. Vegetarian diet, extremely high or low muscle mass, and may affect results. Cystatin C with Glomerular Filtration Rate is a suitable alternative for these patients. ANION GAP 13 9 - 20 mmol/L 08/14/2025 8:16 AM T [facility] Blood Venipuncture / Unknown 08/14/2025 7:28 AM CDT 08/14/2025 7:35 AM CDT us Kimberlyn Barba DO CHEMISTRY ORDERABLES Fin al Result [facility] CLIA # [id number] [address] [place] [address] * (ABNORMAL) CBC WITH DIFFERENTIAL (08/14/2025 7:28 AM CDT) WBC 5.3 4.8 - 10.8 K/uL 08/14/2025 7:40 AM [facility] RBC 3.91(L) 4.60 - 6.20 M/uL 08/14/2025 7:40 AM [facility] HEMOGLOBIN 12.0(L) 14.0 - 18.0 g/dL 08/14/2025 7:40 AM T [facility] HEMATOCRIT 37.3(L) 41.0 - 53.0 % 08/14/2025 7:40 AM T [facility] MCV 95.4 84.0 - 103.0 fL 08/14/2025 7:40 AM T [facility] MCH 30.7 27.0 - 34.0 pg 08/14/2025 7:40 AM T [facility] MCHC 32.2 30.0 - 35.0 g/dL 08/14/2025 7:40 AM [facility] PLATELETS 161 140 - 440 K/uL 08/14/2025 7:40 AM [facility] MPV 9.9 8.9 - 12.8 fL 08/14/2025 7:40 AM [facility] RDW 18.2(H) 11.0 - 14.5 % 08/14/2025 7:40 AM [facility] RDW-STDEV 64.4(H) 37.0 - 54.0 fL 08/14/2025 7:40 AM [facility] NEUTROPHILS 71 42 - 75 % 08/14/2025 7:40 AM [facility] LYMPHOCYTES 16(L) 24 - 44 % 08/14/2025 7:40 AM [facility] MONOCYTES 7 2 - 10 % 08/14/2025 7:40 AM [facility] EOSINOPHILS 5 0 - 7 % 08/14/2025 7:40 AM [facility] BASOPHILS 1 0 - 1 % 08/14/2025 7:40 AM [facility] IMMATURE GRANULOCYTES 1 0 - 2 % 08/14/2025 7:40 AM [facility] NEUTROPHIL ABSOLUTE 3.81 2.00 - 8.00 K/uL 08/14/2025 7:40 AM [facility] LYMPHOCYTE ABSOLUTE 0.83(L) 1.20 - 4.00 K/uL 08/14/2025 7:40 AM [facility] MONOCYTE ABSOLUTE 0.39 0.10 - 0.60 K/uL 08/14/2025 7:40 AM [facility] EOSINOPHIL ABSOLUTE 0.25 0.00 - 0.70 K/uL 08/14/2025 7:40 AM [facility] BASOPHILS ABSOLUTE 0.03 0.00 - 0.20 K/uL 08/14/2025 7:40 AM [facility] IMMATURE GRANULOCYTES ABSOLUTE 0.03 0.00 - 0.10 K/uL 08/14/2025 7:40 AM [facility] SMEAR REVIEWED: NA - Not Applicable 08/14/2025 7:40 AM CDT [facility] Blood Venipuncture / Unknown 08/14/2025 7:28 AM CDT 08/14/2025 7:35 AM CDT Kimberlyn Barba DO HEMATOLOGY ORDERABLES Fi nal Result Performing Organization Address [facility] Co de Phone Number [facility] CLIA # [id number] [address] [place], [place] [address] * (ABNORMAL) BRAIN NATRIURETIC PEPTIDE, BNP OR PROBNP (08/14/2025 7:28 AM CDT) PROBNP, N TERMINAL 1,671(H) 0 - 450 pg/mL 08/14/2025 8:16 AM CDT [facility] Comment: INTERPRETIVE COMMENT based on diagnosis: [...] ORDERABLES Fin al Result Performing Organization Address [facility]/ZIP Co de Phone Number [facility] CLIA # [id number] [address] [place] [address] * TYPE AND SCREEN (08/14/2025 7:25 AM CDT) [facility] ABO GROUP O 08/14/2025 8:52 AM CDT [facility] [place] RH (D) TYPE Positive 08/14/2025 8:52 AM CDT [facility] [place] ANTIBODY SCREEN Negative 08/14/2025 8:52 AM CDT [facility] [place] Blood Venipuncture / Unknown 08/14/2025 7:25 AM CDT 08/14/2025 7:35 AM CDT Kimberlyn Barba DO BLOOD BANK ORDERABLES Ed ited Result - Final Performing Organization Address City/[facility]/ZIP Co de Phone Number [facility] [place] CLIA#[id number] [address] [place] [address], * PREPARE RED BLOOD CELLS (08/14/2025 6:52 AM CDT) [facility] COMPONENT TYPE [id number] [facility] [place] COMPONENT IDENTIFICATION [id number] [facility] [place] UNIT ABO O [facility] [place] UNIT RH POS [facility] [place] CROSSMATCH Compatible [facility] [place] COMPONENT STATUS Returned [facility] [place] COMPONENT EXPIRATION DATE/TIME [id number] [facility] [place] COMPONENT CODING SYSTEM 5100 [facility] [place] VOLUME, BLOOD PRODUCT 350 [facility] [place] 08/14/2025 6:52 AM CDT Kimberlyn Barba DO LAB TRANSFUSION ORDERABL ES Edited Result - Final Performing Organization Address [facility]/ZIP Co de Phone Number [facility] [employer] [facility] [place] CLIA#[id number] Critical access hospital[address] [place] [address], * PREPARE RED BLOOD CELLS (08/14/2025 6:52 AM CDT) COMPONENT TYPE [id number] [facility] [place] COMPONENT IDENTIFICATION [id number] [facility] [place] UNIT ABO O [facility] [place] UNIT RH POS [facility] [place] CROSSMATCH Compatible [facility] [place] COMPONENT STATUS Returned [facility] [place] COMPONENT EXPIRATION DATE/TIME [id number] [facility] [place] COMPONENT CODING SYSTEM 5100 [facility] [place] VOLUME, BLOOD PRODUCT 350 [facility] [place] Other, specify 08/14/2025 6: 52 AM CDT us Kimberlyn Barba DO LAB TRANSFUSION ORDERABL ES Edited Result - Final [facility] [place] CLIA#[id number] [address] [place] [address], documented in this encounter Visit Diagnoses Diagnosis Atrial fibrillation, persistent (CMS/HCC) Atrial fibrillation Atrial fibrillation, persistent (CMS/HCC) Atrial fibrillation documented in this encounter Admitting Diagnoses Diagnosis Atrial fibrillation, persistent (CMS/HCC) Atrial fibrillation documented in this encounter Administered Medications Inactive Administered Medications - up to 3 most recent administrations Medication Order MAR Action Action Date Dose Rate Site atorvastatin (LIPITOR) tablet 20 mg 20 mg, [...] Given 08/15/2025 9:13 AM CDT 120 mg fluticasone furoate-vilanteroL (BREO ELLIPTA) 100-25 mcg/dose inhaler 1 Puff 1 Puff, Inhalation, DAILY RESPIRATORY, First dose on Mon08/15/25 at 0800, Until Discontinued, Routine Given 08/15/2025 8:47 AM CDT 1 Puff HYDROcodone-acetaminophen (NORCO) 5-325 mg per tablet 1 Tablet 1 Tablet, Oral, EVERY 4 HOURS PRN, Starting on Mon08/14/25 at 1732, Until Mon08/15/25 at 1802, Pain (See admin instructions), Routine Given 08/15/2025 4:27 AM CDT 1 Tablet iopamidoL (ISOVUE-300) 61% injection (drawn from multi-use bulk pack) ONE TIME PRN, Starting on Mon08/14/25 at 1455, Until Mon08/14/25 at 1500, Routine, Intra-Procedure (Invasive Cardiology) Given 08/14/2025 2:55 PM CDT 20 mL lactated ringers infusion IV, at 100 mL/hr, CONTINUOUS, Starting on Mon08/14/25 at 0700, Until Mon08/15/25 at 1802, Routine, Pre-op lidocaine 1 % (XYLOCAINE) injection ONE TIME PRN, Starting on Mon08/14/25 at 1356, Until Mon08/14/25 at 1500, Routine, Intra-Procedure (Invasive Cardiology) Given 08/14/2025 1:56 PM CDT 10 mL naloxone (NARCAN) 0.4 mg/mL injection 0.1-0.4 mg [...] - Take 20 mg by mouth daily. 846 (Given - Provid er: Shaunna Colmenares RN) dilTIAZem (CARDIZEM CD, CARTIA XT) SR 24 hour capsule 120 mg 120 mg, Oral, DAILY, First dose on Mon08/15/25 at 0900, Until Discontinued, Routine, Previous Med: dilTIAZem (CARDIZEM CD, CARTIA XT) 120 mg Controlled Delivery 24 hour capsule - Orig Sig - Take 120 mg by mouth daily. 912 (Given - Provid er: Shaunna Colmenares RN) [...] on Mon08/15/25 at 0800, Until Discontinued, Routine 08 (Given - Provid er: Shaunna Colmenares RN) hydrALAZINE (APRESOLINE) 20 mg/mL injection 5 mg (COMPLETED) 5 mg, IV, ONE TIME ONLY, 1 dose, On Mon08/14/25 at 1615, Routine 1606 (Given - Provider: Rula Briones RN) labetaloL (NORMODYNE;TRANDATE) 5 mg/mL injection 10 mg (COMPLETED) 10 mg, IV, ONE TIME ONLY, 1 dose, On Mon08/14/25 at 1545, Stat 1539 (Given - Provider: Rula Kay V, VINH) labetaloL (NORMODYNE;TRANDATE) 5 mg/mL injection 10 mg [...] pack) (CANCELED) ONE TIME PRN, Starting on Vannesa 08/14/25 at 1455, Until Vannesa 08/14/25 at 1500, Routine, Intra-Procedure (Invasive Cardiology) 1455 (Given - Provider: Kimberlyn Barba DO) lidocaine 1 % (XYLOCAINE) injection (CANCELED) ONE TIME PRN, Starting on Vannesa 08/14/25 at 1356, Until Vannesa 08/14/25 at 1500, Routine, Intra-Procedure (Invasive Cardiology) 1356 (Given - Provider: Kimberlyn Barba DO) nitroglycerin (NITROSTAT) tablet 0.4 mg 0.4 mg, Sublingual, EVERY 5 MINUTES PRN, Starting on Vannesa 08/14/25 at 1732, Until Mon08/15/25 at 1802, Chest Pain, Routine, Previous Med: nitroglycerin (NITROSTAT) 0.4 mg Tablet, Sublingual - Orig Sig - Place 0.4 mg under tongue every 5 minutes as needed. documented in this encounter
--- OUTSIDE RECORDS SUMMARY | 2025-08-14 13:24 | XMS_ITS | Encounter Summary ---
Author Organization [facility] Address 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 Name Role Phone Unavailable Primary Care Provider Unavailabl e Reason for Visit * Auth/Cert (Routine) Specialty Diagnoses / Procedures Referred By Contac t Referred To Contact Cardiology Diagnoses Atrial fibrillation, persistent (CMS/HCC) Procedures IN PERQ CLSR TCAT L ATR APNDGE W/ENDOCARDIAL IMPLNT IN ECHO PAOLA GUID TCAT ICAR/VESSEL STRUCTURAL INTVN Left atrial appendage closure Kimberlyn Wilson DO [address] [facility] [address] [place] [phone] Phone: tel: fax: [facility] Cardiac Severity Of Illness Coordinator [address] [place] [address] Phone: tel: fax: Referral ID Status Reason Start Date Expiration Date Visits Re quested Visits Authorized [id number] 1 1 Encounter Details Date Type Department Care Team (Late st Contact Info) Description 08/14/2025 1:24 PM CDT Anesthesia Event [facility] Cardiac Severity Of Illness Coordinator [address] [place] [address] Prieto Tobar II [address] [place] [address] Anesthesia Record Procedure Summary Procedure Name Responsible Anesthesiologist Anesthesia Start Time Anesthesia Stop Time Left atrial appendage closure percutaneous Prieto Tobar II, DO 08/14/25 1324 08/14/25 1524 Events Date Time Event Comment 08/14/2025 1136 AN Equip Check Anesthesia eq uipment and materials checked in accordance with local policy. 1254 1324 An Start 1324 An Start Data 1324 Pre-Induction Immediate pre- induction anesthetic assessment performed. Vital signs as noted on graphic. 1325 An Induction 1327 An Intubation 1345 Anesthesia Ready 1407 an jacy now ACT 356 1420 an jacy now ACT 297 1431 an jacy now 1512 An Extubation Emergence unev entful Awake, spontaneous respirations. Adequate muscle strength demonstrated Adequate tidal volume. Orapharynx suctioned. Extubated with positive pressure ventilation. 1512 an stop data 1524 An Stop 1524 Hand-off to [facility]ceiving [facility] tiesha Meds Name Total propofol (DIPRIVAN) 10 mg/mL injection 80 mg rocuronium (ZEMURON) 10mg/mL injection 5 0 mg sugammadex (BRIDION) 100 mg/mL injection 200 mg norepinephrine (LEVOPHED) 4 mg in sodium chloride 0.9 % 250 mL infusion 0.17 mg lidocaine (XYLOCAINE) 4% laryngotracheal solution 4 mL lidocaine PF (XYLOCAINE MPF) 2% injectio n 5 mL ceFAZolin (ANCEF) 1000 mg vial 2,000 mg heparin 1,000 units/mL injection 14,000 Units protamine 10 mg/mL injection 50 mg sodium chloride 0.9 % infusion 750 mL * Agents Name Air Sevoflurane % Sevoflurane O2 N2O Inspired N2O O2 * Blood No blood administrations on file. Lines, Drains, and Airways Type Details Placement Removal Peripheral IV Orientation: Left; Location: Antecubital; Gauge: 20 gauge; Insertion Attempts: 1; Patient Tolerance: tolerated well 08/14/25 0730 by Ana M Hickman RN 08/15/25 1506 by Juanita Reece, VINH Endotracheal Airway Type: ETT; Size: 8; Attempts: 1; Verification: Auscultated bilateral breath sounds, Equal chest movement, Continuous waveform capnography 08/14/25 1327 by Jose Eduardo Mckeon CRNA 08/14/25 1512 by Diane Camarena CRNA Peripheral IV Orientation: Anterio r, Left; Location: Hand; Device: Angiocath; Gauge: 18 gauge; Needle Length: 1.25 in length 08/14/25 1345 by Jose Eduardo Mckeon CRNA 08/15/25 1506 by Juanita Reece, VINH ART Line Orientation: Right:; Location: radial artery; Size (Ga): 20 Ga; Removal Indication: no longer indicated 08/14/25 1345 by Jose Eduardo Mckeon CRNA 08/14/25 1605 by Rula Stahl RN documented in this encounter Social History Tobacco Use Types Packs/Day Years Used Date Smoking Tobacco: Former Cigarettes Smokeless Tobacco: Never Alcohol Use Standard Drinks/Week Comments Never 0 [...] on file 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 Gender Identity Not on file Sexual Orientation Not on file documented as of this encounter OR Notes * Anesthesia Postprocedure Evaluation - Prieto Tobar II, DO - 08/14/2025 3:29 PM CDT Post Anesthesia Evaluation Vitals: Vitals Value Taken Time BP 190/100 08/14/25 15:20 Temp 36 ??C 08/14/25 15:28 Resp 20 08/14/25 15:20 SpO2 100 % 08/14/25 15:20 Pulse 72 08/14/25 15:20 Heart Rate 77 bpm 08/14/25 15:20 Pain Rating: Anesthesia Post Evaluation Patient location during evaluation: PACU Patient participation: patient was able to participate in the post op evaluation Level of consciousness: 0 = alert, responsive, answers simple questions appropriately, able to perform simple tasks Pain management: adequate Airway patency: patent Nausea or Vomiting: none Cardiovascular status: regular rate and rhythm Respiratory status: no respiratory symptoms Hydration status: well hydrated No notable events documented. Prieto Tobar II, DO * Anesthesia Handoff - Diane Camarena CRNA - 08/14/2025 3:24 PM CDT Post-Anesthetic transfer of care report elements to appropriate post-anesthesia recovery environment completed in accordance with procedure. I completed my handoff to the receiving nurse during which we: 1. Identified the patient 2. Identified the responsible provider 3. Reviewed the pertinent medical history 4. Discussed the surgical course 5. Reviewed intra-op anesthesia management and issues during anesthesia 6. Set expectations for post-procedure period 7. Orders as necessary and appropriate for continuation of care are present in Epic. 8. Allowed opportunity for questions and acknowledgement of understanding. Vital Signs: Vitals Value Taken Time BP 190/100 08/14/25 15:20 Temp 35.8 ??C 08/14/25 15:16 Resp 17 08/14/25 15:23 SpO2 98 % 08/14/25 15:23 Pulse 64 08/14/25 15:23 Heart Rate 66 bpm 08/14/25 15:23 Vitals shown include unfiled device data. 3:24 PM Krista Camarena CRNA * Anesthesia Procedure Notes - Jose Eduardo Mckeon CRNA - 08/14/2025 1:55 PM CDT Associated Order(s): Arterial Line Insertion Arterial Line Insertion Start Time: 08/14/2025 1:45 PM Patient location during procedure: OR Staffing Performed: Anesthesiologist (/) Authorized by: Prieto Tobar II, DO Performed by: Jose Eduardo Mckeon CRNA time out called Indications: hemodynamic monitoring Hand hygiene performed prior to procedure Preparation: skin prepped with 2% chlorhexidine Skin prep agent dried: skin prep agent completely dried prior to procedure Patient position: flat Location: right radial Seldinger technique used Catheter size: 20 GAssessment: blood return through port Procedure uneventful Post-procedure: line secured and dressing applied * Anesthesia Procedure Notes - Jose Eduardo Mckeon CRNA - 08/14/2025 1:51 PM CDT Associated Order(s): Airway Airway Date/Time: 08/14/2025 1:27 PM Location: OR Plan: elective intubation Patient Identity Confirmed by: Verbally with patient Airway: not difficult Staffing Performed: FRANCIA/TINY Authorized by: Prieto Tobar II, DO Performed by: Jose Eduardo Mckeon CRNA Indications and Patient Condition: Indications for Airway Management: Anesthesia Sedation Level: general anesthesia Preoxygenated: yes Patient Position: Sniffing Mask Difficulty Assessment: 1 - vent by mask Plan to extubate at end of case: Yes Final Airway Details: Final Airway Type: Endotracheal airway ETT Cuffed: Yes Cuff Volume (mL): 7 Technique Used for Successful ETT Placement: Direct laryngoscopy Blade Type: curved blade Blade Size: 3 Insertion Site: Oral ETT Size (mm): 8.0 Measured from: Lips ETT to Lips (cm): 22 Tube secured with: Tape Placement Verified by: auscultation, end tidal CO2 and chest rise Cormack-Lehane Classification: Grade I - full view of glottis Number of Attempts at Approach: 1 Additional Procedure Information: atraumatic and dentition unchanged * Anesthesia Preprocedure Evaluation - Prieto Tobar II, DO - 08/14/2025 11:45 AM CDT Relevant Problems CARDIOVASCULAR (+) Atrial fibrillation (CMS/HCC) (+) Essential hypertension Anesthesia Evaluation Airway Mallampati: II TM distance: >3 FB Neck ROM: full Dental Pulmonary breath sounds clear to auscultation (+) COPD (-) asthma, shortness of breath, recent URI, sleep apnea Cardiovascular Exercise tolerance: good (+) hypertension, CAD, dysrhythmias (-) pacemaker, valvular problems/murmurs, past [place], CABG/stent, angina, CHF, orthopnea, PND, MASON Rhythm: regular Rate: normal Neuro/Psych (+) CVA (-) neuromuscular disease, TIA, headaches, psychiatric history GI/Hepatic/Renal (-) GERD, PUD, hepatitis, liver disease Endo/Other (-) diabetes mellitus, hypothyroidism, hyperthyroidism Abdominal Anesthesia History No history of anesthetic complications and no history of malignant hyperthermia. Anesthesia Plan ASA Final: 3 MAC (GETA, large bore PIV access, A-line, CVC prn.) Intravenous induction Oral ETT airway maintenance NPO status > 8 hours Anesthetic plan and risks discussed with Patient. Plan discussed with Senior Physician. Post-op Pain Control Plan to use Per surgeon for post-op pain control. Narciso Rider is a 80 y.o. male Date: 08/14/2025 Interview: Pre-Op Preoperative Diagnosis * No pre-op diagnosis entered * Scheduled Procedure Left atrial appendage closure percutaneous NPO: >8 hours (solid food) and >2 hours (clear liquids) No Known Allergies Past Medical History: Diagnosis Date Atrial fibrillation (CMS/HCC) 07/08/2025 Coronary artery disease Dyslipidemia 07/08/2025 Dyspnea on exertion Emphysema of lung ([facility]/HCC) Essential hypertension 07/08/2025 History of GI bleed 07/08/2025 Malignant neoplasm ([facility]/HCC) prostate Stroke ([facility]/HCC) no residual Past Surgical History: Procedure Laterality Date HX PTCA No current facility-administered medications on file prior to encounter. Current Outpatient Medications on File Prior to Encounter Medication Sig Dispense Refill dilTIAZem (CARDIZEM CD, CARTIA XT) 120 mg Controlled Delivery 24 hour capsule Take 120 mg by mouth daily. atorvastatin (LIPITOR) 20 mg tablet Take 20 mg by mouth daily. cholecalciferol 1,250 mcg (50,000 unit) Capsule Take 50,000 Units by mouth every 7 days. ferrous gluconate 324 mg (38 mg iron) tablet Take 324 mg by mouth daily. finasteride (PROSCAR) 5 mg tablet Take 5 mg by mouth daily at bedtime. grqfkebqhrh-hotbczzipsgb-jadxzxppxw (TRELEGY ELLIPTA) 200-62.5-25 mcg Disk with Device Take 1 Puff by inhalation daily. ipratropium-albuteroL (DUONEB) 0.5 mg-3 mg(2.5 mg base)/3 mL Solution for Nebulization Take 3 mL byinhalation every 6 hours as needed. ketoconazole (NIZORAL) 2 % Cream Apply to affected area daily. metoprolol tartrate (LOPRESSOR) 100 mg tablet Take 200 mg by mouth 2 times daily. omeprazole (PriLOSEC) 40 mg Capsule, Delayed Release(E.C.) Take 40 mg by mouth 2 times daily. triamcinolone acetonide (KENALOG) 0.1 % Cream Apply to affected area 2 times daily. mupirocin (BACTROBAN) 2 % Ointment APPLY A SMALL AMOUNT TO AFFECTED AREA 3 TIMES A DAY nitroglycerin (NITROSTAT) 0.4 mg Tablet, Sublingual Place 0.4 mg under tongue every 5 minutes as needed. Physical Exam: Airway Class: II (soft palate, uvula, fauces visible) Dentition: fair Pulmonary: clear to auscultation Cardiac: regular rate and rhythm Neuro: alert Pertinent lab: Results for orders placed or performed during the hospital encounter of 08/14/25 (from the past 24 hours) PREPARE RED BLOOD CELLS Result Value Ref Range COMPONENT TYPE V1255P50 COMPONENT IDENTIFICATION [id number] UNIT ABO O UNIT RH POS CROSSMATCH Compatible COMPONENT STATUS Selected COMPONENT EXPIRATION DATE/TIME COMPONENT CODING SYSTEM 5100 VOLUME, BLOOD PRODUCT 350 PREPARE RED BLOOD CELLS Result Value Ref Range COMPONENT TYPE C3326Y68 COMPONENT IDENTIFICATION [id number] UNIT ABO O UNIT RH POS CROSSMATCH Compatible COMPONENT STATUS Selected COMPONENT EXPIRATION DATE/TIME COMPONENT CODING SYSTEM 5100 VOLUME, BLOOD PRODUCT 350 TYPE AND SCREEN Result Value Ref Range ABO GROUP O RH (D) TYPE Positive ANTIBODY SCREEN Negative BRAIN NATRIURETIC PEPTIDE, BNP OR PROBNP Result Value Ref Range PROBNP, N TERMINAL 1,671 (H) 0 - 450 pg/mL CBC WITH DIFFERENTIAL Result Value Ref Range WBC 5.3 4.8 - 10.8 K/uL RBC 3.91 (L) 4.60 - 6.20 M/uL HEMOGLOBIN 12.0 (L) 14.0 - 18.0 g/dL HEMATOCRIT 37.3 (L) 41.0 - 53.0 % MCV 95.4 84.0 - 103.0 fL MCH 30.7 27.0 - 34.0 pg MCHC 32.2 30.0 - 35.0 g/dL PLATELETS 161 140 - 440 K/uL MPV 9.9 8.9 - 12.8 fL RDW 18.2 (H) 11.0 - 14.5 % RDW-STDEV 64.4 (H) 37.0 - 54.0 fL NEUTROPHILS 71 42 - 75 % LYMPHOCYTES 16 (L) 24 - 44 % MONOCYTES 7 2 - 10 % EOSINOPHILS 5 0 - 7 % BASOPHILS 1 0 - 1 % IMMATURE GRANULOCYTES 1 0 - 2 % NEUTROPHIL ABSOLUTE 3.81 2.00 - 8.00 K/uL LYMPHOCYTE ABSOLUTE 0.83 (L) 1.20 - 4.00 K/uL MONOCYTE ABSOLUTE 0.39 0.10 - 0.60 K/uL EOSINOPHIL ABSOLUTE 0.25 0.00 - 0.70 K/uL BASOPHILS ABSOLUTE 0.03 0.00 - 0.20 K/uL IMMATURE GRANULOCYTES ABSOLUTE 0.03 0.00 - 0.10 K/uL SMEAR REVIEWED: NA - Not Applicable COMPREHENSIVE METABOLIC PANEL Result Value Ref Range SODIUM 141 136 - 145 mmol/L POTASSIUM 3.8 3.5 - 5.1 mmol/L CHLORIDE 103 98 - 107 mmol/L CO2 25 22 - 29 mmol/L CALCIUM 9.5 8.8 - 10.2 mg/dL BUN 12 8 - 23 mg/dL CREATININE 0.71 0.67 - 1.17 mg/dL GLUCOSE 93 74 - 99 mg/dL TOTAL PROTEIN 7.1 6.4 - 8.3 g/dL ALBUMIN 3.9 3.5 - 5.2 g/dL BILIRUBIN TOTAL 0.4 0.0 - 1.0 mg/dL ALKALINE PHOSPHATASE 98 40 - 129 U/L AST 17 10 - 50 U/L ALT 15 <=50 U/L GFR >60 mL/min/1.73 sq meter ANION GAP 13 9 - 20 mmol/L VERIFICATION BLOOD GROUP Result Value Ref Range ABO GROUP O RH (D) TYPE Positive Pertinent lab: Lab Results Component Value Date/Time WBC 5.3 08/14/2025 07:28 AM HGB 12.0 (L) 08/14/2025 07:28 AM HCT 37.3 (L) 08/14/2025 07:28 AM PLT 161 08/14/2025 07:28 AM MCV 95.4 08/14/2025 07:28 AM Lab Results Component Value Date/Time NA 141 08/14/2025 07:28 AM K 3.8 08/14/2025 07:28 AM CL 103 08/14/2025 07:28 AM CO2 25 08/14/2025 07:28 AM CA 9.5 08/14/2025 07:28 AM BUN 12 08/14/2025 07:28 AM CREAT 0.71 08/14/2025 07:28 AM GLUCOSE 93 08/14/2025 07:28 AM TOTALPROTEIN 7.1 08/14/2025 07:28 AM ALBUMIN 3.9 08/14/2025 07:28 AM BILITOTAL 0.4 08/14/2025 07:28 AM ALKPHOS 98 08/14/2025 07:28 AM AST 17 08/14/2025 07:28 AM ALT 15 08/14/2025 07:28 AM ANIONGAP 13 08/14/2025 07:28 AM Receiving beta-ce therapy? Yes Received dose within last 24 hours? Yes The risks and benefits of the proposed anesthetic have been discussed. The patient has agreed to GETA. Anesthesia guideline orders initiated. 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 [facility] [address] [place] [phone] Kimberlyn Barba, DO [address] [facility] [address] [place] [phone] Dolores Nicole, ADJUNCT TRAINER [address] [facility] [address] [place] [phone] documented as of this encounter Procedures Procedure Name Priority Date/Time Associated Diagnosis Comments IN ANES INSERT CATH, ART, PERCUT, SHORTTERM Routine 08/14/2025 1:55 PM CDT IN ANES INSERT ENDOTRACHEAL AIRWAY Routine 08/14/2025 1:27 PM CDT documented in this encounter Results * IN ANES INSERT CATH, ART, PERCUT, SHORTTERM (08/14/2025 1:55 PM CDT) Narrative Jose Eduardo Mckeon CRNA - 08/14/2025 1:55 PM CDT Jose Eduardo Mckeon CRNA 08/14/2025 1:55 PM Arterial Line Insertion Start Time: 08/14/2025 1:45 PM Patient location during procedure: OR Staffing Performed: Anesthesiologist (/) Authorized by: Prieto Tobar II, DO Performed by: Jose Eduardo Mckeon CRNA time out called Indications: hemodynamic monitoring Hand hygiene performed prior to procedure Preparation: skin prepped with 2% chlorhexidine Skin prep agent dried: skin prep agent completely dried prior to procedure Patient position: flat Location: right radial Seldinger technique used Catheter size: 20 GAssessment: blood return through port Procedure uneventful Post-procedure: line secured and dressing applied Prieto Tobar II, DO PROCEDURE/MINOR MONTAÑO RGICAL ORDERABLES Final Result * IN ANES INSERT ENDOTRACHEAL AIRWAY (08/14/2025 1:27 PM CDT) Narrative Jose Eduardo Mckeon CRNA - 08/14/2025 1:27 PM CDT Jose Eduardo Mckeon CRNA 08/14/2025 1:51 PM Airway Date/Time: 08/14/2025 1:27 PM Location: OR Plan: elective intubation Patient Identity Confirmed by: Verbally with patient Airway: not difficult Staffing Performed: FRANCIA/TINY Authorized by: Prieto Tobar II, DO Performed by: Jose Eduardo Mckeon CRNA Indications and Patient Condition: Indications for Airway Management: Anesthesia Sedation Level: general anesthesia Preoxygenated: yes Patient Position: Sniffing Mask Difficulty Assessment: 1 - vent by mask Plan to extubate at end of case: Yes Final Airway Details: Final Airway Type: Endotracheal airway ETT Cuffed: Yes Cuff Volume (mL): 7 Technique Used for Successful ETT Placement: Direct laryngoscopy Blade Type: curved blade Blade Size: 3 Insertion Site: Oral ETT Size (mm): 8.0 Measured from: Lips ETT to Lips (cm): 22 Tube secured with: Tape Placement Verified by: auscultation, end tidal CO2 and chest rise Cormack-Lehane Classification: Grade I - full view of glottis Number of Attempts at Approach: 1 Additional Procedure Information: atraumatic and dentition unchanged Prieto Tboar II, DO PROCEDURE/MINOR MONTAÑO RGICAL ORDERABLES Final Result documented in this encounter Visit Diagnoses Not on filedocumented in this encounter Administered Medications Inactive Administered Medications - up to 3 most recent administrations Medication Order MAR Action Action Date Dose Rate Site ceFAZolin (ANCEF,KEFZOL) vial IV, INTRA-PROCEDURE PRN, Starting on Vannesa 08/14/25 at 1348, Until Vannesa 08/14/25 at 1524, Routine, Anesthesia Intra-op Given 08/14/2025 1:48 PM CDT 2,000 mg heparin injection IV, INTRA-PROCEDURE PRN, Starting on Vannesa 08/14/25 at 1400, Until Vannesa 08/14/25 at 1524, Routine, Anesthesia Intra-op Given 08/14/2025 2:27 PM CDT 3,000 Units Given 08/14/2025 2:12 PM CDT 3,000 Units Given 08/14/2025 2:00 PM CDT 8,000 Units lidocaine (XYLOCAINE) 4 % topical solution Topical, INTRA-PROCEDURE PRN, Starting on Vannesa 08/14/25 at 1327, Until Vannesa 08/14/25 at 1524, Routine, Anesthesia Intra-op Given 08/14/2025 1:27 PM CDT 4 mL lidocaine PF 2% (XYLOCAINE MPF) injection IV, INTRA-PROCEDURE PRN, Starting on Vannesa 08/14/25 at 1325, Until Vannesa 08/14/25 at 1524, Routine, Anesthesia Intra-op Given 08/14/2025 1:25 PM CDT 5 mL norepinephrine (LEVOPHED) 4 mg in sodium chloride 0.9 % 250 mL infusion IV, INTRA-PROCEDURE CONTINUOUS PRN, Starting on Vannesa 08/14/25 at 1352, Until Vannesa 08/14/25 at 1524, Anesthesia Intra-op Bolus 08/14/2025 2:39 PM CDT 8 mcg Restarted 08/14/2025 2:36 PM CDT 0.01 mcg/kg/min 3.356 mL /hr Rate Change 08/14/2025 2:05 PM CDT 0.04 mcg/kg/min 13.425 mL/hr propofoL (DIPRIVAN) injection IV, INTRA-PROCEDURE PRN, Starting on Vannesa 08/14/25 at 1325, Until Vannesa 08/14/25 at 1524, Anesthesia Intra-op Given 08/14/2025 1:25 PM CDT 80 mg protamine 10 mg/mL injection IV, INTRA-PROCEDURE PRN, Starting on Vannesa 08/14/25 at 1457, Until Vannesa 08/14/25 at 1524, Routine, Anesthesia Intra-op Given 08/14/2025 2:57 PM CDT 50 mg rocuronium injection IV, INTRA-PROCEDURE PRN, Starting on Vannesa 08/14/25 at 1325, Until Vannesa 08/14/25 at 1524, Routine, Anesthesia Intra-op Given 08/14/2025 1:25 PM CDT 50 mg sodium chloride 0.9 % infusion IV, at 30 mL/hr, CONTINUOUS, Starting on Vannesa 08/14/25 at 0700, Until Mon08/15/25 at 0659, Routine, Pre-Procedure (Invasive Cardiology)Indications:Atrial fibrillation, persistent (CMS/HCC) New Bag 08/14/2025 1:44 PM CDT New Bag 08/14/2025 1:25 PM CDT Continue from Pre-Op 08/14/2025 1:24 PM CDT 30 mL/hr sugammadex (BRIDION) 100 mg/mL injection IV, INTRA-PROCEDURE PRN, Starting on Vannesa 08/14/25 at 1505, Until Vannesa 08/14/25 at 1524, Routine, Anesthesia Intra-op Given 08/14/2025 3:05 PM CDT 200 mg documented in this encounter
[2025-08-19 16:25] VITALS: BP 182/100; PULSE 90; RESP 16; TEMP 36.6; O2SAT 96; BMI 27.1
--- OUTSIDE RECORDS SUMMARY | 2025-08-19 16:29 | XMS_ITS | Clinical Summary ---
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 Active atorvastatin (LIPITOR) 20 mg tablet Take 20 mg by mouth daily. Active cholecalciferol 1,250 mcg (50,000 unit) Capsule Take 50,000 Units by mouth every 7 days. Active ferrous gluconate 324 mg (38 mg iron) tablet Take 324 mg by mouth daily. 05/12/20 25 Active finasteride (PROSCAR) 5 mg tablet Take 5 mg by mouth daily at bedtime. Active fluticasone-umec lidinium-vilante rol (TRELEGY ELLIPTA) 200-62.5-25 mcg Disk with Device Take 1 Puff by inhalation daily. Active ipratropium-albu teroL (DUONEB) 0.5 mg-3 mg(2.5 mg base)/3 mL Solution for Nebulization Take 3 mL by inhalation every 6 hours as needed. Active ketoconazole (NIZORAL) 2 % Cream Apply to affected area daily. Active mupirocin (BACTROBAN) 2 % Ointment APPLY A SMALL AMOUNT TO AFFECTED AREA 3 TIMES A DAY 04/22/20 25 Active nitroglycerin (NITROSTAT) 0.4 mg Tablet, Sublingual Place 0.4 mg under tongue every 5 minutes as needed. Active omeprazole (PriLOSEC) 40 mg Capsule, Delayed Release(E.C.) Take 40 mg by mouth 2 times daily. Active triamcinolone acetonide (KENALOG) 0.1 % Cream Apply to affected area 2 times daily. Active metoprolol tartrate (LOPRESSOR) 100 mg tablet Take 200 mg by mouth 2 times daily. 025 Discontinued Active Problems Problem Noted Date Diagnosed Date Atrial fibrillation, persistent 07/08/2025 Essential hypertension 07/08/2025 Dyslipidemia 07/08/2025 History of GI bleed 07/08/2025 Encounters Date Type Department Care Team Description 08/14/2025 1:24 PM CDT Anesthesia Event [facility] Cardiac Button Pusher [address] [place] [phone] Ekaterina WALL Prieto Tabares, 08/14/2025 11:30 AM CDT - 08/14/2025 1:18 PM CDT Surgery [facility] Cardiac Button Pusher [address] [place] [phone] Kimberlyn Barba, Left atrial appendage closure percutaneous 08/14/2025 6:33 AM CDT - 08/15/2025 3:57 PM CDT Hospital Encounter [facility] 4B Cardiac [address] [place] [phone] Kimberlyn Barba DO Atrial fibrillation, persistent (CMS/HCC) Discharge Disposition: Home or Self Care 08/14/2025 Travel 08/08/2025 Telephone [place] [address] [place] [phone] Antonio Cordova, RN Information 08/06/2025 Telephone [place] [address] [place] [phone] Antonio Cordova, RN Information 08/05/2025 External Device Data ST[facility] ABSTRACTION Provider, Abstract 08/05/2025 External Device Data [facility] ABSTRACTION Provider, Abstract 08/05/2025 Telephone [place] [address] [place] [phone] Birc[place], Kimberlyn Alicia, DO Test results (CT Heart) 08/05/[address] [facility] [address] [place] [phone] Antonio Cordova, RN Information 07/23/2025 External Device Data STL ABSTRACTION Provider, Abstract 07/17/2025 9:05 AM CDT - 07/17/2025 11:59 PM CDT Hospital Encounter [facility] CT Scan [address] [place] [phone] Kimberlyn Barba, DO Discharge Disposition: Home or Self Care 07/17/2025 8:23 AM CDT - 07/17/2025 11:59 PM CDT Hospital Encounter [facility] CT Scan [address] [place] [phone] Kimberlyn Barba, Discharge Disposition: Home or Self Care 07/09/2025 External Device Data STL ABSTRACTION Provider, Abstract 07/08/2025 External Device Data ST[place] ABSTRACTION Provider, Abstract 06/26/2025 Orders Only [place] [address] [place] [address] [phone] Kimberlyn Barba, Chronic atrial fibrillation (CMS/HCC) (Primary Dx) 06/26/2025 Telephone [place] [address] [place] [address] [phone] Kimberlyn Barba, Follow Up; Question (watchman) 06/10/2025 External Device Data STL ABSTRACTION Provider, Abstract 06/10/2025 External Device Data ST[place] ABSTRACTION Provider, Abstract 06/10/2025 External Device Data STL ABSTRACTION Provider, Abstract 06/04/2025 4:00 PM CDT Office Visit [facility] [address] [place] [phone] Kimberlyn Barba, Atrial fibrillation, unspecified type (CMS/HCC) (Primary Dx); Essential hypertension; Dyslipidemia; History of GI bleed 05/28/2025 Cardiology Conference [facility] [address] [facility] [address] [place] [phone] Emiliana Loera 05/21/2025 Orders Only 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 [address] [facility] [address] [place] [phone] Kimberlyn Barba DO [address] [facility] [address] [place] [phone] Dolores Nicole FNP [address] [facility] [address] [place] [phone] Health Maintenance Due Date Last Done Comments ZOSTER VACCINE (1 of 2) 1994 DTAP/TDAP/TD VACCINES (1 - Tdap) 10/29/2016 10/28/20 16 RSV VACCINE (60+ or ) (1 - 1-dose 75+ series) 2019 Medicare Advantage ([place]) Prev entative Visit/Annual Wellness Visit 11/20/2024 INFLUENZA VACCINE (#1) 2025 07/24/2024, 2022 COVID-19 Vaccine (2023-2 5 season) 2025 07/24/2024, 07/22/2021, 06/24/2021 PNEUMOCOCCAL VACCINE 50+ YEARS Completed 08/01/2023 COLORECTAL SCREENING Discontinued 04/24/2025, 12/14/19 19 Colorectal Cancer Screening Discontinued FIT-DNA Q 3 years Discontinued FIT/FOBT Q 1 year Discontinued Flex Sig/CT Colonography Q 5 years Discontinued Medical Devices Implanted Type Area Program Director Scouting Device Identifier Shelf Expiration Date Model / Serial / Lot Closure Perclose Prostyle Sut Mediate 80827-34 - [id number] Implanted:Qty: 1 on 08/14/2025 by Kimberlyn Barba DO at [facility] Closure Device N/A: Groin TORO- VASC DEVICE [id number] 03/19/2027 [id number] / / [id number] Procedures Procedure Name Priority Date/Time Associated Diagnosis [...] CLOTTING TIME Routine 08/14/2025 2:11 PM CDT MA ANES INSERT CATH, ART, PERCUT, SHORTTERM Routine 08/14/2025 1:55 PM CDT MA ANES INSERT ENDOTRACHEAL AIRWAY Routine 08/14/2025 1:27 PM CDT VERIFICATION BLOOD GROUP Stat 08/14/2025 [...] 6:52 AM CDT Atrial fibrillation, persistent (CMS/HCC) CT CARDIAC CHEST INTERPRETATION Routine 07/17/2025 10:05 AM CDT Chronic atrial fibrillation (CMS/HCC) CT HEART CARD STRUC W 3D W CONT Routine 07/17/2025 10:04 AM CDT Chronic atrial fibrillation (CMS/HCC) POC CREATININE Routine 07/17/2025 8:59 AM CDT from Last 3 Months Results * TELEMETRY REPORT (08/18/2025 3:37 AM CDT) us Provider Scanning ECG ORDERABLES Final Result * (ABNORMAL) TROPONIN 6 HR, 5TH GEN (08/15/2025 5:08 AM CDT) TROPONIN T, 6 HR 5TH GEN 31(H) <=15 ng/L 08/15/2025 6:11 AM CDT [facility] trip.me [facility] DELTA 6HR TROPONIN T -1 See Interp. 08/15/2025 6:11 AM CDT [facility] trip.me [facility] Blood Venipuncture / Unknown 08/15/2025 5:08 AM CDT 08/15/2025 5:36 AM CDT Narrative [facility] - 08/15/2025 6:11 AM CDT Troponin elevated. Delta indeterminate. Delay in collection of timed specimen beyond recommended collection interval. Results must be interpreted in clinical context. Prieto Dooleyjoselyn II, DO CHEMISTRY ORDERABL ES Final Result Performing Organization Address [facility] Co de Phone Number [facility] CLIA # [id number] [address] [address] [place] [address] * (ABNORMAL) TROPONIN 2 HR, 5TH GEN (08/15/2025 1:09 AM CDT) TROPONIN T, 2 HR 5TH GEN 32(H) <=15 ng/L 08/15/2025 2:14 AM CDT [facility] DELTA 2HR TROPONIN T 0 See Interp. 08/15/2025 2:14 AM CDT [facility] Blood Venipuncture / Unknown 08/15/2025 1:09 AM CDT 08/15/2025 1:40 AM CDT Narrative [facility] - 08/15/2025 2:14 AM CDT Troponin elevated. Delta not changing. Delay in collection of timed specimen beyond recommended collection interval. Results must be interpreted in clinical context. Prieto Tabares Ekaterina II, DO CHEMISTRY ORDERABL ES Final Result Performing Organization Address [facility] Co de Phone Number [facility] CLIA # [id number] [address] [address] [place] [address] * (ABNORMAL) TROPONIN BASELINE, 5TH GEN (08/14/2025 11:25 PM CDT) TROPONIN T, BASELINE 5TH GEN 32(H) <=15 ng/L 08/15/2025 12:05 AM CDT [facility] Blood Venipuncture / Unknown 08/14/2025 11:25 PM CDT 08/14/2025 11:32 PM CDT Narrative [facility] - 08/15/2025 12:05 AM CDT Troponin elevated. Prieto Tobar II, DO CHEMISTRY ORDERABL ES Final Result [facility] CLIA # [id number] [address] [id number] * ECHO LIMITED W DOPPLER AND COLOR FLOW (08/14/2025 5:04 PM CDT) EJECTION FRACTION EF: INTERFACE SYSTEM 08/14/2025 4:47 PM CDT [facility] INTERFACE SYSTEM - 08/15/2025 3:22 PM CDT [facility] Cardiovascular Services Echocardiography Laboratory [address] [place] [address] Limited Transthoracic Echocardiography Patient: Narciso Rider Study ECHO LIMITED Regina Liban Gagan ID: Gender: M : 1945 Age: 80 Room: [facility] Study 08/14/2025 Pt Inpatient Date: Status: Study 04:47:01 PM CSN #: [id number] Time: Ordering:Kimberlyn Barba DO Summary and Conclusion: [...] ARTERY: Systolic pressure cannot be accurately estimated. [facility] Echo Labs are accredited with the Intersocietal Accreditation Commission - Echocardiography. Prepared and Electronically Authenticated Kimberlyn Barba DO Confirmed 08/15/2025 15:22 Procedure Note Kimberlyn Barba, DO - 08/15/2025 [facility] Cardiovascular Services Echocardiography Laboratory [address] [place] [address] Limited Transthoracic Echocardiography Patient: Narciso Rider Study ECHO CORNELIOW Liban Farah ID: Gender: M : 1945 Age: 80 Room: [facility] Study 08/14/2025 Pt Inpatient Date: Status: Study 04:47:01 PM CSN #: [id number] Time: Ordering:Kimberlyn Barba DO Summary and Conclusion: [...] Studydate: 08/14/2025. Study time: 04:47 PM. Location: Catheterizationlabrural valleytory. Cardiac Anatomy: LEFT VENTRICLE: Global systolic function [...] ARTERY: Systolic pressure cannot be accurately estimated. [facility] Echo Labs are accredited with theIntersocietal Accreditation Commission - Echocardiography. Prepared and Electronically Authenticated Kimberlyn Barba DO Confirmed 08/15/2025 15:22 us Kimberlyn Barba DO US ORDERABLES Final Re sult INTERFACE SYSTEM Refer to clinic/hospital department * EKG 12-LEAD (08/14/2025 4:28 PM CDT) Only the most recent of2 resultswithin the time period is included. 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: [id number] : 1945 Requested By: Order Number: [id number] Reading MD: Soila Cast Measurements Intervals [place] Rate: 88 P: 0 MA: 0 QRS: 40 QRSD: 108 T: 66 QT: 410 QTc: 496 Interpretive Statements Atrial fibrillation Incomplete left bundle branch block Minimal voltage criteria for LVH, may be normal variant ( Sokolow-Ramon ) Nonspecific ST abnormality QTcB >= 480 msec Abnormal ECG Electronically Signed On 08-14-2025 17:41:05 CDT by Soial Cast Procedure Note Soila Cast MD - 08/14/[address] [address] Test Date: 2025-08-14 Pat Name: NARCISO RIDER Department: 12 Room: PACU PO CVOR PACU 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 Novelty: [id number] : 1945 Requested By: Order Number: [id number] Reading MD: Soila Cast Measurements Intervals [place] Rate: 88 P: 0 MA: 0 QRS: 40 QRSD: 108 T: 66 QT: 410 QTc: 496 Interpretive Statements Atrial fibrillation Incomplete left bundle branch block Minimal voltage criteria for LVH, may be normal variant ( Sokolow-Ramon ) Nonspecific ST abnormality QTcB >= 480 msec Abnormal ECG Electronically Signed On 08-14-2025 17:41:05 CDT by Soila Cast Prieto Tobar II, DO ECG ORDERABLES Fi nal Result Performing Organization Address City/[facility]/ZIP Co de Phone Number INTERFACE SYSTEM Refer to clinic/hospital department * LEFT ATRIAL APPENDAGE CLOSURE PERCUTANEOUS (08/14/2025 2:59 PM CDT) Narrative [facility] - 08/15/2025 2:41 PM CDT Unsuccessful Watchman deployment Procedural Indications Significant difficulty crossing intraatrial septum. When we were able to cross with the sheath. The trajectory was suitable for appendage. us Kimberlyn Barba DO CUP EP ORDERABLES Final Result Performing Organization Address [facility] de Phone Number [facility] CLIA [id number] [address] [facility] [facility] [address] [place] [phone], * (ABNORMAL) POC ACTIVATED CLOTTING TIME (08/14/2025 2:38 PM CDT) Only the most recent of3 resultswithin the time period is included. ACTIVATED CLOTTING TIME POC 343(H) 116 - 140 sec 08/14/2025 2:38 PM CDT [facility] Blood 08/14/2025 2:38 PM CDT 08/14/2025 2:48 PM CDT Kimberlyn Barba DO POINT OF CARE TESTING Fi nal Result Performing Organization Address [facility] Co de Phone Number [facility] CLIA # [id number] [address] [place] [address] * MA ANES INSERT CATH, ART, PERCUT, SHORTTERM (08/14/2025 1:55 PM CDT) Jose Eduardo Dao CRNA - 08/14/2025 1:55 PM CDT Jose [...] PROCEDURE/MINOR MONTAÑO RGICAL ORDERABLES Final Result * MA ANES INSERT ENDOTRACHEAL AIRWAY (08/14/2025 1:27 PM [...] Procedure Information: atraumatic and dentition unchanged Prieto Tobar II, DO PROCEDURE/MINOR MONTAÑO RGICAL ORDERABLES Final Result * VERIFICATION BLOOD GROUP (08/14/2025 7:30 AM CDT) ABO GROUP O 08/14/2025 8:25 AM CDT [facility] RH (D) TYPE Positive 08/14/2025 8:25 AM CDT [facility] Blood Venipuncture / Unknown 08/14/2025 7:30 AM CDT 08/14/2025 7:35 AM CDT Kimberlyn Barba DO BLOOD BANK ORDERABLES Fi nal Result [facility] CLIA#[id number] [address] [place] [address], * (ABNORMAL) CBC WITH DIFFERENTIAL (08/14/2025 7:28 AM CDT) Pathologist [facility] WBC 5.3 4.8 - 10.8 K/uL 08/14/2025 7:40 AM T [facility] RBC 3.91(L) 4.60 - 6.20 M/uL 08/14/2025 7:40 AM T [facility] HEMOGLOBIN 12.0(L) 14.0 - 18.0 g/dL 08/14/2025 7:40 AM T [facility] HEMATOCRIT 37.3(L) 41.0 - 53.0 % 08/14/2025 7:40 AM T [facility] MCV 95.4 84.0 - 103.0 fL 08/14/2025 7:40 AM T [facility] MCH 30.7 27.0 - 34.0 pg 08/14/2025 7:40 AM T [facility] MCHC 32.2 30.0 - 35.0 g/dL 08/14/2025 7:40 AM [facility] PLATELETS 161 140 - 440 K/uL 08/14/2025 7:40 AM [facility] MPV 9.9 8.9 - 12.8 fL 08/14/2025 7:40 AM [facility] RDW 18.2(H) 11.0 - 14.5 % 08/14/2025 7:40 AM [facility] RDW-STDEV 64.4(H) 37.0 - 54.0 fL 08/14/2025 7:40 AM [facility] NEUTROPHILS 71 42 - 75 % 08/14/2025 7:40 AM [facility] LYMPHOCYTES 16(L) 24 - 44 % 08/14/2025 7:40 AM [facility] MONOCYTES 7 2 - 10 % 08/14/2025 7:40 AM [facility] EOSINOPHILS 5 0 - 7 % 08/14/2025 7:40 AM [facility] BASOPHILS 1 0 - 1 % 08/14/2025 7:40 AM [facility] IMMATURE GRANULOCYTES 1 0 - 2 % 08/14/2025 7:40 AM [facility] NEUTROPHIL ABSOLUTE 3.81 2.00 - 8.00 K/uL 08/14/2025 7:40 AM [facility] LYMPHOCYTE ABSOLUTE 0.83(L) 1.20 - 4.00 K/uL 08/14/2025 7:40 AM [facility] MONOCYTE ABSOLUTE 0.39 0.10 - 0.60 K/uL 08/14/2025 7:40 AM [facility] EOSINOPHIL ABSOLUTE 0.25 0.00 - 0.70 K/uL 08/14/2025 7:40 AM [facility] BASOPHILS ABSOLUTE 0.03 0.00 - 0.20 K/uL 08/14/2025 7:40 AM [facility] IMMATURE GRANULOCYTES ABSOLUTE 0.03 0.00 - 0.10 K/uL 08/14/2025 7:40 AM CDT [facility] SMEAR REVIEWED: NA - Not Applicable 08/14/2025 7:40 AM CDT [facility] Blood Venipuncture / Unknown 08/14/2025 7:28 AM CDT 08/14/2025 7:35 AM CDT Kimberlyn Barba DO HEMATOLOGY ORDERABLES Fi nal Result Performing Organization Address [facility]/ZIP Co de Phone Number [facility] CLIA # [id number] [address] [place] [address] * (ABNORMAL) BRAIN NATRIURETIC PEPTIDE, BNP OR PROBNP (08/14/2025 7:28 AM CDT) PROBNP, N TERMINAL 1,671(H) 0 - 450 pg/mL 08/14/2025 8:16 AM CDT [facility] Comment: INTERPRETIVE COMMENT based on diagnosis: Diagnostic [...] ORDERABLES Fin al Result Performing Organization Address City/[facility]/ZIP Co de Phone Number [facility] CLIA # [id number] [address] [place] [address] * COMPREHENSIVE METABOLIC PANEL (08/14/2025 7:28 AM CDT) [facility] SODIUM 141 136 - 145 mmol/L 08/14/2025 8:16 AM [facility] POTASSIUM 3.8 3.5 - 5.1 mmol/L 08/14/2025 8:16 AM [facility] CHLORIDE 103 98 - 107 mmol/L 08/14/2025 8:16 AM [facility] CO2 25 22 - 29 mmol/L 08/14/2025 8:16 AM [facility] CALCIUM 9.5 8.8 - 10.2 mg/dL 08/14/2025 8:16 AM [facility] BUN 12 8 - 23 mg/dL 08/14/2025 8:16 AM [facility] CREATININE 0.71 0.67 - 1.17 mg/dL 08/14/2025 8:16 AM [facility] Comment:The GFR result is no t clinically significant on patients <18 or >70 years of age. GLUCOSE 93 74 - 99 mg/dL 08/14/2025 8:16 AM [facility] TOTAL PROTEIN 7.1 6.4 - 8.3 g/dL 08/14/2025 8:16 AM [facility] ALBUMIN 3.9 3.5 - 5.2 g/dL 08/14/2025 8:16 AM [facility] BILIRUBIN TOTAL 0.4 0.0 - 1.0 mg/dL 08/14/2025 8:16 AM [facility] ALKALINE PHOSPHATASE 98 40 - 129 U/L 08/14/2025 8:16 AM [facility] AST 17 10 - 50 U/L 08/14/2025 8:16 AM [facility] ALT 15 <=50 U/L 08/14/2025 8:16 AM [facility] GFR >60 mL/min/1.7 3 sq meter 08/14/2025 8:16 AM [facility] Comment:eGFR calculated with 2020 CKD-EPI equation. Vegetarian diet, extremely high or low muscle mass, and may affect results. Cystatin C with Glomerular Filtration Rate is a suitable alternative for these patients. ANION GAP 13 9 - 20 mmol/L 08/14/2025 8:16 AM CDT [facility] Blood Venipuncture / Unknown 08/14/2025 7:28 AM CDT 08/14/2025 7:35 AM CDT Kimberlynchandni Barba DO CHEMISTRY ORDERABLES Fin al Result Performing Organization Address [facility] Co de Phone Number [facility] CLIA # [id number] [address] [address] * TYPE AND SCREEN (08/14/2025 7:25 AM CDT) ABO GROUP O 08/14/2025 8:52 AM CDT [facility] trip.me [facility] RH (D) TYPE Positive 08/14/2025 8:52 AM CDT [facility] trip.me [facility] ANTIBODY SCREEN Negative 08/14/2025 8:52 AM CDT [facility] trip.me [facility] Blood Venipuncture / Unknown 08/14/2025 7:25 AM CDT 08/14/2025 7:35 AM CDT Kimberlyn Barba DO BLOOD BANK ORDERABLES Ed ited Result - Final Performing Organization Address [facility] Co de Phone Number [facility] [email or web address] [facility] CLIA#[id number] [facility] [place] [address], * PREPARE RED BLOOD CELLS (08/14/2025 6:52 AM CDT) Only the most recent of2 resultswithin the time period is included. COMPONENT TYPE [id number] [facility] trip.me [facility] COMPONENT IDENTIFICATION [id number] [facility] [place] UNIT ABO O [facility] [place] UNIT RH POS [facility] [place] CROSSMATCH Compatible [facility] [place] COMPONENT STATUS Returned [facility] [place] COMPONENT EXPIRATION DATE/TIME [id number] [facility] [place] COMPONENT CODING SYSTEM 5100 [facility] [place] VOLUME, BLOOD PRODUCT 350 [facility] [place] 08/14/2025 6:52 AM CDT us Kimberlyn Barba DO LAB TRANSFUSION ORDERABL ES Edited Result - Final [facility] [place] CLIA#[id number] [address] [facility] [place] [address], [place] [phone] * CT CARDIAC CHEST INTERPRETATION (07/17/2025 10:05 AM CDT) Anatomical Region Laterality Modality Chest Computed Tomogra phy 07/17/2025 9:11 AM CDT Impressions 07/17/2025 11:56 AM CDT IMPRESSION: No abnormal soft tissue masses, adenopathy or infiltrates at the levels that were scanned. Narrative 07/17/2025 11:56 AM CDT Exam: CT CARDIAC CHEST INTERPRETATION Date/Time of Exam: 07/17/2025 10:05 AM Reason For Exam: Atrial fibrillation/flutter (AF), Left Atrial Appendage assessment for Watchman/Amulet Diagnosis: Chronic atrial fibrillation (CMS/HCC) Axial images were obtained through the chest from the top of the heart to the aortic hiatus of the diaphragm. Sagittal and coronal reformatted images are included. The study was performed without IV contrast. There is no evidence of any abnormal soft tissue masses or adenopathy in the levels scanned. Mild diffuse scarring is seen in the lungs. There is no evidence of any pulmonary infiltrates. There is no evidence of any pleural effusion or other abnormal fluid collections. There is no evidence of any thoracic aortic aneurysm. No pneumothorax is seen. Procedure Note Oliver Babin MD - 07/17/2025 Exam: CT CARDIAC CHEST INTERPRETATION Date/Time of Exam: 07/17/2025 10:05 AM Reason For Exam: Atrial fibrillation/flutter (AF), Left Atrial Appendage assessment for Watchman/Amulet Diagnosis: Chronic atrial fibrillation (CMS/HCC) Axial images were obtained through the chest from the top of the heart to the aortic hiatus of the diaphragm. Sagittal and coronal reformatted images are included. The study was performed without IV contrast. There is no evidence of any abnormal soft tissue masses or adenopathy in the levels scanned. Mild diffuse scarring is seen in the lungs. There is no evidence of any pulmonary infiltrates. There is no evidence of any pleural effusion or other abnormal fluid collections. There is no evidence of any thoracic aortic aneurysm. No pneumothorax is seen. IMPRESSION: No abnormal soft tissue masses, adenopathy or infiltrates at the levels that were scanned. us Kimberlyn Barba DO CT ORDERABLES Final Re sult * CT HEART CARD STRUC W 3D W CONT (07/17/2025 10:04 AM CDT) Anatomical Region Laterality Modality Chest Computed Tomogra phy 07/17/2025 9:11 AM CDT Narrative 07/17/2025 5:59 PM CDT CTA Heart With Cardiac Structure: [place], [place] PATIENT: Narciso Rider PATIENT NUMBER: [id number] BIRTHDATE: 1945 REFERRING PHYSICIAN: No primary care provider on file. DATE: 07/17/2025 TIME: 5:53 PM Image quality is good with uniform contrast. CT structural heart done to evaluate for a possible left atrial appendage closure procedure Findings: 1. Aorta: Aorta was well visualized. The ascending and descending portions were all normal size, there are mild atherosclerotic changes seen in the descending thoracic aorta. Aortic arch was not fully included on this exam. The ascending thoracic aorta measures 3.8 cm in diameter and the descending aorta is 2.6 cm. 2. Pericardium: Thickness is normal, and no pericardial effusion is present. 3. Atria: There is biatrial enlargement. Left atrium measures 6.6 cm, no mass or thrombus present. The interatrial septum is intact. There are 4 pulmonary veins entering the LA in the usual fashion. Left atrial appendage: The orifice measures 3.2 x 2.9 cm and the depth is 4.6 cm. There is hypo attenuation seen in the MEAGAN from the contrasted images. From the [id number] delayed images there is uniform opacification of the MEAGAN and therefore no definite evidence of thrombus within the MEAGAN 4. Right ventricle: The right ventricle is normal size. There is normal atrio-ventricular concordance. 5. Left ventricle: The left ventricle is normal size with normal wall thickness. 6. Aortic valve: The aortic valve is trileaflet and no specific abnormalities detected. 7. Mitral valve: The mitral valve was well visualized with no specific abnormalities detected. 8. Coronary arteries: The scan is not gated for detailed coronary analysis A. Left main: Arises from the left coronary cusp giving rise to the LAD and circumflex. The LAD has significant calcification B. Right coronary artery: RCA arises from the right coronary cusp in the usual fashion. The RCA has significant calcification. Impression: 1. Normal thoracic aorta, no aneurysmal enlargement, with mild aortic atherosclerosis of the descending aorta. Aortic arch is not fully included in the [id number]. 2. No congenital, structural or valvular abnormalities are identified. 3. Coronary CT angiography shows normal origins of the left coronary and RCA. Scan is not gated for detailed coronary analysis. 4. The left atrial appendage measures 3.2 x 2.9 at the orifice. No definite evidence of thrombus within the MEAGAN from the contrasted and [id number] delayed images. 5. Biatrial enlargement, left atrium measures 6.6 cm. us Kimberlyn Barba DO CT ORDERABLES Final Re sult * POC CREATININE (07/17/2025 8:59 AM CDT) CREATININE POC 0.80 0.60 - 1.30 mg/dL 07/17/2025 8:59 AM CDT [facility] Comment:The GFR result is no t clinically significant on patients <18 or >70 years of age. GFR POC >60 mL/min/1.7 3 sq meter 07/17/2025 8:59 AM T [facility] trip.me [facility] Comment:eGFR calculated with 2020 CKD-EPI equation. Vegetarian diet, extremely high or low muscle mass, and may affect results. Cystatin C with Glomerular Filtration Rate is a suitable alternative for these patients. Blood, whole 07/17/2025 8:59 AM CDT 07/17/2025 9:13 AM CDT us Kimberlyn Barba DO POINT OF CARE TESTING Fi nal Result [facility] CLIA # [id number] [address] [address] [place] [address] from Last 3 Months Insurance [facility] [id number] Advance Directives For more information, please contact: [phone] * Full Code (Latest Code Status on File) Date Activated Date Inactivated Comments 08/14/2025 6:51 AM 08/15/2025 6:07 PM
--- OUTSIDE RECORDS SUMMARY | 2025-08-19 16:29 | XMS_ITS | Encounter Summary ---
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 Name Role Phone Unavailable Primary Care Provider Unavailabl e Encounter Details Date Type Department Care Team (Late st Contact Info) Description 03/28/2001 Inpatient Historical Prieto Shrestha MD NO ADDRESS ON FILE Social History Tobacco Use Types Packs/Day Years Used Date Smoking Tobacco: Never Assessed Sex and Gender Information Value Date Recorded Sex Assigned at Not on file 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
--- OUTSIDE RECORDS SUMMARY | 2025-08-19 16:29 | XMS_ITS | Encounter Summary ---
Author Organization [facility] Address 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 Gender Identity Not on file Sexual Orientation Not on file documented as of this encounter Plan of Treatment Upcoming Encounters Date Type Department Care Team (Late st Contact Info) Description 09/30/2025 9:00 AM SUGAR SAMPLER Office Visit [facility] [address] [place] [phone] Kimberlyn Barba, DO [address] [place] [phone] Dolores Nicole, [employer] 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
--- OUTSIDE RECORDS SUMMARY | 2025-08-19 16:29 | XMS_ITS | Data Portability ---
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 f/u in 1 month he is on bid ppi he will move that to prior to breakfast and dinner instead bedtime he will see cardiology in the next two weeks will discuss his case with them. he never started eliquis was on warfarin prior [email or web address] Not available 05/12/2025 10:32:34 06/10/2025 06/10/2025 HASBLEED score is 5 [id number] score is 6 [email or web address] Not available 06/10/2025 10:50:45 Plan of Treatment Reminders Order Date Submit Date Provider Last Modified By Organization Details Last Modified Time Details Appointments RECHECK 15 2024 09:00A M José Antonio Rendon MD Not available Not available Not available Lab CMP, serum or plasma 2024 025 [facility], [address], [place], [address], 07/15/2025 12:25:47 CBC 2024 025 [facility], [address], [place], [address], 07/15/2025 11:44:27 ferritin, serum or plasma 2024 025 [facility], [address] [place] [address], [address], [place], [address], 07/16/2025 04:00:14 CMP, serum or plasma 2024 025 [facility], [address], [place], [address], 06/03/2025 10:20:30 CBC 2024 025 [facility], [address], [address], [place], [address], 06/03/2025 10:02:51 ferritin, serum or plasma 2024 025 [employer] [facility], [address] [place] [address], [address], [place], [address], 06/04/2025 10:42:59 Referral None recorded. Procedures None recorded. Surgeries None recorded. Imaging None recorded. Medication Orders ferrous gluconate 324 mg (38 mg iron) tablet [address]/Pharmacy #[id number], [address], [facility], [place], [address], 07/22/2025 12:18:19 ferrous gluconate 324 mg (38 mg iron) tablet 2024 025 [facility]/Pharmacy #[id number], [address], [facility], [place], [address], 05/12/2025 10:28:51 Patient TargetsNo targets recorded. Patient InstructionsNo instructions recorded. Reason for Referral None Reported. Results Created Date Observation Date Name Description Value Unit Range Abnormal Flag Note LastModifiedBy Organization Detail LastModifiedTime 04/15/2004/1604/16/2025 URIC ACID uric acid 3.3 mg/dL 4.0-8. 0 low Thera peuti c targe t for gout patie nts: <6.0 mg/dL Not Available [facility] [address] [place], [address], 04/16/2025 06:30:02 04/15/20 25 04/16/2025 C-SIM CTIVE PROTE IN C-reactive protein <3.0 mg/L <8.0 normal Not Available [facility] [address] [place], [address], 04/16/2025 06:30:03 04/15/20 25 04/16/2025 ADI TIN ferritin 15 NG/mL 24-380 low Not Available [facility] [address] [place], [address], 04/16/2025 08:05:18 04/15/20 25 04/15/2025 PT/IN R Protime 23.8 Not Available [facility] ([facility]) [address] [place], [address], 04/15/2025 11:25:24 04/15/20 25 04/15/2025 PT/IN R INR 4.5 Not Available [facility] ([facility]) [address] [place], [address], 04/15/2025 11:25:24 04/16/20 25 04/22/2025 CBC WBC 4.5 x10 4.5-10 .5 Not Available [facility] [address] [facility], [place], [address], 04/22/2025 11:46:11 04/16/20 25 04/22/2025 CBC RBC 3.45 x10 4.30-5 .90 low Not Available [facility] [address] [facility] 1, [place], [address], 04/22/2025 11:46:11 04/16/20 25 04/22/2025 CBC HGB 9.1 g/dL 13.5-1 8.0 low Not Available [facility] [address] [facility], [place], [address], 04/22/2025 11:46:11 04/16/20 25 04/22/2025 CBC HCT 29.4 % 35.0-6 0.0 low Not Available [facility] [address] [facility], [place], [address], 04/22/2025 11:46:11 04/16/2004/22/2025 CBC MCV 85.2 fL 80.0-9 9.9 Not Available [facility] [address] [facility], [place], [address], 04/22/2025 11:46:11 04/16/20 25 04/22/2025 CBC MCH 26.3 pg 27.0-3 2.0 low Not Available [facility] [address] [facility], [place], [address], 04/22/2025 11:46:11 04/16/20 25 04/22/2025 CBC MCHC 30.9 g/dL 32.0-3 6.0 low Not Available [facility] [address] [facility], [place], [address], 04/22/2025 11:46:11 04/16/2004/22/2025 CBC RDW 18.1 % 11.5-1 4.5 high Not Available [facility] [address] [facility], [place], [address], 04/22/2025 11:46:11 04/16/20 25 04/22/2025 CBC plt 185.2 x10 150.0- 451.0 Not Available [facility] [address] [address], [place], [address], 04/22/2025 11:46:11 04/16/2004/22/2025 CBC lymphocytes % 15.1 % 20.0-5 0.0 low Not Available [facility] [address] [address], [place], [address], 04/22/2025 11:46:11 04/16/20 25 04/22/2025 CBC granulcytes % 72.0 % 30.0-7 0.0 high Not Available [facility] [address] [address], [place], [address], 04/22/2025 11:46:11 04/16/20 25 04/22/2025 CBC monocytes % 8.6 % 2.0-16 .0 Not Available [facility] [address] [address], [place], [address], 04/22/2025 11:46:11 04/16/20 25 04/22/2025 CBC granulcytes# 3.2 x10 Not Marychuy ilable [facility] [address] [address], [place], [address], 04/22/2025 11:46:11 04/16/20 25 04/22/2025 CBC lymphocytes # 0.7 x10 Not Available [facility] [address] [address], [place], [address], 04/22/2025 11:46:11 04/16/20 25 04/22/2025 CBC monocytes # 0.4 x10 Not Avai lable [facility] [address] [address], [place], [address], 04/22/2025 11:46:11 04/16/20 25 04/16/2025 fecal occul t blood , immun oassa y, stool occult positi ve Not Available [facility] ([facility]) [address] [place], [address], 04/16/2025 13:55:20 04/17/2004/17/2025 PT/IN R Protime 29.4 Not Available [facility] ([facility]) [address] [place], [address], 04/17/2025 12:53:43 04/17/2004/17/2025 PT/IN R INR 2.4 Not Available [facility] ([facility]) [address] [place], [address], 04/17/2025 12:53:43 04/18/20 25 04/18/2025 CBC WBC 4.2 x10 4.5-10 .5 low Not Available [facility] [address] [facility] 1, [place], [address], 04/18/2025 14:17:41 04/18/20 25 04/18/2025 CBC RBC 3.40 x10 4.30-5 .90 low Not Available [facility] [address] [facility] 1, [place], [address], 04/18/2025 14:17:41 04/18/20 25 04/18/2025 CBC HGB 9.1 g/dL 13.5-1 8.0 low Not Available [facility] [address] [facility] 1, [place], [address], 04/18/2025 14:17:41 04/18/20 25 04/18/2025 CBC HCT 29.1 % 35.0-6 0.0 low Not Available [facility] [address] [facility] 1, [place], [address], 04/18/2025 14:17:41 04/18/20 25 04/18/2025 CBC MCV 85.5 fL 80.0-9 9.9 Not Available [facility] [address] [facility], [place], [address], 04/18/2025 14:17:41 04/18/20 25 04/18/2025 CBC MCH 26.7 pg 27.0-3 2.0 low Not Available [facility] [address] [facility] [address], [place], [address], 04/18/2025 14:17:41 04/18/20 25 04/18/2025 CBC MCHC 31.2 g/dL 32.0-3 6.0 low Not Available [facility] [address] [facility], [place], [address], 04/18/2025 14:17:41 04/18/20 25 04/18/2025 CBC RDW 17.9 % 11.5-1 4.5 high Not Available [facility] [address], [place], [address], 04/18/2025 14:17:41 04/18/20 25 04/18/2025 CBC plt 188.4 x10 150.0- 451.0 Not Available [facility] [address] [facility] 1, [place], [address], 04/18/2025 14:17:41 04/18/20 25 04/18/2025 CBC lymphocytes % 18.2 % 20.0-5 0.0 low Not Available [facility] [address] [facility] 1, [place], [address], 04/18/2025 14:17:41 04/18/20 25 04/18/2025 CBC granulcytes % 69.6 % 30.0-7 0.0 Not Available [facility] [address] [facility] 1, [place], [address], 04/18/2025 14:17:41 04/18/20 25 04/18/2025 CBC monocytes % 8.1 % 2.0-16 .0 Not Available [facility] [address] [address], [place], [address], 04/18/2025 14:17:41 04/18/20 25 04/18/2025 CBC granulcytes# 2.9 x10 Not Marychuy ilable [facility] [address] [address], [place], [address], 04/18/2025 14:17:41 04/18/20 25 04/18/2025 CBC lymphocytes # 0.8 x10 Not Available [facility] [address], [address], 04/18/2025 14:17:41 04/18/20 25 04/18/2025 CBC monocytes # 0.3 x10 Not Avai lable [facility] [address], [address], 04/18/2025 14:17:41 04/30/20 25 04/30/2025 PT/IN R Protime 13.7 Not Available [facility]) [address] [place], [address], 04/22/2025 12:18:55 04/30/20 25 04/30/2025 PT/IN R INR 1.1 Not Available [facility] ([facility]) [address] [place], [address], 04/22/2025 12:18:55 05/06/20 25 05/06/2025 CBC WBC 4.5 x10 4.5-10 .5 Not Available [facility] [address] [place] [address], [address], 05/06/2025 13:20:41 05/06/20 25 05/06/2025 CBC RBC 3.47 x10 4.30-5 .90 low Not Available [facility] [address] [facility] 1, [place], [address], 05/06/2025 13:20:41 05/06/20 25 05/06/2025 CBC HGB 9.0 g/dL 13.5-1 8.0 low Not Available [facility] [address] [facility] [address] [facility], [place], [address], 05/06/2025 13:20:41 05/06/20 25 05/06/2025 CBC HCT 29.5 % 35.0-6 0.0 low Not Available [facility] [address] [facility] 1, [place], [address], 05/06/2025 13:20:41 05/06/20 25 05/06/2025 CBC MCV 85.0 fL 80.0-9 9.9 Not Available [facility] [address] [facility] 1, [place], [address], 05/06/2025 13:20:41 05/06/20 25 05/06/2025 CBC MCH 25.8 pg 27.0-3 2.0 low Not Available [facility] [address] [facility] [address] [facility] 1, [place], [address], 05/06/2025 13:20:41 05/06/20 25 05/06/2025 CBC MCHC 30.4 g/dL 32.0-3 6.0 low Not Available [facility] [address] [facility] [address] [facility], [place], [address], 05/06/2025 13:20:41 05/06/20 25 05/06/2025 CBC RDW 17.6 % 11.5-1 4.5 high Not Available [facility] [address] [facility] [address], [place], [address], 05/06/2025 13:20:41 05/06/20 25 05/06/2025 CBC plt 284.2 x10 150.0- 451.0 Not Available [facility] [address], [place], [address], 05/06/2025 13:20:41 05/06/20 25 05/06/2025 CBC lymphocytes % 15.1 % 20.0-5 0.0 low Not Available [facility] [address], [place], [address], 05/06/2025 13:20:41 05/06/20 25 05/06/2025 CBC granulcytes % 73.7 % 30.0-7 0.0 high Not Available [facility] [address] [address], [place], [address], 05/06/2025 13:20:41 05/06/20 25 05/06/2025 CBC monocytes % 7.3 % 2.0-16 .0 Not Available [facility] [address], [place], [address], 05/06/2025 13:20:41 05/06/20 25 05/06/2025 CBC granulcytes# 3.3 x10 Not Marychuy ilable [facility] [address] [address], [place], [address], 05/06/2025 13:20:41 05/06/20 25 05/06/2025 CBC lymphocytes # 0.7 x10 Not Available [facility] [address], [place], [address], 05/06/2025 13:20:41 05/06/20 25 05/06/2025 CBC monocytes # 0.3 x10 Not Avai lable [facility] [address], [place], [address], 05/06/2025 13:20:41 06/03/20 25 06/03/2025 CBC WBC 3.7 x10 4.5-10 .5 low Not Available [facility] [address] [facility] [address], [place], [address], 06/03/2025 10:02:50 06/03/20 25 06/03/2025 CBC RBC 3.71 x10 4.30-5 .90 low Not Available [facility] [address], [place], [address], 06/03/2025 10:02:50 06/03/20 25 06/03/2025 CBC HGB 9.8 g/dL 13.5-1 8.0 low Not Available [facility] [address] [facility], [place], [address], 06/03/2025 10:02:50 06/03/20 25 06/03/2025 CBC HCT 32.5 % 35.0-6 0.0 low Not Available [facility] [address] [facility] [address] [facility], [place], [address], 06/03/2025 10:02:50 06/03/20 25 06/03/2025 CBC MCV 87.5 fL 80.0-9 9.9 Not Available [facility] [address] [facility] [address], [place], [address], 06/03/2025 10:02:50 06/03/2006/03/2025 CBC MCH 26.5 pg 27.0-3 2.0 low Not Available [facility] [address] [facility] [address], [place], [address], 06/03/2025 10:02:50 07/15/06/03/2025 CBC MCHC 30.2 g/dL 32.0-3 6.0 low Not Available [facility] [address] [facility] 1, [place], [address], 06/03/2025 10:02:50 06/03/2006/03/2025 CBC RDW 21.1 % 11.5-1 4.5 high Not Available [facility] [address] [facility] [address], [place], [address], 06/03/2025 10:02:50 06/03/2006/03/2025 CBC plt 211.0 x10 150.0- 451.0 Not Available [facility] [address] [facility] 1, [place], [address], 06/03/2025 10:02:50 06/03/2006/03/2025 CBC lymphocytes % 18.9 % 20.0-5 0.0 low Not Available [facility] [address] [facility] 1, [place], [address], 06/03/2025 10:02:50 06/03/2006/03/2025 CBC granulcytes % 68.2 % 30.0-7 0.0 Not Available [facility] [address], [place], [address], 06/03/2025 10:02:50 06/03/2006/03/2025 CBC monocytes % 7.8 % 2.0-16 .0 Not Available [facility] [address] [facility], [place], [address], 06/03/2025 10:02:50 06/03/2006/03/2025 CBC granulcytes# 2.5 x10 Not Marychuy ilable [facility] [address] [facility], [place], [address], 06/03/2025 10:02:50 06/03/20 25 06/03/2025 CBC lymphocytes # 0.7 x10 Not Available [facility] [address] [address], [place], [address], 06/03/2025 10:02:50 06/03/20 25 06/03/2025 CBC monocytes # 0.3 x10 Not Avai lable [facility] [address] [address], [place], [address], 06/03/2025 10:02:50 06/03/20 25 06/03/2025 CMP (MALE ) glucose 112.0 mg/dL 60.0-9 9.0 high Not Available [facility] [address] [address], [place], [address], 06/03/2025 10:20:30 06/03/20 25 06/03/2025 CMP (MALE ) BUN (blood urea nitrogen) 10.0 mg/dL 10.0-2 6.0 Not Available [facility] [address] [address], [place], [address], 06/03/2025 10:20:30 06/03/20 25 06/03/2025 CMP (MALE ) creatinine (serum) 0.7 mg/dL 0.4-1. 5 Not Available [facility] [address] [address], [place], [address], 06/03/2025 10:20:30 06/03/20 25 06/03/2025 CMP (MALE ) BUN/creatini ne ratio 14.29 ratio Not Available [facility] [address] [address], [place], [address], 06/03/2025 10:20:30 06/03/20 25 06/03/2025 CMP (MALE ) eGFR calculated 115.0 Not Available [facility] [address] [address], [place], [address], 06/03/2025 10:20:30 06/03/20 25 06/03/2025 CMP (MALE ) total protein 7.0 g/dL 6.0-8. 5 Not Available [facility] [address] [facility], [place], [address], 06/03/2025 10:20:30 06/03/20 25 06/03/2025 CMP (MALE ) total bilirubin 0.3 mg/dL 0.2-1. 3 Not Available [facility] [address] [facility], [place], [address], 06/03/2025 10:20:30 06/03/20 25 06/03/2025 CMP (MALE ) albumin 4.0 g/dL 3.5-5. 5 Not Available [facility] [address] [facility], [place], [address], 06/03/2025 10:20:30 06/03/20 25 06/03/2025 CMP (MALE ) globulin 3.[address] [facility] [address] [facility], [place], [address], 06/03/2025 10:20:30 06/03/20 25 06/03/2025 CMP (MALE ) AST (SGOT) 24.0 U/L 0.0-46 .0 Not Available [facility] [address] [facility] [address] [facility], [place], [address], 06/03/2025 10:20:30 06/03/20 25 06/03/2025 CMP (MALE ) altv (SGPT) 18.0 U/L 13.0-6 9.0 normal Not Available [facility] [address] [facility] [address] [facility], [place], [address], 06/03/2025 10:20:30 06/03/20 25 06/03/2025 CMP (MALE ) A/G ratio 1.3 ratio Not Available [facility] [address], [place], [address], 06/03/2025 10:20:30 06/03/20 25 06/03/2025 CMP (MALE ) ALP phos 67.0 U/L 30.0-1 40.0 normal Not Available [facility] [address], [place], [address], 06/03/2025 10:20:30 06/03/20 25 06/03/2025 CMP (MALE ) calcium 9.0 mg/dL 8.4-10 .5 Not Available [facility] [address] [facility] [address], [place], [address], 06/03/2025 10:20:30 06/03/20 25 06/03/2025 CMP (MALE ) sodium 138.0 mmol/ L 136.0- 145.0 Not Available [facility] [address] [facility] [address], [place], [address], 06/03/2025 10:20:30 06/03/20 25 06/03/2025 CMP (MALE ) potassium 4.0 mmol/ L 3.5-5. 1 Not Available [facility] [address] [facility] [address], [place], [address], 06/03/2025 10:20:30 06/03/20 25 06/03/2025 CMP (MALE ) chloride 105.0 mmol/ L 98.0-1 10.0 normal Not Available [facility] [address] [facility] [address], [place], [address], 06/03/2025 10:20:30 06/03/20 25 06/03/2025 CMP (MALE ) C02 24.0 mmol/ L 22.0-3 1.0 Not Available [facility] [address] [facility], [place], [address], 06/03/2025 10:20:30 06/03/20 25 06/03/2025 CMP (MALE ) anion gap 9.0 calc Not Available [facility] [address] [facility], [place], [address], 06/03/2025 10:20:30 06/03/20 25 06/03/2025 CMP (MALE ) osmolality 284.9 calc Not Available [facility] [address] [facility], [place], [address], 06/03/2025 10:20:30 06/03/20 25 06/04/2025 ADI TIN ferritin 16 NG/mL 24-380 low Not Available [facility] [address] [place], [address], 06/04/2025 10:42:59 07/15/20 25 07/15/2025 CBC WBC 4.3 x10 4.5-10 .5 low Not Available [facility] [address] [facility], [place], [address], 07/15/2025 11:44:27 07/15/20 25 07/15/2025 CBC RBC 3.93 x10 4.30-5 .90 low Not Available [facility] [address] [facility], [place], [address], 07/15/2025 11:44:27 07/15/20 25 07/15/2025 CBC HGB 11.5 g/dL 13.5-1 8.0 low Not Available [facility] [address] [facility], [place], [address], 07/15/2025 11:44:27 07/15/20 25 07/15/2025 CBC HCT 37.8 % 35.0-6 0.0 Not Available [facility] [address] [facility] [address] [facility], [place], [address], 07/15/2025 11:44:27 07/15/2007/15/2025 CBC MCV 96.1 fL 80.0-9 9.9 Not Available [facility] [address] [facility], [place], [address], 07/15/2025 11:44:27 07/15/2007/15/2025 CBC MCH 29.2 pg 27.0-3 2.0 Not Available [facility] [address] [facility] [address] [facility], [place], [address], 07/15/2025 11:44:27 07/15/20 25 07/15/2025 CBC MCHC 30.4 g/dL 32.0-3 6.0 low Not Available [facility] [address] [address] [facility], [place], [address], 07/15/2025 11:44:27 07/15/20 25 07/15/2025 CBC RDW 22.3 % 11.5-1 4.5 panic high Not Available [facility] [address] [facility], [place], [address], 07/15/2025 11:44:27 07/15/2007/15/2025 CBC plt 169.7 x10 150.0- 451.0 Not Available [facility] [address] [address] [facility], [place], [address], 07/15/2025 11:44:27 07/15/2007/15/2025 CBC lymphocytes % 16.0 % 20.0-5 0.0 low Not Available [facility] [address] [facility] [address] [facility], [place], [address], 07/15/2025 11:44:27 07/15/2007/15/2025 CBC granulcytes % 69.8 % 30.0-7 0.0 Not Available [facility] [address] [address], [place], [address], 07/15/2025 11:44:27 07/15/2007/15/2025 CBC monocytes % 8.7 % 2.0-16 .0 Not Available [facility] [address] [address], [place], [address], 07/15/2025 11:44:27 07/15/2007/15/2025 CBC granulcytes# 3.0 x10 Not Marychuy ilable [facility] [address] [address], [place], [address], 07/15/2025 11:44:27 07/15/2007/15/2025 CBC lymphocytes # 0.7 x10 Not Available [facility] [address] [address], [place], [address], 07/15/2025 11:44:27 07/15/2007/15/2025 CBC monocytes # 0.4 x10 Not Avai lable [facility] [address] [address], [place], [address], 07/15/2025 11:44:27 07/15/2007/15/2025 CMP (MALE ) glucose 93.0 mg/dL 60.0-9 9.0 Not Available [facility] [address] [address], [place], [address], 07/15/2025 12:25:47 07/15/2007/15/2025 CMP (MALE ) BUN (blood urea nitrogen) 14.0 mg/dL 10.0-2 6.0 Not Available [facility] [address] [address], [place], [address], 07/15/2025 12:25:47 07/15/20 25 07/15/2025 CMP (MALE ) creatinine (serum) 0.8 mg/dL 0.4-1. 5 Not Available [facility] [address] [facility], [place], [address], 07/15/2025 12:25:47 07/15/20 25 07/15/2025 CMP (MALE ) BUN/creatini ne ratio 17.50 ratio Not Available [facility] [address] [facility] [address], [place], [address], 07/15/2025 12:25:47 07/15/20 25 07/15/2025 CMP (MALE ) eGFR calculated 98.6 Not Available [facility] [address] [facility] [address], [place], [address], 07/15/2025 12:25:47 07/15/20 25 07/15/2025 CMP (MALE ) total protein 6.9 g/dL 6.0-8. 5 Not Available [facility] [address] [facility] [address], [place], [address], 07/15/2025 12:25:47 07/15/20 25 07/15/2025 CMP (MALE ) total bilirubin 0.5 mg/dL 0.2-1. 3 Not Available [facility] [address] [facility] [address], [place], [address], 07/15/2025 12:25:47 07/15/20 25 07/15/2025 CMP (MALE ) albumin 4.1 g/dL 3.5-5. 5 Not Available [facility] [address] [facility] [address], [place], [address], 07/15/2025 12:25:47 07/15/20 25 07/15/2025 CMP (MALE ) globulin 2.[address] [facility] [facility] [address] [facility] 1, [place], [address], 07/15/2025 12:25:47 07/15/2007/15/2025 CMP (MALE ) AST (SGOT) 21.0 U/L 0.0-46 .0 Not Available [facility] [address] [facility], [place], [address], 07/15/2025 12:25:47 07/15/20 25 07/15/2025 CMP (MALE ) altv (SGPT) 14.0 U/L 13.0-6 9.0 normal Not Available [facility] [address] [facility] [address], [place], [address], 07/15/2025 12:25:47 07/15/20 25 07/15/2025 CMP (MALE ) A/G ratio 1.5 ratio Not Available [facility] [address] [facility] [address], [place], [address], 07/15/2025 12:25:47 07/15/2007/15/2025 CMP (MALE ) ALP phos 74.0 U/L 30.0-1 40.0 normal Not Available [facility] [address] [facility] [address], [place], [address], 07/15/2025 12:25:47 07/15/2007/15/2025 CMP (MALE ) calcium 9.2 mg/dL 8.4-10 .5 Not Available [facility] [address] [facility] [address], [place], [address], 07/15/2025 12:25:47 07/15/20 25 07/15/2025 CMP (MALE ) sodium 139.0 mmol/ L 136.0- 145.0 Not Available [facility] [address] [facility] [address], [place], [address], 07/15/2025 12:25:47 07/15/2007/15/2025 CMP (MALE ) potassium 4.2 mmol/ L 3.5-5. 1 Not Available [facility] [address] [facility] [address], [place], [address], 07/15/2025 12:25:47 07/15/20 25 07/15/2025 CMP (MALE ) chloride 104.0 mmol/ L 98.0-1 10.0 normal Not Available [facility] [address] [facility] [address], [place], [address], 07/15/2025 12:25:47 07/15/2007/15/2025 CMP (MALE ) C02 28.0 mmol/ L 22.0-3 1.0 Not Available [facility] [address] [facility] [address], [place], [address], 07/15/2025 12:25:47 07/15/20 25 07/15/2025 CMP (MALE ) anion gap 7.0 calc Not Available [facility] [address] [facility] [address], [place], [address], 07/15/2025 12:25:47 07/15/2007/15/2025 CMP (MALE ) osmolality 287.3 calc Not Available [facility] [address] [facility] [address], [place], [address], 07/15/2025 12:25:47 07/15/2007/16/2025 ADI TIN ferritin 20 NG/mL 24-380 low Not Available [facility] [address] , [place], [address], 07/16/2025 04:00:13 04/15/2004/15/2025 XR, toe(s ) No observ ation record ed. [email or web address] [facility] [address] [place], [address], 04/17/2025 16:07:45 04/18/20 25 12/14/2018 upper endos copy proce dure (EGD) (PROC ) No observ ation record ed. [email or web address] Not Available 04/22 09:15:43 04/18/20 25 12/14/2018 colon oscop y proce dure (PROC ) No observ ation record ed. [email or web address] Not Available 04/22 09:16:06 04/18/20 25 12/06/2017 upper endos copy proce dure (EGD) (PROC ) No observ ation record ed. [email or web address] Not Available 04/22 09:16:53 04/29/2004/24/2025 colon oscop y proce dure (PROC ) No observ ation record ed. [address] [place], [address], 04/30/2025 07:42:05 04/29/2004/24/2025 upper endos copy proce dure (EGD) (PROC ) No observ ation record ed. [address] , [place], [address], 04/30/2025 07:42:05 Result Notes None recorded. Problems Name Problem SNOMED Code Status Onset Date Resolution Date Notes Provider Name and Address Organization Details Recorded Time Hyperlip idemia NOS Completed 202006/24/2021 Hyperlip idemia - Status is Resolved ; Resolved Date: 06/24/20; Recorded 06/24/20 10:01AM by Fay Rendon PA-C, Abelati on/Adden dum; Promoted ; acuity set as *; Not Available [facility] 3 03:07:53 Ulcer of lower extremit y 62423519 Completed 202006/24/2021 LOWER EXTREMIT Y ULCERATI ON - Status is Inactive ; Recorded 06/24/20 10:06AM by Fay Rendon PA-C, Annotati on/Adden dum; Promoted ; acuity set as *; Not Available [facility] 3 03:07:53 Acute bronchit is 98575048 Completed 202006/24/2021 ACUTE BRONCHIT IS - Status is Inactive ; Recorded 06/24/20 9:59AM by Fay Rendon PA-C, Annotati on/Adden dum; Promoted ; acuity set as *; Not Available [facility] 03:07:54 Mixed hyperlip idemia 155825954 Active 2022 MIXED HYPERLIP IDEMIA; Recorded 12/05/19 2:10PM by Hermila Gimenez, RN, Office Visit; Promoted ; acuity set as *; FAY RENDON PA-C [address] [place], [address] , [facility] 3 12:47:23 Coronary atherosc lerosis 882917282 Active 2022 CORONARY ATHEROSC LEROSIS; Recorded 12/05/19 2:10PM by Hermila Gimenez, RN, Office Visit; Promoted ; acuity set as *; FAY RENDON PA-C [address] [place], [address] , [facility] 3 12:47:23 Chronic obstruct clifton pulmonar y disease 49060950 Active 2022 FAY RENDON PA-C [address] [place], [address] , [facility] 3 12:46:36 Malignan t neoplasm of prostate 779284524 Active 2022 Stage IIIC (cT2c cN0 cM0 gl 5 + 5=10) KAMERON vizcaino, [facility] 5 14:26:46 [facility] l hyperten alcides 18990308 Active 2022 FAY RENDON PA-C [address] [place], [address] , [facility] 3 12:47:23 Acquired coagulat ion disorder 437238093 Active 2022 FAY RENDON PA-C [address] [place], [address] , [facility] 3 12:46:23 Chronic atrial fibrilla tion 771905187 Active 2022 FAY RENDON PA-C [address] [place], [address] , [facility] 3 12:46:33 Venous stasis edema of bilatera l lower limbs 16577008946 401621 Active 2023 KAMERON vizcaino [facility] 5 12:24:06 History of adenomat ous polyp of colon 886919014 Active 2024 KAMERON vizcaino [facility] 5 12:23:58 Fracture of phalanx of left foot Active 2024 KAMERON vizcaino [facility] 5 12:23:51 Iron deficien cy anemia 82177965 Active 2024 KAMERON vizcaino [facility] 5 12:23:40 Upper gastroin testinal bleeding 80650024 Active 2024 Skye vizcaino [facility] 5 16:15:45 Stented coronary artery 051386788 Active 2024 Skye vizcaino [facility] 5 16:15:35 History of cerebrov ascular accident 184773282 Active 2024 Skye vizcaino [facility] 5 16:15:28 History of myocardi al infarcti on 455125898 Active 2024 Skye Elisabethmily vizcaino [facility], Brenda 5 16:15:31 Problem Notes None recorded. Procedures Surgical History Date Name Laterality Status Provider Name and Address Organization Details Recorded Time 2024 esophagogastroduodenoscopy completed RAJAT THEA AGUAYO [facility], Brenda 5 11:26:16 2024 colonoscopy completed [facility] 11:26:57 2018 colonoscopy completed [facility]Lesley [facility] 08:22:43 placement of stent i n cardiac conduit completed FAY RENDON PA-C [address] [place] [address], [address], [facility] 12:51:52 Imaging Results None recorded. Procedure Notes None recorded. Medical Equipment None Reported. Allergies Allergen ID Allergen Name Allergen Category Reaction Reaction Severity Criticality Documentation Date Start Date Code Code System Note Provider Name and Address Organization Details Recorded Time 83855 adhesive environme nt,medica tion rash Not available Not available 07/22/2025 Skye Elisabethmily vizcaino [facility], [facility] 5 11:37:31 Medications Name Sig Start Date Stop Date Status Note LastModified by Organization Details LastModified Time bicalutam alex 50 mg tablet TAKE 1 TABLET BY MOUTH EVERY DAY 11/27 completed Not Available Not Available Not Available doxycycli ne hyclate 100 mg capsule TAKE 1 CAPSULE BY MOUTH TWICE A DAY FOR 7 DAYS 04/20 completed Not Available Not Available Not Available atorvasta tin 20 mg tablet TAKE 1 TABLET BY MOUTH EVERY DAY active Not Available Not Available No t Available ipratropi um 0.5 mg-albute rol 3 mg (2.5 mg base)/3 mL nebulizat ion soln USE 1 VIAL VIA NEBULIZE R 4 TIMES DAILY NEEDED active Not Available Not Available No t Available azithromy frankie 250 mg tablet 08/01 completed Not Available Not Available Not Available aspirin 325 mg tablet Take 1 tablet every day by oral route for 30 days. 05/12 completed Not Available Not Available Not Available metoprolo l tartrate 100 mg tablet TAKE 2 TABLETS BY MOUTH TWICE A DAY active Not Available Not Available No t Available prednison e 20 mg tablet 11/27 completed Not Available Not Available Not Available digoxin 250 mcg (0.25 mg) tablet TAKE 1 TABLET BY MOUTH EVERY DAY 11/27 completed Not Available Not Available Not Available omeprazol e 40 mg capsule,d elayed release TAKE 1 CAPSULE BY MOUTH TWICE A DAY active Not Available Not Available No t Available triamcino lone acetonide 0.1 % topical cream APPLY TO AFFECTED AREA TWICE A DAY active Not Available Not Available No t Available warfarin 4 mg tablet TAKE 1 TABLET BY MOUTH EVERY DAY active Not Available Not Available No t Available warfarin 3 mg tablet TAKE 1 TABLET BY MOUTH EVERY DAY 04/15 completed Not Available Not Available Not Available benzonata te 100 mg capsule 200 MG (2 X 100 MG) ORALLY THREE TIMES DAILY NEEDED FOR COUGH 03/20 completed Not Available Not Available Not Available warfarin 2 mg tablet TAKE 1 TABLET BY MOUTH EVERY DAY 04/15 completed Not Available Not Available Not Available nitroglyc ziggy 0.4 mg sublingua l tablet PLACE 1 TAB UNDER TONGUE EVERY 5 MINUTES NEEDED FOR CHEST PAIN DO NOT EXCEED 3 DOSES PER EPISODE active Not Available Not Available No t Available diltiazem CD 120 mg capsule,e xtended release 24 hr TAKE 1 CAPSULE BY MOUTH EVERY DAY active Not Available Not Available No t Available hydrochlo rothiazid e 25 mg tablet TAKE 1 TABLET BY MOUTH EVERY DAY 03/20 completed Not Available Not Available Not Available mupirocin 2 % topical ointment APPLY A SMALL AMOUNT TO AFFECTED AREA 3 TIMES A DAY active Not Available Not Available No t Available furosemid e 20 mg tablet 11/27 completed Not Available Not Available Not Available albuterol sulfate HFA 90 mcg/actua tion aerosol inhaler INHALE 2 PUFFS BY MOUTH EVERY 4 HOURS active Not Available Not Available No t Available ketoconaz ole 2 % topical cream APPLY TO AFFECTED AREA TWICE A DAY active Not Available Not Available No t Available cefdinir 300 mg capsule Take 1 capsule every 12 hours by oral route for 7 days. 04/29 completed Not Available Not Available Not Available finasteri de 5 mg tablet TAKE 1 TABLET BY MOUTH EVERYDAY AT BEDTIME 2024 active Not Available Not Available Not Avai lable Mucinex 600 mg tablet, extended release TAKE 2 TABLETS BY MOUTH TWICE A DAY 11/27 completed Not Available Not Available Not Available Ventolin 90 mcg/actua tion aerosol inhaler every four hours, as needed 08/01 completed 0; Recorded 12/05/19 23 2:10PM by Hermila Gimenez RN, Office Visit; Not Available Not Available Not Available Nebulizer Kit misc four times daily, as needed 11/27 completed Not Available Not Available Not Available Lipitor QD 11/27 completed Not Available Not Available Not Available ipratropi um-albute rol four times daily, as needed 11/27 completed Not Available Not Available Not Available Lopressor BID 08/01 completed CS/smf; 98110; Recorded 12/21/19 23 3:09PM by Hermila Gimenez RN (Authori zed through Narciso Botello DO), Annotati on/Adden dum; Refill Quantity : 60; Tablet; Not Available Not Available Not Available Nitrostat as needed 08/01 completed 6; Recorded 07/25/20 17 9:40AM by Aura Persaud LPN (Authori zed through Rahul Sims MD), Annotati on/Adden dum; Refill Quantity : 50; Tab Sublingu al; Not Available Not Available Not Available ferrous gluconate 324 mg (38 mg iron) tablet Take 1 tablet every day by oral route with meal(s), for take at lunch. 2024 active Not Available Not Available Not Avai lable cholecalc iferol (vitamin D3) 1,250 mcg (50,000 unit) capsule TAKE 1 CAPSULE BY MOUTH ONCE WEEKLY active Not Available Not Available No t Available Zyrtec 10 mg capsule daily, as needed 11/27 completed for allergie s Not Available Not Available Not Available Eliquis 5 mg tablet TAKE 1 TABLET TWICE A DAY BY ORAL ROUTE FOR 30 DAYS, FOR ATRIAL FIBRILLA TION. 07/22 completed Not Available Not Available Not Available potassium chloride ER 20 mEq tablet,ex tended release TAKE 1 TABLET BY MOUTH EVERY DAY FOR 2 DAYS 11/27 completed Not Available Not Available Not Available Trelegy Ellipta 200 mcg-62.5 mcg-25 mcg powder for inhalatio n INHALE 1 PUFF BY MOUTH EVERY DAY active Not Available Not Available No t Available Vitals Date Recorded Body height Body mass index (BMI) Body weight Body temperature Heart rate Oxygen saturation Oxygen saturation in Arterial blood by Pulse oximetry Systolic And Diastolic Provider Name and Address Organization Details Last Updated DateTime 5 177.8 cm 29.3 kg/m2 45783.8 4 g 97.3 [degF] 74 /min 97 % 97 % 160/92 mm[Hg] [facility] 5 10:05:49 Date Recorded Body height Body mass index (BMI) Body weight Body temperature Heart rate Oxygen saturation Oxygen saturation in Arterial blood by Pulse oximetry Systolic And Diastolic Provider Name and Address Organization Details Last Updated DateTime 5 177.8 cm 29 kg/m2 45301.6 6 g 97.4 [degF] 62 /min 97 % 97 % 140/80 mm[Hg] [facility] 5 10:45:28 Date Recorded Body height Body mass index (BMI) Body weight Body temperature Heart rate Oxygen saturation Oxygen saturation in Arterial blood by Pulse oximetry Systolic And Diastolic Provider Name and Address Organization Details Last Updated DateTime 5 177.8 cm 28.7 kg/m2 44781.4 7 g 97.4 [degF] 75 /min 98 % 98 % 130/80 mm[Hg] [facility] 5 11:38:31 Social History Question Answer Notes LastModified by Organizat ion Details LastModified Time Tobacco Smoking Status Former Smoker NELLY GIMENEZ [facility], [facility] 05/22/2023 11:43:59 Are You Blind Or Do You Have Difficulty Seeing? No [email or web address] Information not available 02/13/2023 When Did You Quit Smoking? 15+yearssin eliazar rivera Quit Smoking Approx 1994 [email or web address] Information not available 04/22/2025 What Was The Date Of Your Most Recent Tobacco Screening? 04/18/2025 [email or web address] Information not available 04/18/2025 Do You Have Difficulty Walking Or Climbing Stairs? No [email or web address] Information not available 02/13/2023 Sex: Unknown Functional Status Question Answer Note LastModified by Organizat ion Details LastModified Time Do you use any illicit or recreational drugs? No [email or web address] Information not available 11/27/2024 Do you or have you ever used any other forms of tobacco or nicotine? No [email or web address] Information not available 11/27/2024 What is your level of alcohol consumption? None [email or web address] Information not available 11/27/2024 Are you able to walk independently without assistance or assistive devices? YESWOREST [email or web address] Information not available 02/13/2023 Do you have difficulty doing errands alone? No [email or web address] Information not available 02/13/2023 Are you able to care for yourself independently? Yes [email or web address] Information not available 02/13/2023 Do you have difficulty dressing, bathing, grooming, or toileting? No [email or web address] Information not available 02/13/2023 Do you or have you ever used any nicotine-free cigarettes, vape, or chewing tobacco? No [email or web address] Information not available 11/27/2024 Mental Status Question Answer Note LastModified by Organization D etails LastModified Time Do you have difficulty concentrating, remembering or making decisions? No [email or web address] Information no t available 02/13/2023 Family History Relationship Description Onset Age of this Age Resolved Age Notes LastModified by Organization Details LastModified Time Brother Hypertensive disorder [email or web address] Not available 11/27 08:21:26 Medical History No medical history recorded. Immunizations Vaccine Type Date Status Note Provider Nam e and Address Organization Details Recorded Time COVID-19, mRNA, LNP-S, PF, 100 mcg/0.5mL dose or 50 mcg/0.25mL dose 1 completed FAY RENDON PA-C [address] [place], [address], [facility] 08/01/2023 12:35:54 COVID-19, mRNA, LNP-S, PF, 100 mcg/0.5mL dose or 50 mcg/0.25mL dose 1 completed FAY RENDON PA-C [address] [place], [address], [facility] 08/01/2023 12:35:54 COVID-19, mRNA, LNP-S, PF, 50 mcg/0.5 mL 4 completed KAMERON vizcaino [facility] 11/27/2024 10:38:02 Influenza, high-dose, trivalent, PF 4 completed KAMERON vizcaino, [facility] 11/27/2024 10:38:02 Pneumococcal conjugate PCV20, polysaccharide GCH838 conjugate, adjuvant, 3 completed JORY vizcaino [facility] 08/01/2023 13:51:29 Influenza, adjuvanted, quadrivalent, 3 completed JORY vizcaino [facility] 08/01/2023 13:53:00 Td (adult), 2 Lf tetanus toxoid, preservative free, adsorbed 5 completed Not Available [facility] 11/22/2023 11:50:45 DTaP, unspecified formulation 6 completed Not Available [facility] 11/22/2023 11:50:45 Past Encounters Encounter ID Performer Location Encounter Start Date Encounter Closed Date Diagnosis/Indication Diagnosis SNOMED-CT Code Diagnosis ICD10 Code Diagnosis IMO Codes Diagnosis Note [id number] Narciso Botello DO [facility] ([facility]) [address] [place] [address] 02/13/2023 12:12:24 02/13/2023 19:07:22 Chronic atrial fibrillation 889750907 I48.20 Chronic ob structive pulmonary disease 83208238 J44.9 [id number] Narciso Botello DO [facility] ([facility]) [address] [place] [address] 02/27/2023 13:06:33 03/06/2023 12:05:41 Persistent atrial fibrillation 528112395 I48.19 pharmacy didn't receive diltiazem and instead refilled digoxin that we stopped; called them and now it is straight Chronic ob structive pulmonary disease 90150679 J44.9 [id number] Narciso Botello DO [facility] ([facility]) [address] [place] [phone] 03/13/2023 11:51:52 03/13/2023 12:27:49 Atrial fibrillation 83787583 I48.91 started on diltiazem and hr much better; feels better [id number] Narciso Botello DO [facility] ([facility]) [address] [place] [address] 05/22/2023 11:36:03 05/22/2023 13:53:50 Chronic obstructive pulmonary disease 85931295 J44.9 Malignant neoplasm of prostate 802651247 C[address] Marcano Anemia 057609052 D64.[address] 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, but he will today [id number] Narciso Botello DO [facility] ([facility]) [address] [place] [address] 07/12/2023 08:46:29 07/12/2023 13:06:15 Chronic obstructive pulmonary disease 16430404 J44.9 [id number] FAY RENDON PA-C [facility] ([facility]) [address] [place], [place] [address] 08/01/2023 11:27:11 08/01/2023 15:53:07 Adult health examination 419385741 Z00.00 Administra tion of pneumococcal vaccine 32683235 Z23 Administra tion of influenza vaccine 50067597 Z23 Chronic sy stolic heart failure 354933506 I50.9 Acquired c oagulation disorder 427982653 D68.8 Chronic at rial fibrillation 068536948 I48.20 we discussed switching off coumdain for Eliquis. he will think about it and discuss wiht DR. Botello at next appt. Chronic ob structive pulmonary disease 01851230 J44.9 Malignant neoplasm of prostate 522262539 C61 [id number] Narciso Botello DO [facility] ([facility]) [address] [place] [address] 5 09/20/2023 12:35:33 09/20/2023 13:04:45 Acquired coagulation disorder 064967313 D68.8 [id number] Narciso Botello DO [facility] ([facility]) [address] [place] [address] 5 11/22/2023 11:50:04 11/22/2023 13:47:50 Chronic obstructive pulmonary disease 00686744 J44.9 Mixed hyperlipidemia 267 685182 E78.2 Iron defic iency anemia 77161489 D50.9 Chronic at rial fibrillation 352746140 I48.20 [id number] Narciso Botello DO [facility] ([facility]) [address] [place] [phone] 01/09/2024 11:22:42 01/15/2024 13:47:30 Acquired coagulation disorder 631706177 D68.8 [id number] Narciso Botello DO [facility] ([facility]) [address] [place], [place] [phone] 01/15/2024 12:13:38 01/18/2024 06:37:00 Acquired coagulation disorder 590890718 D68.8 [id number] DARRYL MORIN [facility] ([facility]) [address] [place] [id number] 02/05/2024 13:19:52 02/05/2024 15:11:48 Cellulitis of right lower limb 5140086611 [id number] L03.[address] Botello, patients PCP. US results were viewed and reviewed with patient. No evidence of DVT. Will treat the cellulitis and have patient follow up with PCP in 2 weeks. Discussed with patient that if pain worsens or any severe SOB or chest pain occurs, need to go to ED. Patient verbalizes understand ing. [id number] Narciso Botello DO [facility] ([facility]) [address] [place] [phone] 02/19/2024 11:55:47 02/19/2024 13:07:04 Chronic obstructive pulmonary disease 04022555 J44.9 Venous sta sis edema of bilateral lower limbs 0991772299 5719335 I87.2 Chronic at rial fibrillation 551527423 I48.20 [id number] Narciso Botello DO [facility] ([facility]) [address] [place] [id number] 03/20/2024 11:45:11 03/22/2024 10:14:30 Chronic atrial fibrillation 128595028 I48.20 [id number] Narciso Botello DO [facility] ([facility]) [address] [place] [id number] 04/22/2024 12:38:11 04/24/2024 14:22:53 Chronic atrial fibrillation 069624270 I48.20 [id number] Narciso Botello DO [facility] ([facility]) [address] [place] [id number] 05/27/2024 11:33:56 05/27/2024 12:01:03 Chronic obstructive pulmonary disease 56097303 J44.9 Chronic at rial fibrillation 620145290 I48.20 [id number] Narciso Botello DO [facility]) [address] [place] [address] 07/24/2024 16:15:52 07/26/2024 08:42:20 Chronic atrial fibrillation 128223304 I48.20 [id number] Narciso Botello DO [facility] ([facility]) [address] [place] [id number] 5 08/22/2024 11:55:44 08/26/2024 15:50:30 Chronic atrial fibrillation 006151353 I48.20 [id number] Narciso Botello DO [facility] ([facility]) [address] [place] [address] 5 10/01/2024 11:33:26 10/02/2024 12:43:38 Chronic atrial fibrillation 233395922 I48.20 [id number] José Antonio Rendon MD [facility]) [address] [place] [address] 11/06/2024 14:42:35 11/09/2024 21:55:20 Acquired coagulation disorder 019561700 D68.8 [id number] José Antonio Rendon MD [facility]) [address] [place] [address] 5 11/27/2024 10:32:19 11/27/2024 16:53:04 Chronic atrial fibrillation 848369007 I48.20 Chronic ob structive pulmonary disease 61146102 J44.9 Essential hypertension 71138448 I10 Malignant neoplasm of prostate 609583663 C61 Mixed hyperlipidemia 267 024011 E78.2 Anemia 702632034 D64.9 Chronic constipation 236 984827 K59.09 Painful re ctal bleeding 051889249 K62.5 History of adenomatous polyp of colon 972971653 Z86.0100 Lumbago with sciatica 20 0412287 M54.40 [id number] José Antonio Rendon MD [facility] ([facility]) [address] [place] [address] 5 12/11/2024 10:33:47 12/11/2024 15:57:34 Chronic obstructive pulmonary disease [id number] J44.9 Atrial fibrillation 4943 6004 I48.91 [id number] José Antonio Rendon MD [facility] ([facility]) [address] [place] [address] [phone] 5 12/23/2024 13:12:25 12/24/2024 10:36:31 Acquired coagulation disorder [id number] D68.8 [id number] José Antonio Rendon MD [facility] ([facility]) [address] [place] [address] [phone] 5 01/20/2025 12:49:11 01/21/2025 11:18:42 Acquired coagulation disorder [id number] D68.8 [id number] José Antonio Rendon MD [facility] ([facility]) [address] [place], [place] [phone] 5 02/24/2025 13:22:32 02/25/2025 10:04:37 Chronic atrial fibrillation [id number] I48.20 [id number] José Antonio Rendon MD [facility]) [address] [place], [place] [phone] 5 03/12/2025 12:35:05 03/13/2025 14:29:19 Chronic atrial fibrillation 059712036 I48.20 [id number] José Antonio Rendon MD [facility] ([facility]) [address] [place], [place] [phone] 5 03/20/2025 10:26:36 03/20/2025 12:52:07 Acquired coagulation disorder [id number] D68.8 Pain of hip region 16392 002 M25.551 [id number] 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 [id number] José Antonio Rendon MD [facility] ([facility]) [address] [place] [address] [phone] 5 04/15/2025 10:55:40 04/16/2025 09:53:03 Atrial fibrillation 03574126 I48.91 Tinea pedis 4876228 B35. 3 690923 Pain of to e of left foot [id number] 28907 M79.675 346641 [id number] José Antonio Rendon MD [facility] ([facility]) [address] [place] [address] [phone] 5 04/16/2025 13:51:20 04/17/2025 15:09:19 Anemia 445141980 D64.9 [id number] José Antonio Rendon MD [facility] ([facility]) [address] [place] [address] [phone] 5 04/17/2025 12:53:19 04/18/2025 11:37:19 Acquired coagulation disorder [id number] D68.8 [id number] José Antonio Rendon MD [facility] ([facility]) [address] [place] [address] [phone] 5 04/18/2025 12:21:50 04/21/2025 10:53:48 Upper gastrointestinal bleeding 06980686 K92.2 172438 to er if angina, dyspnea, near syncope, significan t fatigue etc [id number] José Antonio Rendon MD [facility] ([facility]) [address] [place] [address] [phone] 5 04/22/2025 11:33:20 04/23/2025 11:03:12 Iron deficiency anemia 45223367 D50.9 [id number] Linus Murray DO [facility]) [address] [place] [address] [phone] 5 04/22/2025 11:37:54 04/23/2025 13:21:26 Upper gastrointestinal bleeding 77647155 K92.2 [id number] I have reviewed and discussed EGD. Discussed risks vs benefits including risk of infection and bleeding, perforatio n, possible need for surgery, reaction to medication s, and sever injury or . We discussed pt requiring sedation and possible general anesthesia . Pt agrees to proceed with EGD at [facility]. Preliminar y procedure date will be 04/24/25. I have reviewed and discussed colon cancer screening options, including colonoscop y. Discussed risks vs benefits including risk of infection and bleeding, perforatio n, possible need for surgery, reaction to medication s, and sever injury or . We discussed pt requiring sedation and possible general anesthesia . Pt agrees to proceed with Colonoscop y at [facility]. Preliminar y procedure date will be 04/24/25. Acquired c oagulation disorder [id number] D68.8 04/22/25: Stopped Warfarin 1 week ago, will check INR level today prior to proceeding with Colonoscop y. Chronic ob structive pulmonary disease 28470059 J44.9 stable. Iron defic iency anemia 14591285 D50.9 [id number] Linus Murray DO [facility] ([facility]) [address] [place] [address] [phone] 5 05/06/2025 11:08:17 05/07/2025 10:43:15 Chronic atrial fibrillation 071278613 I48.20 05/06/25: We had a long discussion and risks and benefits of anticoagul ation for him. He is definately at high risk for recurrent GI bleed, but pt and family are concerned about stroke and AMI. For today, Continue to hold Eliquis at this time, until repeat blood count back, take 325 mgAsa daily. F/u with Dr. Rendon in the next 1 week to discuss retirement plan for anticoagul ation Iron defic iency anemia 56653959 D50.9 [id number] from GI blood loss. Repeat lab today. Malignant neoplasm of prostate 712824997 C61 Following with Oncology every 3 months, seen in April, scheduled to see again in Jul. [id number] José Antonio Rendon MD [facility] ([facility]) [address] [place] [address] [phone] 5 05/12/2025 09:50:42 05/13/2025 17:05:29 Stented coronary artery 751693717 Z95.5 113125 he was re-stented in 2000 he says. his original stent was 1992. he has a hx of mi History of cerebrovascular accident 110872170 Z86.73 840017 it affected my eyes in 6691-9563 History of myocardial infarction 020960716 I25.2 902736 Chronic at rial fibrillation 377639326 I48.20 Acute gastrointestinal hemorrhage 80955878 K92.2 193891 [id number] José Antonio Rendon MD [facility] ([facility]) [address] [place] [address] [phone] 5 06/03/2025 09:30:05 06/04/2025 11:05:39 Iron deficiency anemia 76009113 D50.9 [id number] Essential hypertension 89019341 I10 [id number] José Antonio Rendon MD [facility] ([facility]) [address] [place] [address] 91416-152 5 06/10/2025 10:28:17 06/10/2025 11:26:19 Chronic atrial fibrillation 799878983 I48.20 Coronary atherosclerosis 223508190 I25.10 History of cerebrovascular accident 670182574 Z86.73 281792 it affected my eyes in 2064-4200 Iron defic iency anemia 09834138 D50.9 97058128 hgb is improved 0.8 grams with 6 weeks of oral iron therapy but ferritin remains low at 16. he will continue assess for rebleeding and consider iron infusion. he prefers oral iron at this time. he has had a watchman evaluation . Stented co ronary artery 711697399 Z95.5 714883 he was re-stented in 2000 he says. his original stent was 1992. he has a hx of mi Upper gastrointestinal bleeding 39113724 K92.2 838151 to er if angina, dyspnea, near syncope, significan t fatigue etc Chronic ob structive pulmonary disease 00683899 J44.9 [id number] José Antonio Rendon MD [facility] ([facility]) [address] [place] [address] [phone] 5 07/15/2025 10:51:26 07/16/2025 12:54:47 Essential hypertension 05536253 I10 Iron defic iency anemia 76366090 D50.9 10005446 hgb is improved 0.8 grams with 6 weeks of oral iron therapy but ferritin remains low at 16. he will continue assess for rebleeding and consider iron infusion. he prefers oral iron at this time. he has had a watchman evaluation . [id number] José Antonio Rendon MD [facility] ([facility]) [address] [place] [address] [phone] 5 07/22/2025 11:12:10 07/24/2025 14:34:01 Benign adenomatous polyp of stomach 9919601830 D13.1 79102 discussed risks of this with Chronic gastritis 862246 9 K29.51 11815000 no current signs of hemorrhage Acute gastrointestinal hemorrhage 26777797 K92.2 Health Concerns Section Related Observation LastModified by Organization Detai ls LastModified Time None Recorded Concern Status LastModified by Organization Details LastModified Time None Recorded Advance Directives Directive None Recorded Payers Insurance Date Sequence Insurance Name Policy Number Policy Garcia Covered Member ID Garcia Member ID Guarantor Name 07/15/2025 1 [employer] (MEDICARE REPLACEMENT/A DVANTAGE - PPO) Narciso Rider [id number] Narciso Andrew Tereso 07/21/2025 1 [facility] (MEDICARE REPLACEMENT/A DVANTAGE - PPO) [id number] Narciso Mobleyner [id number] Narciso Monteiroivner 07/15/2025 1 [facility] [id number] Narciso Monteiroivner [id number] Narciso Andrew Tereso 07/15/2025 1 [facility] (MEDICARE REPLACEMENT/A DVANTAGE - PPO) [id number] Narciso Monteiroivner [id number] Narciso Rider Notes Date Note Type Note Provider Name and Address Organization Details Recorded Time 025 text/ht ml ROS as noted in the HPI Note from last visit: Pt presents for f/u after EGD and Colonoscopy. He had procedures done on 04/24/25:EGD with normal esophagus, 6mm polyp in incisura, cauterized, started to bleed with constact with scope. Lower stomach also with contact bleeding from scope, no ulcers. Proximal small bowel normal.Path report on polyp: hyperplastic benign, no H. Pylori identified in stomach bx. Colonoscopy with friable mucosa in rectum with contact bleeding that required cauterization, no polyps/ tumors/ ulcers. He denies any further pain or bleeding. Denies any black/ dark/ tarry/ bloody stools. He continues holding his Eliquis.Daughter at bedside concerned with him holding his Eliquis, d/t risk of stroke with Atrial Fib.He hasn't discussed Watchmen device. Hgb 9.1 on 04/18/25. Recently had f/u with Oncology regarding monitoring Prostate Ca. He has finished Chemo and Radiation as of 6 months ago, now just monitoring regularly, takes a shot every 3 months. He c/o sob. Pt is here for a 1 week f/u. He is still holding blood thinners, but has started aspirin 325mg. He is here to f/u on labs from his appointment with Dr. Murray. José Antonio Rendon MD [address] [place] [address], [phone], [facility], Brenda 05/12/2025 10:32:54 025 text/ht ml Hypertension IM/FMReported by PatientHPIFor associated symptoms, patient reportspalpitationsandexertional dyspnea(mild swelling in lle). For quality, patient reportshere for check-up. For severity, patient reportsat home bp check: ___ mmg/hg(130s-150s systolic, but pt states he hasn't taken it in a long time). For duration, patient reportshtn present for ___ years. For onset/timing, patient reportsgradual onset. For self care, patient reportsnon-smoker. Abdominal PainReported by PatientAbdominal PainFor quality, patient reportsbloating,burning, andfullness. For location, patient reportsrlqandllq. For duration, patient reportsintermittent. For onset/timing, patient reportsstarted: (9 months)andgradual. For associated symptoms, patient reportsno fever,no blood in the urine,no blood in stool, andnormal appetite. For previous tests, treatment and/or diagnostic procedures, patient reportsct of the abdomen with contrast. COPDReported by PatientHPI:For severity, patient reportsnot limiting. For associated symptoms, patient reportsno snoring,no excessive daytime sleepiness,no arousals from sleep,no dyspnea,no decrease in exercise capacity,no fatigue,not coughing up sputum,no cough,no fever,no wheezing,no weight loss,no obesity,no chest tightness,no weight gain,no anxiety, andno depression. For alleviating factors, (relieved with nebulizer meds).patient currently uses his nebulizer, but states he needs a new one because his isn't working anymore Atrial FibrillationReported by PatientHPIFor associated symptoms, patient reportsexertional dyspneabut reportsno associated dizziness. For duration, patient reportshas noted for years. For alleviating factors, patient reportsmedication. he reports his stool is light nance.no black or tarry stool even with iron.no brbprno pain with eating. José Antonio Rendon MD [address] [place] [address], [phone], [facility], [facility] 06/10/2025 11:18:14 025 text/ht ml Hypertension IM/FMReported by PatientHPIFor associated symptoms, patient reportspalpitationsandexertional dyspnea(mild swelling in lle). For quality, patient reportshere for check-up. For severity, patient reportsat home bp check: ___ mmg/hg(130s-150s systolic, but pt states he hasn't taken it in a long time). For duration, patient reportshtn present for ___ years. For onset/timing, patient reportsgradual onset. For self care, patient reportsnon-smoker.abdominal pain resolved completelyhe is eating everything Abdominal PainReported by PatientAbdominal PainFor duration, patient reportsintermittent. For onset/timing, patient reportsstarted: (9 months)andgradual. For associated symptoms, patient reportsno fever,no blood in the urine,no blood in stool, andnormal appetite. For previous tests, treatment and/or diagnostic procedures, patient reportsct of the abdomen with contrast.Pt states his abdominal pain has improved COPDReported by PatientHPI:For severity, patient reportsnot limiting. For associated symptoms, patient reportsno snoring,no excessive daytime sleepiness,no arousals from sleep,no dyspnea,no decrease in exercise capacity,no fatigue,not coughing up sputum,no cough,no fever,no wheezing,no weight loss,no obesity,no chest tightness,no weight gain,no anxiety, andno depression. For alleviating factors, (relieved with nebulizer meds).patient currently uses his nebulizer, but states he needs a new one because his isn't working anymore Atrial FibrillationReported by PatientHPIFor associated symptoms, patient reportsexertional dyspneabut reportsno associated dizziness. For duration, patient reportshas noted for years. For alleviating factors, patient reportsmedication. Pt is here for a 6 week f/u and had labs drawn prior to this appt. Note from last visit: he reports his stool is light nance.no black or tarry stool even with iron.no brbprno pain with eating. about a month ago, he developed a blister on his footsome time in the meantime he developed a rash he is using an ointment for skin cancer on it. José Antonio Rendon MD [address] [place] [address], [phone], [facility] 07/22/2025 12:20:57
--- OUTSIDE RECORDS SUMMARY | 2025-08-19 16:29 | XMS_ITS | Clinical Summary ---
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
--- OUTSIDE RECORDS SUMMARY | 2025-08-19 16:29 | XMS_ITS | Encounter Summary ---
Author Organization [facility] Address [address] [place] [address] Care Team Providers Care Residential Director Name Role Phone Unavailable Primary Care Provider Unavailabl e Encounter Details Date Type Department Care Team (Latest Contact Info) Description 12/08/2003 Inpatient Historical [facility] [address] [place] [address] Prieto Shrestha MD NO ADDRESS ON FILE ESOPHAGEAL REFLUX (Primary Dx) Social History Tobacco Use Types Packs/Day Years Used Date Smoking Tobacco: Never Assessed Sex and Gender Information Value Date Recorded Sex Assigned at Not on file 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
--- NOTE | 2025-08-19 16:32 | ECG_ITS ---
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 Measurements Intervals Spelter Rate: 97 P: 0 MT: 0 QRS: 30 QRSD: 106 T: 40 QT: 385 QTc: 490 Interpretive Statements ATRIAL FIBRILLATION WITH ABERRANT CONDUCTION OR VENTRICULAR PREMATURE COMPLEXES MINIMAL VOLTAGE CRITERIA FOR LVH, CONSIDER NORMAL VARIANT [MEETS CRITERIA IN ONE OF: R(aVL), S(V1), R(V5), R(V5/V6)+S(V1)] MODERATE ST DEPRESSION [0.05+ mV ST DEPRESSION] Compared to ECG 08/19/2025 16:53:37 ST (T wave) deviation now present Electronically Signed On 08-21-2025 08:38:22 CDT by Richar Ness M.D. [email or web address]
--- NOTE | 2025-08-19 16:35 | W.ED.GIBLEED ---
HPI - GI Bleed General: Chief complaint: GI Bleed Stated complaint: rectal bleeding Time Seen by Provider: 08/19/25 16:26 History of Present Illness: 80-year-old man with a history of atrial fibrillation who has been off his blood thinners as they were going to try to do a watchman that did not work, coronary artery disease, peripheral vascular disease, congestive heart failure, COPD and hypertension who presents to the emergency room with bright red blood per rectum. EMS reports he had some chest pain on the way here. He says the same chest pain he always has and it is no different and its gone now. No abdominal pain. He has had a history of GI bleeding in the past. He says my stomach lining looks like hamburger Related Data Home Medications ?Medication ?Instructions ?Recorded ?Confirmed atorvastatin 20 mg tablet 20 mg PO QPM 03/31/21 07/31/25 omeprazole 40 mg capsule,delayed 40 mg PO BID 03/31/21 07/31/25 release acetaminophen 500 mg tablet 1,000 mg PO BID PRN Pain 08/27/21 07/31/25 (Tylenol Extra Strength) metoprolol tartrate 100 mg tablet 200 mg PO BID 11/30/21 07/31/25 diltiazem HCl 120 mg 120 mg PO Q12H 04/30/24 07/31/25 capsule,extended release 12 hr finasteride 5 mg tablet 5 mg PO DAILY 07/02/24 07/31/25 triamcinolone acetonide 0.1 % applic topical 05/01/25 07/31/25 topical cream ferrous sulfate 325 mg (65 mg 325 mg PO DAILY 07/31/25 07/31/25 iron) tablet Previous Rx's ?Medication ?Instructions ?Recorded albuterol sulfate 90 mcg/actuation 2 inh inhalation Q6H PRN shortness 07/03/23 aerosol inhaler of breath or wheezing #8.5 grams nitroglycerin 0.4 mg sublingual 0.4 mg sublingual Q5M PRN Chest 07/02/24 tablet Pain #30 tabs benzonatate 100 mg capsule 200 mg (2 x 100 mg) PO TID PRN 07/11/24 cough #30 caps cholecalciferol (vitamin D3) 1,250 50,000 unit PO .weekly #8 caps 05/01/25 mcg (50,000 unit) capsule clonidine HCl 0.1 mg tablet 0.1 mg PO DAILY PRN hypertension 08/19/25 #20 tabs Allergies Allergy/AdvReac Type Severity Reaction Status Date / Time No Known Allergies Allergy Verified 07/31/25 11:53 Review of Systems Narrative: Constitutional symptoms: Negative except as documented in HPI. Skin symptoms: Negative except as documented in HPI. Eye symptoms: Negative except as documented in HPI. ENMT symptoms: Negative except as documented in HPI. Respiratory symptoms: Negative except as documented in HPI. Cardiovascular symptoms: Negative except as documented in HPI. Gastrointestinal symptoms: Negative except as documented in HPI. Genitourinary symptoms: Negative except as documented in HPI. Musculoskeletal symptoms: Negative except as documented in HPI. Neurologic symptoms: Negative except as documented in HPI. Psychiatric symptoms: Negative except as documented in HPI. Endocrine symptoms: Negative except as documented in HPI. PFSH ED PFSH: Medical History (Updated 08/19/25 @ 18:16 by Evelyn Ramsey MD) Prostate cancer Prostate nodule Consistent with [employer]. Declined biopsy August 2021 did agree to follow-up though Elevated PSA >13 September 2021. Unaware of prior remote PSAs. Declined biopsy Surgical History History of coronary angioplasty Family History Mother Bleeding disorder Father , AT AGE 53 Heart disease Social History Smoking and tobacco/nicotine status: former use of tobacco/nicotine Quit status (tobacco/nicotine): has quit using Year quit tobacco: 1992 Former quit date comment: Smoked 50 years Alcohol intake: never Substance/Drug Use: never Marital status: / Current occupational status: retired Physical Exam Narrative: EXAM NARRATIVE: General: Alert, no acute distress. Skin: Warm, dry. Head: Normocephalic, atraumatic. Neck: Supple, trachea midline. Eye: Extraocular movements are intact. Ears, nose, mouth and throat: mucosa moist. Cardiovascular: Regular, Normal peripheral perfusion. Respiratory: Lungs are clear to auscultation, respirations are non-labored, breath sounds are equal, Symmetrical chest wall expansion. Gastrointestinal: Soft, Nontender, Non distended Musculoskeletal: Normal ROM, no deformity. Neurological: Alert and oriented, No focal neurological deficit observed. Psychiatric: Cooperative, appropriate mood & affect. Course Vital Signs: Vital signs: Vital Signs Temperature 97.9 F 08/19/25 16:25 Pulse Rate 80 08/19/25 17:01 Respiratory Rate 16 08/19/25 17:01 Blood Pressure 162/100 08/19/25 17:01 Pulse Oximetry 96 08/19/25 17:01 Oxygen Delivery Me thod Room Air 08/19/25 17:01 MDM - GI Bleed Medical Decision Making Medical decision making: Differential diagnosis for patient who presents with hematochezia/bright red blood per rectum including but not limited to and based on the above HPI, review of systems and physical exam: Internal hemorrhoid bleeding, diverticular bleeding, irritated colonic mucosa. This is most often not life-threatening. Main concerns would be for anemia. Also if this were a very brisk upper GI bleed there might be an elevation in the BUN. But likely this is lower GI bleeding. Orders placed to evaluate differential diagnosis based on the above differential, HPI and physical exam EKG: Time 1653. Rate 81. Atrial fibrillation with controlled rate, No ST-T changes, no ectopy, This was reviewed and interpreted by myself the ER physician at 1658 Lab Review: Laboratory results were reviewed and interpreted by myself the emergency room physician. Leukopenia. Hemoglobin stable at 10.7. No renal insufficiency. I reviewed the patient's medical record. Reexamination: Patient remained stable. No increased work of breathing. No altered mental status. No focal motor deficits. Assessment and plan: Hematochezia Hypertension ? IV labetalol with improvement in blood pressure. Home with some clonidine. - Discharged home - Discussed plan with patient. Answered any questions. - Evaluation and treatment of this problem were appropriate in the emergency setting. Lab Data 08/19/25 16:41 08/19/25 16:41 Laboratory Results WBC 2.84 10^3/uL (3.29-11.43) L 08/19/25 16:41 RBC 3.40 10^6/uL (3.85-5.65) L 08/19/25 16:41 Hgb 10.70 g/dL (11.27-16.99) L 08/19/25 16:41 Hct 32.8 % (37-53) L 08/19/25 16:41 MCV 96.5 fl (82-101) 08/19/25 16:41 MCH 31.5 pg (27-33) 08/19/25 16:41 MCHC 32.6 g/dL (30-55) 08/19/25 16:41 RDW 17.2 % (12.1-15.1) H 08/19/25 16:41 Plt Count 122 10^3/cmm (157-399) L 08/19/25 16:41 MPV 10.4 fL (7.4-10.4) 08/19/25 16:41 Neut % (Auto) 65.9 % 08/19/25 16:41 Lymph % (Auto) 18.3 % 08/19/25 16:41 [place] % (Auto) 8.8 % 08/19/25 16:41 Eos % (Auto) 5.6 % 08/19/25 16:41 Baso % (Auto) 0.7 % 08/19/25 16:41 Neut # (Auto) 1.87 10^3/uL (1.8-7.7) 08/19/25 16:41 Lymph # (Auto) 0.5 10^3/uL (0.8-4.8) L 08/19/25 16:41 [place] # (Auto) 0.3 10^3/uL (0.2-0.9) 08/19/25 16:41 Eos # (Auto) 0.2 10^3/uL (0.0-0.8) 08/19/25 16:41 Baso # (Auto) 0.0 10^3/uL (0.0-0.1) 08/19/25 16:41 Nucleated RBC % (auto) 0 % 08/19/25 16:41 Nucleated RBCs # 0.0 /100WBC 08/19/25 16:41 PT 13.10 SECONDS (12.1-14.9) 08/19/25 16:41 INR 0.93 (0.8-1.2) 08/19/25 16:41 APTT 28.2 SECONDS (23.9-36.7) 08/19/25 16:41 Sodium 140 mmol/L (136-145) 08/19/25 16:41 Potassium 4.0 mmol/L (3.5-5.1) 08/19/25 16:41 Chloride 106 mmol/L (98-107) 08/19/25 16:41 Carbon Dioxide 23 mmol/L (22-29) 08/19/25 16:41 Anion Gap 15.0 (5-19) 08/19/25 16:41 BUN 11 mg/dL (8-23) 08/19/25 16:41 Creatinine 0.8 mg/dL (0.7-1.2) 08/19/25 16:41 GFR Calculation Not Reportable 08/19/25 16:41 Glucose 109 mg/dL (65-115) 08/19/25 16:41 Calculated Osmolality 290 mOsm/kg (285-295) 08/19/25 16:41 Calcium 8.6 mg/dL (8.5-10.5) 08/19/25 16:41 Total Bilirubin 0.2 mg/dL (0.15-1.2) 08/19/25 16:41 AST 15 U/L (0-40) 08/19/25 16:41 ALT 13 U/L (0-41) 08/19/25 16:41 Alkaline Phosphatase 84 U/L (40-130) 08/19/25 16:41 Troponin T Baseline 16 ng/L (0-15) H 08/19/25 16:41 Total Protein 6.3 g/dL (6.6-8.7) L 08/19/25 16:41 Albumin 3.8 g/dL (3.5-5.2) 08/19/25 16:41 Globulin 2.5 g/dL (1.3-4.6) 08/19/25 16:41 All radiology interpretation(s) finalized by discharge Discharge Plan Discharge Patient Disposition: Home Clinical Impression: Hematochezia, Hypertension Condition: Stable Prescriptions: New clonidine HCl 0.1 mg tablet 0.1 mg PO DAILY PRN (Reason: hypertension) Qty: 20 0RF Rx Instructions: For Systolic >185 diastolic >100. If you are needing this more than once a day you need to follow with your primary care provider No Action acetaminophen [Tylenol Extra Strength] 500 mg tablet 1,000 mg PO BID PRN (Reason: Pain) metoprolol tartrate 100 mg tablet 200 mg PO BID diltiazem HCl 120 mg capsule,extended release 12 hr 120 mg PO Q12H triamcinolone acetonide 0.1 % cream topical cholecalciferol (vitamin D3) 1,250 mcg (50,000 unit) capsule 50,000 unit PO .weekly Qty: 8 0RF ferrous sulfate 325 mg (65 mg iron) tablet 325 mg PO DAILY benzonatate 100 mg capsule 200 mg PO TID PRN (Reason: cough) Qty: 30 2RF finasteride 5 mg tablet 5 mg PO DAILY nitroglycerin 0.4 mg tablet, sublingual 0.4 mg sublingual Q5M PRN (Reason: Chest Pain) Qty: 30 2RF Rx Instructions: do not exceed 3 doses per episode omeprazole 40 mg capsule,delayed release(DR/EC) 40 mg PO BID atorvastatin 20 mg tablet 20 mg PO QPM albuterol sulfate 90 mcg/actuation HFA aerosol inhaler 2 inh inhalation Q6H PRN (Reason: shortness of breath or wheezing) Qty: 8.5 0RF Discharge Orders: Discharge ED (Routine); Ordered 08/19/25 Ordered By: Evelyn Ramsey Referrals: Harrison Rendon MD [Primary Care Provider, Family Practice] Discharge Diet: Usual diet Discharge Activity: Increase activity as tolerated Patient Instructions: Rectal Bleeding (ED), Hypertension (ED), Opioid Safety, Pain Management, Patient Portal & Roberto Instructions Activity Restrictions/Additional Instructions: Thank you for choosing [facility] for your healthcare needs today. You have been screened and evaluated and felt safe for discharge. Health conditions do change or evolve sometimes and as such it is important that you follow up with your Primary Doctor to be re checked, 3-5 days is a general good time frame for follow up. You are always welcome to return to the ED for re assessment if your symptoms are worsening or you have new concerns Print Language: [place] Coding Level of Care Code ED Financial Writer for Mati Esquivel
[2025-08-19 16:50] LABS: Hematocrit 32.8 % (37-53); Hemoglobin 10.70 g/dL (11.27-16.99); Mean Corpuscular HGB Conc 32.6 g/dL (30-55); Mean Corpuscular Hemoglobin 31.5 pg (27-33); Mean Corpuscular Volume 96.5 fl (82-101); Nucleated Red Blood Cells % 0 %; Platelet Count 122 10^3/cmm (157-399); Red Blood Count 3.40 10^6/uL (3.85-5.65); White Blood Count 2.84 10^3/uL (3.29-11.43)
[2025-08-19 17:01] VITALS: BP 162/100; PULSE 80; RESP 16; O2SAT 96
[2025-08-19 17:17] LABS: Troponin(5th) Baseline 16 ng/L (0-15)
[2025-08-19 17:20] LABS: Alanine Aminotransferase 13 U/L (0-41); Albumin Level 3.8 g/dL (3.5-5.2); Alkaline Phosphatase 84 U/L (40-130); Anion Gap 15.0 (5-19); Aspartate Amino Transferase 15 U/L (0-40); Blood Urea Nitrogen 11 mg/dL (8-23); Calcium 8.6 mg/dL (8.5-10.5); Carbon Dioxide 23 mmol/L (22-29); Chloride 106 mmol/L (98-107); Creatinine Clr Calc Pharmacy 84.8608; Globulin 2.5 g/dL (1.3-4.6); Glucose 109 mg/dL (65-115); Osmolality Calculated 290 mOsm/kg (285-295); Potassium 4.0 mmol/L (3.5-5.1); Sodium 140 mmol/L (136-145); Total Protein 6.3 g/dL (6.6-8.7)
[2025-08-19 17:22] LABS: INR 0.93 (0.8-1.2); Prothrombin Time 13.10 SECONDS (12.1-14.9)
[2025-08-19 17:23] LABS: Partial Thromboplastin Time 28.2 SECONDS (23.9-36.7)
[2025-08-19] MEDS: labetalol 5 mg/mL SDV 20mL 20 MG IVP (17:30)
[2025-08-19 18:27] VITALS: BP 149/95; PULSE 86; RESP 16; O2SAT 96
--- NOTE | 2025-08-19 18:32 | ECG_ITS ---
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 Measurements Intervals [place] Rate: 81 P: 0 FL: 0 QRS: 36 QRSD: 110 T: 43 QT: 383 QTc: 445 Interpretive Statements ATRIAL FIBRILLATION WITH ABERRANT CONDUCTION OR VENTRICULAR PREMATURE COMPLEXES VOLTAGE CRITERIA FOR LVH [MEETS CRITERIA IN ONE OF: R(aVL), S(V1), R(V5), R(V5/V6)+S(V1)] Compared to ECG 04/30/2024 13:33:07 Ventricular premature complex(es) now present Aberrant conduction of supraventricular beat(s) now present Electronically Signed On 08-21-2025 09:00:53 CDT by Richar Ness M.D. [email or web address]
== END 2025-08-19 18:26 | disposition home or self-care (01) ==
PROVIDERS: Emergency Provider Emergency Medicine; PCP Family Medicine
DX: K92.1 Melena (principal); I10 Essential (primary) hypertension; Z87.891 Personal history of nicotine dependence; Z85.46 Personal history of malignant neoplasm of prostate
CPT/HCPCS: 36415; 80053; 84484; 85025; 85610; 85730; 93005; 96374; 99285; J3490

== ENCOUNTER 2025-08-23 07:21 | Emergency (ER) | payer MEDICARE, SELFPAY ==
--- NOTE | 2025-08-23 07:20 | ECG_ITS ---
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 Measurements Intervals [place] Rate: 75 P: 0 AL: 0 QRS: 65 QRSD: 101 T: 35 QT: 417 QTc: 466 Interpretive Statements ATRIAL FIBRILLATION WITH ABERRANT CONDUCTION OR VENTRICULAR PREMATURE COMPLEXES VOLTAGE CRITERIA FOR LVH [MEETS CRITERIA IN ONE OF: R(aVL), S(V1), R(V5), R(V5/V6)+S(V1)] Compared to ECG 08/19/2025 17:38:41 ST (T wave) deviation no longer present Electronically Signed On 08-23-2025 14:25:50 CDT by Thien Peres M.D. [email or web address]
--- NOTE | 2025-08-23 07:22 | XRR_ITS ---
PROCEDURE INFORMATION: Exam: XR Chest Exam date and time: 08/23/2025 07:26 AM Age: 80 years old Clinical indication: Pain; Chest pressure; Additional info: Cp TECHNIQUE: Imaging protocol: Radiologic exam of the chest. Views: 1 view. COMPARISON: CT chest abdpel w/*[id number] 07/24/2024 02:21 PM FINDINGS: Lungs: Mildly coarsened interstitial markings , likely chronic in nature. No airspace consolidation. Pleural spaces: Unremarkable. No pleural effusion. No pneumothorax. Heart/Mediastinum: Cardiac size and configuration is stable. Vasculature: Atherosclerotic vascular disease. Mildly ectatic thoracic aorta. Bones/joints: Osteopenia. Degenerative changes of the spine. XR/XR chest 1V portable [id number] IMPRESSION: 1. Mildly coarsened interstitial markings , likely chronic in nature. 2. No airspace consolidation.
[2025-08-23 07:27] VITALS: BP 144/87; PULSE 74; RESP 21; TEMP 36.5; O2SAT 97; BMI 27.1
--- NOTE | 2025-08-23 07:27 | CTR_ITS ---
PROCEDURE INFORMATION: Exam: CT Abdomen And Pelvis With Contrast Exam date and time: 08/23/2025 07:48 AM Age: 80 years old Clinical indication: Abdominal pain; Generalized; Additional info: Ad pain TECHNIQUE: Imaging protocol: Computed tomography of the abdomen and pelvis with contrast. Radiation optimization: All CT scans at this facility use at least one of these dose optimization techniques: automated exposure control; mA and/or kV adjustment per patient size (includes targeted exams where dose is matched to clinical indication); or iterative reconstruction. Contrast material: OMNIPAQUE 350; Contrast volume: 100 ml; Contrast route: INTRAVENOUS (IV); COMPARISON: CT chest abdpel w/*[id number] 07/24/2024 02:21 PM RADIATION DOSE METRICS: Total DLP (mGy-cm): 824.06 FINDINGS: Lungs: Left basilar atelectasis/scarring. Coronary arteries: Coronary artery calcifications. Liver: Small low-attenuation lesions in the left hepatic lobe which are stable from the CT on 07/24/2024, likely hepatic cysts. Gallbladder and biliary ducts: Normal. No calcified stones. No ductal dilation. Pancreas: Normal. No ductal dilation. Spleen: Normal. No splenomegaly. Adrenal glands: Normal. No mass. Kidneys and ureters: Right renal cysts. Stomach and bowel: Decompressed stomach. Decompressed sigmoid colon. Mild stool load. Appendix: No evidence of appendicitis. Intraperitoneal space: Unremarkable. No free air. No significant fluid collection. Vasculature: Atherosclerotic vascular disease. Calcifications of the origin of the celiac axis, SMA and renal arteries. Mild aneurysmal dilatation of the distal abdominal aorta, just proximal to the bifurcation measuring 2.3 x 2.5 cm. 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 Lymph nodes: Unremarkable. No enlarged lymph nodes. Urinary bladder: Unremarkable as visualized. Reproductive: Unremarkable as visualized. Bones/joints: Degenerative changes of the spine with compression deformity at L1. Compression deformity is similar to the CT from 01/10/2022. Significant osteopenia. Multilevel facet arthropathy. Soft tissues: Unremarkable. CT/CT abdomen pelvis w con* [id number] IMPRESSION: 1. No acute process. 2. 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 3. Mild aneurysmal dilatation of the distal abdominal aorta, just proximal to the bifurcation measuring 2.3 x 2.5 cm. 4. 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 5. Degenerative changes of the spine as above. COMMENTS: Consistent with the [employer]'s Incidental Findings Committee white paper (J Am Noa Radiol 2018): Any incidental renal lesion less than 1 cm or classified as too small to characterize, or any incidental cystic renal lesion characterized as simple-appearing, is likely benign. No follow-up imaging is recommended for these lesions per consensus recommendations based on imaging criteria.
--- NOTE | 2025-08-23 07:28 | W.ED.CHESTPA ---
HPI - Chest Pain General: Chief Complaint: Chest Pain Stated Complaint: chest pain Time Seen by Provider: 08/23/25 07:22 Source: patient and EMS Mode of arrival: EMS Limitations: no limitations History of Present Illness: 80-year-old male states he woke up this morning with some burning chest pains along with epigastric pain. States been on for roughly an hour to 2 rates pain 6 out of 10 currently denies any vomiting diarrhea denies any fevers denies any worsening improving factors. He denies any shortness of breath or diaphoresis Associated symptoms: Reports abdominal pain Related Data Home Medications ?Medication ?Instructions ?Recorded ?Confirmed atorvastatin 20 mg tablet 20 mg PO QPM 03/31/21 08/23/25 omeprazole 40 mg capsule,delayed 40 mg PO BID 03/31/21 08/23/25 release acetaminophen 500 mg tablet 1,000 mg PO BID PRN Pain 08/27/21 08/23/25 (Tylenol Extra Strength) metoprolol tartrate 100 mg tablet 200 mg PO BID 11/30/21 08/23/25 diltiazem HCl 120 mg 120 mg PO Q12H 04/30/24 08/23/25 capsule,extended release 12 hr finasteride 5 mg tablet 5 mg PO DAILY 07/02/24 08/23/25 triamcinolone acetonide 0.1 % 1 applic topical BID PRN Skin 05/01/25 08/23/25 topical cream Irritation ferrous sulfate 325 mg (65 mg 325 mg PO DAILY 07/31/25 08/23/25 iron) tablet fluticasone fur. 200 mcg-umeclid 1 inh inhalation DAILY 08/23/25 08/23/25 62.5 mcg-vilant 25 mcg inhalat.powder (Trelegy Ellipta) ipratropium 0.5 mg-albuterol 3 mg 3 ml inhalation QID PRN Shortness 08/23/25 08/23/25 (2.5 mg base)/3 mL nebulization Of Breath soln Previous Rx's ?Medication ?Instructions ?Recorded nitroglycerin 0.4 mg sublingual 0.4 mg sublingual Q5M PRN Chest 07/02/24 tablet Pain #30 tabs benzonatate 100 mg capsule 200 mg (2 x 100 mg) PO TID PRN 07/11/24 cough #30 caps cholecalciferol (vitamin D3) 1,250 50,000 unit PO .weekly #8 caps 05/01/25 mcg (50,000 unit) capsule clonidine HCl 0.1 mg tablet 0.1 mg PO DAILY PRN hypertension 08/19/25 #20 tabs Allergies Allergy/AdvReac Type Severity Reaction Status Date / Time No Known Allergies Allergy Verified 07/31/25 11:53 Review of Systems Card: Reports: chest pain GI: Reports: abdominal pain PFS ED PFSH: Medical History Prostate cancer Prostate nodule 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 Declined biopsy August 2021 did agree to follow-up though Elevated PSA >13 September 2021. Unaware of prior remote PSAs. Declined biopsy Surgical History History of coronary angioplasty Family History Mother Bleeding disorder Father , AT AGE 53 Heart disease Social History Smoking and tobacco/nicotine status: former use of tobacco/nicotine Quit status (tobacco/nicotine): has quit using Year quit tobacco: 1992 Former quit date comment: Smoked 50 years Alcohol intake: never Substance/Drug Use: never Marital status: / Current occupational status: retired Physical Exam Const: COMMON NORMALS: no acute distress, patient oriented x3 and healthy appearing HENMT: COMMON NORMALS: normocephalic and atraumatic HEAD & SCALP: normocephalic and atraumatic Eye: COMMON NORMALS: conjunctivae normal CONJUNCTIVA: Yes conjunctivae normal Neck/C-Spine: COMMON NORMALS: full ROM and supple Chest: COMMONS NORMALS: normal inspection of the chest Resp: COMMON NORMALS: normal respiratory effort, No retractions, No use of accessory muscles and clear to auscultation bilaterally AUSCULTATION: clear to auscultation bilaterally Cardio: COMMON NORMALS: regular rate, regular rhythm and No murmurs present (Cardio) RATE: regular rate RHYTHM: regular rhythm GI: COMMON NORMALS: Normal to inspection, nondistended, normoactive bowel sounds present, Soft to palpation and no masses PALPATION: Yes Soft to palpation OTHER: ruq tenderness Extremity: COMMON NORMALS: normal to inspection and full ROM Neuro: COMMON NORMALS: patient oriented x3, moves all extremities and no focal motor deficits Psych: COMMON NORMALS: mental status grossly normal, Normal thought process present and cooperative THOUGHT PROCESS: Normal thought process present Skin: COMMON NORMALS: no rashes or lesions noted and no wounds GENERAL SKIN EXAM: no rashes or lesions noted Course Vital Signs: Vital signs: Vital Signs Temperature 97.7 F 08/23/25 07:27 Pulse Rate 75 08/23/25 10:22 Respiratory Rate 19 H 08/23/25 09:46 Blood Pressure 171/115 08/23/25 10:22 Pulse Oximetry 96 08/23/25 10:22 Oxygen Delivery Me thod Room Air 08/23/25 08:46 MDM - Chest Pain Medical Decision Making Patient presents here chest pain along with upper abdominal pain has been going on since this morning. Differential includes serious ideologies as ACS pulmonary embolism pneumothorax pancreatitis and cholecystitis. I believe these are unlikely as his initial repeat tropes are normal his chest pain was atypical in nature EKGs were normal with no signs ACS. X-ray showed no signs of pneumothorax he has no shortness of breath or tachycardic with no signs of pulm embolism. His white count lipase electrolytes are normal CT of his abdomen showed no signs of pancreatitis or cholecystitis. He feels much improved here is likely some gastric pain I feel he is stable for discharge he is to follow-up with his PCP and return if worsening. Did review his x-ray films and his EKG. Medical Records I reviewed the patient's medical records. Lab Data I reviewed the patient's lab results. 08/23/25 07:05 08/23/25 07:05 Radiology Impressions Chest X-Ray 08/23/25 07:22 IMPRESSION: 1. Mildly coarsened interstitial markings , likely chronic in nature. 2. No airspace consolidation. Abdomen/Pelvis CT 08/23/25 07:27 IMPRESSION: 1. No acute process. 2. 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 3. Mild aneurysmal dilatation of the distal abdominal aorta, just proximal to the bifurcation measuring 2.3 x 2.5 cm. 4. 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 5. Degenerative changes of the spine as above. COMMENTS: Consistent with the [employer]'s Incidental Findings Committee white paper (J Am Noa Radiol 2018): Any incidental renal lesion less than 1 cm or classified as too small to characterize, or any incidental cystic renal lesion characterized as simple-appearing, is likely benign. No follow-up imaging is recommended for these lesions per consensus recommendations based on imaging criteria. Laboratory Results WBC 4.15 10^3/uL (3.29-11.43) 08/23/25 07:05 RBC 3.62 10^6/uL (3.85-5.65) L 08/23/25 07:05 Hgb 11.20 g/dL (11.27-16.99) L 08/23/25 07:05 Hct 34.9 % (37-53) L 08/23/25 07:05 MCV 96.4 fl (82-101) 08/23/25 07:05 MCH 30.9 pg (27-33) 08/23/25 07:05 MCHC 32.1 g/dL (30-55) 08/23/25 07:05 RDW 16.7 % (12.1-15.1) H 08/23/25 07:05 Plt Count 147 10^3/cmm (157-399) L 08/23/25 07:05 MPV 10.4 fL (7.4-10.4) 08/23/25 07:05 Neut % (Auto) 74.5 % 08/23/25 07:05 Lymph % (Auto) 13.5 % 08/23/25 07:05 [place] % (Auto) 6.5 % 08/23/25 07:05 Eos % (Auto) 4.8 % 08/23/25 07:05 Baso % (Auto) 0.5 % 08/23/25 07:05 Neut # (Auto) 3.09 10^3/uL (1.8-7.7) 08/23/25 07:05 Lymph # (Auto) 0.6 10^3/uL (0.8-4.8) L 08/23/25 07:05 [place] # (Auto) 0.3 10^3/uL (0.2-0.9) 08/23/25 07:05 Eos # (Auto) 0.2 10^3/uL (0.0-0.8) 08/23/25 07:05 Baso # (Auto) 0.0 10^3/uL (0.0-0.1) 08/23/25 07:05 Nucleated RBC % (auto) 0 % 08/23/25 07:05 Nucleated RBCs # 0.0 /100WBC 08/23/25 07:05 PT 12.90 SECONDS (12.1-14.9) 08/23/25 07:05 INR 0.91 (0.8-1.2) 08/23/25 07:05 Sodium 139 mmol/L (136-145) 08/23/25 07:05 Potassium 4.2 mmol/L (3.5-5.1) 08/23/25 07:05 Chloride 103 mmol/L (98-107) 08/23/25 07:05 Carbon Dioxide 26 mmol/L (22-29) 08/23/25 07:05 Anion Gap 14.2 (5-19) 08/23/25 07:05 BUN 14 mg/dL (8-23) 08/23/25 07:05 Creatinine 0.7 mg/dL (0.7-1.2) 08/23/25 07:05 GFR Calculation Not Reportable 08/23/25 07:05 Glucose 114 mg/dL (65-115) 08/23/25 07:05 Calculated Osmolality 289 mOsm/kg (285-295) 08/23/25 07:05 Calcium 9.0 mg/dL (8.5-10.5) 08/23/25 07:05 Total Bilirubin 0.2 mg/dL (0.15-1.2) 08/23/25 07:05 AST 15 U/L (0-40) 08/23/25 07:05 ALT 14 U/L (0-41) 08/23/25 07:05 Alkaline Phosphatase 89 U/L (40-130) 08/23/25 07:05 Troponin T Baseline 20 ng/L (0-15) H 08/23/25 07:05 Troponin T 120 Minute 17.99 ng/L (0-15) H 08/23/25 09:14 Delta Troponin T -2.01 ABS# (0-10) L 08/23/25 09:14 Total Protein 6.7 g/dL (6.6-8.7) 08/23/25 07:05 Albumin 4.1 g/dL (3.5-5.2) 08/23/25 07:05 Globulin 2.6 g/dL (1.3-4.6) 08/23/25 07:05 Lipase 36 U/L (13-60) 08/23/25 07:05 All radiology interpretation(s) finalized by discharge EKG Data EKG 1: I personally reviewed and interpreted this EKG as follows: EKG interpretation date: 08/23/25 EKG interpretation time: 07:20 Interpretation: afib hr [address] elevation qrs 101 qtc 445 Discharge Plan Discharge Patient Disposition: Home Clinical Impression: Chest pain Condition: Stable Prescriptions: No Action acetaminophen [Tylenol Extra Strength] 500 mg tablet 1,000 mg PO BID PRN (Reason: Pain) metoprolol tartrate 100 mg tablet 200 mg PO BID diltiazem HCl 120 mg capsule,extended release 12 hr 120 mg PO Q12H triamcinolone acetonide 0.1 % cream 1 applic topical BID PRN (Reason: Skin Irritation) cholecalciferol (vitamin D3) 1,250 mcg (50,000 unit) capsule 50,000 unit PO .weekly Qty: 8 0RF Rx Instructions: ferrous sulfate 325 mg (65 mg iron) tablet 325 mg PO DAILY benzonatate 100 mg capsule 200 mg PO TID PRN (Reason: cough) Qty: 30 2RF finasteride 5 mg tablet 5 mg PO DAILY nitroglycerin 0.4 mg tablet, sublingual 0.4 mg sublingual Q5M PRN (Reason: Chest Pain) Qty: 30 2RF Rx Instructions: do not exceed 3 doses per episode omeprazole 40 mg capsule,delayed release(DR/EC) 40 mg PO BID atorvastatin 20 mg tablet 20 mg PO QPM clonidine HCl 0.1 mg tablet 0.1 mg PO DAILY PRN (Reason: hypertension) Qty: 20 0RF Rx Instructions: For Systolic >185 diastolic >100. If you are needing this more than once a day you need to follow with your primary care provider ipratropium-albuterol 0.5 mg-3 mg(2.5 mg base)/3 mL solution for nebulization 3 ml INHALATION QID PRN (Reason: Shortness Of Breath) Trelegy Ellipta 200-62.5-25 mcg blister with device 1 inh INHALATION DAILY Discharge Orders: Discharge ED (Routine); Ordered 08/23/25 Ordered By: Chaz Chi Referrals: Harrison Rendon MD [Primary Care Provider, Family Practice] - 4-7 days Discharge Diet: Advance as tolerated Discharge Activity: Resume usual activity Patient Instructions: Chest Pain (ED) Print Language: Danish Coding Level of Care Code ED Fabricating Machine Operator for Chg Fwd Heart Score HEART Score Components History: Slightly Suspicous EKG: Normal Age: 65 or more yrs Risk Factors: 1 or 2 Risk Factors Troponin: Baseline Trop 16-45 ng/L HEART Score RESULT HEART Score: 4
--- OUTSIDE RECORDS SUMMARY | 2025-08-23 07:30 | XMS_ITS | Encounter Summary ---
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
--- OUTSIDE RECORDS SUMMARY | 2025-08-23 07:30 | XMS_ITS | Encounter Summary ---
Author Organization [facility] Address 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 Gender Identity Not on file Sexual Orientation Not on file documented as of this encounter Plan of Treatment Upcoming Encounters Date Type Department Care Team (Late st Contact Info) Description 09/30/2025 9:00 AM DIRECTOR OF HEALTH CARE MARKETING Office Visit [facility] [address] [place] [phone] Kimberlyn Barba, DO [address] [place] [phone] Dolores Nicole, PALLIATIVE CARE NURSE PRACTITIONER [address] [place] [phone] documented as of this encounter Visit Diagnoses Not on filedocumented in this encounter
--- OUTSIDE RECORDS SUMMARY | 2025-08-23 07:31 | XMS_ITS | Clinical Summary ---
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
--- OUTSIDE RECORDS SUMMARY | 2025-08-23 07:31 | XMS_ITS | Clinical Summary ---
Author Organization [facility] Address [address] [place] [address] Phone Care Team Providers Care Shell Molder Name Role Phone Unavailable Primary Care Provider [...] Encounters Date Type Department Care Team Description 08/19/2025 External Device Data STL ABSTRACTION Provider, Abstract 08/19/2025 External Device Data STL ABSTRACTION Provider, Abstract 08/14/2025 1:24 PM CDT Anesthesia Event [facility] Cardiac Pesticide Chemist [address] [place] [phone] Prieto Tobar II, 08/14/2025 11:30 AM CDT - 08/14/2025 1:18 PM CDT Surgery [facility] Cardiac Pesticide Chemist [address] [place] [phone] Kimberlyn Barba, Left atrial appendage closure percutaneous 08/14/2025 6:33 AM CDT - 08/15/2025 3:57 PM CDT Hospital Encounter [facility] 4B Cardiac [address] [place] [phone] Kimberlyn Barba DO Atrial fibrillation, persistent (CMS/HCC) Discharge Disposition: Home or Self Care 08/14/2025 Travel 08/08/2025 Telephone [place] [address] [place] [phone] Antonio Cordova, RN Information 08/06/2025 Telephone [place] [address] [place] [phone] Antonio Cordova, RN Information 08/05/2025 External Device Data STL ABSTRACTION Provider, Abstract 08/05/2025 External Device Data STL ABSTRACTION Provider, Abstract 08/05/2025 Telephone [place] [address] [place] [phone] Kimberlyn Barba, Test results (CT Heart) 08/05/2025 Telephone [place] [address] [place] [phone] Antonio Cordova, RN Information 07/23/2025 External Device Data STL ABSTRACTION Provider, Abstract 07/17/2025 9:05 AM CDT - 07/17/2025 11:59 PM CDT Hospital Encounter [facility] CT Scan [address] [place] [phone] Kimberlyn Barba, Discharge Disposition: Home or Self Care 07/17/2025 8:23 AM CDT - 07/17/2025 11:59 PM CDT Hospital Encounter [facility] CT Scan [address] [place] [phone] Kimberlyn Barba, Discharge Disposition: Home or Self Care 07/09/2025 External Device Data STL ABSTRACTION Provider, Abstract 07/08/2025 External Device Data STL ABSTRACTION Provider, Abstract 06/26/2025 Orders Only [place] [address] [place] [phone] Kimberlyn Barba, Chronic atrial fibrillation (CMS/HCC) (Primary Dx) 06/26/2025 Telephone [place] [address] [place] [phone] Kimberlyn Barba, Follow Up; Question (watchman) 06/10/2025 External Device Data STL ABSTRACTION Provider, Abstract 06/10/2025 External Device Data STL ABSTRACTION Provider, Abstract 06/10/2025 External Device Data STL ABSTRACTION Provider, Abstract 06/04/2025 4:00 PM CDT Office Visit [facility] [address] [place] [phone] Kimberlyn Barba DO Atrial fibrillation, unspecified type (CMS/HCC) (Primary Dx); Essential hypertension; Dyslipidemia; History of GI bleed 05/28/2025 Cardiology Conference [facility] [address] [facility] [address] [place] [phone] Emiliana Loera from Last 3 Months Immunizations Immunization Administration Dates Next Due (PREVNAR 20)(6 WKS UP) PNEUM OCOCCAL CONJUGATE VACCINE 20-VALENT (PCV20), POLYSACCHARIDE [id number] CONJUGATE, ADJUVANT 0.5 ML (PF) IM 08/01/2023 DTaP, Unspecified Formulation 10/28/2016 INFLUENZA VACCINE QUADRIVALENT ADJ 65 YR UP PF I M 08/01/2023 Influenza Vaccine High Dose 65+ Yrs IM 4 Social History Tobacco Use Types Packs/Day Years [...] Legal Sex 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 Gender Identity Not on file Sexual Orientation [...] Info) Description 09/30/2025 9:00 AM DIRECTOR OF MAINTENANCE Office Visit [facility] [address] [facility] [address] [place] [phone] Kimberlyn Barba DO [address] [facility] [address] [place] [phone] DanielrobsonDolores Susie, OTOLARYNGOLOGY REP [address] [facility] [address] [place] [phone] Health Maintenance Due Date Last Done Comments ZOSTER VACCINE (1 of 2) 1994 DTAP/TDAP/TD VACCINES (1 - Tdap) 10/29/2016 10/28/20 16 RSV VACCINE (60+ or ) (1 - 1-dose 75+ series) 2019 [place]) Prev entative Visit/Annual Wellness Visit 11/20/2024 INFLUENZA VACCINE (#1) 2025 07/24/2024, 2022 COVID-19 Vaccine ( - 2023-2 5 season) 2025 07/24/2024, 07/22/2021, 06/24/2021 PNEUMOCOCCAL VACCINE 50+ YEARS Completed 08/01/2023 COLORECTAL SCREENING Discontinued 04/24/2025, 12/14/19 19 Colorectal Cancer Screening Discontinued FIT-DNA Q 3 years Discontinued FIT/FOBT Q 1 year Discontinued Flex Sig/CT Colonography Q 5 years Discontinued Medical Devices Implanted Type Area Box Spring Upholsterer Device Identifier Shelf Expiration Date Model / Serial / Lot Closure Perclose Prostyle Sut Mediate 44922-45 - [id number] Implanted:Qty: 1 on 08/14/2025 by Kimberlyn Barba DO at [facility] Closure Device N/A: Groin TORO- VASC DEVICE [id number] 03/19/2027 [id number] / / [id number] Procedures Procedure Name Priority Date/Time Associated Diagnosis [...] CLOTTING TIME Routine 08/14/2025 2:11 PM CDT SD ANES INSERT CATH, ART, PERCUT, SHORTTERM Routine 08/14/2025 1:55 PM CDT SD ANES INSERT ENDOTRACHEAL AIRWAY Routine 08/14/2025 1:27 [...] 31(H) <=15 ng/L 08/15/2025 6:11 AM CDT [facility] DELTA 6HR TROPONIN T -1 See Interp. 08/15/2025 6:11 AM CDT [facility] Blood Venipuncture / Unknown 08/15/2025 5:08 AM CDT 08/15/2025 5:36 AM CDT Narrative [facility] - 08/15/2025 6:11 AM CDT Troponin elevated. Delta indeterminate. Delay in collection of timed specimen beyond recommended collection interval. Results must be interpreted in clinical context. Prieto Dooleyjoselyn II, DO CHEMISTRY ORDERABL ES Final Result Performing Organization Address [facility]/ZIP Co de Phone Number [facility] CLIA # [id number] [address] [address] [place] [address] * (ABNORMAL) TROPONIN 2 HR, 5TH GEN (08/15/2025 1:09 AM CDT) TROPONIN T, 2 HR 5TH GEN 32(H) <=15 ng/L 08/15/2025 2:14 AM CDT [facility] DELTA 2HR TROPONIN T 0 See Interp. 08/15/2025 2:14 AM CDT [facility] Blood Venipuncture / Unknown 08/15/2025 1:09 AM CDT 08/15/2025 1:40 AM CDT [facility] - 08/15/2025 2:14 AM CDT Troponin elevated. Delta not changing. Delay in collection of timed specimen beyond recommended collection interval. Results must be interpreted in clinical context. Prieto Dooleyjoselyn II, DO CHEMISTRY ORDERABL ES Final Result Performing Organization Address [facility] Co de Phone Number [facility] CLIA # [id number] [address] [address] * (ABNORMAL) TROPONIN BASELINE, 5TH GEN (08/14/2025 11:25 PM CDT) TROPONIN T, BASELINE 5TH GEN 32(H) <=15 ng/L 08/15/2025 12:05 AM CDT [facility] Blood Venipuncture / Unknown 08/14/2025 11:25 PM CDT 08/14/2025 11:32 PM CDT [facility] - 08/15/2025 12:05 AM CDT Troponin elevated. Prieto Crabtreeton Ekaterina II, DO CHEMISTRY ORDERABL ES Final Result [facility]ORATORY [facility] CLIA # [id number] [address] [facility] [place] [address] * ECHO LIMITED W DOPPLER AND COLOR FLOW (08/14/2025 5:04 PM CDT) EJECTION FRACTION EF: INTERFACE SYSTEM 08/14/2025 4:47 PM CDT Narrative INTERFACE SYSTEM - 08/15/2025 3:22 PM CDT [facility] Cardiovascular Services Echocardiography Laboratory [facility] [place] [address] Limited Transthoracic Echocardiography Patient: Narciso Rider Study ECHO LIMITED Regina Farah ID: Gender: M : 1945 Age: 80 Room: [facility] Study 08/14/2025 Pt Inpatient Date: Status: Study 04:47:01 PM [facility] #: [id number] Time: Ordering:Kimberlyn Barba DO Summary and Conclusion: [...] ARTERY: Systolic pressure cannot be accurately estimated. [facility] Echo Labs are accredited with the [facility] Accreditation Commission - Echocardiography. Prepared and Electronically Authenticated Kimberlyn A Freda FARMER Confirmed 08/15/2025 15:22 Procedure Note Kimberlyn Barbae, - 08/15/2025 [facility] Cardiovascular Services Echocardiography Laboratory [address] [place] [address] Limited Transthoracic Echocardiography Patient: Narciso Rider Study ECHO LIMITEDW Liban Farah ID: Gender: Nadya : 1945 Age: 80 Room: [facility] Study 08/14/2025 Pt Inpatient Date: Status: Study 04:47:01 PM CSN #: [id number] Time: Ordering:Kimberlyn Barba DO Summary and Conclusion: [...] ARTERY: Systolic pressure cannot be accurately estimated. [facility] Echo Labs are accredited with theIntersocietal Accreditation [...] INTERFACE SYSTEM - 08/14/2025 5:41 PM CDT [address] [address] Test Date: 2025-08-14 Pat Name: NARCISO RIDER Department: 12 Room: PACU PO CVOR PACU Gender: Male Vb Net Programmer: [id number] : 1945 Requested By: Order Number: [id number] Reading MD: Soila Cast Measurements Intervals Boykin Rate: 88 P: 0 SD: 0 QRS: 40 QRSD: 108 T: 66 QT: 410 QTc: 496 Interpretive Statements Atrial fibrillation Incomplete left bundle branch block Minimal voltage criteria for LVH, may be normal variant ( Sokolow-Ramon ) Nonspecific ST abnormality QTcB >= 480 msec Abnormal ECG Electronically Signed On 08-14-2025 17:41:05 CDT by Soila Cast Procedure Note Soila Cast MD - 08/14/[address] [address] Test Date: 2025-08-14 Pat Name: NARCISO [facility] Department: 12 Room: PACU PO CVOR PACU Gender: Male Vb Net Programmer: [id number] : 1945 Requested By: Order Number: [id number] Reading MD: Soila Cast Measurements Intervals Boykin Rate: 88 P: 0 SD: 0 QRS: 40 QRSD: 108 T: 66 QT: 410 QTc: 496 Interpretive Statements Atrial fibrillation Incomplete left bundle branch block Minimal voltage criteria for LVH, may be normal variant ( Sokolow-Ramon ) Nonspecific ST abnormality QTcB >= 480 msec Abnormal ECG Electronically Signed On 08-14-2025 17:41:05 CDT by Soila Cast Prieto Tobar II, DO ECG ORDERABLES Fi nal Result Performing Organization Address [facility] Co de Phone Number INTERFACE SYSTEM Refer to clinic/hospital department * LEFT ATRIAL APPENDAGE CLOSURE PERCUTANEOUS (08/14/2025 2:59 PM CDT) Narrative [facility] - 08/15/2025 2:41 PM CDT Unsuccessful Watchman deployment Procedural Indications Significant difficulty crossing intraatrial septum. When we were able to cross with the sheath. The trajectory was suitable for appendage. Kimberlyn Barba DO CUP EP ORDERABLES Final Result Performing Organization Address [facility] de Phone Number [facility] CLIA [id number] [address] [facility] [address] [place] [phone], [place] [phone] * (ABNORMAL) POC ACTIVATED CLOTTING TIME (08/14/2025 2:38 PM CDT) Only the most recent of3 resultswithin the time period is included. ACTIVATED CLOTTING TIME POC 343(H) 116 - 140 sec 08/14/2025 2:38 PM CDT [facility] Blood 08/14/2025 2:38 PM CDT 08/14/2025 2:48 PM CDT Kimberlyn Barba DO POINT OF CARE TESTING Fi nal Result Performing Organization Address [facility] Co de Phone Number [facility] CLIA # [id number] [address] [place] [address] * SD ANES INSERT CATH, ART, PERCUT, SHORTTERM (08/14/2025 [...] PROCEDURE/MINOR MONTAÑO RGICAL ORDERABLES Final Result * SD ANES INSERT ENDOTRACHEAL AIRWAY (08/14/2025 1:27 PM CDT) Jose Eduardo Dao CRNA - 08/14/2025 1:27 PM CDT Jose [...] Procedure Information: atraumatic and dentition unchanged Prieto Dooleyselinajuli II, DO PROCEDURE/MINOR MONTAÑO RGICAL ORDERABLES Final Result * VERIFICATION BLOOD GROUP (08/14/2025 7:30 AM CDT) Pathologist [facility] ABO GROUP O 08/14/2025 8:25 AM CDT [facility] [place] RH (D) TYPE Positive 08/14/2025 8:25 AM CDT [facility] [place] Blood Venipuncture / Unknown 08/14/2025 7:30 AM CDT 08/14/2025 7:35 AM CDT Kimberlyn Barba DO BLOOD BANK ORDERABLES Fi nal Result [facility] [place] CLIA#[id number] [address] [place] [address], * (ABNORMAL) CBC WITH DIFFERENTIAL (08/14/2025 7:28 AM CDT) Pathologist [facility] WBC 5.3 4.8 - 10.8 K/uL 08/14/2025 7:[address] [facility] RBC 3.91(L) 4.60 - 6.20 M/uL 08/14/2025 7:[address] [facility] HEMOGLOBIN 12.0(L) 14.0 - 18.0 g/dL 08/14/2025 7:[address] [facility] HEMATOCRIT 37.3(L) 41.0 - 53.0 % 08/14/2025 7:[address] [facility] MCV 95.4 84.0 - 103.0 fL 08/14/2025 7:[address] [facility] MCH 30.7 27.0 - 34.0 pg 08/14/2025 7:[address] [facility] MCHC 32.2 30.0 - 35.0 g/dL 08/14/2025 7:[address] [facility] PLATELETS 161 140 - 440 K/uL 08/14/2025 7:40 AM [facility] MPV 9.9 8.9 - 12.8 fL 08/14/2025 7:40 AM [facility] RDW 18.2(H) 11.0 - 14.5 % 08/14/2025 7:40 AM [facility] RDW-STDEV 64.4(H) 37.0 - 54.0 fL 08/14/2025 7:40 AM [facility] NEUTROPHILS 71 42 - 75 % 08/14/2025 7:40 AM [facility] LYMPHOCYTES 16(L) 24 - 44 % 08/14/2025 7:40 AM [facility] MONOCYTES 7 2 - 10 % 08/14/2025 7:40 AM [facility] EOSINOPHILS 5 0 - 7 % 08/14/2025 7:40 AM [facility] BASOPHILS 1 0 - 1 % 08/14/2025 7:40 AM [facility] IMMATURE GRANULOCYTES 1 0 - 2 % 08/14/2025 7:40 AM [facility] NEUTROPHIL ABSOLUTE 3.81 2.00 - 8.00 K/uL 08/14/2025 7:40 AM [facility] LYMPHOCYTE ABSOLUTE 0.83(L) 1.20 - 4.00 K/uL 08/14/2025 7:40 AM [facility] MONOCYTE ABSOLUTE 0.39 0.10 - 0.60 K/uL 08/14/2025 7:40 AM [facility] EOSINOPHIL ABSOLUTE 0.25 0.00 - 0.70 K/uL 08/14/2025 7:40 AM [facility] BASOPHILS ABSOLUTE 0.03 0.00 - 0.20 K/uL 08/14/2025 7:40 AM [facility] IMMATURE GRANULOCYTES ABSOLUTE 0.03 0.00 - 0.10 K/uL 08/14/2025 7:40 AM [facility] SMEAR REVIEWED: NA - Not Applicable 08/14/2025 7:[address] [facility] Blood Venipuncture / Unknown 08/14/2025 7:28 AM CDT 08/14/2025 7:35 AM CDT us Kimberlyn Barba DO HEMATOLOGY ORDERABLES Fi nal Result Performing Organization Address [facility] Co de Phone Number [facility] CLIA # [id number] [address] [address] * (ABNORMAL) BRAIN NATRIURETIC PEPTIDE, BNP OR PROBNP (08/14/2025 7:28 AM CDT) PROBNP, N TERMINAL 1,671(H) 0 - 450 pg/mL 08/14/2025 8:[address] [facility] Comment: INTERPRETIVE COMMENT based on diagnosis: [...] ORDERABLES Fin al Result Performing Organization Address [facility] Co de Phone Number [facility] CLIA # [id number] [address] [address] * COMPREHENSIVE METABOLIC PANEL (08/14/2025 7:28 AM CDT) Pathologist [facility] SODIUM 141 136 - 145 mmol/L 08/14/2025 8:16 AM [facility] POTASSIUM 3.8 3.5 - 5.1 mmol/L 08/14/2025 8:16 AM [facility] CHLORIDE 103 98 - 107 mmol/L 08/14/2025 8:16 AM [facility] CO2 25 22 - 29 mmol/L 08/14/2025 8:16 AM [facility] CALCIUM 9.5 8.8 - 10.2 mg/dL 08/14/2025 8:16 AM [facility] BUN 12 8 - 23 mg/dL 08/14/2025 8:16 AM [facility] CREATININE 0.71 0.67 - 1.17 mg/dL 08/14/2025 8:16 AM [facility] Comment:The GFR result is no t clinically significant on patients <18 or >70 years of age. GLUCOSE 93 74 - 99 mg/dL 08/14/2025 8:16 AM [facility] TOTAL PROTEIN 7.1 6.4 - 8.3 g/dL 08/14/2025 8:16 AM [facility] ALBUMIN 3.9 3.5 - 5.2 g/dL 08/14/2025 8:16 AM [facility] BILIRUBIN TOTAL 0.4 0.0 - 1.0 mg/dL 08/14/2025 8:16 AM [facility] ALKALINE PHOSPHATASE 98 40 - 129 U/L 08/14/2025 8:16 AM [facility] AST 17 10 - 50 U/L 08/14/2025 8:16 AM [facility] ALT 15 <=50 U/L 08/14/2025 8:16 AM [facility] GFR >60 mL/min/1.7 3 sq meter 08/14/2025 8:16 AM [facility] Comment:eGFR calculated with 2020 CKD-EPI equation. Vegetarian diet, extremely high or low muscle mass, and may affect results. Cystatin C with Glomerular Filtration Rate is a suitable alternative for these patients. ANION GAP 13 9 - 20 mmol/L 08/14/2025 8:16 AM CDT [facility] [place] Blood Venipuncture / Unknown 08/14/2025 7:28 AM CDT 08/14/2025 7:35 AM CDT Kimberlyn Barba DO CHEMISTRY ORDERABLES Fin al Result Performing Organization Address [facility] Co de Phone Number [facility] [place] CLIA # [id number] [address] [address] * TYPE AND SCREEN (08/14/2025 7:25 AM CDT) ABO GROUP O 08/14/2025 8:52 AM CDT [facility] [place] RH (D) TYPE Positive 08/14/2025 8:52 AM CDT [facility] [place] ANTIBODY SCREEN Negative 08/14/2025 8:52 AM CDT [facility] [place] Blood Venipuncture / Unknown 08/14/2025 7:25 AM CDT 08/14/2025 7:35 AM CDT Kimberlyn Barba DO BLOOD BANK ORDERABLES Ed ited Result - Final Performing Organization Address [facility] Co de Phone Number [facility] [place] CLIA#[id number] [facility] [place] [address], * PREPARE RED BLOOD CELLS (08/14/2025 6:52 AM CDT) Only the most recent of2 resultswithin the time period is included. COMPONENT TYPE [id number] [facility] [place] COMPONENT IDENTIFICATION [id number] [facility] [place] UNIT ABO O [facility] [place] UNIT RH POS [facility] [place] CROSSMATCH Compatible [facility] [place] COMPONENT STATUS Returned [facility] [place] COMPONENT EXPIRATION DATE/TIME [id number] [facility] [place] COMPONENT CODING SYSTEM 5100 [facility] [place] VOLUME, BLOOD PRODUCT 350 [facility] [place] 08/14/2025 6:52 AM CDT Kimberlyn Barba DO LAB TRANSFUSION ORDERABL ES Edited Result - Final [facility] [place] CLIA#[id number] [address] [place] [address], * CT CARDIAC CHEST INTERPRETATION (07/17/2025 10:05 [...] PM CDT CTA Heart With Cardiac Structure: [place], [place] PATIENT: Narciso Rider PATIENT NUMBER: [id number] BIRTHDATE: 1945 REFERRING PHYSICIAN: No primary care [...] MEAGAN from the contrasted images. From the [id number] delayed images there is uniform opacification of [...] arch is not fully included in the [id number]. 2. No congenital, structural or valvular abnormalities are identified. 3. Coronary CT angiography shows normal origins of the left coronary and RCA. Scan is not gated for detailed coronary analysis. 4. The left atrial appendage measures 3.2 x 2.9 at the orifice. No definite evidence of thrombus within the MEAGAN from the contrasted and [id number]-cehvyz delayed images. 5. Biatrial enlargement, left atrium measures 6.6 cm. us Kimberlyn Barba DO CT ORDERABLES Final Re sult * POC CREATININE (07/17/2025 8:59 AM CDT) CREATININE POC 0.80 0.60 - 1.30 mg/dL 07/17/2025 8:59 AM CDT [facility] Comment:The GFR result is no t clinically significant on patients <18 or >70 years of age. GFR POC >60 mL/min/1.7 3 sq meter 07/17/2025 8:59 AM CDT [facility] Comment:eGFR calculated with 2020 CKD-EPI equation. Vegetarian diet, extremely high or low muscle mass, and may affect results. Cystatin C with Glomerular Filtration Rate is a suitable alternative for these patients. Blood, whole 07/17/2025 8:59 AM CDT 07/17/2025 9:13 AM CDT Kimberlyn Barba DO POINT OF CARE TESTING Fi nal Result [facility] # [id number] [address] [address] [place] [address] from Last [address] [place] [phone] Advance Directives For more information, please contact: [phone] * Full Code (Latest Code Status on File) Date Activated Date Inactivated Comments 08/14/2025 6:51 AM 08/15/2025 6:07 PM
--- OUTSIDE RECORDS SUMMARY | 2025-08-23 07:31 | XMS_ITS | Encounter Summary ---
Author Organization [facility] Address 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 Gender Identity Not on file Sexual Orientation Not on file documented as of this encounter Plan of Treatment Upcoming Encounters Date Type Department Care Team (Late st Contact Info) Description 09/30/2025 9:00 AM CARD PUNCHING MACHINE OPERATOR Office Visit [facility] [address] [place] [phone] Kimberlyn Barba, DO [address] [place] [phone] Dolores Nicole, ASSISTANT AUTO CENTER MANAGER [address] [place] [phone] documented as of this encounter Visit Diagnoses Not on filedocumented in this encounter
--- OUTSIDE RECORDS SUMMARY | 2025-08-23 07:31 | XMS_ITS | Encounter Summary ---
Author Organization [facility] Address [address] [place] [address] Care Team Providers Care Java Integration Developer Name Role Phone Unavailable Primary Care Provider Unavailabl e Encounter Details Date Type Department Care Team (Latest Contact Info) Description 12/08/2003 Inpatient Historical [facility] Emergency Department [address] [place] [address] Prieto Shrestha MD NO ADDRESS ON FILE ESOPHAGEAL REFLUX (Primary Dx) Social History Tobacco Use Types Packs/Day Years Used Date Smoking Tobacco: Never Assessed Sex and Gender Information Value Date Recorded Sex Assigned at Not on file 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
--- OUTSIDE RECORDS SUMMARY | 2025-08-23 07:31 | XMS_ITS | Data Portability ---
Author Organization ANTOLIN [facility] Address [address] [address] Care Team Providers Care Help Desk Intern Name Role Phone JOSÉ ANTONIO RENDON Primary Care Provider [phone] Assessment Encounter Date Assessment Date Assessment LastModified by Organization Details LastModified Time 05/12/2025 05/12/2025 [id number] score of 6 has bleed score of [...] never started eliquis was on warfarin prior [email or web address] Not available 05/12/2025 10:32:34 06/10/2025 06/10/2025 HASBLEED score is 5 [id number] score is 6 [email or web address] Not available 06/10/2025 10:50:45 Plan of Treatment Reminders Order Date Submit Date Provider Last Modified By Organization Details Last Modified Time Details Appointments OFFICE VISIT LEON 2024 10:00A Nadya Rendon MD Not available Not available Not available RECHECK 15 2024 09:00A Nadya Rendon MD Not available Not available Not available Lab CMP, serum or plasma 2024 025 [facility], [address] [facility], [facility], [place], [address], 07/15/2025 12:25:47 CBC 2024 025 [facility], [address], [address], [place], [address], 07/15/2025 11:44:27 ferritin, serum or plasma 2024 025 [facility], [address] [place] [address] [address], [address], [place], [address], 07/16/2025 04:00:14 CMP, serum or plasma 2024 025 [facility], [address] [facility] [address], [address], [place], [address], 06/03/2025 10:20:30 CBC 2024 025 [facility], [address], [address], [place], [address], 06/03/2025 10:02:51 ferritin, serum or plasma 2024 025 [facility], [address] [place] [address], [address] , [place], [address], 06/04/2025 10:42:59 Referral None recorded. Procedures None recorded. Surgeries None recorded. Imaging None recorded. Medication Orders ferrous gluconate 324 mg (38 mg iron) tablet [address]/Pharmacy #[id number], [address], [address], [place], [address], 07/22/2025 12:18:19 ferrous gluconate 324 mg (38 mg iron) tablet 2024 025 [facility]/Ph[facility]acy #[id number], [address], [address], [place], [address], 05/12/2025 10:28:51 Patient TargetsNo targets recorded. Patient InstructionsNo instructions recorded. Reason for Referral None Reported. Results Created Date Observation Date Name Description Value Unit Range Abnormal Flag Note LastModifiedBy Organization Detail LastModifiedTime 04/15/2004/16/2025 URIC ACID uric acid 3.3 mg/dL 4.0-8. 0 low Thera peave cabralge t for gout patie nts: <6.0 mg/dL Not Available [address] [address] [place], [address], 04/16/2025 06:30:02 04/15/20 25 04/16/2025 C-SIM CTIVE PROTE IN C-reactive protein <3.0 mg/L <8.0 normal Not Available [facility] [address], [address], 04/16/2025 06:30:03 04/15/2004/16/2025 ADI TIN ferritin 15 NG/mL 24-380 low Not Available [address], [address], 04/16/2025 08:05:18 04/15/20 25 04/15/2025 PT/IN R Protime 23.8 Not Available [facility] ([facility]) [address] [place], [address], 04/15/2025 11:25:24 04/15/20 25 04/15/2025 PT/IN R INR 4.5 Not Available [facility] ([facility]) [address] [place], [address], 04/15/2025 11:25:24 04/16/20 25 04/22/2025 CBC WBC 4.5 x10 4.5-10 .5 Not Available [facility] [address] [place] [address], [address], 04/22/2025 11:46:11 04/16/20 25 04/22/2025 CBC RBC 3.45 x10 4.30-5 .90 low Not Available [facility] [address] [facility], [place], [address], 04/22/2025 11:46:11 04/16/20 25 04/22/2025 CBC HGB 9.1 g/dL 13.5-1 8.0 low Not Available [facility] [address] [facility] [address] [facility], [place], [address], 04/22/2025 11:46:11 04/16/2004/22/2025 CBC HCT 29.4 % 35.0-6 0.0 low Not Available [facility] [address] [facility], [place], [address], 04/22/2025 11:46:11 04/16/2004/22/2025 CBC MCV 85.2 fL 80.0-9 9.9 Not Available [facility] [address] [facility] [address] [facility], [place], [address], 04/22/2025 11:46:11 04/16/2004/22/2025 CBC MCH 26.3 pg 27.0-3 2.0 low Not Available [facility] [address] [facility] 1, [place], [address], 04/22/2025 11:46:11 04/16/2004/22/2025 CBC MCHC 30.9 g/dL 32.0-3 6.0 low Not Available [facility] [address] [facility] [facility], [place], [address], 04/22/2025 11:46:11 04/16/2004/22/2025 CBC RDW 18.1 % 11.5-1 4.5 high Not Available [facility] [address] [facility], [place], [address], 04/22/2025 11:46:11 04/16/2004/22/2025 CBC plt 185.2 x10 150.0- 451.0 Not Available [facility] [address] [facility], [place], [address], 04/22/2025 11:46:11 04/16/20 25 04/22/2025 CBC lymphocytes % 15.1 % 20.0-5 0.0 low Not Available [facility] [address] [facility], [place], [address], 04/22/2025 11:46:11 04/16/2004/22/2025 CBC granulcytes % 72.0 % 30.0-7 0.0 high Not Available [facility] [address] [facility] 1, [place], [address], 04/22/2025 11:46:11 04/16/2004/22/2025 CBC monocytes % 8.6 % 2.0-16 .0 Not Available [facility] [address] [address], [place], [address], 04/22/2025 11:46:11 04/16/20 25 04/22/2025 CBC granulcytes# 3.2 x10 Not [facility] ilable [facility] [address] [address], [place], [address], 04/22/2025 11:46:11 04/16/2004/22/2025 CBC lymphocytes # 0.7 x10 Not Available [facility] [address] [address], [place], [address], 04/22/2025 11:46:11 04/16/2004/22/2025 CBC monocytes # 0.4 x10 Not Avai lable [facility] [address] [address], [place], [address], 04/22/2025 11:46:11 04/16/2004/16/2025 fecal occul t blood , immun oassa y, stool occult positi ve Not Available [facility] ([facility]) [address] [place], [address], 04/16/2025 13:55:20 04/17/20 25 04/17/2025 PT/IN R Protime 29.4 Not Available [facility] ([facility]) [address] [place], [address], 04/17/2025 12:53:43 04/17/20 25 04/17/2025 PT/IN R INR 2.4 Not Available [facility] ([facility]) [address] [place], [address], 04/17/2025 12:53:43 04/18/20 25 04/18/2025 CBC WBC 4.2 x10 4.5-10 .5 low Not Available [facility] [address] [facility] [address], [place], [address], 04/18/2025 14:17:41 04/18/20 25 04/18/2025 CBC RBC 3.40 x10 4.30-5 .90 low Not Available [facility] [address] [facility], [place], [address], 04/18/2025 14:17:41 04/18/20 25 04/18/2025 CBC HGB 9.1 g/dL 13.5-1 8.0 low Not Available [facility] [address] [facility], [place], [address], 04/18/2025 14:17:41 04/18/20 25 04/18/2025 CBC HCT 29.1 % 35.0-6 0.0 low Not Available [facility] [address], [place], [address], 04/18/2025 14:17:41 04/18/20 25 04/18/2025 CBC MCV 85.5 fL 80.0-9 9.9 Not Available [facility] [address] [facility] [facility], [place], [address], 04/18/2025 14:17:41 04/18/20 25 04/18/2025 CBC MCH 26.7 pg 27.0-3 2.0 low Not Available [facility] [address], [place], [address], 04/18/2025 14:17:41 04/18/20 25 04/18/2025 CBC MCHC 31.2 g/dL 32.0-3 6.0 low Not Available [facility] [address], [place], [address], 04/18/2025 14:17:41 04/18/20 25 04/18/2025 CBC RDW 17.9 % 11.5-1 4.5 high Not Available [facility] [address], [place], [address], 04/18/2025 14:17:41 04/18/20 25 04/18/2025 CBC plt 188.4 x10 150.0- 451.0 Not Available [facility] [address], [place], [address], 04/18/2025 14:17:41 04/18/20 25 04/18/2025 CBC lymphocytes % 18.2 % 20.0-5 0.0 low Not Available [facility] [address], [place], [address], 04/18/2025 14:17:41 04/18/20 25 04/18/2025 CBC granulcytes % 69.6 % 30.0-7 0.0 Not Available [facility] [address] [address], [place], [address], 04/18/2025 14:17:41 04/18/20 25 04/18/2025 CBC monocytes % 8.1 % 2.0-16 .0 Not Available [facility] [address] [address], [place], [address], 04/18/2025 14:17:41 04/18/20 25 04/18/2025 CBC granulcytes# 2.9 x10 Not Marychuy ilable [facility] [address] [address], [place], [address], 04/18/2025 14:17:41 04/18/20 25 04/18/2025 CBC lymphocytes # 0.8 x10 Not Available [place] [address], [address], 04/18/2025 14:17:41 04/18/20 25 04/18/2025 CBC monocytes # 0.3 x10 Not Avai lable [place] [address], [address], 04/18/2025 14:17:41 04/30/20 25 04/30/2025 PT/IN R Protime 13.7 Not Available [facility] ([facility]) [address] [place], [address], 04/22/2025 12:18:55 04/30/20 25 04/30/2025 PT/IN R INR 1.1 Not Available [facility] ([facility]) [address] [place], [address], 04/22/2025 12:18:55 05/06/20 25 05/06/2025 CBC WBC 4.5 x10 4.5-10 .5 Not Available [facility] [address] [facility], [place], [address], 05/06/2025 13:20:41 05/06/20 25 05/06/2025 CBC RBC 3.47 x10 4.30-5 .90 low Not Available [facility] [address] [facility] [address] [facility], [place], [address], 05/06/2025 13:20:41 05/06/20 25 05/06/2025 CBC HGB 9.0 g/dL 13.5-1 8.0 low Not Available [facility] [address] [facility] [address] [facility], [place], [address], 05/06/2025 13:20:41 05/06/20 25 05/06/2025 CBC HCT 29.5 % 35.0-6 0.0 low Not Available [facility] [address] [facility] [address] [facility], [place], [address], 05/06/2025 13:20:41 05/06/20 25 05/06/2025 CBC MCV 85.0 fL 80.0-9 9.9 Not Available [facility] [address] [facility] [address] [facility], [place], [address], 05/06/2025 13:20:41 05/06/20 25 05/06/2025 CBC MCH 25.8 pg 27.0-3 2.0 low Not Available [facility] [address] [facility] [address] [facility], [place], [address], 05/06/2025 13:20:41 05/06/20 25 05/06/2025 CBC MCHC 30.4 g/dL 32.0-3 6.0 low Not Available [facility] [address] [facility] [address] [facility], [place], [address], 05/06/2025 13:20:41 05/06/20 25 05/06/2025 CBC RDW 17.6 % 11.5-1 4.5 high Not Available [facility] [address] [facility], [place], [address], 05/06/2025 13:20:41 05/06/20 25 05/06/2025 CBC plt 284.2 x10 150.0- 451.0 Not Available [facility] [address] [facility], [place], [address], 05/06/2025 13:20:41 05/06/20 25 05/06/2025 CBC lymphocytes % 15.1 % 20.0-5 0.0 low Not Available [facility] [address] [facility], [place], [address], 05/06/2025 13:20:41 05/06/20 25 05/06/2025 CBC granulcytes % 73.7 % 30.0-7 0.0 high Not Available [facility] [address] [facility], [place], [address], 05/06/2025 13:20:41 05/06/20 25 05/06/2025 CBC monocytes % 7.3 % 2.0-16 .0 Not Available [facility] [address] [facility], [place], [address], 05/06/2025 13:20:41 05/06/20 25 05/06/2025 CBC granulcytes# 3.3 x10 Not Mary[facility]uy ilable [facility] [address] [facility], [place], [address], 05/06/2025 13:20:41 05/06/20 25 05/06/2025 CBC lymphocytes # 0.7 x10 Not Available [facility] [address] [facility], [place], [address], 05/06/2025 13:20:41 05/06/20 25 05/06/2025 CBC monocytes # 0.3 x10 Not Avai lable [facility] [address] [facility], [place], [address], 05/06/2025 13:20:41 06/03/20 25 06/03/2025 CBC WBC 3.7 x10 4.5-10 .5 low Not Available [facility] [address] [facility], [place], [address], 06/03/2025 10:02:50 06/03/20 25 06/03/2025 CBC RBC 3.71 x10 4.30-5 .90 low Not Available [facility] [address] [facility], [place], [address], 06/03/2025 10:02:50 06/03/20 25 06/03/2025 CBC HGB 9.8 g/dL 13.5-1 8.0 low Not Available [facility] [address] [facility], [place], [address], 06/03/2025 10:02:50 06/03/20 25 06/03/2025 CBC HCT 32.5 % 35.0-6 0.0 low Not Available [facility] [address] [facility] [facility], [place], [address], 06/03/2025 10:02:50 06/03/20 25 06/03/2025 CBC MCV 87.5 fL 80.0-9 9.9 Not Available [facility] [address] [facility] [facility], [place], [address], 06/03/2025 10:02:50 06/03/20 25 06/03/2025 CBC MCH 26.5 pg 27.0-3 2.0 low Not Available [facility] [address] [facility], [place], [address], 06/03/2025 10:02:50 06/03/20 25 06/03/2025 CBC MCHC 30.2 g/dL 32.0-3 6.0 low Not Available [facility] [address] [facility] [facility], [place], [address], 06/03/2025 10:02:50 06/03/2006/03/2025 CBC RDW 21.1 % 11.5-1 4.5 high Not Available [facility] [address] [facility], [place], [address], 06/03/2025 10:02:50 06/03/2006/03/2025 CBC plt 211.0 x10 150.0- 451.0 Not Available [facility] [address], [place], [address], 06/03/2025 10:02:50 06/03/20 25 06/03/2025 CBC lymphocytes % 18.9 % 20.0-5 0.0 low Not Available [facility] [address] [facility], [place], [address], 06/03/2025 10:02:50 06/03/20 25 06/03/2025 CBC granulcytes % 68.2 % 30.0-7 0.0 Not Available [facility] [address] [facility], [place], [address], 06/03/2025 10:02:50 06/03/20 25 06/03/2025 CBC monocytes % 7.8 % 2.0-16 .0 Not Available [facility] [address] [facility], [place], [address], 06/03/2025 10:02:50 06/03/20 25 06/03/2025 CBC granulcytes# 2.5 x10 Not Mary[place]uy ilable [facility] [address] [facility], [place], [address], 06/03/2025 10:02:50 06/03/20 25 06/03/2025 CBC lymphocytes # 0.7 x10 Not Available [facility] [address] [facility], [place], [address], 06/03/2025 10:02:50 06/03/20 25 06/03/2025 CBC monocytes # 0.3 x10 Not Avai lable [facility] [address] [facility], [place], [address], 06/03/2025 10:02:50 06/03/20 25 06/03/2025 CMP (MALE ) glucose 112.0 mg/dL 60.0-9 9.0 high Not Available [facility] [address] [address], [place], [address], 06/03/2025 10:20:30 06/03/20 25 06/03/2025 CMP (MALE ) BUN (blood urea nitrogen) 10.0 mg/dL 10.0-2 6.0 Not Available [facility] [address] [address], [place], [address], 06/03/2025 10:20:30 06/03/20 25 06/03/2025 CMP (MALE ) creatinine (serum) 0.7 mg/dL 0.4-1. 5 Not Available [facility] [address] [address], [place], [address], 06/03/2025 10:20:30 06/03/20 25 06/03/2025 CMP (MALE ) BUN/creatini ne ratio 14.29 ratio Not Available [facility] [address] [address], [place], [address], 06/03/2025 10:20:30 06/03/20 06/03/2025 CMP (MALE ) eGFR calculated 115.0 Not Available [facility] [address] [facility] [facility], [place], [address], 06/03/2025 10:20:30 06/03/20 25 06/03/2025 CMP (MALE ) total protein 7.0 g/dL 6.0-8. 5 Not Available [facility] [address] [facility], [place], [address], 06/03/2025 10:20:30 06/03/20 25 06/03/2025 CMP (MALE ) total bilirubin 0.3 mg/dL 0.2-1. 3 Not Available [facility] [address] [facility], [place], [address], 06/03/2025 10:20:30 06/03/2006/03/2025 CMP (MALE ) albumin 4.0 g/dL 3.5-5. 5 Not Available [facility] [address] [facility], [place], [address], 06/03/2025 10:20:30 06/03/2006/03/2025 CMP (MALE ) globulin 3.0 calc Not Available [facility] [address], [place], [address], 06/03/2025 10:20:30 06/03/2006/03/2025 CMP (MALE ) AST (SGOT) 24.0 U/L 0.0-46 .0 Not Available [facility] [address] [facility], [place], [address], 06/03/2025 10:20:30 06/03/20 25 06/03/2025 CMP (MALE ) altv (SGPT) 18.0 U/L 13.0-6 9.0 normal Not Available [facility] [address] [facility], [place], [address], 06/03/2025 10:20:30 06/03/20 25 06/03/2025 CMP (MALE ) A/G ratio 1.3 ratio Not Available [facility] [address] [facility], [place], [address], 06/03/2025 10:20:30 06/03/20 25 06/03/2025 CMP (MALE ) ALP phos 67.0 U/L 30.0-1 40.0 normal Not Available [facility] [address] [facility], [place], [address], 06/03/2025 10:20:30 06/03/20 25 06/03/2025 CMP (MALE ) calcium 9.0 mg/dL 8.4-10 .5 Not Available [facility] [address] [facility], [place], [address], 06/03/2025 10:20:30 06/03/20 25 06/03/2025 CMP (MALE ) sodium 138.0 mmol/ L 136.0- 145.0 Not Available [facility] [address] [facility], [place], [address], 06/03/2025 10:20:30 06/03/20 25 06/03/2025 CMP (MALE ) potassium 4.0 mmol/ L 3.5-5. 1 Not Available [facility] [address] [facility], [place], [address], 06/03/2025 10:20:30 06/03/20 25 06/03/2025 CMP (MALE ) chloride 105.0 mmol/ L 98.0-1 10.0 normal Not Available [facility] [address] [facility], [place], [address], 06/03/2025 10:20:30 06/03/20 25 06/03/2025 CMP (MALE ) C02 24.0 mmol/ L 22.0-3 1.0 Not Available [facility] [address] [facility], [place], [address], 06/03/2025 10:20:30 06/03/20 25 06/03/2025 CMP (MALE ) anion gap 9.0 calc Not Available [facility] [address] [facility], [place], [address], 06/03/2025 10:20:30 06/03/20 25 06/03/2025 CMP (MALE ) osmolality 284.9 calc Not Available [facility] [address] [facility] [facility], [place], [address], 06/03/2025 10:20:30 06/03/20 25 06/04/2025 ADI TIN ferritin 16 NG/mL 24-380 low Not Available [employer] [facility] [address] [place], [address], 06/04/2025 10:42:59 07/15/20 25 07/15/2025 CBC WBC 4.3 x10 4.5-10 .5 low Not Available [facility] [address] [facility] [facility], [place], [address], 07/15/2025 11:44:27 07/15/20 25 07/15/2025 CBC RBC 3.93 x10 4.30-5 .90 low Not Available [facility] [address] [facility] [facility], [place], [address], 07/15/2025 11:44:27 07/15/20 25 07/15/2025 CBC HGB 11.5 g/dL 13.5-1 8.0 low Not Available [facility] [address] [facility], [place], [address], 07/15/2025 11:44:27 07/15/20 25 07/15/2025 CBC HCT 37.8 % 35.0-6 0.0 Not Available [facility] [address] [facility], [place], [address], 07/15/2025 11:44:27 07/15/20 25 07/15/2025 CBC MCV 96.1 fL 80.0-9 9.9 Not Available [facility] [address] [facility] [facility], [place], [address], 07/15/2025 11:44:27 07/15/20 25 07/15/2025 CBC MCH 29.2 pg 27.0-3 2.0 Not Available [facility] [address] [facility] [facility], [place], [address], 07/15/2025 11:44:27 07/15/2007/15/2025 CBC MCHC 30.4 g/dL 32.0-3 6.0 low Not Available [facility] [address] [facility] [facility], [place], [address], 07/15/2025 11:44:27 07/15/20 25 07/15/2025 CBC RDW 22.3 % 11.5-1 4.5 panic high Not Available [facility] [address] [facility] [facility], [place], [address], 07/15/2025 11:44:27 07/15/2007/15/2025 CBC plt 169.7 x10 150.0- 451.0 Not Available [facility] [address] [facility] [facility], [place], [address], 07/15/2025 11:44:27 07/15/2007/15/2025 CBC lymphocytes % 16.0 % 20.0-5 0.0 low Not Available [facility] [address] [facility] [facility], [place], [address], 07/15/2025 11:44:27 07/15/20 25 07/15/2025 CBC granulcytes % 69.8 % 30.0-7 0.0 Not Available [facility] [address] [facility] [facility], [place], [address], 07/15/2025 11:44:27 07/15/2007/15/2025 CBC monocytes % 8.7 % 2.0-16 .0 Not Available [facility] [address] [facility], [place], [address], 07/15/2025 11:44:27 07/15/2007/15/2025 CBC granulcytes# 3.0 x10 Not [facility] ilable [facility] [address] [address], [place], [address], 07/15/2025 11:44:27 07/15/2007/15/2025 CBC lymphocytes # 0.7 x10 Not Available [facility] [address] [facility], [place], [address], 07/15/2025 11:44:27 07/15/2007/15/2025 CBC monocytes # 0.4 x10 Not Avai lable [facility] [address] [address], [place], [address], 07/15/2025 11:44:27 07/15/2007/15/2025 CMP (MALE ) glucose 93.0 mg/dL 60.0-9 9.0 Not Available [facility] [address] [address], [place], [address], 07/15/2025 12:25:47 07/15/20 25 07/15/2025 CMP (MALE ) BUN (blood urea nitrogen) 14.0 mg/dL 10.0-2 6.0 Not Available [facility] [address] [facility], [place], [address], 07/15/2025 12:25:47 07/15/20 25 07/15/2025 CMP (MALE ) creatinine (serum) 0.8 mg/dL 0.4-1. 5 Not Available [facility] [address] [facility], [place], [address], 07/15/2025 12:25:47 07/15/20 25 07/15/2025 CMP (MALE ) BUN/creatini ne ratio 17.50 ratio Not Available [facility] [address], [place], [address], 07/15/2025 12:25:47 07/15/20 25 07/15/2025 CMP (MALE ) eGFR calculated 98.6 Not Available [facility] [address] [address], [place], [address], 07/15/2025 12:25:47 07/15/20 25 07/15/2025 CMP (MALE ) total protein 6.9 g/dL 6.0-8. 5 Not Available [facility] [address] [facility], [place], [address], 07/15/2025 12:25:47 07/15/20 25 07/15/2025 CMP (MALE ) total bilirubin 0.5 mg/dL 0.2-1. 3 Not Available [facility] [address] [facility], [place], [address], 07/15/2025 12:25:47 07/15/20 25 07/15/2025 CMP (MALE ) albumin 4.1 g/dL 3.5-5. 5 Not Available [facility] [address] [facility] [address] [address], [place], [address], 07/15/2025 12:25:47 07/15/20 25 07/15/2025 CMP (MALE ) globulin 2.8 calc Not Available [facility] [address] [facility] [address], [place], [address], 07/15/2025 12:25:47 07/15/20 25 07/15/2025 CMP (MALE ) AST (SGOT) 21.0 U/L 0.0-46 .0 Not Available [facility] [address] [facility] [address], [place], [address], 07/15/2025 12:25:47 07/15/20 25 07/15/2025 CMP (MALE ) altv (SGPT) 14.0 U/L 13.0-6 9.0 normal Not Available [facility] [address] [facility] [address], [place], [address], 07/15/2025 12:25:47 07/15/20 25 07/15/2025 CMP (MALE ) A/G ratio 1.5 ratio Not Available [facility] [address] [facility] [address], [place], [address], 07/15/2025 12:25:47 07/15/20 25 07/15/2025 CMP (MALE ) ALP phos 74.0 U/L 30.0-1 40.0 normal Not Available [facility] [address] [facility] [address], [place], [address], 07/15/2025 12:25:47 07/15/20 25 07/15/2025 CMP (MALE ) calcium 9.2 mg/dL 8.4-10 .5 Not Available [facility] [address], [place], [address], 07/15/2025 12:25:47 07/15/20 25 07/15/2025 CMP (MALE ) sodium 139.0 mmol/ L 136.0- 145.0 Not Available [facility] [address] [address], [place], [address], 07/15/2025 12:25:47 07/15/20 25 07/15/2025 CMP (MALE ) potassium 4.2 mmol/ L 3.5-5. 1 Not Available [facility] [address] [facility] [address], [place], [address], 07/15/2025 12:25:47 07/15/20 25 07/15/2025 CMP (MALE ) chloride 104.0 mmol/ L 98.0-1 10.0 normal Not Available [facility] [address] [facility] [address], [place], [address], 07/15/2025 12:25:47 07/15/20 25 07/15/2025 CMP (MALE ) C02 28.0 mmol/ L 22.0-3 1.0 Not Available [facility] [address] [facility] [address], [place], [address], 07/15/2025 12:25:47 07/15/20 25 07/15/2025 CMP (MALE ) anion gap 7.0 calc Not Available [facility] [address] [facility] [address], [place], [address], 07/15/2025 12:25:47 07/15/20 25 07/15/2025 CMP (MALE ) osmolality 287.3 calc Not Available [facility] [address], [place], [address], 07/15/2025 12:25:47 07/15/20 25 07/16/2025 ADI TIN ferritin 20 NG/mL 24-380 low Not Available [facility] [address] [address], [place], [address], 07/16/2025 04:00:13 04/15/20 25 04/15/2025 XR, toe(s ) No observ ation record ed. [email or web address] [facility] [address], [place], [address], 04/17/2025 16:07:45 04/18/20 25 12/14/2018 upper endos copy proce dure (EGD) (PROC ) No observ ation record ed. [email or web address] Not Available 04/22 09:15:43 04/18/20 25 12/14/2018 colon oscop y proce dure (PROC ) No observ ation record ed. [email or web address] Not Available 04/22 09:16:06 04/18/20 25 12/06/2017 upper endos copy proce dure (EGD) (PROC ) No observ ation record ed. [email or web address] Not Available 04/22 09:16:53 04/29/2004/24/2025 colon oscop y proce dure (PROC ) No observ ation record ed. [email or web address] [place], [address], 04/30/2025 07:42:05 04/29/2004/24/2025 upper endos copy proce dure (EGD) (PROC ) No observ ation record ed. [address] , [place], [address], 04/30/2025 07:42:05 Result Notes None recorded. Problems Name Problem SNOMED Code Status Onset Date Resolution Date Notes Provider Name and Address Organization Details Recorded Time Hyperlip idemia NOS Completed 202006/24/2021 Hyperlip idemia - Status is Resolved ; Resolved Date: 06/24/20; Recorded 06/24/20 10:01AM by Fay Rendon PA-C, Grant on/Adden dum; Promoted ; acuity set as *; Not Available [facility] 3 03:07:53 Ulcer of lower extremit y 27105112 Completed 202006/24/2021 LOWER EXTREMIT Y ULCERATI ON - Status is Inactive ; Recorded 06/24/20 10:06AM by Fay Rendon PA-C, Annotati on/Adden dum; Promoted ; acuity set as *; Not Available [facility] 3 03:07:53 Acute bronchit is 56188073 Completed 202006/24/2021 ACUTE BRONCHIT IS - Status is Inactive ; Recorded 06/24/20 9:59AM by Fay Rendon PA-C, Annotati on/Adden dum; Promoted ; acuity set as *; Not Available [facility] 3 03:07:54 Mixed hyperlip idemia 392224788 Active 2022 MIXED HYPERLIP IDEMIA; Recorded 12/05/19 2:10PM by Hermila Gimenez, RN, Office Visit; Promoted ; acuity set as *; FAY REDNON PA-C [address] [place] [address], [address] , [facility] 3 12:47:23 Coronary atherosc lerosis 590587812 Active 2022 CORONARY ATHEROSC LEROSIS; Recorded 12/05/19 23 2:10PM by Hermila Gimenez, RN, Office Visit; Promoted ; acuity set as *; FAY RENDON PA-C [address] [place] [address], [address] , [facility] 3 12:47:23 Chronic obstruct clifton pulmonar y disease 27612066 Active 2022 FAY RENDON PA-C [address] [place] [address], [address] , [facility] 3 12:46:36 Malignan t neoplasm of prostate 247769606 Active 2022 Stage IIIC (cT2c cN0 cM0 gl 5 + 5=10) [facility] 5 14:26:46 [facility] hyperten alcides 64615128 Active 2022 FAY RENDON PA-C [address] [place], [address] , [facility] 3 12:47:23 Acquired coagulat ion disorder 426728206 Active 2022 FAY RENDON PA-C [address] [place], [address] , [facility], [facility] 3 12:46:23 Chronic atrial fibrilla tion 982374482 Active 2022 FAY RENDON PA-C [address] [place], [address] , [facility] 3 12:46:33 Venous stasis edema of bilatera l lower limbs 95308521743 308940 Active 2023 KAMERON vizcaino [facility] 5 12:24:06 History of adenomat ous polyp of colon 192749687 Active 2024 KAMERON vizcaino, [facility] 5 12:23:58 Fracture of phalanx of left foot Active 2024 KAMERON AGUAYO [facility], [facility] 5 12:23:51 Iron deficien cy anemia 55985175 Active 2024 KAMERON vizcaino [facility] 5 12:23:40 Upper gastroin testinal bleeding 92290943 Active 2024 Skye vizcaino, [facility] 5 16:15:45 Stented coronary artery 496123790 Active 2024 Skye Barber [facility] 5 16:15:35 History of cerebrov ascular accident 887112124 Active 2024 Skye Barber null, [facility], [facility]da 5 16:15:28 History of myocardi al infarcti on 976121358 Active 2024 Skye vizcaino [facility] 5 16:15:31 Problem Notes None recorded. Procedures Surgical History Date Name Laterality Status Provider Name and Address Organization Details Recorded Time 2024 esophagogastroduodenoscopy completed RAJAT AGUAYO [facility] 5 11:26:16 2024 colonoscopy completed KAMERONANGELINA AGUAYO [facility] 5 11:26:57 2018 colonoscopy completed KAMERONArlene AGUAYO [facility] 5 08:22:43 placement of stent i n cardiac conduit completed FAY RENDON PA-C [address] [place] [address], [address], [facility], [facility]da 3 12:51:52 Imaging Results None recorded. Procedure Notes None recorded. Medical Equipment None Reported. Allergies Allergen ID Allergen Name Allergen Category Reaction Reaction Severity Criticality Documentation Date Start Date Code Code System Note Provider Name and Address Organization Details Recorded Time 80676 adhesive environme nt,medica tion rash Not available Not available 07/22/2025 Skye Bangoch carrillo [facility] 5 11:37:31 Medications Name Sig Start Date [...] Not Available Lopressor BID 08/01 completed CS/smf; 82276; Recorded 12/21/19 23 3:09PM by Hermila Gimenez RN (Authori stephanied through Narciso Botello DO), Annotati on/Adden dum; Refill Quantity : 60; Tablet; Not Available Not Available Not Available Nitrostat as needed 08/01 completed 6; Recorded 07/25/20 17 9:40AM by Aura Persaud LPN (Authori zed through Rahul Sims MD), Annotati on/Adden dum; Refill Quantity : 50; Tab Sublingu al; Not Available Not Available Not Available ferrous gluconate 324 mg (38 mg iron) tablet TAKE 1 TABLET EVERY DAY BY MOUTH WITH MEAL(S), TAKE AT LUNCH. active Not Available Not Available No t Available cholecalc iferol (vitamin D3) 1,250 mcg (50,000 [...] Updated DateTime 5 177.8 cm 29.3 kg/m2 58837.8 4 g 97.3 [degF] 74 /min 97 % 97 % 160/92 mm[Hg] [facility] 5 10:05:49 Date Recorded Body height Body mass index (BMI) Body weight Body temperature Heart rate Oxygen saturation Oxygen saturation in Arterial blood by Pulse oximetry Systolic And Diastolic Provider Name and Address Organization Details Last Updated DateTime 5 177.8 cm 29 kg/m2 62205.6 6 g 97.4 [degF] 62 /min 97 % 97 % 140/80 mm[Hg] [facility] 5 10:45:28 Date Recorded Body height Body mass index (BMI) Body weight Body temperature Heart rate Oxygen saturation Oxygen saturation in Arterial blood by Pulse oximetry Systolic And Diastolic Provider Name and Address Organization Details Last Updated DateTime 5 177.8 cm 28.7 kg/m2 50214.4 7 g 97.4 [degF] 75 /min 98 % 98 % 130/80 mm[Hg] [facility] 5 11:38:31 Social History Question Answer Notes LastModified by Organizat [employer] Details LastModified Time Tobacco Smoking Status Former Smoker NELLY GIMENEZ [facility] 05/22/2023 11:43:59 Are You Blind Or Do You Have Difficulty Seeing? No [email or web address] Information not available 02/13/2023 When Did You Quit Smoking? 15+yearssin eliazar rivera Quit Smoking Approx 1994 [email or web address] Information not available 04/22/2025 What Was The Date Of Your Most Recent Tobacco Screening? 04/18/2025 [email or web address] Information not available 04/18/2025 Do You Have Difficulty Walking Or Climbing Stairs? No [email or web address] Information not available 02/13/2023 Sex: Unknown Functional Status Question Answer Note LastModified by [employer] Details LastModified Time Do you use any illicit or recreational drugs? No [email or web address] Information not available 11/27/2024 Do you or have you ever used any other forms of tobacco or nicotine? No Information not available 11/27/2024 What is your level of alcohol consumption? None [email or web address] Information not available 11/27/2024 Are you able to walk independently without assistance or assistive devices? YESWOREST [email or web address] Information not available 02/13/2023 Do you have difficulty doing errands alone? No [email or web address] Information not available 02/13/2023 Are you able to care for yourself independently? Yes [email or web address] Information not available 02/13/2023 Do you have difficulty dressing, bathing, grooming, or toileting? No [email or web address] Information not available 02/13/2023 Do you or have you ever used any nicotine-free cigarettes, vape, or chewing tobacco? No [email or web address] Information not available 11/27/2024 Mental Status Question Answer Note LastModified by Organization D etails LastModified Time Do you have difficulty concentrating, remembering or making decisions? No [email or web address] Information no t available 02/13/2023 Family History Relationship Description Onset Age of this Age Resolved Age Notes LastModified by Organization Details LastModified Time Brother Hypertensive disorder [email or web address] Not available 11/27 08:21:26 Medical History No medical history recorded. Immunizations Vaccine Type Date Status Note Provider Nam e and Address Organization Details Recorded Time COVID-19, mRNA, LNP-S, PF, 100 mcg/0.5mL dose or 50 mcg/0.25mL dose 1 completed FAY RENDON PA-C [address] [place], [address], [facility] 08/01/2023 12:35:54 COVID-19, mRNA, LNP-S, PF, 100 mcg/0.5mL dose or 50 mcg/0.25mL dose 1 completed FAY RENDON PA-C [address] [place], [address], [facility] 08/01/2023 12:35:54 COVID-19, mRNA, LNP-S, PF, 50 mcg/0.5 mL 4 completed KAMERON vizcaino, [facility] 11/27/2024 10:38:02 Influenza, high-dose, trivalent, PF 4 completed KAMERON vizcaino, [facility] 11/27/2024 10:38:02 Pneumococcal conjugate PCV20, polysaccharide VNW881 conjugate, adjuvant, PF 3 completed JORY vizcaino [facility] 08/01/2023 13:51:29 Influenza, adjuvanted, quadrivalent, PF 3 [facility] 08/01/2023 13:53:00 Td (adult), 2 Lf tetanus toxoid, preservative free, adsorbed 5 completed Not Available [facility] 11/22/2023 11:50:45 DTaP, unspecified formulation 6 completed Not Available [facility] 11/22/2023 11:50:45 Past Encounters Encounter ID Performer Location Encounter Start Date Encounter Closed Date Diagnosis/Indication Diagnosis SNOMED-CT Code Diagnosis ICD10 Code Diagnosis IMO Codes Diagnosis Note [id number] Narciso Botello DO [facility] ([facility]) [address] [place] [address] 02/13/2023 12:12:24 02/13/2023 19:07:22 Chronic atrial fibrillation 713822155 I48.20 Chronic ob structive pulmonary disease 73026586 J44.9 [id number] Narciso Botello DO [facility] ([facility]) [address] [place] [address] 02/27/2023 13:06:33 03/06/2023 12:05:41 Persistent atrial fibrillation 373754762 I48.19 pharmacy didn't receive diltiazem and instead refilled digoxin that we stopped; called them and now it is straight Chronic ob structive pulmonary disease 75374067 J44.9 [id number] Narciso Botello DO [facility] ([facility]) [address] [place] [phone] 03/13/2023 11:51:52 03/13/2023 12:27:49 Atrial fibrillation 54212595 I48.91 started on diltiazem and hr much better; feels better [id number] Narciso Botello DO [facility] ([facility]) [address] [place] [phone] 05/22/2023 11:36:03 05/22/2023 13:53:50 Chronic obstructive pulmonary disease 06090790 J44.9 Malignant neoplasm of prostate 263218884 C[address] Marcano Anemia 842774454 D64.[address] 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 due to cost, but he will today [id number] Narciso Botello DO [facility] ([facility]) [address] [place] [address] 07/12/2023 08:46:29 07/12/2023 13:06:15 Chronic obstructive pulmonary disease 69723113 J44.9 [id number] FAY RENDON PA-C [facility] ([facility]) [address] [place] [phone] 08/01/2023 11:27:11 08/01/2023 15:53:07 Adult health examination 047972950 Z00.00 Administra tion of pneumococcal vaccine 23216499 Z23 Administra tion of influenza vaccine 83495321 Z23 Chronic sy stolic heart failure 707566732 I50.9 Acquired c oagulation disorder 379545407 D68.8 Chronic at rial fibrillation 704602336 I48.20 we discussed switching off coumdain for Eliquis. he will think about it and discuss wiht DR. Botello at next appt. Chronic ob structive pulmonary disease 79426241 J44.9 Malignant neoplasm of prostate 972240448 C61 [id number] Narciso Botello DO [facility] ([facility]) [address] [place] [phone] 09/20/2023 12:35:33 09/20/2023 13:04:45 Acquired coagulation disorder 146797495 D68.8 [id number] Narciso Botello DO [facility] ([facility]) [address] [place] [address] 11/22/2023 11:50:04 11/22/2023 13:47:50 Chronic obstructive pulmonary disease 78574657 J44.9 Mixed hyperlipidemia 267 044867 E78.2 Iron defic iency anemia 83350675 D50.9 Chronic at rial fibrillation 747711087 I48.20 [id number] Narciso Botello DO [facility] ([facility]) [address] [place] [phone] 01/09/2024 11:22:42 01/15/2024 13:47:30 Acquired coagulation disorder 065730140 D68.8 [id number] Narciso Botello DO [facility] ([facility]) [address] [place] [id number] 01/15/2024 12:13:38 01/18/2024 06:37:00 Acquired coagulation disorder 911592510 D68.8 [id number] DARRYL MORIN [facility] ([facility]) [address] [place] [id number] 5 02/05/2024 13:19:52 02/05/2024 15:11:48 Cellulitis of right lower limb 0478422034 [id number] L03.[address] Botello, patients PCP. US results were viewed and reviewed with patient. No evidence of DVT. Will treat the cellulitis and have patient follow up with PCP in 2 weeks. Discussed with patient that if pain worsens or any severe SOB or chest pain occurs, need to go to ED. Patient verbalizes understand ing. [id number] Narciso Botello DO [facility] ([facility]) [address] [place] [id number] 02/19/2024 11:55:47 02/19/2024 13:07:04 Chronic obstructive pulmonary disease 11155353 J44.9 Venous sta sis edema of bilateral lower limbs 6793120625 7748890 I87.2 Chronic at rial fibrillation 675455422 I48.20 [id number] Narciso Botello DO [facility] ([facility]) [address] [place] [phone] 03/20/2024 11:45:11 03/22/2024 10:14:30 Chronic atrial fibrillation 724955260 I48.20 [id number] Narciso Botello DO [facility] ([facility]) [address] [place] [id number] 04/22/2024 12:38:11 04/24/2024 14:22:53 Chronic atrial fibrillation 084709659 I48.20 [id number] Narciso Botello DO [facility] ([facility]) [address] [place] [id number] 5 05/27/2024 11:33:56 05/27/2024 12:01:03 Chronic obstructive pulmonary disease 43622623 J44.9 Chronic at rial fibrillation 384595548 I48.20 [id number] Narciso Botello DO [facility]) [address] [place] [id number] 5 07/24/2024 16:15:52 07/26/2024 08:42:20 Chronic atrial fibrillation 326565383 I48.20 [id number] Narciso Botello DO [facility]) [address] [place], [place] [address] 5 08/22/2024 11:55:44 08/26/2024 15:50:30 Chronic atrial fibrillation 638524569 I48.20 [id number] Narciso Botello DO [facility]) [address] [place], [place] [address] 10/01/2024 11:33:26 10/02/2024 12:43:38 Chronic atrial fibrillation 101618438 I48.20 [id number] José Antonio Rendon MD [facility]) [address] [place], [place] [address] 11/06/2024 14:42:35 11/09/2024 21:55:20 Acquired coagulation disorder 148315071 D68.8 [id number] José Antonio Rendon MD [facility]) [address] [place] [id number] 11/27/2024 10:32:19 11/27/2024 16:53:04 Chronic atrial fibrillation 738004005 I48.20 Chronic ob structive pulmonary disease 62643074 J44.9 Essential hypertension 02534102 I10 Malignant neoplasm of prostate 465566289 C61 Mixed hyperlipidemia 267 204060 E78.2 Anemia 610402683 D64.9 Chronic constipation 236 617373 K59.09 Painful re ctal bleeding 234930411 K62.5 History of adenomatous polyp of colon 788547100 Z86.0100 Lumbago with sciatica 20 6196564 M54.40 [id number] José Antonio Rendon MD [facility] ([facility]) [address] [place], [place] [address] 5 12/11/2024 10:33:47 12/11/2024 15:57:34 Chronic obstructive pulmonary disease 81426365 J44.9 Atrial fibrillation 4943 6004 I48.91 [id number] José Antonio Rendon MD [facility]) [address] [place] [id number] 5 12/23/2024 13:12:25 12/24/2024 10:36:31 Acquired coagulation disorder 951036383 D68.8 [id number] José Antonio Rendon MD [facility] ([facility]) [address] [place], [place] [address] 5 01/20/2025 12:49:11 01/21/2025 11:18:42 Acquired coagulation disorder 882288663 D68.8 [id number] José Antonio Rendon MD [facility] ([facility]) [address] [place], [place] [address] 5 02/24/2025 13:22:32 02/25/2025 10:04:37 Chronic atrial fibrillation 951298456 I48.20 [id number] José Antonio Rendon MD [facility] ([facility]) [address] [place], [place] [address] 5 03/12/2025 12:35:05 03/13/2025 14:29:19 Chronic atrial fibrillation 372997593 I48.20 [id number] José Antonio Rendon MD [facility] ([facility]) [address] [place] [address] 5 03/20/2025 10:26:36 03/20/2025 12:52:07 Acquired coagulation disorder 385372702 D68.8 Pain of hip region 31587 002 M25.551 [id number] 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 [id number] José Antonio Rendon MD [facility] ([facility]) [address] [place] [id number] 5 04/15/2025 10:55:40 04/16/2025 09:53:03 Atrial fibrillation 27755625 I48.91 Tinea pedis 1404678 B35. 3 811879 Pain of to e of left foot 7448536679 64662 M79.675 [id number] José Antonio Rendon MD [facility] ([facility]) [address] [place] [id number] 5 04/16/2025 13:51:20 04/17/2025 15:09:19 Anemia 227690238 D64.9 [id number] José Antonio Rendon MD [facility] ([facility]) [address] [place] [phone] 5 04/17/2025 12:53:19 04/18/2025 11:37:19 Acquired coagulation disorder 701778050 D68.8 [id number] José Antonio Rendon MD [facility] ([facility]) [address] [place] [address] 5 04/18/2025 12:21:50 04/21/2025 10:53:48 Upper gastrointestinal bleeding 07108273 K92.2 [id number] to er if angina, dyspnea, near syncope, significan t fatigue etc [id number] José Antonio Rendon MD [facility] ([facility]) [address] [place] [id number] 5 04/22/2025 11:33:20 04/23/2025 11:03:12 Iron deficiency anemia 67317586 D50.9 [id number] Linus Murray DO [facility]) [address] [place] [phone] 5 04/22/2025 11:37:54 04/23/2025 13:21:26 Upper gastrointestinal bleeding 72130084 K92.2 [id number] I have reviewed and discussed EGD. Discussed risks vs benefits including risk of infection and bleeding, perforatio n, possible need for surgery, reaction to medication s, and sever injury or . We discussed pt requiring sedation and possible general anesthesia . Pt agrees to proceed with EGD at [facility]. Preliminar y procedure date will be 04/24/25. I have reviewed and discussed colon cancer screening options, including colonoscop y. Discussed risks vs benefits including risk of infection and bleeding, perforatio n, possible need for surgery, reaction to medication s, and sever injury or . We discussed pt requiring sedation and possible general anesthesia . Pt agrees to proceed with Colonoscop y at [facility]. Preliminar y procedure date will be 04/24/25. Acquired c oagulation disorder 007476508 D68.8 04/22/25: Stopped Warfarin 1 week ago, will check INR level today prior to proceeding with Colonoscop y. Chronic ob structive pulmonary disease 10137147 J44.9 stable. 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 Repeat lab today. Malignant neoplasm of prostate [id number] C61 Following with Oncology every 3 months, seen in April, scheduled to see again in Jul. [id number] José Antonio Rendon MD [facility] ([facility]) [address] [place] [address] [phone] 05/12/2025 09:50:42 05/13/2025 17:05:29 Stented coronary artery [id number] Z95.5 [id number] he was re-stented in 2000 he says. his original stent was 1992. he has a hx of mi History of cerebrovascular accident 266401381 Z86.73 607000 it affected my eyes in 7376-4870 History of myocardial infarction 137768736 I25.2 389999 Chronic at rial fibrillation 241275795 I48.20 Acute gastrointestinal hemorrhage 01982430 K92.2 341155 [id number] José Antonio Rendon MD [facility] ([facility]) [address] [place] [address] [phone] 06/03/2025 09:30:05 06/04/2025 11:05:39 Iron deficiency anemia 78691546 D50.9 03349976 Essential hypertension 74643413 I10 [id number] José Antonio Rendon MD [facility] ([facility]) [address] [place] [address] [phone] 06/10/2025 10:28:17 06/10/2025 11:26:19 Chronic atrial fibrillation 836871146 I48.20 Coronary atherosclerosis 902004342 I25.10 History of cerebrovascular accident 157417178 Z86.73 984462 it affected my eyes in 4919-4318 Iron defic iency anemia 38484616 D50.9 56966132 hgb is improved 0.8 grams with 6 weeks of oral iron therapy but ferritin remains low at 16. he will continue assess for rebleeding and consider iron infusion. he prefers oral iron at this time. he has had a watchman evaluation . Stented co ronary artery 751559304 Z95.5 084183 he was re-stented in 2000 he says. his original stent was 1992. he has a hx of mi Upper gastrointestinal bleeding 72117575 K92.2 834096 to er if angina, dyspnea, near syncope, significan t fatigue etc Chronic ob structive pulmonary disease 83963786 J44.9 [id number] José Antonio Rendon MD [facility] ([facility]) [address] [place] [address] [phone] 5 07/15/2025 10:51:26 07/16/2025 12:54:47 Essential hypertension 73969685 I10 Iron defic iency anemia 84168172 D50.9 72254367 hgb is improved 0.8 grams with 6 weeks of oral iron therapy but ferritin remains low at 16. he will continue assess for rebleeding and consider iron infusion. he prefers oral iron at this time. he has had a watchman evaluation . [id number] José Antonio Rendon MD [facility] ([facility]) [address] [place] [address] [phone] 07/22/2025 11:12:10 07/24/2025 14:34:01 Benign adenomatous polyp of stomach 5202001448 D13.1 50406 discussed risks of this with Chronic gastritis 778423 9 K29.51 14019587 no current signs of hemorrhage Acute gastrointestinal hemorrhage 84919171 K92.2 Health Concerns Section Related Observation LastModified by Organization Detai ls LastModified Time None Recorded Concern Status LastModified by Organization Details LastModified Time None Recorded Advance Directives Directive None Recorded Payers Insurance Date Sequence Insurance Name Policy Number Policy Garcia Covered Member ID Garcia Member ID Guarantor Name 07/15/2025 1 [facility] (MEDICARE REPLACEMENT/A DVANTAGE - PPO) Narciso Rider [id number] Narciso Monteiroivner 08/22/2025 1 [facility] (MEDICARE REPLACEMENT/A DVANTAGE - PPO) [id number] Narciso Rider [id number] Narciso Rider 07/15/2025 1 [facility] [id number] Narciso Monteiroivner [id number] Narciso Andrew Tereso 07/15/2025 1 [facility] (MEDICARE REPLACEMENT/A DVANTAGE - PPO) [id number] Narciso Rider [id number] Narciso Rider Notes Date Note Type Note [...] with Dr. Murray. José Antonio Rendon MD [address] [place] [address], [phone], [facility] 05/12/2025 10:32:54 025 text/ht ml Hypertension IM/FMReported [...] pain with eating. José Antonio Rendon MD [address] [place], [phone], [facility], Brenda 06/10/2025 11:18:14 025 text/ht ml Hypertension IM/FMReported [...] contrast.Pt states his abdominal pain has improved Atrial FibrillationReported by PatientHPIFor associated symptoms, patient reportsexertional dyspneabut reportsno associated dizziness. For duration, patient reportshas noted for years. For alleviating factors, patient reportsmedication. COPDReported by PatientHPI:For severity, patient reportsnot limiting. [...] new one because his isn't working anymore Pt is here for a 6 week [...] cancer on it. José Antonio Rendon MD [address] [place] [address], [phone], [facility] 07/22/2025 12:20:57
[2025-08-23 07:33] LABS: Hematocrit 34.9 % (37-53); Hemoglobin 11.20 g/dL (11.27-16.99); Mean Corpuscular HGB Conc 32.1 g/dL (30-55); Mean Corpuscular Hemoglobin 30.9 pg (27-33); Mean Corpuscular Volume 96.4 fl (82-101); Nucleated Red Blood Cells % 0 %; Platelet Count 147 10^3/cmm (157-399); Red Blood Count 3.62 10^6/uL (3.85-5.65); White Blood Count 4.15 10^3/uL (3.29-11.43)
[2025-08-23 07:41] VITALS: RESP 20
[2025-08-23] MEDS: morphine 4 mg/mL SDV 1 mL IVP (07:41)
[2025-08-23] MEDS: ondansetron 2 mg/ML SDV 2 mL 4 MG IVP (07:41)
[2025-08-23 07:42] VITALS: BP 141/93; PULSE 68; RESP 17; O2SAT 95
[2025-08-23 07:45] LABS: INR 0.91 (0.8-1.2); Prothrombin Time 12.90 SECONDS (12.1-14.9)
[2025-08-23] MEDS: iohexol 350 mg/mL 500 mL Btl (per mL) IV (07:51)
[2025-08-23 07:54] LABS: Alanine Aminotransferase 14 U/L (0-41); Albumin Level 4.1 g/dL (3.5-5.2); Alkaline Phosphatase 89 U/L (40-130); Anion Gap 14.2 (5-19); Aspartate Amino Transferase 15 U/L (0-40); Blood Urea Nitrogen 14 mg/dL (8-23); Calcium 9.0 mg/dL (8.5-10.5); Carbon Dioxide 26 mmol/L (22-29); Chloride 103 mmol/L (98-107); Creatinine Clr Calc Pharmacy 84.8608; Globulin 2.6 g/dL (1.3-4.6); Glucose 114 mg/dL (65-115); Lipase 36 U/L (13-60); Osmolality Calculated 289 mOsm/kg (285-295); Potassium 4.2 mmol/L (3.5-5.1); Sodium 139 mmol/L (136-145); Total Protein 6.7 g/dL (6.6-8.7); Troponin(5th) Baseline 20 ng/L (0-15)
--- NOTE | 2025-08-23 08:32 | PC.PHAR ---
Pts states pt has been taken off of all his blood thinners. Pt has old rx for Warfarin (stopped) and new rx for Eliquis 5mg bid from 07/16/25 that he never got to start before it was dc'd.
[2025-08-23 08:46] VITALS: BP 147/83; PULSE 68; RESP 19; O2SAT 98
--- NOTE | 2025-08-23 09:26 | ECG_ITS ---
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 Measurements Intervals [place] Rate: 71 P: 0 DE: 0 QRS: 68 QRSD: 105 T: 32 QT: 425 QTc: 462 Interpretive Statements ATRIAL FIBRILLATION WITH ABERRANT CONDUCTION OR VENTRICULAR PREMATURE COMPLEXES VOLTAGE CRITERIA FOR LVH [MEETS CRITERIA IN ONE OF: R(aVL), S(V1), R(V5), R(V5/V6)+S(V1)] Compared to ECG 08/23/2025 07:20:43 No significant changes Electronically Signed On 08-23-2025 14:39:29 CDT by Thien Peres M.D. [email or web address]
[2025-08-23 09:36] LABS: Troponin 5 2HR 17.99 ng/L (0-15)
[2025-08-23 09:38] LABS: Troponin 5 2HR Delta -2.01 ABS# (0-10)
[2025-08-23 09:46] VITALS: BP 164/83; PULSE 80; RESP 19; O2SAT 97
[2025-08-23 10:22] VITALS: BP 171/115; PULSE 75; O2SAT 96
== END 2025-08-23 10:28 | disposition home or self-care (01) ==
PROVIDERS: Emergency Provider Emergency Medicine; PCP Family Medicine
DX: R07.9 Chest pain, unspecified (principal); Z87.891 Personal history of nicotine dependence; Z85.46 Personal history of malignant neoplasm of prostate
CPT/HCPCS: 36415; 71045; 74177; 80053; 83690; 84484; 85025; 85610; 93005; 96374; 96375; 99285; J2270; J2405

== ENCOUNTER 2025-08-25 09:57 | Emergency (ER) | payer MEDICARE, SELFPAY ==
[2025-08-25] VITALS (14 sets, daily range): BP systolic 159–195; BP diastolic 87–103; PULSE 75–83; RESP 17–18; O2SAT 91–100
--- OUTSIDE RECORDS SUMMARY | 2025-08-25 10:03 | XMS_ITS | Encounter Summary ---
Author Organization [facility] Address 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 Gender Identity Not on file Sexual Orientation Not on file documented as of this encounter Plan of Treatment Upcoming Encounters Date Type Department Care Team (Late st Contact Info) Description 09/30/2025 9:00 AM WOOD TECHNOLOGIST Office Visit [facility] [address] [place] [phone] Kimberlyn Barba, DO [address] [place] [phone] Dolores Nicole, HYDROELECTRIC OPERATOR [address] [place] [phone] documented as of this encounter Visit Diagnoses Not on filedocumented in this encounter
--- OUTSIDE RECORDS SUMMARY | 2025-08-25 10:03 | XMS_ITS | Clinical Summary ---
Author Organization [facility] Address [address] [place] [address] Phone Care Team Providers Care Brass Molder Name Role Phone Unavailable Primary Care [...] Abstract 08/14/2025 1:24 PM CDT Anesthesia Event [facility] Cardiac Agronomist [address] [place] [phone] Prieto Tobar II, 08/14/2025 11:30 AM CDT - 08/14/2025 1:18 PM CDT Surgery [facility]onom[facility] [address] [place] [phone] Kimberlyn Barba, Left atrial appendage closure percutaneous 08/14/2025 6:33 AM CDT - 08/15/2025 3:57 PM CDT Hospital Encounter [facility] 4B Cardiac [address] [place] [phone] Kimberlyn Barba DO Atrial fibrillation, persistent (CMS/HCC) Discharge Disposition: Home or Self Care 08/14/2025 Travel 08/08/2025 Telephone [place] [address] [place] [phone] Antonio Cordova, RN Information 08/06/2025 Telephone [place] [address] [place] [phone] Antonio Cordova, RN Information 08/05/2025 External Device Data [facility] ABSTRACTION Provider, Abstract 08/05/2025 External Device Data [facility] ABSTRACTION Provider, Abstract 08/05/2025 Telephone [place] [address] [place] [address] [phone] Kimberyln Barba, Test results (CT Heart) 08/05/2025 Telephone [place] [address] [place] [phone] Antonio Cordova, RN Information 07/23/2025 External Device Data STL ABSTRACTION Provider, Abstract 07/17/2025 9:05 AM CDT - 07/17/2025 11:59 PM CDT Hospital Encounter [facility] CT Scan [address] [place] [phone] Kimberlyn Barba, Discharge Disposition: Home or Self Care 07/17/2025 8:23 AM CDT - 07/17/2025 11:59 PM CDT Hospital Encounter [facility] CT Scan [address] [place] [phone] Kimberlyn Barba, Discharge Disposition: Home or Self Care 07/09/2025 External Device Data [facility] ABSTRACTION Provider, Abstract 07/08/2025 External Device Data [facility] ABSTRACTION Provider, Abstract 06/26/2025 Orders Only [place] [address] [place] [phone] Kimberlyn Barba, Chronic atrial fibrillation (CMS/HCC) (Primary Dx) 06/26/2025 Telephone [place] [address] [place] [phone] Kimberlyn Barba, Follow Up; Question (watchman) 06/10/2025 External Device Data STL ABSTRACTION Provider, Abstract 06/10/2025 External Device Data [place] ABSTRACTION Provider, Abstract 06/10/2025 External Device Data ST[place] ABSTRACTION Provider, Abstract 06/04/2025 4:00 PM CDT Office Visit [facility] [address] [place] [address] [phone] Kimberlyn Barba DO Atrial fibrillation, unspecified type (CMS/HCC) (Primary Dx); Essential hypertension; Dyslipidemia; History of GI bleed 05/28/2025 Cardiology Conference [facility] [address] [facility] [address] [place] [phone] Emiliana Loera from Last 3 Months Immunizations Immunization Administration Dates Next Due (PREVNAR 20)(6 WKS UP) PNEUM OCOCCAL CONJUGATE VACCINE 20-VALENT (PCV20), POLYSACCHARIDE [id number] CONJUGATE, ADJUVANT 0.5 ML (PF) IM 08/01/2023 [...] on file 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 Gender Identity Not on file Sexual Orientation [...] st Contact Info) Description 09/30/2025 9:00 AM EPOXY COATINGS INSTALLER Office Visit [facility] [address] [facility] [address] [place] [phone] Kimberlyn Barba DO [address] [facility] [address] [place] [phone] DanielrobsonDolores Susie, DIETICIAN [address] [facility] [address] [place] [phone] Health Maintenance Due Date Last Done Comments ZOSTER VACCINE (1 of 2) 1994 DTAP/TDAP/TD VACCINES (1 - Tdap) 10/29/2016 10/28/20 16 RSV VACCINE (60+ or ) (1 - 1-dose 75+ series) 2019 INFLUENZA VACCINE (#1) 2025 07/24/2024, 2022 COVID-19 Vaccine ( - 2023-2 5 season) 2025 07/24/2024, 07/22/2021, 06/24/2021 PNEUMOCOCCAL VACCINE 50+ YEARS Completed 08/01/2023 COLORECTAL SCREENING Discontinued 04/24/2025, 12/14/19 19 Colorectal Cancer Screening Discontinued FIT-DNA Q 3 years Discontinued FIT/FOBT Q 1 year Discontinued Flex Sig/CT Colonography Q 5 years Discontinued Medical Devices Implanted Type Area Applied Psychology Chair Device Identifier Shelf Expiration Date Model / Serial / Lot Closure Perclose Prostyle Sut Mediate 64535-18 - [id number] Implanted:Qty: 1 on 08/14/2025 by Kimberlyn Barba DO at [facility] Closure Device N/A: Groin TORO- VASC DEVICE [id number] 03/19/2027 81027-59 / / [id number] Procedures Procedure Name Priority Date/Time Associated Diagnosis [...] CLOTTING TIME Routine 08/14/2025 2:11 PM CDT NE ANES INSERT CATH, ART, PERCUT, SHORTTERM Routine 08/14/2025 1:55 PM CDT NE ANES INSERT ENDOTRACHEAL AIRWAY Routine 08/14/2025 1:27 [...] * TELEMETRY REPORT (08/18/2025 3:37 AM CDT) Provider Scanning ECG ORDERABLES Final Result * (ABNORMAL) TROPONIN 6 HR, 5TH GEN (08/15/2025 5:08 AM CDT) TROPONIN T, 6 HR 5TH GEN 31(H) <=15 ng/L 08/15/2025 6:11 AM CDT [facility] DELTA 6HR TROPONIN T -1 See Interp. 08/15/2025 6:11 AM CDT [facility] Comic Reply [facility] Blood Venipuncture / Unknown 08/15/2025 5:08 AM CDT 08/15/2025 5:36 AM CDT Narrative [facility] Comic Reply [facility] - 08/15/2025 6:11 AM CDT Troponin elevated. Delta indeterminate. Delay in collection of timed specimen beyond recommended collection interval. Results must be interpreted in clinical context. us Prieto Brownn II, DO CHEMISTRY ORDERABL ES Final Result Performing Organization Address [facility]/ZIP Co de Phone Number [facility] Comic Reply [facility] CLIA # [id number] [address] [address] * (ABNORMAL) TROPONIN 2 HR, 5TH GEN (08/15/2025 1:09 AM CDT) TROPONIN T, 2 HR 5TH GEN 32(H) <=15 ng/L 08/15/2025 2:14 AM CDT [facility] Comic Reply [facility] DELTA 2HR TROPONIN T 0 See Interp. 08/15/2025 2:14 AM CDT [facility] Comic Reply [facility] Blood Venipuncture / Unknown 08/15/2025 1:09 AM CDT 08/15/2025 1:40 AM CDT Critical access hospital Comic Reply [facility] - 08/15/2025 2:14 AM CDT Troponin elevated. Delta not changing. Delay in collection of timed specimen beyond recommended collection interval. Results must be interpreted in clinical context. Prieto Tobar II, DO CHEMISTRY ORDERABL ES Final Result Performing Organization Address [facility] Co de Phone Number [facility] Comic Reply [facility] CLIA # [id number] [address] [address] * (ABNORMAL) TROPONIN BASELINE, 5TH GEN (08/14/2025 11:25 PM CDT) TROPONIN T, BASELINE 5TH GEN 32(H) <=15 ng/L 08/15/2025 12:05 AM CDT [facility] Comic Reply [facility] Blood Venipuncture / Unknown 08/14/2025 11:25 PM CDT 08/14/2025 11:32 PM [facility]T [facility] - 08/15/2025 12:05 AM CDT Troponin elevated. Prieto Tobar II, DO CHEMISTRY ORDERABL ES Final Result [id number] [address] [address] * ECHO LIMITED W DOPPLER AND COLOR FLOW (08/14/2025 5:04 PM CDT) EJECTION FRACTION EF: INTERFACE SYSTEM 08/14/2025 4:47 PM CDT Narrative INTERFACE SYSTEM - 08/15/2025 3:22 PM CDT [facility] Cardiovascular Services Echocardiography Laboratory [address] [place] [address] Limited Transthoracic Echocardiography Patient: Narciso Rider Study ECHO LIMITED Regina Farah ID: Gender: M : 1945 Age: 80 Room: [facility] Study 08/14/2025 Pt Inpatient Date: Status: Study 04:47:01 PM [facility] #: [id number] Time: Ordering:Kimberlyn Barba DO Summary and Conclusion: [...] ARTERY: Systolic pressure cannot be accurately estimated. [facility] Echo Labs are accredited with the [employer] [place] [facility] Accreditation Commission - Echocardiography. Prepared and Electronically Authenticated Kimberlyn Barba DO Confirmed 08/15/2025 15:22 Procedure Note Juan Barbassica Alicia, DO - 08/15/2025 [facility] Cardiovascular Services Echocardiography Laboratory [address] [place] [address] Limited Transthoracic Echocardiography Patient: Narciso Rider Study ECHO LIMITEDW Liban Gagan ID: Gender: M : 1945 Age: 80 Room: [facility] Study 08/14/2025 Pt Inpatient Date: Status: Study 04:47:01 PM CSN #: [id number] Time: Ordering:Kimberlyn Barba DO Summary and Conclusion: [...] Studydate: 08/14/2025. Study time: 04:47 PM. [facility] Card[facility] Anatomy: LEFT VENTRICLE: Global systolic function [...] ARTERY: Systolic pressure cannot be accurately estimated. [facility] Echo Labs are accredited with theIntersocietal Accreditation Commission - Echocardiography. Prepared and Electronically Authenticated Kimberlyn Barba DO Confirmed 08/15/2025 15:22 us Kimberlyn Vargas Freda DO US ORDERABLES Final Re sult INTERFACE SYSTEM Refer to clinic/hospital department * EKG 12-LEAD (08/14/2025 4:28 PM CDT) Only the most recent of2 resultswithin the time period is included. 08/14/2025 4:28 PM CDT Narrative INTERFACE SYSTEM - 08/14/2025 5:[address] PM [address]T [address] [address] Test Date: 2025-08-14 Pat Name: NARCISO LECHUGANER Department: 12 Room: PACU PO CVOR PACU Gender: Male Floor Specialist: [id number] : 1945 Requested By: Order Number: [id number] Reading MD: Soila Cast Measurements Intervals Helen Rate: 88 P: 0 NE: 0 QRS: 40 QRSD: 108 T: 66 QT: 410 QTc: 496 Interpretive Statements Atrial fibrillation Incomplete left bundle branch block Minimal voltage criteria for LVH, may be normal variant ( Sokolow-Ramon ) Nonspecific ST abnormality QTcB >= 480 msec Abnormal ECG Electronically Signed On 08-14-2025 17:41:05 CDT by Soila Cast Procedure Note Soila Cast MD - 08/14/[address] [address] Test Date: 2025-08-14 Pat Name: NARCISO RIDER Department: 12 Room: PACU PO CVOR PACU Gender: Male Floor Specialist: [id number] : 1945 Requested By: Order Number: [id number] Reading MD: Soila Cast Measurements Intervals Helen Rate: 88 P: 0 NE: 0 QRS: 40 QRSD: 108 T: 66 QT: 410 QTc: 496 Interpretive Statements Atrial fibrillation Incomplete left bundle branch block Minimal voltage criteria for LVH, may be normal variant ( Sokolow-Ramon ) Nonspecific ST abnormality QTcB >= 480 msec Abnormal ECG Electronically Signed On 08-14-2025 17:41:05 CDT by Soila Cast Prieto Tobar II, DO ECG ORDERABLES Fi nal Result Performing Organization Address City/[facility] Co de Phone Number INTERFACE SYSTEM Refer to clinic/hospital department * LEFT ATRIAL APPENDAGE CLOSURE PERCUTANEOUS (08/14/2025 2:59 PM CDT) Narrative [facility] - 08/15/2025 2:41 PM CDT Unsuccessful Watchman deployment Procedural Indications Significant difficulty crossing intraatrial septum. When we were able to cross with the sheath. The trajectory was suitable for appendage. us Kimberlyn Barba DO CUP EP ORDERABLES Final Result Performing Organization Address [facility] de Phone Number [facility] CLIA [id number] [address] [facility] [address] [place] [phone], * (ABNORMAL) POC ACTIVATED CLOTTING TIME (08/14/2025 2:38 PM CDT) Only the most recent of3 resultswithin the time period is included. ACTIVATED CLOTTING TIME POC 343(H) 116 - 140 sec 08/14/2025 2:38 PM CDT [facility] Blood 08/14/2025 2:38 PM CDT 08/14/2025 2:48 PM CDT Kimberlyn Barba DO POINT OF CARE TESTING Fi nal Result Performing Organization Address [facility] Co de Phone Number [facility] CLIA # [id number] [address] [place] [address] * NE ANES INSERT CATH, ART, PERCUT, SHORTTERM (08/14/2025 [...] uneventful Post-procedure: line secured and dressing applied us Prieto Tobar II, DO PROCEDURE/MINOR MONTAÑO RGICAL ORDERABLES Final Result * NE ANES INSERT ENDOTRACHEAL AIRWAY (08/14/2025 1:27 PM [...] Additional Procedure Information: atraumatic and dentition unchanged us Prieto Tobar II, DO PROCEDURE/MINOR MONTAÑO RGICAL ORDERABLES Final Result * VERIFICATION BLOOD GROUP (08/14/2025 7:30 AM CDT) Pathologist [facility] ABO GROUP O 08/14/2025 8:25 AM CDT [facility] RH (D) TYPE Positive 08/14/2025 8:25 AM CDT [facility] Blood Venipuncture / Unknown 08/14/2025 7:30 AM CDT 08/14/2025 7:35 AM CDT us Kimberlyn Barba DO BLOOD BANK ORDERABLES Fi nal Result [facility] CLIA#[id number] [address] [place] [address], * (ABNORMAL) CBC WITH DIFFERENTIAL (08/14/2025 7:28 AM CDT) Pathologist [facility] WBC 5.3 4.8 - 10.8 K/uL 08/14/2025 7:40 AM CDT [facility] RBC 3.91(L) 4.60 - 6.20 M/uL 08/14/2025 7:40 AM T [facility] HEMOGLOBIN 12.0(L) 14.0 - 18.0 g/dL 08/14/2025 7:40 AM [facility] HEMATOCRIT 37.3(L) 41.0 - 53.0 % 08/14/2025 7:40 AM CDT [facility] MCV 95.4 84.0 - 103.0 fL 08/14/2025 7:40 AM CDT [facility] MCH 30.7 27.0 - 34.0 pg 08/14/2025 7:40 AM T [facility] MCHC 32.2 30.0 - 35.0 g/dL 08/14/2025 7:40 AM T [facility] PLATELETS 161 140 - 440 K/uL 08/14/2025 7:40 AM T [facility] MPV 9.9 8.9 - 12.8 fL 08/14/2025 7:40 AM [facility] RDW 18.2(H) 11.0 - 14.5 % 08/14/2025 7:40 AM [facility] RDW-STDEV 64.4(H) 37.0 - 54.0 fL 08/14/2025 7:40 AM [facility] NEUTROPHILS 71 42 - 75 % 08/14/2025 7:40 AM [facility] LYMPHOCYTES 16(L) 24 - 44 % 08/14/2025 7:40 AM [facility] MONOCYTES 7 2 - 10 % 08/14/2025 7:40 AM [facility] EOSINOPHILS 5 0 - 7 % 08/14/2025 7:40 AM [facility] BASOPHILS 1 0 - 1 % 08/14/2025 7:40 AM [facility] IMMATURE GRANULOCYTES 1 0 - 2 % 08/14/2025 7:40 AM [facility] NEUTROPHIL ABSOLUTE 3.81 2.00 - 8.00 K/uL 08/14/2025 7:40 AM [facility] LYMPHOCYTE ABSOLUTE 0.83(L) 1.20 - 4.00 K/uL 08/14/2025 7:40 AM [facility] MONOCYTE ABSOLUTE 0.39 0.10 - 0.60 K/uL 08/14/2025 7:40 AM [facility] EOSINOPHIL ABSOLUTE 0.25 0.00 - 0.70 K/uL 08/14/2025 7:40 AM [facility] BASOPHILS ABSOLUTE 0.03 0.00 - 0.20 K/uL 08/14/2025 7:40 AM [facility] IMMATURE GRANULOCYTES ABSOLUTE 0.03 0.00 - 0.10 K/uL 08/14/2025 7:40 AM [facility] SMEAR REVIEWED: NA - Not Applicable 08/14/2025 7:40 AM [facility] Blood Venipuncture / Unknown 08/14/2025 7:28 AM CDT 08/14/2025 7:35 AM CDT Kimberlyn Barba DO HEMATOLOGY ORDERABLES Fi nal Result Performing Organization Address [facility] Co de Phone Number [facility] Comic Reply [facility] CLIA # [id number] [address] [phone] * (ABNORMAL) BRAIN NATRIURETIC PEPTIDE, BNP OR PROBNP (08/14/2025 7:28 AM CDT) PROBNP, N TERMINAL 1,671(H) 0 - 450 pg/mL 08/14/2025 8:16 AM CDT [facility] Comic Reply [facility] Comment: INTERPRETIVE COMMENT based on diagnosis: Diagnostic [...] ORDERABLES Fin al Result Performing Organization Address City/[facility] Co de Phone Number [facility] Comic Reply [facility] CLIA # [id number] [address] [phone] * COMPREHENSIVE METABOLIC PANEL (08/14/2025 7:28 AM CDT) SODIUM 141 136 - 145 mmol/L 08/14/2025 8:16 AM [facility] POTASSIUM 3.8 3.5 - 5.1 mmol/L 08/14/2025 8:16 AM [facility] CHLORIDE 103 98 - 107 mmol/L 08/14/2025 8:16 AM [facility] CO2 25 22 - 29 mmol/L 08/14/2025 8:16 AM [facility] CALCIUM 9.5 8.8 - 10.2 mg/dL 08/14/2025 8:16 AM [facility] BUN 12 8 - 23 mg/dL 08/14/2025 8:16 AM [facility] CREATININE 0.71 0.67 - 1.17 mg/dL 08/14/2025 8:16 AM [facility] Comment:The GFR result is no t clinically significant on patients <18 or >70 years of age. GLUCOSE 93 74 - 99 mg/dL 08/14/2025 8:16 AM [facility] TOTAL PROTEIN 7.1 6.4 - 8.3 g/dL 08/14/2025 8:16 AM [facility] ALBUMIN 3.9 3.5 - 5.2 g/dL 08/14/2025 8:16 AM [facility] BILIRUBIN TOTAL 0.4 0.0 - 1.0 mg/dL 08/14/2025 8:16 AM [facility] ALKALINE PHOSPHATASE 98 40 - 129 U/L 08/14/2025 8:16 AM [facility] AST 17 10 - 50 U/L 08/14/2025 8:16 AM [facility] ALT 15 <=50 U/L 08/14/2025 8:16 AM [facility] GFR >60 mL/min/1.7 3 sq meter 08/14/2025 8:16 AM [facility] Comment:eGFR calculated with 2020 CKD-EPI equation. Vegetarian diet, extremely high or low muscle mass, and may affect results. Cystatin C with Glomerular Filtration Rate is a suitable alternative for these patients. ANION GAP 13 9 - 20 mmol/L 08/14/2025 8:16 AM CDT [facility] [place] Blood Venipuncture / Unknown 08/14/2025 7:28 AM CDT 08/14/2025 7:35 AM CDT Kimberlyn Barba DO CHEMISTRY ORDERABLES Fin al Result Performing Organization Address [facility] Co de Phone Number [facility] [place] CLIA # [id number] [address] [address] * TYPE AND SCREEN (08/14/2025 7:25 AM CDT) ABO GROUP O 08/14/2025 8:52 AM CDT [facility] [place] RH (D) TYPE Positive 08/14/2025 8:52 AM CDT [facility] [place] ANTIBODY SCREEN Negative 08/14/2025 8:52 AM CDT [facility] [place] Blood Venipuncture / Unknown 08/14/2025 7:25 AM CDT 08/14/2025 7:35 AM CDT Kimberlyn Barba DO BLOOD BANK ORDERABLES Ed ited Result - Final Performing Organization Address [facility] de Phone Number [facility] Comic Reply [facility] -- [id number] [address] [place] [address], * PREPARE RED BLOOD CELLS (08/14/2025 6:52 AM CDT) Only the most recent of2 resultswithin the time period is included. COMPONENT TYPE [id number] [facility] [place] COMPONENT IDENTIFICATION [id number] [facility] [place] UNIT ABO O [facility] [place] UN[facility] RH POS [facility] [place] CROSSMATCH Compatible [facility] [place] COMPONENT STATUS Returned [facility] [place] COMPONENT EXPIRATION DATE/TIME [id number] [facility] [place] COMPONENT CODING SYSTEM [address] [facility] [place] VOLUME, BLOOD PRODUCT 350 [facility] [place] 08/14/2025 6:52 AM CDT us Kimberlyn Vargas Freda DO LAB TRANSFUSION ORDERABL ES Edited Result - Final [facility] [place] CLIA#[id number] [address] [place] [address], [place] [phone] * CT CARDIAC CHEST INTERPRETATION (07/17/2025 10:05 AM CDT) Anatomical Region Laterality Modality Chest Computed Tom[facility] 07/17/2025 9:11 AM CDT Impressions 07/17/2025 11:56 [...] PM CDT CTA Heart With Cardiac Structure: [place], [place] PATIENT: Narciso Rider PATIENT NUMBER: [id number] BIRTHDATE: 1945 REFERRING PHYSICIAN: No primary care [...] MEAGAN from the contrasted images. From the 12-71-bbgqng delayed images there is uniform opacification of [...] arch is not fully included in the [id number]-sp-tqnl. 2. No congenital, structural or valvular abnormalities are identified. 3. Coronary CT angiography shows normal origins of the left coronary and RCA. Scan is not gated for detailed coronary analysis. 4. The left atrial appendage measures 3.2 x 2.9 at the orifice. No definite evidence of thrombus within the MEAGAN from the contrasted and 38-70-rgnwls delayed images. 5. Biatrial enlargement, left atrium measures 6.6 cm. us Kimberlyn Barba DO CT ORDERABLES Final Re sult * POC CREATININE (07/17/2025 8:59 AM CDT) CREATININE POC 0.80 0.60 - 1.30 mg/dL 07/17/2025 8:59 AM CDT [facility] Comic Reply [facility] Comment:The GFR result is no t clinically significant on patients <18 or >70 years of age. GFR POC >60 mL/min/1.7 3 sq meter 07/17/2025 8:59 AM CDT [facility] Comic Reply [facility] Comment:eGFR calculated with 2020 CKD-EPI equation. Vegetarian diet, extremely high or low muscle mass, and may affect results. Cystatin C with Glomerular Filtration Rate is a suitable alternative for these patients. Blood, whole 07/17/2025 8:59 AM CDT 07/17/2025 9:13 AM CDT Kimberlyn Barba DO POINT OF CARE TESTING Fi nal Result [facility] CLSHERRY # [id number] [address] [place] [address] from Last 3 Months Insurance [facility] [id number] Advance Directives For more information, please contact: [phone] * Full Code (Latest Code Status on File) Date Activated Date Inactivated Comments 08/14/2025 6:51 AM 08/15/2025 6:07 PM
--- OUTSIDE RECORDS SUMMARY | 2025-08-25 10:03 | XMS_ITS | Clinical Summary ---
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
--- OUTSIDE RECORDS SUMMARY | 2025-08-25 10:03 | XMS_ITS | Encounter Summary ---
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
--- OUTSIDE RECORDS SUMMARY | 2025-08-25 10:03 | XMS_ITS | Encounter Summary ---
Author Organization [facility] Address 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 Gender Identity Not on file Sexual Orientation Not on file documented as of this encounter Plan of Treatment Upcoming Encounters Date Type Department Care Team (Late st Contact Info) Description 09/30/2025 9:00 AM OCCUP THERAPIST Office Visit [facility] [address] [place] [phone] Kimberlyn Barba, DO [address] [place] [phone] Dolores Nicole, COMPRESSOR OPERATOR ADJUSTER [address] [place] [phone] documented as of this encounter Visit Diagnoses Not on filedocumented in this encounter
--- OUTSIDE RECORDS SUMMARY | 2025-08-25 10:03 | XMS_ITS | Encounter Summary ---
Author Organization [facility] Address [address] [place] [address] Care Team Providers Care Americanization Teacher Name Role Phone Unavailable Primary Care Provider Unavailabl e Encounter Details Date Type Department Care Team (Latest Contact Info) Description 12/08/[address] 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
--- OUTSIDE RECORDS SUMMARY | 2025-08-25 10:04 | XMS_ITS | Data Portability ---
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 will need to be r/o for ACS . it may be gi in nature. a trialof gi cocktail may be helpful bp is elevated has not had nitro since 630. [email or web address] Not available 08/25/2025 10:42:19 Plan of Treatment Reminders Order Date Submit Date Provider Last Modified By Organization Details Last Modified Time Details Appointments OFFICE VISIT LEON 2024 10:00A Nadya Rendon MD Not available Not available Not available RECHECK 15 2024 09:00A Nadya Rendon MD Not available Not available Not available Lab CMP, serum or plasma 2024 025 [facility], [address], [place], [address], 07/15/2025 12:25:47 CBC 2024 025 [facility], [address], [place], [address], 07/15/2025 11:44:27 ferritin, serum or plasma 2024 025 [employer] [facility], [address] [place] [address] [address], [place], [address], 07/16/2025 04:00:14 CMP, serum or plasma 2024 025 [facility], [address], [place], [address], 06/03/2025 10:20:30 CBC 2024 025 [facility], [address] [facility] [address], [facility] 1, [place], [address], 06/03/2025 10:02:51 ferritin, serum or plasma 2024 025 [employer] [facility], [address] [place] [address] 248, [address], [place], [address], 06/04/2025 10:42:59 Referral None recorded. Procedures None recorded. Surgeries None recorded. Imaging None recorded. Medication Orders ferrous gluconate 324 mg (38 mg iron) tablet 2024 [facility] [email or web address] [id number], [address], [facility] 2, [place], [address], 07/22/2025 12:18:19 Patient TargetsNo targets recorded. Patient InstructionsNo instructions recorded. Reason for Referral None Reported. Results Created Date Observation Date Name Description Value Unit Range Abnormal Flag Note LastModifiedBy Organization Detail LastModifiedTime 05/06/2005/06/2025 CBC WBC 4.5 x10 4.5-10 .5 Not Available [facility] [address], [place], [address], 05/06/2025 13:20:41 05/06/20 25 05/06/2025 CBC RBC 3.47 x10 4.30-5 .90 low Not Available [facility] [address] [facility] 1, [place], [address], 05/06/2025 13:20:41 05/06/20 25 05/06/2025 CBC HGB 9.0 g/dL 13.5-1 8.0 low Not Available [facility] [address] [facility] [address] [facility] 1, [place], [address], 05/06/2025 13:20:41 05/06/20 25 05/06/2025 CBC HCT 29.5 % 35.0-6 0.0 low Not Available [facility] [address] [facility] [address] [facility] 1, [place], [address], 05/06/2025 13:20:41 05/06/20 25 05/06/2025 CBC MCV 85.0 fL 80.0-9 9.9 Not Available [facility] [address] [facility] [address] [facility] 1, [place], [address], 05/06/2025 13:20:41 05/06/20 25 05/06/2025 CBC MCH 25.8 pg 27.0-3 2.0 low Not Available [facility] [address] [facility] [address] [facility] 1, [place], [address], 05/06/2025 13:20:41 05/06/20 25 05/06/2025 CBC MCHC 30.4 g/dL 32.0-3 6.0 low Not Available [facility] [address] [facility] [address] [facility] 1, [place], [address], 05/06/2025 13:20:41 05/06/20 25 05/06/2025 CBC RDW 17.6 % 11.5-1 4.5 high Not Available [facility] [address] [facility] [address] [facility] 1, [place], [address], 05/06/2025 13:20:41 05/06/20 25 05/06/2025 CBC plt 284.2 x10 150.0- 451.0 Not Available [facility] [address] [facility] [address] [facility] 1, [place], [address], 05/06/2025 13:20:41 05/06/20 25 05/06/2025 CBC lymphocytes % 15.1 % 20.0-5 0.0 low Not Available [facility] [address] [facility] 1, [place], [address], 05/06/2025 13:20:41 05/06/20 25 05/06/2025 CBC granulcytes % 73.7 % 30.0-7 0.0 high Not Available [facility] [address] [facility], [place], [address], 05/06/2025 13:20:41 05/06/20 25 05/06/2025 CBC monocytes % 7.3 % 2.0-16 .0 Not Available [facility] [address] [address], [place], [address], 05/06/2025 13:20:41 05/06/20 25 05/06/2025 CBC granulcytes# 3.3 x10 Not Marychuy ilable [facility] [address] [facility] 1, [place], [address], 05/06/2025 13:20:41 05/06/20 25 05/06/2025 CBC lymphocytes # 0.7 x10 Not Available [facility] [address] [address], [place], [address], 05/06/2025 13:20:41 05/06/20 25 05/06/2025 CBC monocytes # 0.3 x10 Not Avai lable [facility] [address] [facility], [place], [address], 05/06/2025 13:20:41 06/03/20 25 06/03/2025 CBC WBC 3.7 x10 4.5-10 .5 low Not Available [facility] [address] [facility] 1, [place], [address], 06/03/2025 10:02:50 06/03/20 25 06/03/2025 CBC RBC 3.71 x10 4.30-5 .90 low Not Available [facility] [address] [facility] [address] [facility] 1, [place], [address], 06/03/2025 10:02:50 06/03/20 25 06/03/2025 CBC HGB 9.8 g/dL 13.5-1 8.0 low Not Available [facility] [address] [facility] [address] [facility] 1, [place], [address], 06/03/2025 10:02:50 06/03/20 25 06/03/2025 CBC HCT 32.5 % 35.0-6 0.0 low Not Available [facility] [address] [facility] [address] [facility] 1, [place], [address], 06/03/2025 10:02:50 06/03/20 25 06/03/2025 CBC MCV 87.5 fL 80.0-9 9.9 Not Available [facility] [address] [facility] [address] [facility] 1, [place], [address], 06/03/2025 10:02:50 06/03/20 25 06/03/2025 CBC MCH 26.5 pg 27.0-3 2.0 low Not Available [facility] [address] [facility] [address] [facility] 1, [place], [address], 06/03/2025 10:02:50 06/03/20 25 06/03/2025 CBC MCHC 30.2 g/dL 32.0-3 6.0 low Not Available [facility] [address] [facility] 1, [place], [address], 06/03/2025 10:02:50 06/03/2006/03/2025 CBC RDW 21.1 % 11.5-1 4.5 high Not Available [facility] [address] [facility] 1, [place], [address], 06/03/2025 10:02:50 06/03/2006/03/2025 CBC plt 211.0 x10 150.0- 451.0 Not Available [facility] [address] [facility] 1, [place], [address], 06/03/2025 10:02:50 06/03/2006/03/2025 CBC lymphocytes % 18.9 % 20.0-5 0.0 low Not Available [facility] [address] [facility], [place], [address], 06/03/2025 10:02:50 06/03/20 25 06/03/2025 CBC granulcytes % 68.2 % 30.0-7 0.0 Not Available [facility] [address] [facility], [place], [address], 06/03/2025 10:02:50 06/03/20 25 06/03/2025 CBC monocytes % 7.8 % 2.0-16 .0 Not Available [facility] [address] [facility] 1, [place], [address], 06/03/2025 10:02:50 06/03/2006/03/2025 CBC granulcytes# 2.5 x10 Not Marychuy ilable [facility] [address] [facility] 1, [place], [address], 06/03/2025 10:02:50 06/03/20 25 06/03/2025 CBC lymphocytes # 0.7 x10 Not Available [facility] [address] [facility] 1, [place], [address], 06/03/2025 10:02:50 06/03/20 25 06/03/2025 CBC monocytes # 0.3 x10 Not [facility] [address] [facility], [place], [address], 06/03/2025 10:02:50 06/03/20 25 06/03/2025 CMP (MALE ) glucose 112.0 mg/dL 60.0-9 9.0 high Not Available [facility] [address] [facility], [place], [address], 06/03/2025 10:20:30 06/03/20 25 06/03/2025 CMP (MALE ) BUN (blood urea nitrogen) 10.0 mg/dL 10.0-2 6.0 Not Available [facility] [address] [address], [place], [address], 06/03/2025 10:20:30 06/03/20 25 06/03/2025 CMP (MALE ) creatinine (serum) 0.7 mg/dL 0.4-1. 5 Not Available [facility] [address] [address], [place], [address], 06/03/2025 10:20:30 06/03/20 25 06/03/2025 CMP (MALE ) BUN/creatini ne ratio 14.29 ratio Not Available [facility] [address] [address], [place], [address], 06/03/2025 10:20:30 06/03/20 25 06/03/2025 CMP (MALE ) eGFR calculated 115.0 Not Available [facility] [address] [address], [place], [address], 06/03/2025 10:20:30 06/03/20 25 06/03/2025 CMP (MALE ) total protein 7.0 g/dL 6.0-8. 5 Not Available [facility] [address] [facility] 1, [place], [address], 06/03/2025 10:20:30 06/03/20 25 06/03/2025 CMP (MALE ) total bilirubin 0.3 mg/dL 0.2-1. 3 Not Available [facility] [address] [facility] 1, [place], [address], 06/03/2025 10:20:30 06/03/20 25 06/03/2025 CMP (MALE ) albumin 4.0 g/dL 3.5-5. 5 Not Available [facility] [address] [facility] 1, [place], [address], 06/03/2025 10:20:30 06/03/20 25 06/03/2025 CMP (MALE ) globulin 3.0 calc Not Available [facility] [address] [facility] 1, [place], [address], 06/03/2025 10:20:30 06/03/20 25 06/03/2025 CMP (MALE ) AST (SGOT) 24.0 U/L 0.0-46 .0 Not Available [facility] [address] [facility], [place], [address], 06/03/2025 10:20:30 06/03/20 25 06/03/2025 CMP (MALE ) altv (SGPT) 18.0 U/L 13.0-6 9.0 normal Not Available [facility] [address] [facility] 1, [place], [address], 06/03/2025 10:20:30 06/03/20 25 06/03/2025 CMP (MALE ) A/G ratio 1.3 ratio Not Available [facility] [address] [facility] 1, [place], [address], 06/03/2025 10:20:30 06/03/2006/03/2025 CMP (MALE ) ALP phos 67.0 U/L 30.0-1 40.0 normal Not Available [facility] [address] [facility] 1, [place], [address], 06/03/2025 10:20:30 06/03/20 25 06/03/2025 CMP (MALE ) calcium 9.0 mg/dL 8.4-10 .5 Not Available [facility] [address] [facility] 1, [place], [address], 06/03/2025 10:20:30 06/03/20 25 06/03/2025 CMP (MALE ) sodium 138.0 mmol/ L 136.0- 145.0 Not Available [facility] [address] [facility] 1, [place], [address], 06/03/2025 10:20:30 06/03/20 25 06/03/2025 CMP (MALE ) potassium 4.0 mmol/ L 3.5-5. 1 Not Available [facility] [address] [facility] 1, [place], [address], 06/03/2025 10:20:30 06/03/20 25 06/03/2025 CMP (MALE ) chloride 105.0 mmol/ L 98.0-1 10.0 normal Not Available [facility] [address] [facility] 1, [place], [address], 06/03/2025 10:20:30 06/03/20 25 06/03/2025 CMP (MALE ) C02 24.0 mmol/ L 22.0-3 1.0 Not Available [facility] [address] [facility] 1, [place], [address], 06/03/2025 10:20:30 06/03/20 25 06/03/2025 CMP (MALE ) anion gap 9.0 calc Not Available [facility] [address] [facility] [address] [facility] 1, [place], [address], 06/03/2025 10:20:30 06/03/20 25 06/03/2025 CMP (MALE ) osmolality 284.9 calc Not Available [facility] [address] [facility] [address] [facility] 1, [place], [address], 06/03/2025 10:20:30 06/03/20 25 06/04/2025 ADI TIN ferritin 16 NG/mL 24-380 low Not Available [facility] [address] , [place], [address], 06/04/2025 10:42:59 07/15/20 25 07/15/2025 CBC WBC 4.3 x10 4.5-10 .5 low Not Available [facility] [address] [facility] [address] [facility] 1, [place], [address], 07/15/2025 11:44:27 07/15/20 25 07/15/2025 CBC RBC 3.93 x10 4.30-5 .90 low Not Available [facility] [address] [facility] Str[facility] [facility] 1, [place], [address], 07/15/2025 11:44:27 07/15/20 25 07/15/2025 CBC HGB 11.5 g/dL 13.5-1 8.0 low Not Available [facility] [address] [facility] [address] [facility] 1, [place], [address], 07/15/2025 11:44:27 07/15/20 25 07/15/2025 CBC HCT 37.8 % 35.0-6 0.0 Not Available [facility] [address] [facility] [address] [facility] 1, [place], [address], 07/15/2025 11:44:27 07/15/20 25 07/15/2025 CBC MCV 96.1 fL 80.0-9 9.9 Not Available [facility] [address] [facility] 1, [place], [address], 07/15/2025 11:44:27 07/15/20 25 07/15/2025 CBC MCH 29.2 pg 27.0-3 2.0 Not Available [facility] [address] [facility] [address] [facility] 1, [place], [address], 07/15/2025 11:44:27 07/15/20 25 07/15/2025 CBC MCHC 30.4 g/dL 32.0-3 6.0 low Not Available [facility] [address] [facility] 1, [place], [address], 07/15/2025 11:44:27 07/15/20 25 07/15/2025 CBC RDW 22.3 % 11.5-1 4.5 panic high Not Available [facility] [address] [facility] [address] 1, [place], [address], 07/15/2025 11:44:27 07/15/20 25 07/15/2025 CBC plt 169.7 x10 150.0- 451.0 Not Available [facility] [address] [facility] [address] [facility] 1, [place], [address], 07/15/2025 11:44:27 07/15/20 25 07/15/2025 CBC lymphocytes % 16.0 % 20.0-5 0.0 low Not Available [facility] [address] [facility] [address] [facility] 1, [place], [address], 07/15/2025 11:44:27 07/15/20 25 07/15/2025 CBC granulcytes % 69.8 % 30.0-7 0.0 Not Available [facility] [address], [place], [address], 07/15/2025 11:44:27 07/15/2007/15/2025 CBC monocytes % 8.7 % 2.0-16 .0 Not Available [facility] [address] [facility] [address] [address], [place], [address], 07/15/2025 11:44:27 07/15/20 25 07/15/2025 CBC granulcytes# 3.0 x10 Not Marychuy ilable [facility] [address] [address], [place], [address], 07/15/2025 11:44:27 07/15/20 25 07/15/2025 CBC lymphocytes # 0.7 x10 Not Available [facility] [address] [address], [place], [address], 07/15/2025 11:44:27 07/15/2007/15/2025 CBC monocytes # 0.4 x10 Not Avai lable [facility] [address] [address], [place], [address], 07/15/2025 11:44:27 07/15/20 25 07/15/2025 CMP (MALE ) glucose 93.0 mg/dL 60.0-9 9.0 Not Available [facility] [address] [address], [place], [address], 07/15/2025 12:25:47 07/15/20 25 07/15/2025 CMP (MALE ) BUN (blood urea nitrogen) 14.0 mg/dL 10.0-2 6.0 Not Available [facility] [address] [facility] [address] [address], [place], [address], 07/15/2025 12:25:47 07/15/20 25 07/15/2025 CMP (MALE ) creatinine (serum) 0.8 mg/dL 0.4-1. 5 Not Available [facility] [address] [facility] 1, [place], [address], 07/15/2025 12:25:47 07/15/20 25 07/15/2025 CMP (MALE ) BUN/creatini ne ratio 17.50 ratio Not Available [facility] [address] [facility], [place], [address], 07/15/2025 12:25:47 07/15/20 25 07/15/2025 CMP (MALE ) eGFR calculated 98.6 Not Available [facility] [address] [facility], [place], [address], 07/15/2025 12:25:47 07/15/20 25 07/15/2025 CMP (MALE ) total protein 6.9 g/dL 6.0-8. 5 Not Available [facility] [address] [facility] 1, [place], [address], 07/15/2025 12:25:47 07/15/20 25 07/15/2025 CMP (MALE ) total bilirubin 0.5 mg/dL 0.2-1. 3 Not Available [facility] [address] [facility], [place], [address], 07/15/2025 12:25:47 07/15/20 25 07/15/2025 CMP (MALE ) albumin 4.1 g/dL 3.5-5. 5 Not Available [facility] [address] [facility] 1, [place], [address], 07/15/2025 12:25:47 07/15/20 25 07/15/2025 CMP (MALE ) globulin 2.8 calc Not Available [facility] [address] [facility], [place], [address], 07/15/2025 12:25:47 07/15/20 25 07/15/2025 CMP (MALE ) AST (SGOT) 21.0 U/L 0.0-46 .0 Not Available [facility] [address] [facility], [place], [address], 07/15/2025 12:25:47 07/15/2007/15/2025 CMP (MALE ) altv (SGPT) 14.0 U/L 13.0-6 9.0 normal Not Available [facility] [address] [facility], [place], [address], 07/15/2025 12:25:47 07/15/2007/15/2025 CMP (MALE ) A/G ratio 1.5 ratio Not Available [facility] [address] [facility] [address], [place], [address], 07/15/2025 12:25:47 07/15/2007/15/2025 CMP (MALE ) ALP phos 74.0 U/L 30.0-1 40.0 normal Not Available [facility] [address] [facility] [address], [place], [address], 07/15/2025 12:25:47 07/15/2007/15/2025 CMP (MALE ) calcium 9.2 mg/dL 8.4-10 .5 Not Available [facility] [address] [facility] 1, [place], [address], 07/15/2025 12:25:47 07/15/2007/15/2025 CMP (MALE ) sodium 139.0 mmol/ L 136.0- 145.0 Not Available [facility] [address] [facility] 1, [place], [address], 07/15/2025 12:25:47 07/15/20 25 07/15/2025 CMP (MALE ) potassium 4.2 mmol/ L 3.5-5. 1 Not Available [facility] [address] [facility] 1, [place], [address], 07/15/2025 12:25:47 07/15/20 25 07/15/2025 CMP (MALE ) chloride 104.0 mmol/ L 98.0-1 10.0 normal Not Available [facility] [address] [facility] 1, [place], [address], 07/15/2025 12:25:47 07/15/2007/15/2025 CMP (MALE ) C02 28.0 mmol/ L 22.0-3 1.0 Not Available [facility] [address] [facility] [address], [place], [address], 07/15/2025 12:25:47 07/15/20 25 07/15/2025 CMP (MALE ) anion gap 7.0 calc Not Available [facility] [address] [facility] 1, [place], [address], 07/15/2025 12:25:47 07/15/2007/15/2025 CMP (MALE ) osmolality 287.3 calc Not Available [facility] [address] [facility] [address], [place], [address], 07/15/2025 12:25:47 07/15/2007/16/2025 ADI TIN ferritin 20 NG/mL 24-380 low Not Available [facility] [id number] [place], [address], 07/16/2025 04:00:13 Result Notes None recorded. Problems Name Problem SNOMED Code Status Onset Date Resolution Date Notes Provider Name and Address Organization Details Recorded Time Hyperlip idemia NOS Completed 202006/24/2021 Hyperlip idemia - Status is Resolved ; Resolved Date: 06/24/20; Recorded 06/24/20 10:01AM by Fay Rendon PA-C, Annotati on/Adden dum; Promoted ; acuity set as *; Not Available [facility] 3 03:07:53 Ulcer of lower extremit y [id number] Completed 202006/24/2021 LOWER EXTREMIT Y ULCERATI ON - Status is Inactive ; Recorded 06/24/20 10:06AM by Fay Rendon PA-C, Annotati on/Adden dum; Promoted ; acuity set as *; Not Available [facility] 3 03:07:53 Acute bronchit is [id number] Completed 202006/24/2021 ACUTE BRONCHIT IS - Status is Inactive ; Recorded 06/24/20 9:59AM by Fay Rendon PA-C, Annotati on/Adden dum; Promoted ; acuity set as *; Not Available [facility] 3 03:07:54 Mixed hyperlip idemia 125023384 Active 2022 MIXED HYPERLIP IDEMIA; Recorded 12/05/19 23 2:10PM by Hermila Gimenez RN, Office Visit; Promoted ; acuity set as *; FAY RENDON PA-C [address] [place] [address], [id number] , [facility] 3 12:47:23 Coronary atherosc lerosis 852540597 Active 2022 CORONARY ATHEROSC LEROSIS; Recorded 12/05/19 23 2:10PM by Hermila Gimenez RN, Office Visit; Promoted ; acuity set as *; FAY RENDON PA-C [address] [place], [address] , [facility] 3 12:47:23 Chronic obstruct clifton pulmonar y disease 22587912 Active 2022 FAY RENDON PA-C [address] [place], [address] , [facility] 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 gl 5 + 5=10) KAMERON vizcaino, [facility], [facility] 5 14:26:46 [facility]ia l hyperten alcides 50434575 Active 2022 FAY RENDON PA-C [address] [place], [address] , [facility], [facility] 3 12:47:23 Acquired coagulat ion disorder 734808339 Active 2022 FAY RENDON PA-C [address] [place], [address] , [facility], [facility] 3 12:46:23 Chronic atrial fibrilla tion 779252159 Active 2022 FAY RENDON PA-C [address] [place] [address], [address] , [facility] 3 12:46:33 Venous stasis edema of caseya l lower limbs [id number] 960375 Active 2023 KAMERON vizcaino, [facility], L.L[facility]ie[facility] 5 12:24:06 History of adenomat ous polyp of colon 226662116 Active 2024 KAMERON vizcaino [facility], L.L[facility] 5 12:23:58 Fracture of phalanx of left foot Active 2024 KAMERON vizcaino [facility], LPaulieLPaulieCPaulie 5 12:23:51 Iron deficien cy anemia 09969009 Active 2024 KAMERON vizcaino [facility], L.L.CPaulie 5 12:23:40 Upper gastroin testinal bleeding 92993473 Active 2024 [facility] 5 16:15:45 Stented coronary artery 707050447 [facility] 2024 [facility] 5 16:15:35 History of cerebrov ascular accident 495427298 Active 2024 Skye Elisabeth [facility], Brenda 5 16:15:28 History of myocardi al infarcti on [id number] Active 2024 Skye Elisabeth [facility], Brenda 5 16:15:31 Problem Notes None recorded. Procedures Surgical History Date Name Laterality Status Provider Name and Address Organization Details Recorded Time 2024 es[facility]roduodenoscopy [facility] 11:26:16 2024 colonoscopy [facility] 5 11:26:57 2018 colonoscopy completed KAMERON AUGAYO [facility], LovelyLRichard 5 08:22:43 placement of stent i n cardiac conduit completed FAY RENDON PA-C [address] [place], [place] [address], [phone], [facility] 12:51:52 Imaging Results None recorded. Procedure Notes None recorded. Medical Equipment None Reported. Allergies Allergen ID Allergen Name Allergen Category Reaction Reaction Severity Criticality Documentation Date Start Date Code Code System Note Provider Name and Address Organization Details Recorded Time 70880 adhesive environme nt,medica tion rash Not available Not available 07/22/2025 [facility] 5 11:37:31 Medications Name Sig Start Date Stop Date Status Note LastModified by Organization Details LastModified Time bicalutam alex 50 mg tablet TAKE 1 TABLET BY MOUTH EVERY DAY 11/27 completed Not Available Not Available Not Available clonidine HCl 0.1 mg tablet PLEASE SEE ATTACHED FOR DETAILED DIRECTIO NS active Not Available Not Available No t Available doxycycli ne hyclate 100 mg capsule [...] 1 TABLET BY MOUTH EVERYDAY AT BEDTIME active Not Available Not Available No t Available Mucinex 600 mg tablet, extended release TAKE [...] Not Available Lopressor BID 08/01 completed CS/smf; 21964; Recorded 12/21/19 23 3:09PM by Hermila Gimenez RN (Authori fritz through Narciso Botello DO), Annotati on/Adden dum; Refill Quantity : 60; Tablet; Not Available Not Available Not Available Nitrostat as needed 08/01 completed 6; Recorded 07/25/20 17 9:40AM by Aura Persaud LPN (Authori fritz through Rahul Sims MD), Annotati on/Adden dum; [...] Updated DateTime 5 177.8 cm 29 kg/m2 42354.6 6 g 97.4 [degF] 62 /min 97 % 97 % 140/80 mm[Hg] [facility] 5 10:45:28 Date Recorded Body height Body mass index (BMI) Body weight Body temperature Heart rate Oxygen saturation Oxygen saturation in Arterial blood by Pulse oximetry Systolic And Diastolic Provider Name and Address Organization Details Last Updated DateTime 5 177.8 cm 28.7 kg/m2 44296.4 7 g 97.4 [degF] 75 /min 98 % 98 % 130/80 mm[Hg] [facility] 5 11:38:31 Date Recorded Body height Body mass index (BMI) Body weight Body temperature Heart rate Oxygen saturation Oxygen saturation in Arterial blood by Pulse oximetry Systolic And Diastolic Provider Name and Address Organization Details Last Updated DateTime 177.8 cm 29 kg/m2 77190.6 6 g 97.1 [degF] 65 /min 99 % 99 % 168/98 mm[Hg] Skye Barber [facility] 10:34:47 Social History Question Answer Notes LastModified by Nextnav Details LastModified Time Tobacco Smoking Status Former Smoker NELLY GIMENEZ carrillo [facility] 05/22/2023 11:43:59 Are You Blind Or Do You Have Difficulty Seeing? No [email or web address] Information not available 02/13/2023 When Did You Quit Smoking? 15+yearssin eliazar rivera Quit Smoking Approx 1994 [email or web address] Information not available 04/22/2025 What Was The Date Of Your Most Recent Tobacco Screening? 04/18/2025 [email or web address] Information not available 04/18/2025 Do You Have Difficulty Walking Or Climbing Stairs? No [email or web address] Information not available 02/13/2023 Sex: Unknown Functional Status Question Answer Note LastModified by Nextnav Details LastModified Time Do you use any illicit or recreational drugs? No [email or web address] Information not available 11/27/2024 Do you or have you ever used any other forms of tobacco or nicotine? No [email or web address] Information not available 11/27/2024 What is your level of alcohol consumption? None [email or web address] Information not available 11/27/2024 Are you able to walk independently without assistance or assistive devices? YESWOREST [email or web address] Information not available 02/13/2023 Do you have difficulty doing errands alone? No Information not available 02/13/2023 Are you able to care for yourself independently? Yes [email or web address] Information not available 02/13/2023 Do you have difficulty dressing, bathing, grooming, or toileting? No [email or web address] Information not available 02/13/2023 Do you or have you ever used any nicotine-free cigarettes, vape, or chewing tobacco? No [email or web address] Information not available 11/27/2024 Mental Status Question Answer Note LastModified by Organization D etails LastModified Time Do you have difficulty concentrating, remembering or making decisions? No [email or web address] Information no t available 02/13/2023 Family History Relationship Description Onset Age of this Age Resolved Age Notes LastModified by Organization Details LastModified Time Brother Hypertensive disorder lo Not available 11/27 08:21:26 Medical History No medical history recorded. Immunizations Vaccine Type Date Status Note Provider Nam e and Address Organization Details Recorded Time COVID-19, mRNA, LNP-S, PF, 100 mcg/0.5mL dose or 50 mcg/0.25mL dose 1 completed FAY RENDON PA-C [address] [place] [address], [phone], [facility] 08/01/2023 12:35:54 COVID-19, mRNA, LNP-S, PF, 100 mcg/0.5mL dose or 50 mcg/0.25mL dose 1 completed FAY RENDON PA-C [address] [place] [address], [phone], [facility] 08/01/2023 12:35:54 COVID-19, mRNA, LNP-S, PF, 50 mcg/0.5 mL 4 completed KAMERON vizcaino [facility] 11/27/2024 10:38:02 Influenza, high-dose, trivalent, PF 4 completed KAMERON vizcaino [facility] 11/27/2024 10:38:02 Pneumococcal conjugate PCV20, polysaccharide JMG453 conjugate, adjuvant, PF 3 completed JORY vizcaino [facility] 08/01/2023 13:51:29 Influenza, adjuvanted, quadrivalent, PF 3 completed JORY vizcaino [facility] 08/01/2023 13:53:00 Td (adult), 2 Lf tetanus toxoid, preservative free, adsorbed 5 completed Not Available [facility] 11/22/2023 11:50:45 DTaP, unspecified formulation 6 completed Not Available [facility] 11/22/2023 11:50:45 Past Encounters Encounter ID Performer Location Encounter Start Date Encounter Closed Date Diagnosis/Indication Diagnosis SNOMED-CT Code Diagnosis ICD10 Code Diagnosis IMO Codes Diagnosis Note [id number] Narciso Botello DO [facility] ([facility]) [address] [place] [address] [phone] 5 02/13/2023 12:12:24 02/13/2023 19:07:22 Chronic atrial fibrillation 682553589 I48.20 Chronic ob structive pulmonary disease 02250465 J44.9 [id number] Narciso Botello DO [facility]) [address] [place] [address] [id number] 5 02/27/2023 13:06:33 03/06/2023 12:05:41 Persistent atrial fibrillation 641780320 I48.19 pharmacy didn't receive diltiazem and instead refilled digoxin that we stopped; called them and now it is straight Chronic ob structive pulmonary disease 94749439 J44.9 [id number] Narciso Botello DO [facility]) [address] [place] [address] [phone] 5 03/13/2023 11:51:52 03/13/2023 12:27:49 Atrial fibrillation 25728565 I48.91 started on diltiazem and hr much better; feels better [id number] Narciso Botello [facility] ([facility]) [address] [place] [address] [phone] 5 05/22/2023 11:36:03 05/22/2023 13:53:50 Chronic obstructive pulmonary disease 38790525 J44.9 Malignant neoplasm of prostate 371877839 C[address] Marcano Anemia 827890969 D64.[address] 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, but he will today [id number] Narciso Botello DO [facility] ([facility]) [address] [place] [address] [phone] 5 07/12/2023 08:46:29 07/12/2023 13:06:15 Chronic obstructive pulmonary disease 11833781 J44.9 [id number] AFY RENDON PA-C [facility] ([facility]) [address] [place] [address] [phone] 5 08/01/2023 11:27:11 08/01/2023 15:53:07 Adult health examination 216437023 Z00.00 Administra tion of pneumococcal vaccine 71303979 Z23 Administra tion of influenza vaccine 68251132 Z23 Chronic sy stolic heart failure 670145119 I50.9 Acquired c oagulation disorder 201978356 D68.8 Chronic at rial fibrillation 331249995 I48.20 we discussed switching off coumdain for Eliquis. he will think about it and discuss wiht DR. Botello at next appt. Chronic ob structive pulmonary disease 71585213 J44.9 Malignant neoplasm of prostate 796837103 C61 [id number] Narciso Botello DO [facility] ([facility]) [address] [place] [address] [phone] 5 09/20/2023 12:35:33 09/20/2023 13:04:45 Acquired coagulation disorder 895367350 D68.8 [id number] Narciso Botello DO [facility] ([facility]) [address] [place] [address] [id number] 5 11/22/2023 11:50:04 11/22/2023 13:47:50 Chronic obstructive pulmonary disease 81925541 J44.9 Mixed hyperlipidemia 267 019356 E78.2 Iron defic iency anemia 41530062 D50.9 Chronic at rial fibrillation 642274340 I48.20 [id number] Narciso Botello DO [facility] ([facility]) [address] [place] [address] [phone] 5 01/09/2024 11:22:42 01/15/2024 13:47:30 Acquired coagulation disorder 375184210 D68.8 [id number] Narciso Botello DO [facility] ([facility]) [address] [place] [address] [id number] 5 01/15/2024 12:13:38 01/18/2024 06:37:00 Acquired coagulation disorder 213060225 D68.8 [id number] DARRYL MORIN [facility] ([facility]) [address] [place] [address] [id number] 5 02/05/2024 13:19:52 02/05/2024 15:11:48 Cellulitis of right lower limb 7381329369 7700693 L03.[address] Botello, patients PCP. US results were viewed and reviewed with patient. No evidence of DVT. Will treat the cellulitis and have patient follow up with PCP in 2 weeks. Discussed with patient that if pain worsens or any severe SOB or chest pain occurs, need to go to ED. Patient verbalizes understand ing. [id number] Narciso Botello DO [facility] ([facility]) [address] [place] [address] [phone] 5 02/19/2024 11:55:47 02/19/2024 13:07:04 Chronic obstructive pulmonary disease 26832999 J44.9 Venous sta sis edema of bilateral lower limbs 9314432055 7389922 I87.2 Chronic at rial fibrillation 349141140 I48.20 [id number] Narciso Botello DO [facility] ([facility]) [address] [place] [address] [id number] 5 03/20/2024 11:45:11 03/22/2024 10:14:30 Chronic atrial fibrillation 437198349 I48.20 [id number] Narciso Botello DO [facility]) [address] [place] [address] [id number] 5 04/22/2024 12:38:11 04/24/2024 14:22:53 Chronic atrial fibrillation 537195786 I48.20 [id number] Narciso Botello DO [facility] ([facility]) [address] [place] [address] [id number] 5 05/27/2024 11:33:56 05/27/2024 12:01:03 Chronic obstructive pulmonary disease 48908541 J44.9 Chronic at rial fibrillation 877543560 I48.20 [id number] Narciso Botello DO [facility] ([facility]) [address] [place] [address] [id number] 5 07/24/2024 16:15:52 07/26/2024 08:42:20 Chronic atrial fibrillation 790391668 I48.20 [id number] Narciso Botello DO [facility] ([facility]) [address] [place] [address] [id number] 5 08/22/2024 11:55:44 08/26/2024 15:50:30 Chronic atrial fibrillation 638585650 I48.20 [id number] Narciso Botello DO [facility]) [address] [place] [address] [id number] 5 10/01/2024 11:33:26 10/02/2024 12:43:38 Chronic atrial fibrillation 580787727 I48.20 [id number] José Antonio Rendon MD [facility] ([facility]) [address] [place] [address] [id number] 5 11/06/2024 14:42:35 11/09/2024 21:55:20 Acquired coagulation disorder 365589267 D68.8 [id number] José Antonio Rendon MD [facility] ([facility]) [address] [place] [address] [phone] 5 11/27/2024 10:32:19 11/27/2024 16:53:04 Chronic atrial fibrillation 740544924 I48.20 Chronic ob structive pulmonary disease 39367920 J44.9 Essential hypertension 45402568 I10 Malignant neoplasm of prostate 972371392 C61 Mixed hyperlipidemia 267 579888 E78.2 Anemia 110283857 D64.9 Chronic constipation 236 773037 K59.09 Painful re ctal bleeding 754215463 K62.5 History of adenomatous polyp of colon 917317775 Z86.0100 Lumbago with sciatica 20 1225701 M54.40 [id number] José Antonio Rendon MD [facility] ([facility]) [address] [place] [address] [id number] 5 12/11/2024 10:33:47 12/11/2024 15:57:34 Chronic obstructive pulmonary disease 43788473 J44.9 Atrial fibrillation 4943 6004 I48.91 [id number] José Antonio Rendon MD [facility] ([facility]) [address] [place] [address] [phone] 5 12/23/2024 13:12:25 12/24/2024 10:36:31 Acquired coagulation disorder 541156336 D68.8 [id number] José Antonio Rendon MD [facility] ([facility]) [address] [place] [address] [phone] 5 01/20/2025 12:49:11 01/21/2025 11:18:42 Acquired coagulation disorder 053529245 D68.8 [id number] José Antonio Rendon MD [facility] ([facility]) [address] [place] [address] [id number] 5 02/24/2025 13:22:32 02/25/2025 10:04:37 Chronic atrial fibrillation 624444767 I48.20 [id number] José Antonio Rendon MD [facility] ([facility]) [address] [place] [address] [id number] 5 03/12/2025 12:35:05 03/13/2025 14:29:19 Chronic atrial fibrillation 519043648 I48.20 [id number] José Antonio Rendon MD [facility] ([facility]) [address] [place] [address] [id number] 5 03/20/2025 10:26:36 03/20/2025 12:52:07 Acquired coagulation disorder 474889624 D68.8 Pain of hip region 67849 002 M25.551 [id number] 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 [id number] José Antonio Rendon MD [facility] ([facility]) [address] [place] [address] [id number] 5 04/15/2025 10:55:40 04/16/2025 09:53:03 Atrial fibrillation 53515387 I48.91 Tinea pedis 7078926 B35. 3 499592 Pain of to e of left foot 1949213002 33321 M79.675 042370 [id number] José Antonio Rendon MD [facility] ([facility]) [address] [place] [address] [id number] 5 04/16/2025 13:51:20 04/17/2025 15:09:19 Anemia 743081880 D64.9 [id number] José Antonio Rendon MD [facility] ([facility]) [address] [place] [address] [phone] 5 04/17/2025 12:53:19 04/18/2025 11:37:19 Acquired coagulation disorder 322922840 D68.8 [id number] José Antonio Rendon MD [facility]) [address] [place] [address] [id number] 5 04/18/2025 12:21:50 04/21/2025 10:53:48 Upper gastrointestinal bleeding 95147553 K92.2 [id number] to er if angina, dyspnea, near syncope, significan t fatigue etc [id number] José Antonio Rendon MD [facility] ([facility]) [address] [place] [address] [id number] 5 04/22/2025 11:33:20 04/23/2025 11:03:12 Iron deficiency anemia 88454222 D50.9 [id number] Linus Murray DO [facility]) [address] [place] [address] 06300-046 5 04/22/2025 11:37:54 04/23/2025 13:21:26 Upper gastrointestinal bleeding 21283333 K92.2 790002 I have reviewed and discussed EGD. Discussed risks vs benefits including risk of infection and bleeding, perforatio n, possible need for surgery, reaction to medication s, and sever injury or . We discussed pt requiring sedation and possible general anesthesia . Pt agrees to proceed with EGD at [facility]. Preliminar y procedure date will be 04/24/25. I have reviewed and discussed colon cancer screening options, including colonoscop y. Discussed risks vs benefits including risk of infection and bleeding, perforatio n, possible need for surgery, reaction to medication s, and sever injury or . We discussed pt requiring sedation and possible general anesthesia . Pt agrees to proceed with Colonoscop y at [facility]. Preliminar y procedure date will be 04/24/25. Acquired c oagulation disorder 190194032 D68.8 04/22/25: Stopped Warfarin 1 week ago, will check INR level today prior to proceeding with Colonoscop y. Chronic ob structive pulmonary disease 71114339 J44.9 stable. 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 Repeat lab today. Malignant neoplasm of prostate 644459416 C61 Following with Oncology every 3 months, seen in April, scheduled to see again in Jul. [id number] José Antonio Rendon MD [facility] ([facility]) [address] [place] [address] [phone] 5 05/12/2025 09:50:42 05/13/2025 17:05:29 Stented coronary artery 683025564 Z95.5 [id number] he was re-stented in 2000 he says. his original stent was 1992. he has a hx of mi History of cerebrovascular accident 492846378 Z86.73 784450 it affected my eyes in 0071-1975 History of myocardial infarction 939583129 I25.2 [id number] Chronic at rial fibrillation 507290842 I48.20 Acute gastrointestinal hemorrhage 78746552 K92.2 820131 [id number] José Antonio Rendon MD [facility] ([facility]) [address] [place] [address] [id number] 5 06/03/2025 09:30:05 06/04/2025 11:05:39 Iron deficiency anemia 21189520 D50.9 [id number] Essential hypertension 39554749 I10 [id number] José Antonio Rendon MD [facility] ([facility]) [address] [place] [address] [id number] 5 06/10/2025 10:28:17 06/10/2025 11:26:19 Chronic atrial fibrillation 109961515 I48.20 Coronary atherosclerosis 882752811 I25.10 History of cerebrovascular accident 092452276 Z86.73 053295 it affected my eyes in 2307-4526 Iron defic iency anemia 43877326 D50.9 94755903 hgb is improved 0.8 grams with 6 weeks of oral iron therapy but ferritin remains low at 16. he will continue assess for rebleeding and consider iron infusion. he prefers oral iron at this time. he has had a watchman evaluation . Stented co ronary artery 894528747 Z95.5 [id number] he was re-stented in 2000 he says. his original stent was 1992. he has a hx of mi Upper gastrointestinal bleeding 73975319 K92.2 762621 to er if angina, dyspnea, near syncope, significan t fatigue etc Chronic ob structive pulmonary disease 71908689 J44.9 604847716 [id number] José Antonio Rendon MD [facility] ([facility]) [address] [place] [address] [id number] 5 07/15/2025 10:51:26 07/16/2025 12:54:47 Essential hypertension 87706748 I10 Iron defic iency anemia 91040438 D50.9 86515710 hgb is improved 0.8 grams with 6 weeks of oral iron therapy but ferritin remains low at 16. he will continue assess for rebleeding and consider iron infusion. he prefers oral iron at this time. he has had a watchman evaluation . [id number] José Antonio Rendon MD [facility] ([facility]) [address] [place] [address] [id number] 5 07/22/2025 11:12:10 07/24/2025 14:34:01 Benign adenomatous polyp of stomach 3493759390 D13.1 74022 discussed risks of this with Chronic gastritis 290316 9 K29.51 75616717 no current signs of hemorrhage Acute gastrointestinal hemorrhage 42563082 K92.2 [id number] José Antonio Rendon MD [facility] ([facility]) [address] [place] [address] 5 08/25/2025 10:22:54 08/25/2025 10:42:38 Upper gastrointestinal bleeding 63751945 K92.2 849819 no obvious signs of upper gi bleeding today. Epigastric pain 22510124 R10.13 67990 see previous egd report polyp noted. h. pylori negative. Longstandi ng persistent atrial fibrillation 677797297 I48.11 86153683 anticoagul ation held due to bleeding. watchman has been in the works for some time. Stented co ronary artery 606836060 Z95.5 [id number] he was re-stented in 2000 he says. his original stent was 1992. he has a hx of mi Chronic lo wer gastrointestinal hemorrhage 87588893 K92.2 7669 brbpr 6 days ago one episode after the watchman trial. Health Concerns Section Related Observation LastModified by Organization Detai ls LastModified Time None Recorded Concern Status LastModified by Organization Details LastModified Time None Recorded Advance Directives Directive None Recorded Payers Insurance Date Sequence Insurance Name Policy Number Policy Garcia Covered Member ID Garcia Member ID Guarantor Name 07/15/2025 1 [employer] (MEDICARE REPLACEMENT/A DVANTAGE - PPO) Narciso Rider [id number] Narciso Rider 08/22/2025 1 [facility] (MEDICARE REPLACEMENT/A DVANTAGE - PPO) [id number] Narciso Rider [id number] Narciso Rider 07/15/2025 1 [facility] [id number] Narciso Rider [id number] Narciso Rider 07/15/2025 1 [facility] (MEDICARE REPLACEMENT/A DVANTAGE - PPO) [id number] Narciso Rider [id number] Narciso Rider Notes Date Note Type Note Provider Name and Address Organization Details Recorded Time 025 text/ht ml Hypertension IM/FMReported by PatientHPIFor [...] pain with eating. José Antonio Rendon MD [address] [place] [address], [phone], [facility] 06/10/2025 11:18:14 025 text/ht ml Hypertension IM/FMReported [...] cancer on it. José Antonio Rendon MD [address] [place] [address], [phone], [facility], [facility] 07/22/2025 12:20:57 025 text/ht ml Emergency Department Follow-Up RecordReported by PatientPt has been taking his blood pressure at home. He was going to have a watchman put in, but ended up staying overnight due to high blood pressure. His daughter states the watchman wouldn't hold. Home BP readings: 150/91, 162/97, 120/70, 121/75, 137/78, 131/79, 123/80, 50378, 148/85,144/90. Pt was seen on 08/23 in the ER for chest pain/epigastric pain. He is currently having left sided chest pain radiating to his mid upper back. He does also have some stomach pain. He has a new medication to take if his BP gets above 185 systolic or 100 diastolic. left sided chest pain going through to his back around 6 a.m. while he was in bed. maybe it started sooner in the night he is not sure. it has not relented. radiates to the back. José Antonio Rendon MD [address] [place] [address], [id number], [facility] 08/25/2025 10:42:37
--- OUTSIDE RECORDS SUMMARY | 2025-08-25 10:04 | XMS_ITS | Continuity of Care Document ---
Author Organization [facility] Alexandru Mays, Brenda, [facility] ([facility]) Address [address] [place] [address] Care Team Providers Care Deodorizer Operator Name Role Phone JOSÉ ANTONIO QUINTERO Primary Care Provider [phone] Assessment Encounter Date Assessment Date Assessment LastModified by Organization Details LastModified Time 08/25/2025 08/25/2025 i recommended he go directly to the er to re-evaluate his current chest discomfort. will need to be r/o for ACS . it may be gi in nature. a trialof gi cocktail may be helpful bp is elevated has not had nitro since 630. Not available 08/25/2025 10:42:19 Plan of Treatment Reminders Order Date Submit Date Provider Last Modified By Organization Details Last Modified Time Details Appointments OFFICE VISIT LEON 2024 10:00A M José Antonio Quintero MD Not available Not available Not available RECHECK 15 2024 09:00A M José Antonio Quintero MD Not available Not available Not available Lab None recorded . Referral None recorded . Procedures None recorded . Surgeries None recorded . Imaging None recorded . Medication Orders None recorded . Patient TargetsNo targets recorded. Patient InstructionsNo instructions recorded. Reason for Referral None Reported. Problems Name Problem SNOMED Code Status Onset Date Resolution Date Notes Provider Name and Address Organization Details Recorded Time Hyperlip idemia NOS Completed 202006/24/2021 Hyperlip idemia - Status is Resolved ; Resolved Date: 06/24/20; Recorded 06/24/20 10:01AM by Fay Quintero PA-C, Annotati on/Adden dum; Promoted ; acuity set as *; Not Available [facility] 3 03:07:53 Ulcer of lower extremit y 18927484 Completed 202006/24/2021 LOWER EXTREMIT Y ULCERATI ON - Status is Inactive ; Recorded 06/24/20 10:06AM by Fay Quintero PA-C, Annotati on/Adden dum; Promoted ; acuity set as *; Not Available [facility] 3 03:07:53 Acute bronchit is 96176034 Completed 202006/24/2021 ACUTE BRONCHIT IS - Status is Inactive ; Recorded 06/24/20 9:59AM by Fay Quintero PA-C, Annotati on/Adden dum; Promoted ; acuity set as *; Not Available [facility] 3 03:07:54 Mixed hyperlip idemia 098302900 Active 2022 MIXED HYPERLIP IDEMIA; Recorded 12/05/19 2:10PM by Hermila Gimenez, RN, Office Visit; Promoted ; acuity set as *; FAY QUINTERO PA-C [address] [place], [address] , [facility] 3 12:47:23 Coronary atherosc lerosis 706818013 Active 2022 CORONARY ATHEROSC LEROSIS; Recorded 12/05/19 2:10PM by Hermila Gimenez, RN, Office Visit; Promoted ; acuity set as *; FAY QUINTERO PA-C [address] [place], [address] , [facility] 3 12:47:23 Chronic obstruct clifton pulmonar y disease 13402989 Active 2022 FAY QUINTERO PA-C [address] [place], [address] , [facility] 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 Active 2022 Stage IIIC (cT2c cN0 cM0 gl 5 + 5=10) KAMERON vizcaino, [facility] 5 14:26:46 [facility] hyperten alcides 47454279 Active 2022 FAY QUINTERO PA-C [address] [place] [address], [address] , [facility], LDianneCPaulie 3 12:47:23 Acquired coagulat ion disorder 509866337 Active 2022 FAY QUINTERO PA-C [address] [place] [address], [address] , [facility], IsaacCPaulie 3 12:46:23 Chronic atrial fibrilla tion 076334982 Active 2022 FAY QUINTERO PA-C [address] [place] [address], [address] , [facility], IsaacCPaulie 3 12:46:33 Venous stasis edema of marquitaatera l lower limbs 91722272649 512298 Active 2023 KAMERON vizcaino, [facility] 5 12:24:06 History of adenomat ous polyp of colon 107092521 Active 2024 KAMERON vizcaino [facility] 5 12:23:58 Fracture of phalanx of left foot Active 2024 KAMERON vizcaino, [facility] 5 12:23:51 Iron deficien cy anemia 55668396 Active 2024 KAMERON vizcaino [facility] 5 12:23:40 Upper gastroin testinal bleeding 40847054 Active 2024 Skye vizcaino [facility], LovelyLRichard 5 16:15:45 Stented coronary artery 706178828 Active 2024 [facility] 5 16:15:35 History of cerebrov ascular accident 066661248 Active 2024 Skye Barber [facility] 5 16:15:28 History of myocardi al infarcti on 762737044 Active 2024 Skye Elisabeth [facility] 5 16:15:31 Problem Notes None recorded. Procedures Surgical History Date Name Laterality Status Provider Name and Address Organization Details Recorded Time 2024 esophagogastroduodenoscopy completed RAJAT SIDHU [facility], LPaulieL.CPaulie 5 11:26:16 2024 colonoscopy completed KAMERON AGUAYO [facility], Brenda 5 11:26:57 2018 colonoscopy completed KAMERON AGUAYO [facility], LPaulieL.CPaulie 5 08:22:43 placement of stent i n cardiac conduit completed FAY QUINTERO PA-C [address] [place] [address], [address] , [facility], LPaulieL.CPaulie 3 12:51:52 Imaging Results None recorded. Procedure Notes None recorded. Medical Equipment None Reported. Allergies Allergen ID Allergen Name Allergen Category Reaction Reaction Severity Criticality Documentation Date Start Date Code Code System Note Provider Name and Address Organization Details Recorded Time 75970 adhesive environme nt,medica tion rash Not available Not available 07/22/2025 Skye Bangoch [facility], LPaulieL.CPaulie 5 11:37:31 Medications Name Sig Start Date [...] Not Available Lopressor BID 08/01 completed CS/smf; 73661; Recorded 12/21/19 23 3:09PM by Hermila Gimenez [...] Updated DateTime 5 177.8 cm 29 kg/m2 28651.6 6 g 97.1 [degF] 65 /min 99 % 99 % 168/98 mm[Hg] Skye Barber [facility] 5 10:34:47 Social History Question Answer Notes LastModified by Organizat ion Details LastModified Time Tobacco Smoking Status Former Smoker NELLY LOVELY vizcaino [facility] 05/22/2023 11:43:59 Are You Blind Or Do You Have Difficulty Seeing? No [email or web address] Information not available 02/13/2023 When Did You Quit Smoking? 15+yearssin celastciayse ette Quit Smoking Approx 1994 dkiest Information not available 04/22/2025 What Was The Date Of Your Most Recent Tobacco Screening? 04/18/2025 [email or web address] Information not available 04/18/2025 Do You Have Difficulty Walking Or Climbing Stairs? No [email or web address] Information not available 02/13/2023 Sex: Unknown Functional Status Question Answer Note LastModified by Organizat ion Details LastModified Time Do you use any illicit or recreational drugs? No [email or web address] Information not available 11/27/2024 Do you or have you ever used any other forms of tobacco or nicotine? No [email or web address] Information not available 11/27/2024 What is your level of alcohol consumption? None [email or web address] Information not available 11/27/2024 Are you able to walk independently without assistance or assistive devices? YESWOREST [email or web address] Information not available 02/13/2023 Do you have difficulty doing errands alone? No [email or web address] Information not available 02/13/2023 Are you able to care for yourself independently? Yes [email or web address] Information not available 02/13/2023 Do you have difficulty dressing, bathing, grooming, or toileting? No [email or web address] Information not available 02/13/2023 Do you or have you ever used any nicotine-free cigarettes, vape, or chewing tobacco? No [email or web address] Information not available 11/27/2024 Mental Status Question Answer Note LastModified by Organization D etails LastModified Time Do you have difficulty concentrating, remembering or making decisions? No [email or web address] Information no t available 02/13/2023 Family History Relationship Description Onset Age of this Age Resolved Age Notes LastModified by Organization Details LastModified Time Brother Hypertensive disorder Not available 11/27 08:21:26 Medical History No medical history recorded. Immunizations Vaccine Type Date Status Note Provider Nam e and Address Organization Details Recorded Time COVID-19, mRNA, LNP-S, PF, 100 mcg/0.5mL dose or 50 mcg/0.25mL dose 1 completed FAY QUINTERO PA-C [address] [place] [address], [address], [facility], Brenda 08/01/2023 12:35:54 COVID-19, mRNA, LNP-S, PF, 100 mcg/0.5mL dose or 50 mcg/0.25mL dose 1 completed FAY QUINTERO PA-C [address] [place], [address], [facility] 08/01/2023 12:35:54 COVID-19, mRNA, LNP-S, PF, 50 mcg/0.5 mL 4 completed KAMERON vizcaino, [facility] 11/27/2024 10:38:02 Influenza, high-dose, trivalent, PF 4 completed KAMERON vizcaino, [facility] 11/27/2024 10:38:02 Pneumococcal conjugate PCV20, polysaccharide UWL790 conjugate, adjuvant, PF 3 completed JORY vizcaino, [facility] 08/01/2023 13:51:29 Influenza, adjuvanted, quadrivalent, PF 3 completed JORY vizcaino, [facility] 08/01/2023 13:53:00 Td (adult), 2 Lf tetanus toxoid, preservative free, adsorbed 5 completed Not Available [facility] 11/22/2023 11:50:45 DTaP, unspecified formulation 6 completed Not Available [facility] 11/22/2023 11:50:45 Past Encounters Encounter ID Performer Location Encounter Start Date Encounter Closed Date Diagnosis/Indication Diagnosis SNOMED-CT Code Diagnosis ICD10 Code Diagnosis IMO Codes Diagnosis Note [id number] José Antonio Quintero MD [facility] ([facility]) [address] [place] [address] 08/25/2025 10:22:54 08/25/2025 10:42:38 Upper gastrointestinal bleeding 85402389 K92.2 040077 no obvious signs of upper gi bleeding today. Epigastric pain 16189848 R10.13 22709 see previous egd report polyp noted. h. pylori negative. Longstandi ng persistent atrial fibrillation 746148571 I48.11 59240753 anticoagul ation held due to bleeding. watchman has been in the works for some time. Stented co ronary artery 938150299 Z95.5 118943 he was re-stented in 2000 he says. his original stent was 1992. he has a hx of mi Chronic lo wer gastrointestinal hemorrhage 32006523 K92.2 7669 brbpr 6 days ago one episode after the watchman trial. Health Concerns Section Related Observation LastModified by Organization Detai ls LastModified Time None Recorded Concern Status LastModified by Organization Details LastModified Time None Recorded Payers Encounter Date Sequence Insurance Name Policy Number Policy Garcia Covered Member ID Garcia Member ID Guarantor Name 08/25/2025 1 [facility] (MEDICARE REPLACEMENT/A DVANTAGE - PPO) [id number] Narciso Monteiroivner [id number] Narciso Rider Notes Date Note Type Note Provider Name and Address Organization Details Recorded Time 08/25/2025 text/html Emergency Depart ment Follow-Up RecordReported by PatientPt has been taking his blood pressure at home. He was going to have a watchman put in, but ended up staying overnight due to high blood pressure. His daughter states the watchman wouldn't hold. Home BP readings: 150/91, 162/97, 120/70, 121/75, 137/78, 131/79, 123/80, [address], 148/85,144/90. Pt was seen on 08/23 in [...] relented. radiates to the back. José Antonio Quintero MD [address] [place], [address], [facility] 08/25/2025 10:42:37
--- NOTE | 2025-08-25 10:15 | ECG_ITS ---
[facility] Test Date: 2025-08-25 Pat Name: Narciso Rider Department: Room: Gender: Male [place]er: : 1945 Requested By: Luis Alberto Richards Order Number: [id number] Rey MD: Thien Peres M.D. Measurements Intervals [place] Rate: 85 P: 0 NH: 0 QRS: 36 QRSD: 110 T: 21 QT: 395 QTc: 471 Interpretive Statements ATRIAL FIBRILLATION VOLTAGE CRITERIA FOR LVH [MEETS CRITERIA IN ONE OF: R(aVL), S(V1), R(V5), R(V5/V6)+S(V1)] Compared to ECG 08/23/2025 09:26:39 Ventricular premature complex(es) no longer present Aberrant conduction of supraventricular beat(s) no longer present Electronically Signed On 08-25-2025 23:26:42 CDT by Thien Peres M.D. [email or web address]
--- NOTE | 2025-08-25 10:15 | XR_ITS ---
WS: [id number] Portable AP upright chest, 08/25/2025 Clinical Data: chest pain Comparison: Portable chest, 08/23/2025 Findings: No nodules, masses or effusions are seen. The heart is enlarged. The pulmonary vascularity is not increased. No pneumonia or pneumothorax is seen. The aortic arch shows calcification and tortuosity. The diaphragms are flattened. There is osteoarthritis of both shoulders. Monitor leads are on the chest wall. XR/XR chest 1V portable [id number] Impression: Cardiomegaly, atherosclerosis and hyperinflation.
[2025-08-25 10:30] LABS: Hematocrit 35.5 % (37-53); Hemoglobin 11.40 g/dL (11.27-16.99); Mean Corpuscular HGB Conc 32.1 g/dL (30-55); Mean Corpuscular Hemoglobin 31.2 pg (27-33); Mean Corpuscular Volume 97.3 fl (82-101); Nucleated Red Blood Cells % 0 %; Platelet Count 169 10^3/cmm (157-399); Red Blood Count 3.65 10^6/uL (3.85-5.65); White Blood Count 4.08 10^3/uL (3.29-11.43)
--- NOTE | 2025-08-25 10:36 | PC.NURSE ---
This nurse was giving pt ASA as ordered, pt states I'm not supposed to take ASA I was told to never take it. I had a stomach bleed before and I'll . If you want me to I guess I'll take it Pt said bluntly. Pt daughter in room states He can't take that!
--- NOTE | 2025-08-25 10:37 | W.ED.CHESTPA ---
HPI - Chest Pain General: Chief Complaint: Chest Pain Stated Complaint: chest pain and high and low blood pressure Time Seen by Provider: 08/25/25 10:10 History of Present Illness: 80-year-old male presents to the emergency room with complaint of chest pain. Patient has intermittent spasms of chest pain that last for a couple of seconds but also worse when he takes a deep breath he is has been having these chest discomfort for several weeks now. He has been seen for previously cardiac workup was negative. He does have a known history of coronary artery disease. States that he feels like a sharp intense stabbing pain lasts for a second and then resolves he had several of these episodes while in the emergency room. He also has had some bleeding per rectum he has had a colonoscopy in the past he was previously on Eliquis but has not been taking it now. Associated symptoms: Deny abdominal pain, dyspnea or fever(s) Related Data Home Medications ?Medication ?Instructions ?Recorded ?Confirmed atorvastatin 20 mg tablet 20 mg PO QPM 03/31/21 08/23/25 omeprazole 40 mg capsule,delayed 40 mg PO BID 03/31/21 08/23/25 release acetaminophen 500 mg tablet 1,000 mg PO BID PRN Pain 08/27/21 08/23/25 (Tylenol Extra Strength) metoprolol tartrate 100 mg tablet 200 mg PO BID 11/30/21 08/23/25 diltiazem HCl 120 mg 120 mg PO Q12H 04/30/24 08/23/25 capsule,extended release 12 hr finasteride 5 mg tablet 5 mg PO DAILY 07/02/24 08/23/25 triamcinolone acetonide 0.1 % 1 applic topical BID PRN Skin 05/01/25 08/23/25 topical cream Irritation ferrous sulfate 325 mg (65 mg 325 mg PO DAILY 07/31/25 08/23/25 iron) tablet fluticasone fur. 200 mcg-umeclid 1 inh inhalation DAILY 08/23/25 08/23/25 62.5 mcg-vilant 25 mcg inhalat.powder (Trelegy Ellipta) ipratropium 0.5 mg-albuterol 3 mg 3 ml inhalation QID PRN Shortness 08/23/25 08/23/25 (2.5 mg base)/3 mL nebulization Of Breath soln Previous Rx's ?Medication ?Instructions ?Recorded nitroglycerin 0.4 mg sublingual 0.4 mg sublingual Q5M PRN Chest 07/02/24 tablet Pain #30 tabs benzonatate 100 mg capsule 200 mg (2 x 100 mg) PO TID PRN 07/11/24 cough #30 caps cholecalciferol (vitamin D3) 1,250 50,000 unit PO .weekly #8 caps 05/01/25 mcg (50,000 unit) capsule clonidine HCl 0.1 mg tablet 0.1 mg PO DAILY PRN hypertension 08/19/25 #20 tabs Allergies Allergy/AdvReac Type Severity Reaction Status Date / Time No Known Allergies Allergy Verified 07/31/25 11:53 Review of Systems Const: Denies: fever(s) or chills Card: Reports: chest pain Resp: Denies: dyspnea GI: Denies: abdominal pain : Denies: dysuria, urinary frequency or urinary urgency Musc: Denies: neck pain or back pain Skin/Breast: Denies: rash PFSH ED PFSH: Medical History Prostate cancer Prostate nodule 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 Declined biopsy August 2021 did agree to follow-up though Elevated PSA >13 September 2021. Unaware of prior remote PSAs. Declined biopsy Surgical History History of coronary angioplasty Family History Mother Bleeding disorder Father , AT AGE 53 Heart disease Social History Smoking and tobacco/nicotine status: former use of tobacco/nicotine Quit status (tobacco/nicotine): has quit using Year quit tobacco: 1992 Former quit date comment: Smoked 50 years Alcohol intake: never Substance/Drug Use: never Marital status: / Current occupational status: retired Physical Exam Const: COMMON NORMALS: no acute distress GENERAL APPEARANCE: cooperative and comfortable ORIENTATION/CONSCIOUSNESS: Yes awake, Yes oriented to person, Yes oriented to place and Yes oriented to time HENMT: COMMON NORMALS: normocephalic, atraumatic and hearing grossly normal bilaterally HEAD & SCALP: normocephalic and atraumatic Resp: COMMON NORMALS: normal respiratory effort, No retractions, No use of accessory muscles and clear to auscultation bilaterally AUSCULTATION: clear to auscultation bilaterally Cardio: COMMON NORMALS: regular rate, regular rhythm and No murmurs present (Cardio) RATE: regular rate RHYTHM: regular rhythm GI: COMMON NORMALS: Soft to palpation and No hepatosplenomegaly present AUSCULTATION: Yes normoactive bowel sounds PALPATION: Yes Soft to palpation, No Tenderness to palpation present (GI), No Guarding due to palpation present (GI) and Yes No hepatosplenomegaly present Extremity: COMMON NORMALS: normal to inspection, capillary refill normal, no clubbing, cyanosis or edema, no calf tenderness and no pedal edema Neuro: SENSORIUM/ORIENTATION: Yes oriented to person, Yes oriented to place and Yes oriented to time Skin: COMMON NORMALS: no rashes or lesions noted GENERAL SKIN EXAM: no rashes or lesions noted Course Vital Signs: Vital signs: Vital Signs Pulse Rate 82 08/25/25 16:49 Respiratory Rate 17 08/25/25 13:19 Blood Pressure 189/94 08/25/25 16:49 Pulse Oximetry 91 08/25/25 16:49 Oxygen Delivery Me thod Room Air 08/25/25 15:30 MDM - Chest Pain Medical Decision Making Patient had rectal bleeding for some time he is no longer taking Eliquis they stopped that in April. He has had several colonoscopies. His hemoglobin is stable actually slightly up from what it was 2 days ago. His chest pain is very noncardiac in nature while talking to him he gets very sharp spasmodic like pain that will last a second or 2 and then go away it is also exacerbated by deep inspirations cardiac enzymes trended negative and EKG did not show any acute changes he has a heart score of 4 however given his frequent cardiac workups all of which have been negative. He does have a history of prostate cancer. His oncology notes were reviewed his most recent workup he has previously been seen by cardiology. 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 His ejection fraction was normal and there is no report of any areas of reversible ischemia. Chest x-ray shows pneumonia no pneumonia no pneumothorax no widening of the mediastinum. He has not been tachycardic or hypoxic. This point there is no evidence of dissecting aneurysm pulmonary embolism pneumothorax pneumonia or acute coronary syndrome. No indication for repeat of the CT of the abdomen or pelvis. Suspect that some of this may be musculoskeletal in nature there is a pleuritic component as the pain is reproducible with deep inspiration may be some esophageal spasm possible as well. No emergent condition at this time that would require hospitalization. Will set him up for short-term follow-up with cardiology clinic. He has an appointment tomorrow at 130. Medical Records I reviewed the patient's medical records. Lab Data I reviewed the patient's lab results. 08/25/25 10:20 08/25/25 11:23 Radiology Impressions Chest X-Ray 08/25/25 10:15 Impression: Cardiomegaly, atherosclerosis and hyperinflation. Laboratory Results WBC 4.08 10^3/uL (3.29-11.43) 08/25/25 10:20 RBC 3.65 10^6/uL (3.85-5.65) L 08/25/25 10:20 Hgb 11.40 g/dL (11.27-16.99) 08/25/25 10:20 Hct 35.5 % (37-53) L 08/25/25 10:20 MCV 97.3 fl (82-101) 08/25/25 10:20 MCH 31.2 pg (27-33) 08/25/25 10:20 MCHC 32.1 g/dL (30-55) 08/25/25 10:20 RDW 18.1 % (12.1-15.1) H 08/25/25 10:20 Plt Count 169 10^3/cmm (157-399) 08/25/25 10:20 MPV 9.9 fL (7.4-10.4) 08/25/25 10:20 Neut % (Auto) 72.3 % 08/25/25 10:20 Lymph % (Auto) 14.5 % 08/25/25 10:20 [place] % (Auto) 7.4 % 08/25/25 10:20 Eos % (Auto) 5.1 % 08/25/25 10:20 Baso % (Auto) 0.5 % 08/25/25 10:20 Neut # (Auto) 2.95 10^3/uL (1.8-7.7) 08/25/25 10:20 Lymph # (Auto) 0.6 10^3/uL (0.8-4.8) L 08/25/25 10:20 [place] # (Auto) 0.3 10^3/uL (0.2-0.9) 08/25/25 10:20 Eos # (Auto) 0.2 10^3/uL (0.0-0.8) 08/25/25 10:20 Baso # (Auto) 0.0 10^3/uL (0.0-0.1) 08/25/25 10:20 Nucleated RBC % (auto) 0 % 08/25/25 10:20 Nucleated RBCs # 0.0 /100WBC 08/25/25 10:20 Sodium 139 mmol/L (136-145) 08/25/25 11:23 Potassium 4.7 mmol/L (3.5-5.1) 08/25/25 11:23 Chloride 102 mmol/L (98-107) 08/25/25 11:23 Carbon Dioxide 25 mmol/L (22-29) 08/25/25 11:23 Anion Gap 16.7 (5-19) 08/25/25 11:23 BUN 12 mg/dL (8-23) 08/25/25 11:23 Creatinine 0.6 mg/dL (0.7-1.2) L 08/25/25 11:23 GFR Calculation Not Reportable 08/25/25 11:23 Glucose 107 mg/dL (65-115) 08/25/25 11:23 Calculated Osmolality 288 mOsm/kg (285-295) 08/25/25 11:23 Calcium 8.7 mg/dL (8.5-10.5) 08/25/25 11:23 Total Bilirubin 0.2 mg/dL (0.15-1.2) 08/25/25 11:23 AST 12 U/L (0-40) 08/25/25 11:23 ALT 12 U/L (0-41) 08/25/25 11:23 Alkaline Phosphatase 78 U/L (40-130) 08/25/25 11:23 Troponin T Baseline 23 ng/L (0-15) H 08/25/25 11:23 Troponin T 120 Minute 19.20 ng/L (0-15) H 08/25/25 13:20 Delta Troponin T -3.80 ABS# (0-10) L 08/25/25 13:20 Total Protein 6.6 g/dL (6.6-8.7) 08/25/25 11:23 Albumin 3.8 g/dL (3.5-5.2) 08/25/25 11:23 Globulin 2.8 g/dL (1.3-4.6) 08/25/25 11:23 All radiology interpretation(s) finalized by discharge EKG Data EKG 1: Interpretation: EKG 08/25/2025. Atrial fibrillation rate of 85 QTc [address] changes noted. EKG compared to 08/23/2025 no significant change EKG 2: Interpretation: EKG 08/25/2025 1218 atrial fibrillation with PVCs Rate of 80 QTc 455[address] No acute ST changes noted compared to EKG done earlier same day now has PVCs otherwise no significant change EKG 3: Interpretation: EKG 08/25/2025 1634 atrial fibrillation no acute ST changes noted rate of 74 QTc 438 Clincial Decision Support The following clinical decision support tools were used to aid in care of the patient HEART Score -> History: Slightly Suspicous, EKG: Normal, Age: 65 or more yrs, Risk Factors: 1 or 2 Risk Factors, Troponin: Baseline Trop 16-45 ng/L. Resulting HEART Score: 4. Discharge Plan Discharge Patient Disposition: Home Clinical Impression: Atypical chest pain, Hematochezia, Prostate cancer Anemia Qualifiers: Anemia type: unspecified type Qualified Code(s): D64.9 - Anemia, unspecified Condition: Stable Prescriptions: No Action acetaminophen [Tylenol Extra Strength] 500 mg tablet 1,000 mg PO BID PRN (Reason: Pain) metoprolol tartrate 100 mg tablet 200 mg PO BID diltiazem HCl 120 mg capsule,extended release 12 hr 120 mg PO Q12H triamcinolone acetonide 0.1 % cream 1 applic topical BID PRN (Reason: Skin Irritation) cholecalciferol (vitamin D3) 1,250 mcg (50,000 unit) capsule 50,000 unit PO .weekly Qty: 8 0RF Rx Instructions: ferrous sulfate 325 mg (65 mg iron) tablet 325 mg PO DAILY benzonatate 100 mg capsule 200 mg PO TID PRN (Reason: cough) Qty: 30 2RF finasteride 5 mg tablet 5 mg PO DAILY nitroglycerin 0.4 mg tablet, sublingual 0.4 mg sublingual Q5M PRN (Reason: Chest Pain) Qty: 30 2RF Rx Instructions: do not exceed 3 doses per episode omeprazole 40 mg capsule,delayed release(DR/EC) 40 mg PO BID atorvastatin 20 mg tablet 20 mg PO QPM clonidine HCl 0.1 mg tablet 0.1 mg PO DAILY PRN (Reason: hypertension) Qty: 20 0RF Rx Instructions: For Systolic >185 diastolic >100. If you are needing this more than once a day you need to follow with your primary care provider ipratropium-albuterol 0.5 mg-3 mg(2.5 mg base)/3 mL solution for nebulization 3 ml INHALATION QID PRN (Reason: Shortness Of Breath) Trelegy Ellipta 200-62.5-25 mcg blister with device 1 inh INHALATION DAILY Discharge Orders: Discharge ED (Routine); Ordered 08/25/25 Ordered By: Luis Alberto Mcleod Referrals: Harrison Rendon MD [Primary Care Provider, Family Practice] Discharge Diet: Usual diet Discharge Activity: Resume usual activity Patient Instructions: Opioid Safety, Pain Management, Patient Portal & Roberto Instructions Activity Restrictions/Additional Instructions: Thank you for choosing [facility] for your healthcare needs today. It is very important that you follow up as instructed or that you return to the Emergency Department should you have concerns or if your condition changes or worsens in any way. Emergency department visits are focused on emergent conditions, in some cases you may require further evaluation on an outpatient basis. You are seen emergency room with a complaint of chest pain. Your cardiac enzymes EKG does not show any acute changes. You are in atrial fibrillation which has been chronic. The character of your pain is not suggestive of cardiac with the sharp spasmodic like pain episodes lasting a few seconds. Your hemoglobin is stable. You reported you have already stopped the Eliquis. Will set you up to follow-up with cardiology in the outpatient setting tomorrow. (Please note that included in your discharge packet is information concerning opioid safety and pain management. 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
[2025-08-25 11:51] LABS: Troponin(5th) Baseline 23 ng/L (0-15)
[2025-08-25 11:56] LABS: Alanine Aminotransferase 12 U/L (0-41); Albumin Level 3.8 g/dL (3.5-5.2); Alkaline Phosphatase 78 U/L (40-130); Anion Gap 16.7 (5-19); Aspartate Amino Transferase 12 U/L (0-40); Blood Urea Nitrogen 12 mg/dL (8-23); Calcium 8.7 mg/dL (8.5-10.5); Carbon Dioxide 25 mmol/L (22-29); Chloride 102 mmol/L (98-107); Creatinine Clr Calc Pharmacy 85.2329; Globulin 2.8 g/dL (1.3-4.6); Glucose 107 mg/dL (65-115); Osmolality Calculated 288 mOsm/kg (285-295); Potassium 4.7 mmol/L (3.5-5.1); Sodium 139 mmol/L (136-145); Total Protein 6.6 g/dL (6.6-8.7)
--- NOTE | 2025-08-25 12:15 | ECG_ITS ---
[facility] Date: 2025-08-25 Pat Name: Narciso Rider Department: Room: Gender: Male Director Channel: : 1945 Requested By: Luis Alberto Richards Order Number: [id number] Rey MD: Thien Peres M.D. Measurements Intervals [place] Rate: 80 P: 0 [place]: 0 QRS: 35 QRSD: 112 T: 38 QT: 392 QTc: 455 Interpretive Statements ATRIAL FIBRILLATION WITH ABERRANT CONDUCTION OR VENTRICULAR PREMATURE COMPLEXES MODERATE INTRAVENTRICULAR CONDUCTION DELAY [105+ ms QRS DURATION, 80+ ms Q/S IN V1/V2, NO Q AND 60+ ms R IN I/aVL/V5/V6] VOLTAGE CRITERIA FOR LVH [MEETS CRITERIA IN ONE OF: R(aVL), S(V1), R(V5), R(V5/V6)+S(V1)] Compared to ECG 08/25/2025 10:05:49 Ventricular premature complex(es) now present Aberrant conduction of supraventricular beat(s) now present Intraventricular conduction delay now present Electronically Signed On 08-25-2025 23:31:27 CDT by Thien Peres M.D. [email or web address] [id number]
[2025-08-25] MEDS: morphine 4 mg/mL SDV 1 mL 2 MG IVP (13:19)
[2025-08-25 14:06] LABS: Troponin 5 2HR 19.20 ng/L (0-15)
[2025-08-25 14:07] LABS: Troponin 5 2HR Delta -3.80 ABS# (0-10)
[2025-08-25] MEDS: labetalol 5 mg/mL SDV 20mL 10 MG IVP (14:25)
--- NOTE | 2025-08-25 16:34 | ECG_ITS ---
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 Measurements Intervals [place] Rate: 74 P: 0 [place]: 0 QRS: 39 QRSD: 113 T: 26 QT: 394 QTc: 438 Interpretive Statements ATRIAL FIBRILLATION MODERATE INTRAVENTRICULAR CONDUCTION DELAY [105+ ms QRS DURATION, 80+ ms Q/S IN V1/V2, NO Q AND 60+ ms R IN I/aVL/V5/V6] VOLTAGE CRITERIA FOR LVH [MEETS CRITERIA IN ONE OF: R(aVL), S(V1), R(V5), R(V5/V6)+S(V1)] Compared to ECG 08/25/2025 12:18:51 Ventricular premature complex(es) no longer present Aberrant conduction of supraventricular beat(s) no longer present Electronically Signed On 08-25-2025 23:30:10 CDT by Thien Peres M.D. [email or web address] [id number]
== END 2025-08-25 16:51 | disposition home or self-care (01) ==
PROVIDERS: Emergency Provider Family Medicine; PCP Family Medicine
DX: R07.89 Other chest pain (principal); K92.1 Melena; C61 Malignant neoplasm of prostate; D64.9 Anemia, unspecified; Z87.891 Personal history of nicotine dependence
CPT/HCPCS: 36415; 71045; 80053; 84484; 85025; 93005; 96374; 96375; 99285; J2270; J3490; J9999

== ENCOUNTER → 2025-08-26 13:34 | Outpatient (BNVA) | payer MEDICARE, SELFPAY | PROVIDERS: PCP Family Medicine; Visit Provider Nurse Practitioner Family | DX: I25.10 Atherosclerotic heart disease of native coronary artery without angina pectoris (principal); I10 Essential (primary) hypertension; R07.89 Other chest pain; I48.91 Unspecified atrial fibrillation; J44.9 Chronic obstructive pulmonary disease, unspecified; Z95.5 Presence of coronary angioplasty implant and graft; Z87.891 Personal history of nicotine dependence; R07.9 Chest pain, unspecified | CPT/HCPCS: 99214 ==

== ENCOUNTER 2025-08-27 07:10 | Oncology outpatient (recurring) (ONCR) | payer MEDICARE, SELFPAY ==
--- NOTE | 2025-08-27 07:15 | USCV_ITS ---
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 BP: 130 / 80 HR: 68 Rhythm: Sinus Technical Quality: Adequate MEASUREMENTS (Male / Female) Normal Values 2D ECHO LV Diastolic Diameter PLAX 4.3 cm 4.2 - 5.9 / 3.9 - 5.3 cm IVS Diastolic Thickness 1.8 cm 0.6 - 1.0 / 0.6 - 0.9 cm IVS Systolic Thickness 1.9 cm LVPW Diastolic Thickness 1.6 cm 0.6 - 1.0 / 0.6 - 0.9 cm LVPW Systolic Thickness 2.6 cm LVOT Diameter 2.0 cm LV Ejection Fraction 2D Teich 60.5 % LV Ejection Fraction MOD 4C 56.0 % LV Ejection Fraction MOD 2C 51.3 % LV Ejection Fraction 2C AL 53.7 % LA Diameter 5.5 cm RA Systolic Volume 4C AL 139.3 ml RA Systolic Volume 4C MOD 137.6 ml Aorta at Sinotubular Diameter 3.4 cm IVC Diameter 2.1 cm M-MODE LA Ao Ratio MM 1.5 AV Cusp Separation MM 2.4 cm DOPPLER AV Peak Velocity 99.0 cm/s LVOT Peak Velocity 67.0 cm/s AV Area Cont Eq vti 2.5 cm squared AV Area Cont Eq pk 2.2 cm squared MV Peak Velocity 362.5 cm/s MV Area PHT 5.4 cm squared Mitral E to A Ratio 4.7 TR Peak Velocity 109.0 cm/s TR Peak Gradient 4.8 mmHg PV Peak Velocity 74.0 cm/s FINDINGS Left Ventricle Moderately increased left ventricular cavity size. Moderately decreased left ventricular systolic function. Left ventricular ejection fraction is estimated at 45 %. Global left ventricular hypokinesis. Grade III/IV diastolic dysfunction (restrictive filling pattern), severely elevated filling pressures. Right Ventricle Normal right ventricular size and systolic function. Right Atrium Moderately increased right atrial size. Left Atrium Moderately increased left atrial size. IA Septum Normal appearance of the interatrial septum. Mitral Valve Mildly thickened mitral valve. No mitral valve stenosis. Moderate mitral valve regurgitation. Aortic Valve Mild aortic valve calcification. No aortic valve stenosis. Trace aortic valve regurgitation. Tricuspid Valve Mild tricuspid valve regurgitation. Pulmonic Valve Normal pulmonic valve structure. No pulmonic valve stenosis or regurgitation. Pericardium No pericardial effusion. Aorta Normal diameter of the aortic root and ascending thoracic aorta. IVC Normal IVC diameter. CONCLUSIONS Moderately increased left ventricular cavity size. Moderately decreased left ventricular systolic function. Left ventricular ejection fraction is estimated at 45 %. Global left ventricular hypokinesis. Grade III/IV diastolic dysfunction (restrictive filling pattern), severely elevated filling pressures. Moderate biatrial enlargment Mildly thickened mitral valve. No mitral valve stenosis. Moderate mitral valve regurgitation. Mild aortic valve calcification. No aortic valve stenosis. Trace aortic valve regurgitation. Mild tricuspid valve regurgitation. There is no pericardial effusion. Right atrial pressure is around 5-10 mm of mercury. Kaylah Rosa MD (Electronically Signed) Final Date: 27 August 2025 14:40 S
== END 2025-09-19 23:59 | disposition home or self-care (01) ==
LOC: RAD 07:12 → ONCMED 09:36
PROVIDERS: PCP Family Medicine; Visit Provider Nurse Practitioner Family
DX: Z08 Encounter for follow-up examination after completed treatment for malignant neoplasm (principal); Z85.46 Personal history of malignant neoplasm of prostate; E83.51 Hypocalcemia; D64.9 Anemia, unspecified; R97.20 Elevated prostate specific antigen [PSA]; I48.20 Chronic atrial fibrillation, unspecified; Z87.891 Personal history of nicotine dependence; Z92.3 Personal history of irradiation; Z79.899 Other long term (current) drug therapy; I25.10 Atherosclerotic heart disease of native coronary artery without angina pectoris; R07.9 Chest pain, unspecified; I10 Essential (primary) hypertension
CPT/HCPCS: 93306

== ENCOUNTER 2025-09-01 14:47 | Observation (INO) | payer MEDICARE, SELFPAY ==
[2025-09-01] VITALS (8 sets, daily range): BP systolic 133–167; BP diastolic 84–118; PULSE 71–85; RESP 16–19; TEMP 36.5–36.7; O2SAT 93–99; BMI 29.5; BMI 26.6
--- NOTE | 2025-09-01 14:48 | XR_ITS ---
WS: [id number] XR chest 1V portable [id number] REASON FOR EXAM: chest pain FINDINGS: The chest is unchanged compared to 08/25/2025. Moderate tortuosity and ectasia of the aorta. Mild cardiomegaly. Calcified granulomatous disease bilaterally. No acute pulmonary parenchymal or pleural abnormality. Moderate degenerative spondylosis in the mid and lower thoracic spine. 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 XR/XR chest 1V portable [id number] IMPRESSION: Stable chest without acute abnormality.
--- NOTE | 2025-09-01 14:48 | W.ED.CHESTPA ---
HPI - Chest Pain General: Chief Complaint: Chest Pain Stated Complaint: CHEST PAIN Time Seen by Provider: 09/01/25 14:48 History of Present Illness: This is an 80-year-old with a history of coronary artery disease status post stents, anemia, chronic cough, congestive heart failure, COPD and prostate cancer man who presents emergency room by ambulance with recurrent chest pain. This is his third visit to the emergency room in about 10 days and he also has had a clinic visit the seventh 6 days ago. He continues to have left chest pains. No cough. No fever. No altered mental status. Review of recent clinic notes he was seen in cardiology clinic and at that point they were pursuing medical management if he had continued symptoms might be reevaluated. Related Data Home Medications ?Medication ?Instructions ?Recorded ?Confirmed atorvastatin 20 mg tablet 20 mg PO QPM 03/31/21 09/01/25 omeprazole 40 mg capsule,delayed 40 mg PO BID 03/31/21 09/01/25 release acetaminophen 500 mg tablet 1,000 mg PO BID PRN Pain 08/27/21 09/01/25 (Tylenol Extra Strength) metoprolol tartrate 100 mg tablet 200 mg PO BID 11/30/21 09/01/25 diltiazem HCl 120 mg 120 mg PO Q12H 04/30/24 09/01/25 capsule,extended release 12 hr finasteride 5 mg tablet 5 mg PO DAILY 07/02/24 09/01/25 triamcinolone acetonide 0.1 % 1 applic topical BID PRN Skin 05/01/25 09/01/25 topical cream Irritation ferrous sulfate 325 mg (65 mg 325 mg PO DAILY 07/31/25 09/01/25 iron) tablet fluticasone fur. 200 mcg-umeclid 1 inh inhalation DAILY 08/23/25 09/01/25 62.5 mcg-vilant 25 mcg inhalat.powder (Trelegy Ellipta) ipratropium 0.5 mg-albuterol 3 mg 3 ml inhalation QID PRN Shortness 08/23/25 09/01/25 (2.5 mg base)/3 mL nebulization Of Breath soln Previous Rx's ?Medication ?Instructions ?Recorded nitroglycerin 0.4 mg sublingual 0.4 mg sublingual Q5M PRN Chest 07/02/24 tablet Pain #30 tabs cholecalciferol (vitamin D3) 1,250 50,000 unit PO .weekly #8 caps 05/01/25 mcg (50,000 unit) capsule clonidine HCl 0.1 mg tablet 0.1 mg PO DAILY PRN hypertension 08/19/25 #20 tabs lidocaine 1.8 % topical patch 1 patch topical Q24H #30 ea 08/26/25 Allergies Allergy/AdvReac Type Severity Reaction Status Date / Time No Known Allergies Allergy Verified 07/31/25 11:53 Review of Systems Narrative: Constitutional symptoms: Negative except as documented in HPI. Skin symptoms: Negative except as documented in HPI. Eye symptoms: Negative except as documented in HPI. ENMT symptoms: Negative except as documented in HPI. Respiratory symptoms: Negative except as documented in HPI. Cardiovascular symptoms: Negative except as documented in HPI. Gastrointestinal symptoms: Negative except as documented in HPI. Genitourinary symptoms: Negative except as documented in HPI. Musculoskeletal symptoms: Negative except as documented in HPI. Neurologic symptoms: Negative except as documented in HPI. Psychiatric symptoms: Negative except as documented in HPI. Endocrine symptoms: Negative except as documented in HPI. PFSH ED PFSH: Medical History (Updated 09/01/25 @ 15:53 by Evelyn Ramsey MD) Prostate cancer Prostate nodule Consistent with [employer]. Declined biopsy August 2021 did agree to follow-up though Elevated PSA >13 September 2021. Unaware of prior remote PSAs. Declined biopsy Surgical History History of coronary angioplasty Family History Mother Bleeding disorder Father , AT AGE 53 Heart disease Social History Smoking and tobacco/nicotine status: former use of tobacco/nicotine Quit status (tobacco/nicotine): has quit using Year quit tobacco: 1992 Former quit date comment: Smoked 50 years Alcohol intake: never Substance/Drug Use: never Marital status: / Current occupational status: retired Physical Exam Narrative: EXAM NARRATIVE: General: Alert, no acute distress. Skin: Warm, dry. Head: Normocephalic, atraumatic. Neck: Supple, trachea midline. Eye: Extraocular movements are intact. Ears, nose, mouth and throat: mucosa moist. Cardiovascular: Regular, Normal peripheral perfusion. Respiratory: Lungs are clear to auscultation, respirations are non-labored, breath sounds are equal, Symmetrical chest wall expansion. Gastrointestinal: Soft, Nontender, Non distended Musculoskeletal: Normal ROM, no deformity. Neurological: Alert and oriented, No focal neurological deficit observed. Psychiatric: Cooperative, appropriate mood & affect. Course Vital Signs: Vital signs: Vital Signs Temperature 97.7 F 09/01/25 14:47 Pulse Rate 72 09/01/25 15:33 Respiratory Rate 17 09/01/25 15:33 Blood Pressure 158/86 09/01/25 15:33 Pulse Oximetry 97 09/01/25 15:33 Oxygen Delivery Me thod Room Air 09/01/25 15:33 MDM - Chest Pain Medical Decision Making Differential diagnosis for patient with chest pain includes but is not limited to and based on the above HPI, review of systems and physical exam: Pneumonia. unstable angina. angina. Acute coronary syndrome / ND. Pulmonary embolism. Costochondritis / musculoskeletal. Pleurisy. Pericarditis. Esophageal spasm. Pancreatis. Cholecystitis. Orders placed to evaluate differential diagnosis based on the above differential, HPI and physical exam EK. Rate 72. Atrial fibrillation with controlled rate, nonspecific ST changes, no ectopy, This was reviewed and interpreted by myself the ER physician at 1455. No changes from recent EKGs. Chest x-ray: No acute process. No infiltrate. No pneumothorax. This was reviewed and interpreted by myself the emergency room physician. I also reviewed the radiology report. Lab Review: Laboratory results were reviewed and interpreted by myself the emergency room physician. No leukocytosis. No anemia. No renal failure. Initial troponin is 20, just mildly elevated. I reviewed the patient's medical record. This is an 80-year-old with a history of coronary artery disease status post stents, anemia, chronic cough, congestive heart failure, COPD and prostate cancer man. Review of recent clinic notes he was seen in cardiology clinic and at that point they were pursuing medical management if he had continued symptoms might be reevaluated. Consultation: I spoke with Dr. Ness who is on-call for cardiology. He recommends admission to the hospitalist service and likely cardiology will see him in the hospital. Consultation: I spoke with Dr. Ravi who is on-call for the hospitalist service who agrees to admission Reexamination: Patient remained stable. No increased work of breathing. No altered mental status. No focal motor deficits. Assessment and plan: Chest pain Coronary artery disease ?Heart score was positive. I spoke with cardiology and the hospitalist service. This may be noncardiac but given frequency of visits and inability to plicate this pain I think he needs an observation. -I discussed the patient with the hospitalist on-call who is admitting the patient. - Discussed findings and plan with patient. Answered any questions. - All laboratory values were reviewed and interpreted personally by myself, the ER physician - All imaging was reviewed and interpreted personally by myself, the ER physician. - Evaluation and treatment of this problem were appropriate in the emergency setting Lab Data 09/01/25 14:45 09/01/25 14:45 Radiology Impressions Chest X-Ray 09/01/25 14:48 IMPRESSION: Stable chest without acute abnormality. Laboratory Results WBC 3.68 10^3/uL (3.29-11.43) 09/01/25 14:45 RBC 4.08 10^6/uL (3.85-5.65) 09/01/25 14:45 Hgb 12.80 g/dL (11.27-16.99) 09/01/25 14:45 Hct 39.5 % (37-53) 09/01/25 14:45 MCV 96.8 fl (82-101) 09/01/25 14:45 MCH 31.4 pg (27-33) 09/01/25 14:45 MCHC 32.4 g/dL (30-55) 09/01/25 14:45 RDW 15.7 % (12.1-15.1) H 09/01/25 14:45 Plt Count 172 10^3/cmm (157-399) 09/01/25 14:45 MPV 10.2 fL (7.4-10.4) 09/01/25 14:45 Neut % (Auto) 68.2 % 09/01/25 14:45 Lymph % (Auto) 19.0 % 09/01/25 14:45 [place] % (Auto) 8.2 % 09/01/25 14:45 Eos % (Auto) 3.5 % 09/01/25 14:45 Baso % (Auto) 0.8 % 09/01/25 14:45 Neut # (Auto) 2.51 10^3/uL (1.8-7.7) 09/01/25 14:45 Lymph # (Auto) 0.7 10^3/uL (0.8-4.8) L 09/01/25 14:45 [place] # (Auto) 0.3 10^3/uL (0.2-0.9) 09/01/25 14:45 Eos # (Auto) 0.1 10^3/uL (0.0-0.8) 09/01/25 14:45 Baso # (Auto) 0.0 10^3/uL (0.0-0.1) 09/01/25 14:45 Nucleated RBC % (auto) 0 % 09/01/25 14:45 Nucleated RBCs # 0.0 /100WBC 09/01/25 14:45 Sodium 136 mmol/L (136-145) 09/01/25 14:45 Potassium 4.8 mmol/L (3.5-5.1) 09/01/25 14:45 Chloride 99 mmol/L (98-107) 09/01/25 14:45 Carbon Dioxide 24 mmol/L (22-29) 09/01/25 14:45 Anion Gap 17.8 (5-19) 09/01/25 14:45 BUN 13 mg/dL (8-23) 09/01/25 14:45 Creatinine 0.6 mg/dL (0.7-1.2) L 09/01/25 14:45 GFR Calculation Not Reportable 09/01/25 14:45 Glucose 106 mg/dL (65-115) 09/01/25 14:45 Calculated Osmolality 283 mOsm/kg (285-295) L 09/01/25 14:45 Calcium 9.3 mg/dL (8.5-10.5) 09/01/25 14:45 Total Bilirubin 0.3 mg/dL (0.15-1.2) 09/01/25 14:45 AST 24 U/L (0-40) 09/01/25 14:45 ALT 18 U/L (0-41) 09/01/25 14:45 Alkaline Phosphatase 99 U/L (40-130) 09/01/25 14:45 Troponin T Baseline 20 ng/L (0-15) H 09/01/25 14:45 NT-Pro-B Natriuret Pep 573 pg/mL (0-450) H 09/01/25 14:45 Total Protein 7.2 g/dL (6.6-8.7) 09/01/25 14:45 Albumin 4.4 g/dL (3.5-5.2) 09/01/25 14:45 Globulin 2.8 g/dL (1.3-4.6) 09/01/25 14:45 All radiology interpretation(s) finalized by discharge Clincial Decision Support The following clinical decision support tools were used to aid in care of the patient HEART Score -> History: Moderately Suspicious, EKG: Non-specific Changes, Age: 65 or more yrs, Risk Factors: >/=3 Risk Factors, Troponin: Baseline Trop 16-45 ng/L. Resulting HEART Score: 7. Discharge Plan Discharge Patient Disposition: Placed in Observation Admit Provider: Hammad Walls Clinical Impression: Chest pain, CAD (coronary artery disease) Coding Level of Care Code ED Contract Accountant for Chg Fwd Heart Score HEART Score Components History: Moderately Suspicious EKG: Non-specific Changes Age: 65 or more yrs Risk Factors: >/=3 Risk Factors Troponin: Baseline Trop 16-45 ng/L HEART Score RESULT HEART Score: 7
--- NOTE | 2025-09-01 14:50 | ECG_ITS ---
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 Measurements Intervals [place] Rate: 72 P: 0 PA: 0 QRS: 32 QRSD: 110 T: 23 QT: 389 QTc: 427 Interpretive Statements ATRIAL FIBRILLATION VOLTAGE CRITERIA FOR LVH [MEETS CRITERIA IN ONE OF: R(aVL), S(V1), R(V5), R(V5/V6)+S(V1)] POSSIBLE SEPTAL MYOCARDIAL INFARCTION , OF INDETERMINATE AGE [30 ms Q WAVE IN V1/V2] Compared to ECG 08/25/2025 16:34:52 Myocardial infarct finding now present Electronically Signed On 09-03-2025 22:56:33 CDT by Jose Rutherford M.D. [email or web address]
[2025-09-01 15:03] LABS: Hematocrit 39.5 % (37-53); Hemoglobin 12.80 g/dL (11.27-16.99); Mean Corpuscular HGB Conc 32.4 g/dL (30-55); Mean Corpuscular Hemoglobin 31.4 pg (27-33); Mean Corpuscular Volume 96.8 fl (82-101); Nucleated Red Blood Cells % 0 %; Platelet Count 172 10^3/cmm (157-399); Red Blood Count 4.08 10^6/uL (3.85-5.65); White Blood Count 3.68 10^3/uL (3.29-11.43)
--- OUTSIDE RECORDS SUMMARY | 2025-09-01 15:08 | XMS_ITS | Encounter Summary ---
Author Organization [facility] Address [address] [place] [address] Care Team Providers Care Pattern Generator Operator Name Role Phone Unavailable Primary Care Provider Unavailabl e Encounter Details Date Type Department Care Team (Latest Contact Info) Description 12/08/2003 Inpatient Historical [facility] Emergency Department [address] [place] [address] Prieto Shrestha MD NO ADDRESS ON FILE ESOPHAGEAL REFLUX (Primary Dx) Social History Tobacco Use Types Packs/Day Years Used Date Smoking Tobacco: Never Assessed Sex and Gender Information Value Date Recorded Sex Assigned at Not on file 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
--- OUTSIDE RECORDS SUMMARY | 2025-09-01 15:08 | XMS_ITS | Clinical Summary ---
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
--- OUTSIDE RECORDS SUMMARY | 2025-09-01 15:08 | XMS_ITS | Clinical Summary ---
Author Organization [facility] Address [address] [place] [address] Phone Care Team Providers Care Grief Counsellor Name Role Phone Unavailable Primary Care Provider [...] Abstract 08/14/2025 1:24 PM CDT Anesthesia Event [facility] [address] [place] [phone] Prieto Tobar II, 08/14/2025 11:30 AM CDT - 08/14/2025 1:18 PM CDT Surgery [facility] [address] [place] [phone] Kimberlyn Barba, Left atrial appendage closure percutaneous 08/14/2025 6:33 AM CDT - 08/15/2025 3:57 PM CDT Hospital Encounter [facility] [address] [place] [phone] Kimberlyn Barba DO Atrial fibrillation, persistent (CMS/HCC) Discharge Disposition: Home or Self Care 08/14/2025 Travel 08/08/2025 Telephone [place] [address] [place] [phone] Antonio Cordova, RN Information 08/06/2025 Telephone [place] [address] [place] [phone] Antonio Cordova, RN Information 08/05/2025 External Device Data STL ABSTRACTION Provider, Abstract 08/05/2025 External Device Data STL ABSTRACTION Provider, Abstract 08/05/2025 Telephone [place] [address] [place] [address] [phone] Kimberlyn Barba, Test results (CT Heart) 08/05/2025 Telephone [place] [address] [place] [address] [phone] Antonio Cordova, RN Information 07/23/2025 External Device Data STL ABSTRACTION Provider, Abstract 07/17/2025 9:05 AM CDT - 07/17/2025 11:59 PM CDT Hospital Encounter [facility] [address] [place] [phone] Kimberlyn Barba, Discharge Disposition: Home or Self Care 07/17/2025 8:23 AM CDT - 07/17/2025 11:59 PM CDT Hospital Encounter [facility] [address] [place] [phone] Kimberlyn Barba, Discharge Disposition: Home or Self Care 07/09/2025 External Device Data STL ABSTRACTION Provider, Abstract 07/08/2025 External Device Data STL ABSTRACTION Provider, Abstract 06/26/2025 Orders Only [place] [address] [place] [phone] Kimberlyn Barba, Chronic atrial fibrillation (CMS/HCC) (Primary Dx) 06/26/2025 Telephone [place] [address] [place] [phone] Kimberlyn Barba, Follow Up; Question (watchman) 06/10/2025 External Device Data STL ABSTRACTION Provider, Abstract 06/10/2025 External Device Data STL ABSTRACTION Provider, Abstract 06/10/2025 External Device Data STL ABSTRACTION Provider, Abstract 06/04/2025 4:00 PM CDT Office Visit [facility] [place] [address] [place] [address] [phone] Kimberlyn Barba DO Atrial fibrillation, unspecified type (CMS/HCC) (Primary Dx); Essential hypertension; Dyslipidemia; History of GI bleed from Last 3 Months Immunizations Immunization Administration Dates Next Due (PREVNAR 20)(6 WKS UP) PNEUM OCOCCAL CONJUGATE VACCINE 20-VALENT (PCV20), POLYSACCHARIDE QPD850 CONJUGATE, ADJUVANT 0.5 ML (PF) IM 08/01/2023 [...] on file Legal Sex Male 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 Gender Identity Not on file Sexual Orientation [...] st Contact Info) Description 09/30/2025 9:00 AM CLIENT STRATEGIST Office Visit [facility] [place] [address] [facility] [address] [place] [phone] Kimberlyn Barba DO [address] [facility] [address] [place] [phone] Dolores Nicole, SCRUB TECH [address] [facility] [address] [place] [phone] Health Maintenance Due Date Last Done Comments ZOSTER VACCINE (1 of 2) 1994 DTAP/TDAP/TD VACCINES (1 - Tdap) 10/29/2016 10/28/20 16 RSV VACCINE (60+ or ) (1 - 1-dose 75+ series) 2019 INFLUENZA VACCINE (#1) 2025 07/24/2024, 2022 COVID-19 Vaccine (4 - 2023-2 5 season) 2025 07/24/2024, 07/22/2021, 06/24/2021 PNEUMOCOCCAL VACCINE 50+ YEARS Completed 08/01/2023 COLORECTAL SCREENING Discontinued 04/24/2025, 12/14/19 19 Colorectal Cancer Screening Discontinued FIT-DNA Q 3 years Discontinued FIT/FOBT Q 1 year Discontinued Flex Sig/CT Colonography Q 5 years Discontinued Medical Devices Implanted Type Area Correction Worker Device Identifier Shelf Expiration Date Model / Serial / Lot Closure Perclose Prostyle Sut Mediate 30434-73 - [id number] Implanted:Qty: 1 on 08/14/2025 by Kimberlyn Barba DO at [facility] Closure Device N/A: Groin TORO- VASC DEVICE [id number] 03/19/2027 99170-02 / / [id number] Procedures Procedure Name Priority Date/Time Associated Diagnosis [...] EKG 12-LEAD Stat 08/14/2025 4:28 PM CDT ECHO TRANSESOPHAGEAL GUIDANCE Routine 08/14/2025 3:14 PM CDT Atrial fibrillation, persistent (CMS/HCC) LEFT ATRIAL APPENDAGE CLOSURE PERCUTANEOUS Routine 08/14/2025 2:59 PM CDT Atrial fibrillation, persistent (CMS/HCC) POC ACTIVATED CLOTTING TIME Routine 08/14/2025 2:38 PM CDT POC ACTIVATED CLOTTING TIME Routine 08/14/2025 2:26 PM CDT POC ACTIVATED CLOTTING TIME Routine 08/14/2025 2:11 PM CDT TX ANES INSERT CATH, ART, PERCUT, SHORTTERM Routine 08/14/2025 1:55 PM CDT TX ANES INSERT ENDOTRACHEAL AIRWAY Routine 08/14/2025 1:27 [...] 31(H) <=15 ng/L 08/15/2025 6:11 AM CDT [facility] DELTA 6HR TROPONIN T -1 See Interp. 08/15/2025 6:11 AM CDT [facility] Blood Venipuncture / Unknown 08/15/2025 5:08 AM CDT 08/15/2025 5:36 AM CDT Narrative [facility] - 08/15/2025 6:11 AM CDT Troponin elevated. Delta indeterminate. Delay in collection of timed specimen beyond recommended collection interval. Results must be interpreted in clinical context. us Prieto Tobar II, DO CHEMISTRY ORDERABL ES Final Result Performing Organization Address [facility]/ZIP Co de Phone Number [facility] CLIA # [id number] [address] [address] * (ABNORMAL) TROPONIN 2 HR, 5TH GEN (08/15/2025 1:09 AM CDT) TROPONIN T, 2 HR 5TH GEN 32(H) <=15 ng/L 08/15/2025 2:14 AM CDT [facility] DELTA 2HR TROPONIN T 0 See Interp. 08/15/2025 2:14 AM CDT [facility] Blood Venipuncture / Unknown 08/15/2025 1:09 AM CDT 08/15/2025 1:40 AM CDT Narrative [facility] - 08/15/2025 2:14 AM CDT Troponin elevated. Delta not changing. Delay in collection of timed specimen beyond recommended collection interval. Results must be interpreted in clinical context. Prieto Tobar II, DO CHEMISTRY ORDERABL ES Final Result Performing Organization Address [facility] Co de Phone Number [facility] CLIA # [id number] [address] [address] * (ABNORMAL) TROPONIN BASELINE, 5TH GEN (08/14/2025 11:25 PM CDT) TROPONIN T, BASELINE 5TH GEN 32(H) <=15 ng/L 08/15/2025 12:05 AM CDT [facility] Blood Venipuncture / Unknown 08/14/2025 11:25 PM CDT 08/14/2025 11:32 PM CDT [facility] - 08/15/2025 12:05 AM CDT Troponin elevated. Prieto Tobar II, DO CHEMISTRY ORDERABL ES Final Result [facility] CLIA # [id number] [address] [address] * ECHO LIMITED W DOPPLER AND COLOR FLOW (08/14/2025 5:04 PM CDT) EJECTION FRACTION EF: INTERFACE SYSTEM 08/14/2025 4:47 PM CDT Narrative INTERFACE SYSTEM - 08/15/2025 3:22 PM CDT [facility] Echocardi[facility] Laboratory [address] [place] [address] Limited Transthoracic Echocardiography Patient: Narciso Rider Study ECHO LIMITED Regina Farah ID: Gender: Nadya : 1945 Age: 80 Room: [facility] Study 08/14/2025 Pt Inpatient Date: Status: Study 04:47:01 PM CSN #: [id number] Time: Ordering:Kimberlyn Barba DO Summary and Conclusion: [...] ARTERY: Systolic pressure cannot be accurately estimated. [facility] are accredited with the Intersocietal Accreditation Commission - Echocardiography. Prepared and Electronically Authenticated Kimberlynchandni Haywardchris Confirmed 08/15/2025 15:22 Procedure Note FredaKimberlyn, DO - 08/15/2025 [facility] [address] [place] [address] Limited Transthoracic Echocardiography Patient: Narciso Rider Study ECHO LIMITEDW Liban Farah ID: Gender: M : 1945 Age: 80 Room: [facility] Study 08/14/2025 Pt Inpatient Date: Status: Study 04:47:01 PM CSN #: [id number] Time: Ordering:Kimberlyn Barba DO Summary and Conclusion: [...] ARTERY: Systolic pressure cannot be accurately estimated. [facility] are accredited with theIntersocietal Accreditation Commission - Echocardiography. Prepared and Electronically Authenticated Kimberlyn Barba DO Confirmed 08/15/2025 15:22 Kimberlyn Barba DO US ORDERABLES Final Re sult INTERFACE SYSTEM Refer to clinic/hospital department * EKG 12-LEAD (08/14/2025 4:28 PM CDT) Only the most recent of2 resultswithin the time period is included. 08/14/2025 4:28 PM CDT Narrative INTERFACE SYSTEM - 08/14/2025 5:41 PM CDT [address] [address] Test Date: 2025-08-14 Pat Name: [facility] Department: 12 Room: PACU PO CVOR PACU Gender: Male Cad Detailer: [id number] : 1945 Requested By: Order Number: [id number] Reading MD: Soila Cast Measurements Intervals [place] Rate: 88 P: 0 TX: 0 QRS: 40 QRSD: 108 T: 66 QT: 410 QTc: 496 Interpretive Statements Atrial fibrillation Incomplete left bundle branch block Minimal voltage criteria for LVH, may be normal variant ( Sokolow-Ramon ) Nonspecific ST abnormality QTcB >= 480 msec Abnormal ECG Electronically Signed On 08-14-2025 17:41:05 CDT by Soila Cast Procedure Note Soila Cast MD - 08/14/[address] [address] Test Date: 2025-08-14 Pat Name: [facility] Department: 12 Room: PACU PO CVOR PACU Gender: Male Cad Detailer: [id number] : 1945 Requested By: Order Number: [id number] Reading MD: Soila Cast Measurements Intervals [place] Rate: 88 P: 0 TX: 0 QRS: 40 QRSD: 108 T: 66 QT: 410 QTc: 496 Interpretive Statements Atrial fibrillation Incomplete left bundle branch block Minimal voltage criteria for LVH, may be normal variant ( Sokolow-Ramon ) Nonspecific ST abnormality QTcB >= 480 msec Abnormal ECG Electronically Signed On 08-14-2025 17:41:05 CDT by Soila Cast us Prieto Crabtreeton Ekaterina WALL DO ECG ORDERABLES Fi nal Result INTERFACE SYSTEM Refer to clinic/hospital department * ECHO TRANSESOPHAGEAL GUIDANCE (08/14/2025 3:14 PM CDT) EJECTION FRACTION 40 INTERFACE SYSTEM 08/14/2025 1:27 PM CDT Narrative INTERFACE SYSTEM - 08/25/2025 2:29 PM CDT [facility] E[facility]ocardi[facility] [address] [place] [address] Transesophageal Echocardiography Patient: Narciso Rider Study ID: [id number] Gagan Gender: Nadya : 1945 Age: 80 Room: [facility] Study 08/14/2025 Pt Inpatient Date: Status: Study 01:16:12 PM CSN #: [id number] Time: Ordering:Kimberlyn Barba DO Inspection Engineer: JESUSITA Indications and History: Fer. Summary and Conclusion: - Left ventricle: The cavity size is normal. Wall thickness is normal. Global systolic function is mildly to moderately reduced. The estimated ejection fraction is 40-45%. For Epic reporting: the left ventricular ejection fraction is 40%. No diagnostic regional wall motion abnormality identified. - Right ventricle: The cavity size is normal. Systolic function is normal. - Left atrium: The atrium is dilated. There is no evidence of a thrombus in the atrial cavity or appendage. There is no evidence of a thrombus in the atrial cavity or appendage. There is mild spontaneous echo contrast ( smoke ). - Right atrium: There is no evidence of a thrombus in the atrial cavity or appendage. - Atrial septum: Agitated saline contrast study shows no taodi-oh-vuec shunt. - Mitral valve: The annulus is mildly to moderately calcified. There is mild to moderate regurgitation. Impressions: PAOLA guidance for transeptal puncture and implantation of Watchman device. 1. No pericardial effuison pre or post implant. No LA or MEAGAN thrombus. 2. Trans septal puncture mid mid interatrial septum. 3. Guidance of Watchman device. PASS criteria met prior to deployment. 4. Stable device. 5. Small left to right shunt upon completion. Procedure information: No prior study is available for comparison. Study status: Routine. Consent: The risks, benefits, and alternatives to the procedure were explained to the patient and consent was obtained. Procedure: The patient arrived at the laboratory in the fasting state. Intravenous access was obtained. Surface ECG leads, automatic cuff blood pressure measurements, and pulse oximetric signals were monitored. General anesthesia was administered by anesthesiology staff. Transesophageal echocardiography was performed. An adult multiplane transesophageal probe was inserted by the attending leverman without difficulty. Image quality was adequate. Study completion: The patient tolerated the procedure well. There were no complications. Study components: 2D, complete spectral Doppler, and color Doppler. Height: 182.9cm. Height: 72in. Weight: 89.4kg. Weight: 197lb. BMI: 26.7kg/m^2. BSA: 2.14m^2. Blood pressure: 191/96 Study date: 08/14/2025. Study time: 01:16 PM. Location: [facility]. Cardiac Anatomy: LEFT VENTRICLE: The cavity size is normal. Wall thickness is normal. Global systolic function is mildly to moderately reduced. The estimated ejection fraction is 40-45%. For Epic reporting: the left ventricular ejection fraction is 40%. No diagnostic regional wall motion abnormality identified. The ratio of systolic to diastolic pulmonary vein flow is within the normal range (systolic predominant). RIGHT VENTRICLE: The cavity size is normal. Systolic function is normal. LEFT ATRIUM: The atrium is dilated. There is no evidence of a thrombus in the atrial cavity or appendage. There is no evidence of a thrombus in the atrial cavity or appendage. There is mild spontaneous echo contrast ( smoke ). Appendage: The appendage is normal-sized. Emptying velocity is normal. RIGHT ATRIUM: The atrium is normal in size. There is no evidence of a thrombus in the atrial cavity or appendage. ATRIAL SEPTUM: No obvious PFO or ASD identified by 2D imaging and color Doppler. Agitated saline contrast study shows no ucvjm-pq-zzyr shunt. AORTIC VALVE: The valve appears to be grossly normal. The valve is trileaflet. The leaflets are normal thickness. Cusp separation is normal. There is no significant regurgitation. MITRAL VALVE: The annulus is mildly to moderately calcified. Leaflet separation is normal. There is mild to moderate regurgitation. TRICUSPID VALVE: Structurally normal valve. The valve appears to be grossly normal. Leaflet separation is normal. There is no significant regurgitation. PULMONIC VALVE: The valve appears to be grossly normal. There is no regurgitation. PERICARDIUM: There is no pericardial effusion. AORTA: Aorta: No evidence of dissection or atheroma. Aortic root: The root is normal-sized. Ascending aorta: The vessel is normal-sized. Aortic arch: The vessel is normal-sized. Descending aorta: The vessel is normal-sized. PULMONARY ARTERY: The main pulmonary artery is normal-sized. [facility] are accredited with the Intersocietal Accreditation Commission - Echocardiography. Prepared and Electronically Authenticated Thien Anderson 08/25/2025 14:29 Procedure Note Thien Anderson MD - 08/25/2025 [facility] [address] [place] [address] Transesophageal Echocardiography Patient: Narciso Rider Study ID:[id number] [place] Gender: M : 1945 Age: 80 Room: [facility] 08/14/2025 PtInpatient Date: Status: Study 01:16:12 PM CSN #: [id number] Time: Ordering:Kimberlyn Barba DO Inspection Engineer: JESUSITA Indications and History: Watchman. Summary and Conclusion: - Left ventricle: The cavity size is normal. Wall thickness is normal.Global systolic function is mildly to moderately reduced. The estimatedejection fraction is 40-45%. For Epic reporting: the left ventricular ejection fraction is 40%. No diagnostic regional wall motion abnormalityidentified. - Right ventricle: The cavity size is normal. Systolic function isnormal. - Left atrium: The atrium is dilated. There is no evidence of a thrombusin the atrial cavity or appendage. There is no evidence of a thrombus inthe atrial cavity or appendage. There is mild spontaneous echo contrast ( smoke ). - Right atrium: There is no evidence of a thrombus in the atrial cavityor appendage. - Atrial septum: Agitated saline contrast study shows no kkkne-pt-jkeriqkpu. - Mitral valve: The annulus is mildly to moderately calcified. There ismild to moderate regurgitation. Impressions: PAOLA guidance for transeptal puncture and implantation of Watchman device. 1. No pericardial effuison pre or post implant. No LA or MEAGAN thrombus. 2. Trans septal puncture mid mid interatrial septum. 3. Guidance of Watchman device. PASS criteria met prior to deployment. 4. Stable device. 5. Small left to right shunt upon completion. Procedure information: No prior study is available for comparison.Study status: Routine. Consent: The risks, benefits, and alternatives tothe procedure were explained to the patient and consent was obtained.Procedure: The patient arrived at the laboratory in the fasting state. Intravenousaccess was obtained. Surface ECG leads, automatic cuff blood pressuremeasurements, and pulse oximetric signals were monitored. General anesthesia was administered by anesthesiology staff. Transesophageal echocardiographywas performed. An adult multiplane transesophageal probe was inserted by the attending leverman without difficulty. Image quality was adequate.Study completion: The patient tolerated the procedure well. There were no complications. Study components: 2D, complete spectral Doppler,and color Doppler. Height: 182.9cm. Height: 72in. Weight: 89.4kg.Weight: 197lb. BMI: 26.7kg/m^2. BSA: 2.14m^2. Blood pressure:191/96 Study date: 08/14/2025. Study time: 01:16 PM. Location: [facility]. Cardiac Anatomy: LEFT VENTRICLE: The cavity size is normal. Wall thickness is normal.Global systolic function is mildly to moderately reduced. The estimatedejection fraction is 40-45%. For Epic reporting: the left ventricular ejectionfraction is 40%. No diagnostic regional wall motion abnormality identified. Theratio of systolic to diastolic pulmonary vein flow is within the normal range (systolic predominant). RIGHT VENTRICLE: The cavity size is normal. Systolic function isnormal. LEFT ATRIUM: The atrium is dilated. There is no evidence of a thrombusin the atrial cavity or appendage. There is no evidence of a thrombus inthe atrial cavity or appendage. There is mild spontaneous echo contrast( smoke ). Appendage: The appendage is normal-sized. Emptying velocity is normal. RIGHT ATRIUM: The atrium is normal in size. There is no evidence of a thrombus in the atrial cavity or appendage. ATRIAL SEPTUM: No obvious PFO or ASD identified by 2D imaging and color Doppler. Agitated saline contrast study shows no eotlv-jl-fcij shunt. AORTIC VALVE: The valve appears to be grossly normal. The valve is trileaflet. The leaflets are normal thickness. Cusp separation isnormal. There is no significant regurgitation. MITRAL VALVE: The annulus is mildly to moderately calcified. Leaflet separation is normal. There is mild to moderate regurgitation. TRICUSPID VALVE: Structurally normal valve. The valve appears to begrossly normal. Leaflet separation is normal. There is no significantregurgitation. PULMONIC VALVE: The valve appears to be grossly normal. There is no regurgitation. PERICARDIUM: There is no pericardial effusion. AORTA: Aorta: No evidence of dissection or atheroma. Aortic root: The root is normal-sized. Ascending aorta: The vessel is normal-sized. Aortic arch: The vessel is normal-sized. Descending aorta: The vessel is normal-sized. PULMONARY ARTERY: The main pulmonary artery is normal-sized. [facility] are accredited with theIntersocietal Accreditation Commission - Echocardiography. Prepared and Electronically Authenticated Thien Anderson 08/25/2025 14:29 us Kimberlyn Babra DO US ORDERABLES Final Re sult INTERFACE SYSTEM Refer to clinic/hospital department * LEFT ATRIAL APPENDAGE CLOSURE PERCUTANEOUS (08/14/2025 2:59 PM CDT) Nereyda [facility] - 08/15/2025 2:41 PM CDT Unsuccessful Watchman deployment Procedural Indications Significant difficulty crossing intraatrial septum. When we were able to cross with the sheath. The trajectory was suitable for appendage. Kimberlyn Barba DO CUP EP ORDERABLES Final Result Performing Organization Address City/[facility] Co de Phone Number [facility] CLIA [id number] [address] [address] [place] [address], [place] [phone] * (ABNORMAL) POC ACTIVATED CLOTTING TIME (08/14/2025 2:38 PM CDT) Only the most recent of3 resultswithin the time period is included. [facility] Signature ACTIVATED CLOTTING TIME POC 343(H) 116 - 140 sec 08/14/2025 2:38 PM CDT [facility] Blood 08/14/2025 2:38 PM CDT 08/14/2025 2:48 PM CDT Kimberlyn Barba DO POINT OF CARE TESTING Fi nal Result Performing Organization Address [facility] Co de Phone Number [facility] CLIA # [id number] [address] [facility] [place] [address] * [place] ANES INSERT CATH, ART, PERCUT, SHORTTERM (08/14/2025 [...] PROCEDURE/MINOR MONTAÑO RGICAL ORDERABLES Final Result * TX ANES INSERT ENDOTRACHEAL AIRWAY (08/14/2025 1:27 PM [...] ABO GROUP O 08/14/2025 8:25 AM CDT [facility] [place] RH (D) TYPE Positive 08/14/2025 8:25 AM CDT [facility] [place] Blood Venipuncture / Unknown 08/14/2025 7:30 AM CDT 08/14/2025 7:35 AM CDT us Kimberlyn Barba DO BLOOD BANK ORDERABLES Fi nal Result [facility] CLIA#[id number] [address] [place] [address], * (ABNORMAL) CBC WITH DIFFERENTIAL (08/14/2025 7:28 AM CDT) [facility] WBC 5.3 4.8 - 10.8 K/uL 08/14/2025 7:40 AM CDT [facility] RBC 3.91(L) 4.60 - 6.20 M/uL 08/14/2025 7:40 AM CDT [facility] HEMOGLOBIN 12.0(L) 14.0 - 18.0 g/dL 08/14/2025 7:40 AM CDT [facility] HEMATOCRIT 37.3(L) 41.0 - 53.0 % 08/14/2025 7:40 AM CDT [facility] MCV 95.4 84.0 - 103.0 fL 08/14/2025 7:40 AM CDT [facility] MCH 30.7 27.0 - 34.0 pg 08/14/2025 7:40 AM CDT [facility] MCHC 32.2 30.0 - 35.0 g/dL 08/14/2025 7:40 AM CDT [facility] PLATELETS 161 140 - 440 K/uL 08/14/2025 7:40 AM CDT [facility] MPV 9.9 8.9 - 12.8 fL 08/14/2025 7:40 AM CDT [facility] RDW 18.2(H) 11.0 - 14.5 % 08/14/2025 7:40 AM CDT [facility] RDW-STDEV 64.4(H) 37.0 - 54.0 fL 08/14/2025 7:40 AM CDT [facility] NEUTROPHILS 71 42 - 75 % 08/14/2025 7:40 AM CDT [facility] LYMPHOCYTES 16(L) 24 - 44 % 08/14/2025 7:40 AM CDT [facility] MONOCYTES 7 2 - 10 % 08/14/2025 7:40 AM CDT [facility] EOSINOPHILS 5 0 - 7 % 08/14/2025 7:40 AM CDT [facility] BASOPHILS 1 0 - 1 % 08/14/2025 7:40 AM CDT [facility] IMMATURE GRANULOCYTES 1 0 - 2 % 08/14/2025 7:40 AM CDT [facility] [facility] NEUTROPHIL ABSOLUTE 3.81 2.00 - 8.00 K/uL 08/14/2025 7:40 AM CDT [facility] LYMPHOCYTE ABSOLUTE 0.83(L) 1.20 - 4.00 K/uL 08/14/2025 7:40 AM CDT [facility] MONOCYTE ABSOLUTE 0.39 0.10 - 0.60 K/uL 08/14/2025 7:40 AM CDT [facility] EOSINOPHIL ABSOLUTE 0.25 0.00 - 0.70 K/uL 08/14/2025 7:40 AM CDT [facility] BASOPHILS ABSOLUTE 0.03 0.00 - 0.20 K/uL 08/14/2025 7:40 AM CDT [facility] IMMATURE GRANULOCYTES ABSOLUTE 0.03 0.00 - 0.10 K/uL 08/14/2025 7:40 AM T [facility] SMEAR REVIEWED: NA - Not Applicable 08/14/2025 7:40 AM T [facility] Blood Venipuncture / Unknown 08/14/2025 7:28 AM CDT 08/14/2025 7:35 AM CDT us Kimberlyn Barba DO HEMATOLOGY ORDERABLES Fi nal Result [facility] CLIA # [id number] [address] [place] [address] [place], [place] [id number] * (ABNORMAL) BRAIN NATRIURETIC PEPTIDE, BNP OR PROBNP (08/14/2025 7:28 AM CDT) PROBNP, N TERMINAL 1,671(H) 0 - 450 pg/mL 08/14/2025 8:16 AM CDT [facility] Comment: INTERPRETIVE COMMENT based on diagnosis: [...] Barba DO CHEMISTRY ORDERABLES Fin al Result [facility] CLIA # [id number] [facility] [address] * COMPREHENSIVE METABOLIC PANEL (08/14/2025 7:28 AM CDT) SODIUM 141 136 - 145 mmol/L 08/14/2025 8:16 AM CDT [facility] POTASSIUM 3.8 3.5 - 5.1 mmol/L 08/14/2025 8:16 AM CDT [facility] CHLORIDE 103 98 - 107 mmol/L 08/14/2025 8:16 AM CDT [facility] CO2 25 22 - 29 mmol/L 08/14/2025 8:16 AM CDT [facility] CALCIUM 9.5 8.8 - 10.2 mg/dL 08/14/2025 8:16 AM CDT [facility] BUN 12 8 - 23 mg/dL 08/14/2025 8:16 AM CDT [facility] CREATININE 0.71 0.67 - 1.17 mg/dL 08/14/2025 8:16 AM CDT [facility] Comment:The GFR result is no t clinically significant on patients <18 or >70 years of age. GLUCOSE 93 74 - 99 mg/dL 08/14/2025 8:16 AM CDT [facility] TOTAL PROTEIN 7.1 6.4 - 8.3 g/dL 08/14/2025 8:16 AM CDT [facility] ALBUMIN 3.9 3.5 - 5.2 g/dL 08/14/2025 8:16 AM CDT [facility] BILIRUBIN TOTAL 0.4 0.0 - 1.0 mg/dL 08/14/2025 8:16 AM CDT [facility] ALKALINE PHOSPHATASE 98 40 - 129 U/L 08/14/2025 8:16 AM CDT [facility] AST 17 10 - 50 U/L 08/14/2025 8:16 AM CDT [facility] ALT 15 <=50 U/L 08/14/2025 8:16 AM CDT [facility] GFR >60 mL/min/1.7 3 sq meter 08/14/2025 8:16 AM T [facility] Comment:eGFR calculated with 2020 CKD-EPI equation. Vegetarian diet, extremely high or low muscle mass, and may affect results. Cystatin C with Glomerular Filtration Rate is a suitable alternative for these patients. ANION GAP 13 9 - 20 mmol/L 08/14/2025 8:16 AM T [facility] Blood Venipuncture / Unknown 08/14/2025 7:28 AM CDT 08/14/2025 7:35 AM CDT us Kimberlyn Barba DO CHEMISTRY ORDERABLES Fin al Result [facility] CLIA # [id number] [address] [address] * TYPE AND SCREEN (08/14/2025 7:25 AM CDT) ABO GROUP O 08/14/2025 8:52 AM CDT [facility] [place] RH (D) TYPE Positive 08/14/2025 8:52 AM CDT [facility] [place] ANTIBODY SCREEN Negative 08/14/2025 8:52 AM CDT [facility] [place] Blood Venipuncture / Unknown 08/14/2025 7:25 AM CDT 08/14/2025 7:35 AM CDT Kimberlyn Barba DO BLOOD BANK ORDERABLES Ed ited Result - Final [facility] [place] CLIA#[id number] [address] [place] [address], * PREPARE RED BLOOD CELLS (08/14/2025 6:52 AM CDT) Only the most recent of2 resultswithin the time period is included. COMPONENT TYPE [id number] [facility] [place] COMPONENT IDENTIFICATION [id number] [facility] [place] UNIT ABO O [facility] [place] UNIT RH POS [facility] [place] CROSSMATCH Compatible [facility] [place] COMPONENT STATUS Returned [facility] [place] COMPONENT EXPIRATION DATE/TIME [id number] [facility] [place] COMPONENT CODING SYSTEM 5100 [facility] [place] VOLUME, BLOOD PRODUCT 350 [facility] [place] 08/14/2025 6:52 AM CDT Kimberlyn Barba DO LAB TRANSFUSION ORDERABL ES Edited Result - Final [facility] [place] CLIA#[id number] [address] [place] [address], * CT CARDIAC CHEST INTERPRETATION (07/17/2025 10:05 [...] PM CDT CTA Heart With Cardiac Structure: [place], [place] PATIENT: Narciso Rider PATIENT NUMBER: [id number] BIRTHDATE: 1945 REFERRING PHYSICIAN: No primary care [...] MEAGAN from the contrasted images. From the [id number] delayed images there is uniform opacification of [...] arch is not fully included in the [id number]-tz-pnno. 2. No congenital, structural or valvular abnormalities are identified. 3. Coronary CT angiography shows normal origins of the left coronary and RCA. Scan is not gated for detailed coronary analysis. 4. The left atrial appendage measures 3.2 x 2.9 at the orifice. No definite evidence of thrombus within the MEAGAN from the contrasted and [id number]-ltrvmq delayed images. 5. Biatrial enlargement, left atrium measures 6.[address] ORDERABLES Final Re sult * POC CREATININE (07/17/2025 8:59 AM CDT) CREATININE POC 0.80 0.60 - 1.30 mg/dL 07/17/2025 8:59 AM CDT [facility] Comment:The GFR result is no t clinically significant on patients <18 or >70 years of age. GFR POC >60 mL/min/1.7 3 sq meter 07/17/2025 8:59 AM CDT [facility] Comment:eGFR calculated with 2020 CKD-EPI equation. Vegetarian diet, extremely high or low muscle mass, and may affect results. Cystatin C with Glomerular Filtration Rate is a suitable alternative for these patients. Blood, whole 07/17/2025 8:59 AM CDT 07/17/2025 9:13 AM CDT Kimberlyn Barba DO POINT OF CARE TESTING Fi nal Result [facility] CLIA # [id number] [address] [address] [place] [address] from Last [address] [place] [place] [id number] Advance Directives For more information, please contact: [phone] * Full Code (Latest Code Status on File) Date Activated Date Inactivated Comments 08/14/2025 6:51 AM 08/15/2025 6:07 PM
--- OUTSIDE RECORDS SUMMARY | 2025-09-01 15:08 | XMS_ITS | Encounter Summary ---
Author Organization [facility] Address [address] Attn: Epic Prelude [place] [address] Care Team Providers Care Oracle Adf Developer Name Role Phone Unavailable Primary Care Provider Unavailabl e Encounter Details Date Type Department Care Team (Late st Contact Info) Description 03/28/2001 Inpatient Historical Prieto Shrestha MD NO ADDRESS ON FILE Social History Tobacco Use Types Packs/Day Years Used Date Smoking Tobacco: Never Assessed Sex and Gender Information Value Date Recorded Sex Assigned at Not on file Legal Sex Male 3:51 AM [employer] Gender Identity Not on file Sexual Orientation Not on file documented as of this encounter Plan of Treatment Not on file documented as of this encounter Visit Diagnoses Not on filedocumented in this encounter
[2025-09-01 15:27] LABS: Troponin(5th) Baseline 20 ng/L (0-15)
[2025-09-01 15:32] LABS: Alanine Aminotransferase 18 U/L (0-41); Albumin Level 4.4 g/dL (3.5-5.2); Alkaline Phosphatase 99 U/L (40-130); Blood Urea Nitrogen 13 mg/dL (8-23); Calcium 9.3 mg/dL (8.5-10.5); Carbon Dioxide 24 mmol/L (22-29); Chloride 99 mmol/L (98-107); Creatinine Clr Calc Pharmacy 88.2062; Globulin 2.8 g/dL (1.3-4.6); Glucose 106 mg/dL (65-115); NT Pro B Type Natriuretic Pept 573 pg/mL (0-450); Osmolality Calculated 283 mOsm/kg (285-295); Sodium 136 mmol/L (136-145); Total Protein 7.2 g/dL (6.6-8.7)
--- NOTE | 2025-09-01 15:39 | PC.PHAR ---
Addendum entered by Gemini Valdez 09/01/25 15:40: Pt states he brought his medication box with him. Pt arrived via [facility]. Unable to locate box in room. Original Note: Pt is no longer taking Warfarin.
[2025-09-01 15:43] LABS: Anion Gap 17.8 (5-19); Aspartate Amino Transferase 24 U/L (0-40); Potassium 4.8 mmol/L (3.5-5.1)
--- NOTE | 2025-09-01 16:15 | P.CONIM_ITS ---
<Statement entered by Richar Ness M.D - 09/04/25 09:35> Patient was cared for in conjunction with an advanced practice practitioner. I reviewed the chart and all pertinent data including imaging, telemetry, and laboratory results. I discussed the patient in detail with the advanced practice practitioner. Please see their note for agreed upon plan of care and results for the patient with following changes Patient's chest pain is atypical. We will reassess LV systolic function with echo with contrast. Will only perform coronary angiogram if has significant LV dysfunction. Recommend CTA chest. Thank you for involving us with care of this patient. We will continue to follow. Please call with questions. Providers/Reason For Consult 2 Consulting Physician/Specialty*: Dr Ness, interventional cardiology Reason for Consult*: chest pain Requesting Physician: Hammad Walls MD Attending Physician: Hammad Walls MD Primary Care Provider: Harrison Rendon MD History of Present Illness History of Present Illness Narciso Rider is a 80 year old male with past medical history of CAD (stent in 2000), chronic atrial fibrillation with history of GI bleed (recently failed Watchman placement) rate controlled with diltiazem and metoprolol, hypertension. He was seen in the clinic for musculoskeletal chest pain worse with palpation, inspiration on 08/26/25, echocardiogram was ordered to evaluate structural heart. At that time, decreased LVEF was found, down to 45% from normal in 2022, coronary angiogram was planned. Stress test in May last year was negative for ischemia. He has been seen in the ER several times for this pain, each time troponin series downtrending from 20's. Today baseline troponin 20. EKG today shows atrial fibrillation, Q wave in V2, otherwise unchanged from previous on 08/25. The chest pain is not present to palpation any longer, but as he is laying still on the bed, jerks and states pain like being stabbed. Review of Systems 2 Const: Denies: fever(s), chills, change in weight, fatigue or diaphoresis Eyes: Denies: change in vision ENMT: Denies: epistaxis Card: Reports: chest pain and orthopnea (random intermittent); Denies: palpitations, irregular heart rhythm, edema, syncope, pre-syncope, dyspnea on exertion or leg pain with exertion Resp: Denies: dyspnea, productive cough or wheezing GI: Denies: nausea, vomiting, hematemesis, hematochezia or melena : Denies: hematuria Musc: Denies: extremity swelling Romulo/Lymph: Denies: easy bruising or easy bleeding Medications/Allergies Home Medications ?Medication ?Instructions ?Recorded ?Confirmed ?Last Taken ?Type atorvastatin 20 mg tablet 20 mg PO QPM 03/31/2108/31/25 History omeprazole 40 mg capsule,delayed 40 mg PO BID 03/31/21 09/01/25 09/01/25 History release acetaminophen 500 mg tablet 1,000 mg PO BID PRN Pain 1 09/01/25 Unknown History (Tylenol Extra Strength) metoprolol tartrate 100 mg tablet 200 mg PO BID 09/01/25 09/01/25 History diltiazem HCl 120 mg 120 mg PO Q12H 04/30/2408/2008/31/25 History capsule,extended release 12 hr finasteride 5 mg tablet 5 mg PO DAILY 07/02/2409/0109/01/25 History nitroglycerin 0.4 mg sublingual 0.4 mg sublingual Q5M PRN Chest 07/02/24 09/01/25 Unknown Rx tablet Pain #30 tabs cholecalciferol (vitamin D3) 1,250 50,000 unit PO .li lua #8 caps 05/01/25 09/01/25 08/28/25 Rx mcg (50,000 unit) capsule triamcinolone acetonide 0.1 % 1 applic topical BID PRN Skin 05/01/25 09/01/25 Unknown History topical cream Irritation ferrous sulfate 325 mg (65 mg 325 mg PO DAILY 07/31/25 09/01/25 09/01/25 History iron) tablet clonidine HCl 0.1 mg tablet 0.1 mg PO DAILY PRN hypert ension 08/19/25 09/01/25 Unknown Rx #20 tabs fluticasone fur. 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 Declined biopsy August 2021 did agree to follow-up though Elevated PSA >13 September 2021. Unaware of prior remote PSAs. Declined biopsy Surgical History History of coronary angioplasty Family History Mother Bleeding disorder Father , AT AGE 53 Heart disease Social History Smoking and tobacco/nicotine status: former use of tobacco/nicotine Quit status (tobacco/nicotine): has quit using Year quit tobacco: 1992 Former quit date comment: Smoked 50 years Alcohol intake: never Substance/Drug Use: never Marital status: / Current occupational status: retired Vitals/I&O/Wt Last Vital Signs Temp 97.7 F 09/01/25 14:47 Pulse 71 09/01/25 16:07 Resp 17 09/01/25 16:07 BP 160/100 09/01/25 16:07 Pulse Ox 98 09/01/25 16:07 O2 Del Method Room Air 09/01/25 16:07 Weight last 48 hrs Weight 218 lb Physical Exam 2 Const: COMMON NORMALS: no acute distress and patient oriented x3 GENERAL APPEARANCE: cooperative and comfortable ORIENTATION/CONSCIOUSNESS: Yes awake, Yes oriented to person, Yes oriented to place and Yes oriented to time Chest: COMMONS NORMALS: normal inspection of the chest and normal palpation of entire chest wall CHEST: Yes Symmetrical chest wall rise Resp: COMMON NORMALS: normal respiratory effort, No retractions, No use of accessory muscles and clear to auscultation bilaterally EFFORT & INSPECTION: Yes symmetric chest movement AUSCULTATION: clear to auscultation bilaterally Cardio: COMMON NORMALS: regular rate, regular rhythm, S1 normal heart sound present, S2 normal heart sound present, No gallops present (Cardio), No clicks present (Cardio), No murmurs present (Cardio) and No rub (Cardio) RATE: r egular rate RHYTHM: regular rhythm HEART SOUNDS: S1 normal heart sound present and S2 normal heart sound present PERIPHERAL PULSES: radial pulses present Extremity: COMMON NORMALS: no pedal edema Neuro: COMMON NORMALS: patient oriented x3 and moves all extremities S ENSORIUM/ORIENTATION: Yes oriented to person, Yes oriented to place and Yes oriented to time Data 09/01/25 14:45 09/01/25 14:45 A&P Assessment and plan 1. CAD (coronary artery disease): 2. Chest pain: 3. Acute CHF: 4. Chronic atrial fibrillation: Plan: Chest pain is atypical, sharp and random. He still requires workup for decreased LV function, will plan for coronary angiogram to evaluate further. NPO after midnight tonight. He appears euvolemic currently, blood pressure elevated in the ER. Continue diltiazem, metoprolol. PDMP PDMP Reviewed: Not Reviewed Coding Level of Care Code Acute Code for [facility] Diagnoses CAD (coronary artery disease) I25.10 Chest pain R07.9 Acute CHF I50.9 Chronic atrial fibrillation I48.20
[2025-09-01] MEDS: morphine 4 mg/mL SDV 1 mL 2 MG IVP ×2 (16:18→19:01)
--- NOTE | 2025-09-01 16:32 | PM.HP ---
Providers/Chief Complaint Admitting Physician: Hammad Walls MD Primary Care Provider: Harrison Rendon MD Chief Complaint: CHEST PAIN History of Present Illness Narciso Rider is a 80 year old male with a past medical history of GI bleed, taking off anticoagulant therapy, failure of implantation of Watchman device, history of CAD, who presents [facility] for left-sided chest pain. Currently patient is alert oriented x 3, following all commands, complaining of left-sided chest discomfort, denies any shortness of breath, no lightheadedness, dizziness, does report that the pain radiates down his left shoulder, nitroglycerin helps with his chest discomfort, denies any recent bloody black stools, no cough, no recent trauma, no calf pain, calf swelling, hemoptysis Medications/Allergies Home Medications ?Medication ?Instructions ?Recorded ?Confirmed ?Last Taken ?Type atorvastatin 20 mg tablet 20 mg PO QPM 03/31/21 09/01/25 08/31/25 History omeprazole 40 mg capsule,delayed 40 mg PO BID 03/31/21 09/01/25 09/01/25 History release acetaminophen 500 mg tablet 1,000 mg PO BID PRN Pain 08/27/21 09/01/25 Unknown History (Tylenol Extra Strength) metoprolol tartrate 100 mg tablet 200 mg PO BID 11/30/21 09/01/25 09/01/25 History diltiazem HCl 120 mg 120 mg PO Q12H 04/30/24 09/01/25 08/31/25 History capsule,extended release 12 hr finasteride 5 mg tablet 5 mg PO DAILY 07/02/24 09/01/25 09/01/25 History nitroglycerin 0.4 mg sublingual 0.4 mg sublingual Q5M PRN Chest 07/02/24 09/01/25 Unknown Rx tablet Pain #30 tabs cholecalciferol (vitamin D3) 1,250 50,000 unit PO .weekly #8 caps 05/01/25 09/01/25 08/28/25 Rx mcg (50,000 unit) capsule triamcinolone acetonide 0.1 % 1 applic topical BID PRN Skin 05/01/25 09/01/25 Unknown History topical cream Irritation ferrous sulfate 325 mg (65 mg 325 mg PO DAILY 07/31/25 09/01/25 09/01/25 History iron) tablet clonidine HCl 0.1 mg tablet 0.1 mg PO DAILY PRN hypertension 08/19/25 09/01/25 Unknown Rx #20 tabs fluticasone fur. 200 mcg-umeclid 1 inh inhalation DAILY 08/23/25 09/01/25 09/01/25 History 62.5 mcg-vilant 25 mcg inhalat.powder (Trelegy Ellipta) ipratropium 0.5 mg-albuterol 3 mg 3 ml inhalation QID PRN Shortness 08/23/25 09/01/25 Unknown History (2.5 mg base)/3 mL nebulization Of Breath soln lidocaine 1.8 % topical patch 1 patch topical Q24H #30 ea 08/26/25 09/01/25 09/01/25 Rx Allergies Allergy/AdvReac Type Severity Reaction Status Date / Time No Known Allergies Allergy Verified 07/31/25 11:53 PFSH Acute PFSH: Medical History (Updated 09/01/25 @ 16:27 by FADI Rivera) Prostate cancer Prostate nodule Consistent with COORD[employer]. Declined biopsy August 2021 did agree to follow-up though Elevated PSA >13 September 2021. Unaware of prior remote PSAs. Declined biopsy Surgical History History of coronary angioplasty Family History Mother Bleeding disorder Father , AT AGE 53 Heart disease Social History Smoking and tobacco/nicotine status: former use of tobacco/nicotine Quit status (tobacco/nicotine): has quit using Year quit tobacco: 1992 Former quit date comment: Smoked 50 years Alcohol intake: never Substance/Drug Use: never Marital status: / Current occupational status: retired Vitals/I&O/Wt Last Vital Signs Temp 97.7 F 09/01/25 14:47 Pulse 71 09/01/25 16:07 Resp 16 09/01/25 16:18 BP 160/100 09/01/25 16:07 Pulse Ox 98 09/01/25 16:07 O2 Del Method Room Air 09/01/25 16:07 Weight last 48 hrs Weight 98.883 kg Physical Exam Const: COMMON NORMALS: no acute distress and patient oriented x3 HENMT: COMMON NORMALS: normocephalic HEAD & SCALP: normocephalic Neck/C-Spine: COMMON NORMALS: no JVD Resp: COMMON NORMALS: normal respiratory effort, No retractions, No use of accessory muscles and clear to auscultation bilaterally AUSCULTATION: clear to auscultation bilaterally Cardio: COMMON NORMALS: regular rate, regular rhythm, S1 normal heart sound present and S2 normal heart sound present RATE: regular rate RHYTHM: regular rhythm HEART SOUNDS: S1 normal heart sound present and S2 normal heart sound present GI: COMMON NORMALS: Normal to inspection, nondistended, normoactive bowel sounds present, Soft to palpation and non-tender PALPATION: Yes No hepatosplenomegaly present Extremity: COMMON NORMALS: no calf tenderness and no pedal edema Neuro: COMMON NORMALS: patient oriented x3, CN's II-XII intact bilaterally, moves all extremities and no focal motor deficits Psych: COMMON NORMALS: mental status grossly normal Data 09/01/25 14:45 09/01/25 14:45 A&P Assessment and plan 1. CAD (coronary artery disease): 2. Chronic atrial fibrillation: 3. Chest pain: Plan: Chest pain Cardiac echo August 2025 CONCLUSIONS Moderately increased left ventricular cavity size. Moderately decreased left ventricular systolic function. Left ventricular ejection fraction is estimated at 45 %. Global left ventricular hypokinesis. Grade III/IV diastolic dysfunction (restrictive filling pattern), severely elevated filling pressures. Moderate biatrial enlargment Mildly thickened mitral valve. No mitral valve stenosis. Moderate mitral valve regurgitation. Mild aortic valve calcification. No aortic valve stenosis. Trace aortic valve regurgitation. Mild tricuspid valve regurgitation. There is no pericardial effusion. Right atrial pressure is around 5-10 mm of mercury. Plan -Serial EKGs, serial troponins, telemetry monitoring - D-dimer - Venous ultrasound -Aspirin, statin - Protonix, Carafate for GI prophylaxis - Cardiology consulted - DNR/DNI, confirmed with patient, sister at bedside - DVT prophylaxis SCDs, Lovenox relatively contraindicated given history of GI bleed PDMP PDMP Reviewed: Not Reviewed Attestations Medical Necessity Statement*: Patient requires hospitalization, outpatient observation, for chest pain Diagnoses CAD (coronary artery disease) I25.10 Chronic atrial fibrillation I48.20 Chest pain R07.9
--- NOTE | 2025-09-01 16:35 | USR_ITS ---
PROCEDURE INFORMATION: Exam: US Duplex Lower Extremity Veins, Bilateral Exam date and time: 09/01/2025 6:07 PM Age: 80 years old Clinical indication: Swelling (edema) of limb; Lower extremity, bilateral TECHNIQUE: Imaging protocol: Real-time duplex ultrasound of the bilateral extremities with 2-D huynh scale, color Doppler flow and spectral waveform analysis including responses to compression and other maneuvers (when performed) with image documentation. Complete exam focused on the lower extremity veins. COMPARISON: CT abdomen pelvis w con* [id number] 08/23/2025 7:48 AM FINDINGS: Right deep veins: Unremarkable. The common femoral, femoral, proximal profunda femoral and popliteal veins are patent without thrombus. Normal Doppler waveforms. Normal compressibility and/or augmentation response. Left deep veins: Unremarkable. The common femoral, femoral, proximal profunda femoral and popliteal veins are patent without thrombus. Normal Doppler waveforms. Normal compressibility and/or augmentation response. Superficial veins: Greater saphenous veins at the saphenofemoral junctions are patent bilaterally without thrombus. Soft tissues: Unremarkable. US/CV venous duplex [facility] [id number] IMPRESSION: No evidence of deep vein thrombosis.
--- NOTE | 2025-09-01 17:10 | CTR_ITS ---
PROCEDURE INFORMATION: Exam: CTA Chest With Contrast Exam date and time: 09/02/2025 12:21 AM Age: 80 years old Clinical indication: Abdominal pain; Angina pectoris; Additional info: Chest pain TECHNIQUE: Imaging protocol: Computed tomographic angiography of the chest with contrast. Exam focused on the arteries. 3D rendering (Not supervised by radiologist): MIP and/or 3D reconstructed images were created by the technologist. Radiation optimization: All CT scans at this facility use at least one of these dose optimization techniques: automated exposure control; mA and/or kV adjustment per patient size (includes targeted exams where dose is matched to clinical indication); or iterative reconstruction. Contrast material: OMNI 350; Contrast volume: 100 ml; Contrast route: INTRAVENOUS (IV); COMPARISON: CT chest abdpel w/*[id number] 07/24/2024 2:21 PM RADIATION DOSE METRICS: Total DLP (mGy-cm): 1272.72 FINDINGS: Pulmonary arteries: No definite significant pulmonary embolism or right heart strain. Aorta: Aortic and coronary atherosclerosis. Ascending aortic aneurysm up to 4.2 cm at level of right main pulmonary artery. Lungs: Scattered pulmonary granulomas. Pleural spaces: Unremarkable. No pneumothorax. No pleural effusion. Heart: Unremarkable. No cardiomegaly. No pericardial effusion. Lymph nodes: Unremarkable. No enlarged lymph nodes. Bones/joints: Moderate degenerative changes of thoracic spine with moderate kyphosis, possibly ankylosing spondylitis. Soft tissues: Unremarkable. PROCEDURE INFORMATION: Exam: CT Abdomen And Pelvis With Contrast Exam date and time: 09/02/2025 12:21 AM Age: 80 years old Clinical indication: Abdominal pain; Angina pectoris; Additional info: Chest pain TECHNIQUE: Imaging protocol: Computed tomography of the abdomen and pelvis with contrast. Radiation optimization: All CT scans at this facility use at least one of these dose optimization techniques: automated exposure control; mA and/or kV adjustment per patient size (includes targeted exams where dose is matched to clinical indication); or iterative reconstruction. Contrast material: OMNI 350; Contrast volume: 100 ml; Contrast route: INTRAVENOUS (IV); COMPARISON: CT abdomen pelvis w con* [id number] 08/23/2025 7:48 AM RADIATION DOSE METRICS: Total DLP (mGy-cm): 1272.72 FINDINGS: Liver: Nonspecific although commonly benign hepatic cysts. Gallbladder and biliary ducts: Normal. No calcified stones. No ductal dilation. Pancreas: Normal. No ductal dilation. Spleen: Normal. No splenomegaly. Adrenal glands: Normal. No mass. Kidneys and ureters: Nonspecific although commonly benign renal cysts. Stomach and bowel: Unremarkable. No obstruction. No mucosal thickening. Appendix: No evidence of appendicitis. Intraperitoneal space: No definite acute abdominopelvic abnormality. Vasculature: Aortic atherosclerosis. Lymph nodes: Unremarkable. No enlarged lymph nodes. Urinary bladder: Unremarkable as visualized. Reproductive: Unremarkable as visualized. Bones/joints: Moderate degenerative changes of the lumbar spine. Soft tissues: Unremarkable. Other findings: Motion artifact limits exam. CT/CT angio chest w abd pel w con IMPRESSION: 1. No definite significant pulmonary embolism or right heart strain. No definite acute infiltrate or effusion. 2. Ascending aortic aneurysm up to 4.2 cm at level of right main pulmonary artery. IMPRESSION: No definite acute abdominopelvic abnormality. COMMENTS: Consistent with the [employer]'s Incidental Findings Committee white paper (J Am Noa Radiol 2018): Any incidental renal lesion less than 1 cm or classified as too small to characterize, or any incidental cystic renal lesion characterized as simple-appearing, is likely benign. No follow-up imaging is recommended for these lesions per consensus recommendations based on imaging criteria.
[2025-09-01] MEDS: sucralfate 1 gm/10 mL Oral Liq UDC PO ×2 (17:17→21:59)
[2025-09-01] MEDS: ATORVASTATIN 20 MG TABLET PO (17:18)
[2025-09-01] MEDS: dilTIAZem ER (12HR) 60 mg Capsule 120 MG PO (17:18)
[2025-09-01 17:23] LABS: Cholesterol 156 mg/dL (0-200); HDL Cholesterol 58 mg/dL (60-100); Triglycerides 148 mg/dL (0-150)
[2025-09-01 17:50] LABS: Troponin 5 2HR 18.91 ng/L (0-15); Troponin 5 2HR Delta -1.09 ABS# (0-10)
--- NOTE | 2025-09-01 17:53 | ECG_ITS ---
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 Measurements Intervals [place] Rate: 75 P: 0 MI: 0 QRS: 40 QRSD: 109 T: 1 QT: 389 QTc: 436 Interpretive Statements ATRIAL FIBRILLATION POSSIBLE OLD SEPTAL INFARCTION MINIMAL VOLTAGE CRITERIA FOR LVH, CONSIDER NORMAL VARIANT [MEETS CRITERIA IN ONE OF: R(aVL), S(V1), R(V5), R(V5/V6)+S(V1)] MILD ST DEPRESSION [0.05+ mV ST DEPRESSION] Compared to ECG 09/01/2025 14:50:10 ST deviation now present Electronically Signed On 09-03-2025 23:08:24 CDT by Jose Rutherford M.D. [email or web address]
[2025-09-01 18:45] LABS: Estmated Average Glucose 108; Hemoglobin A1C 5.4 % (4.0-6.0)
[2025-09-01 20:46] LABS: Troponin 5 6HR 18.03 ng/L (0-15)
[2025-09-01 20:49] LABS: Troponin 5 6HR Delta -1.97 ng/L (0-12)
--- NOTE | 2025-09-01 21:29 | ECG_ITS ---
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 Measurements Intervals [place] Rate: 76 P: 0 NM: 0 QRS: 41 QRSD: 108 T: 15 QT: 406 QTc: 457 Interpretive Statements ATRIAL FIBRILLATION VOLTAGE CRITERIA FOR LVH [MEETS CRITERIA IN ONE OF: R(aVL), S(V1), R(V5), R(V5/V6)+S(V1)] VERY MILD ST DEPRESSION Compared to ECG 09/01/2025 17:53:27 NO SIGNIFICANT CHANGE Electronically Signed On 09-03-2025 23:10:55 CDT by Jose Rutherford M.D. [email or web address]
[2025-09-02] VITALS (13 sets, daily range): BP systolic 118–193; BP diastolic 58–114; PULSE 60–94; RESP 11–25; TEMP 36.6–36.7; O2SAT 90–97
[2025-09-02] MEDS: iohexol 350 mg/mL 500 mL Btl (per mL) IV (00:37)
[2025-09-02] MEDS: morphine 4 mg/mL SDV 1 mL 2 MG IVP ×3 (01:14→07:42)
[2025-09-02] MEDS: sucralfate 1 gm/10 mL Oral Liq UDC PO ×4 (04:12→21:56)
[2025-09-02] MEDS: dilTIAZem ER (12HR) 60 mg Capsule 120 MG PO ×2 (04:12→16:20)
[2025-09-02 04:28] LABS: Hematocrit 36.5 % (37-53); Hemoglobin 11.90 g/dL (11.27-16.99); Mean Corpuscular HGB Conc 32.6 g/dL (30-55); Mean Corpuscular Hemoglobin 31.8 pg (27-33); Mean Corpuscular Volume 97.6 fl (82-101); Nucleated Red Blood Cells % 0 %; Platelet Count 143 10^3/cmm (157-399); Red Blood Count 3.74 10^6/uL (3.85-5.65); White Blood Count 3.98 10^3/uL (3.29-11.43)
[2025-09-02 04:51] LABS: Alanine Aminotransferase 14 U/L (0-41); Albumin Level 3.9 g/dL (3.5-5.2); Alkaline Phosphatase 89 U/L (40-130); Anion Gap 15.5 (5-19); Aspartate Amino Transferase 16 U/L (0-40); Blood Urea Nitrogen 9 mg/dL (8-23); Calcium 8.9 mg/dL (8.5-10.5); Carbon Dioxide 26 mmol/L (22-29); Chloride 100 mmol/L (98-107); Creatinine Clr Calc Pharmacy 84.2799; Globulin 2.9 g/dL (1.3-4.6); Glucose 107 mg/dL (65-115); Osmolality Calculated 283 mOsm/kg (285-295); Potassium 4.5 mmol/L (3.5-5.1); Sodium 137 mmol/L (136-145); Total Protein 6.8 g/dL (6.6-8.7)
--- NOTE | 2025-09-02 08:51 | USCV_ITS ---
Narciso Rider Age: 80 Gender: M : 1945 Exam Date: 09/02/2025 11:42 Ordering Phys: Krista Stephen Technologist: Exam Location: [facility] [place] Indication: contrast follow up BP: / HR: Rhythm: Sinus Technical Quality: Adequate MEASUREMENTS (Male / Female) Normal Values 2D ECHO LV Ejection Fraction MOD 4C 65.7 % LV Ejection Fraction MOD 2C 45.0 % LV Ejection Fraction 2C AL 44.3 % FINDINGS Left Ventricle Right Ventricle Right Atrium Left Atrium IA Septum Mitral Valve Aortic Valve Tricuspid Valve Pulmonic Valve Pericardium Aorta IVC CONCLUSIONS Limited echocardiogram performed to assess LV systolic function LV systolic function is normal with EF of 50-55%. Mild hypokinesis of inferoseptal and septal muller. Richar Ness MD (Electronically Signed) Final Date: 03 September 2025 05:12 S
--- NOTE | 2025-09-02 09:11 | PC.CHAP ---
Pastoral Care Encounter/Spiritual Assessment Type of Contact [] Declined precipitator operator visit [] Patient/Family/Request visit [] Outpatient visit [] Follow-up visit [] Physician referral [] Code/Alert [x] Routine visit [] Staff referral [] Actively dying [] Patient sleeping [] Family support [] [] Out of room [] Palliative care [] [] Receiving care in room [] Pre-surgical visit [] Trauma [] Long length of stay [] ICU visit [] Other: Relational/Emotional Strength [x] Patient feels connected with others/family/visitors/staff [] Distress [] Loneliness/isolation [] Abandonment Spirituality of Patient [x] Person of Lien [] Attends Denominational of their Lien [x] Believes in Prayer [] Reads Bible or Anglican materials [] There are Spiritual issues to be addressed Centerless Grinder Set Up Operator Interventions [x] Prayer [x] Active listening [x] Non-anxious presence [x] Spiritual/emotional support [] Crisis/trauma care [] Spiritual counseling [] Bereavement support [] Provided bereavement packet [] Provided Bible/devotional materials [] Provided toy/stuffed animal, coloring book to patient or family member [] Provided Communion [] Anointing/[place] [] Salvation [x] Completed spiritual assessment [] Other: Impact on Illness or Injury [] Angry [] Fearful [] Anxious [] Often cries [] Exhaustion [] Unable to work [] Unable to attend anglican [] Unable to walk/stand [] Unable to read [] Unable to drive [] Unable to eat/drink [] Unable to sleep [] Unable to be with family [] Patient intubated [] Other: Summary Time spent with patient 5 min
--- NOTE | 2025-09-02 09:42 | P.PN_ITS ---
<Statement entered by Nikkie De Luna 09/06/25 14:00> Patient was cared for in conjunction with an advanced practice practitioner.? I reviewed the chart and all pertinent data including imaging, telemetry, and laboratory results.? I discussed the patient in detail with the advanced practice practitioner.? Please see their note for progress note, testing results and agreed upon plan of care for the patient. Subjective 2 Subjective: He is resting well this morning. Telemetry shows atrial fibrillation, good ventricular rate control. Vitals/I&O/Wt Last Vital Signs Temp 98.0 F 09/02/25 08:00 Pulse 80 09/02/25 08:00 Resp 19 H 09/02/25 08:00 BP 161/91 09/02/25 08:00 Pulse Ox 91 09/02/25 08:00 O2 Del Method Room Air 09/02/25 00:00 09/01/25 09/02/25 09/02/25 22:59 06:59 14:59 Intake Total 240 / 720 480 / 720 946.25 / 946.25 Output Total 750 / 2100 1350 / 2100 500 / 500 Balance -510 / -1380 -870 / -1380 446.25 / 446.25 Weight last 48 hrs Weight 195 lb 11.2 oz Weight 196 lb 13.965 oz Weight 218 lb Physical Exam 2 Const: COMMON NORMALS: no acute distress and patient oriented x3 Chest: COMMONS NORMALS: normal inspection of the chest and normal palpation of entire chest wall CHEST: Yes Symmetrical chest wall rise Resp: COMMON NORMALS: normal respiratory effort, No retractions, No use of accessory muscles and clear to auscultation bilaterally EFFORT & INSPECTION: Yes symmetric chest movement AUSCULTATION: clear to auscultation bilaterally Cardio: COMMON NORMALS: S1 normal heart sound present, S2 normal heart sound present, No gallops present (Cardio), No clicks present (Cardio), No murmurs present (Cardio) and No rub (Cardio) RHYTHM: abnormal rhythm irregularly irregular HEART SOUNDS: S1 normal heart sound present and S2 normal heart sound present PERIPHERAL PULSES: radial pulses present, posterior tibial pulses present and dorsalis pedis present Neuro: COMMON NORMALS: patient oriented x3 and moves all extremities Psych: COMMON NORMALS: mental status grossly normal and cooperative Data 09/02/25 04:04 09/02/25 04:04 A&P Assessment and plan 1. Chronic atrial fibrillation: 2. Chest pain: 3. CAD (coronary artery disease): Plan: Atypical chest pain, will add on colchicine 0.6mg BID for possibility of pericarditis given the recent attempted Watchman procedure. CTA of the chest/abd/pelvis was unremarkable, no PE, D dimer negative. Since he has significant history of GI bleed, will utilize low dose aspirin rather than high dose NSAID. Continue diltiazem and metoprolol for rate control. Will obtain limited echocardiogram with contrast to ensure accurate measurement of LVEF. PDMP PDMP Reviewed: Not Reviewed Attestations 2 Medical Necessity Statement*: atypical chest pain, decreased LVEF Coding Level of Care Code Acute Code for [facility] Fwd Diagnoses Chronic atrial fibrillation I48.20 Chest pain R07.9 CAD (coronary artery disease) I25.10
[2025-09-02] MEDS: perflutren protein-a microsphr 0.22 mg/mL SDV 3 mL IV (12:04)
--- NOTE | 2025-09-02 15:08 | P.PN_ITS ---
Subjective 2 Subjective: Patient was seen this morning, currently alert and oriented x 3, does report left-sided chest wall discomfort, left flank pain, on examination he is tender to palpation under the left chest wall, he is exquisitely tender to the left breast, denies any falls, no trauma he tells me that he has had this chest wall discomfort since his failed attempt at Watchman device placement Vitals/I&O/Wt Last Vital Signs Temp 98.0 F 09/02/25 08:00 Pulse 77 09/02/25 14:00 Resp 11 L 09/02/25 12:00 BP 127/74 09/02/25 12:00 Pulse Ox 97 09/02/25 12:00 O2 Del Method Room Air 09/02/25 00:00 09/02/25 09/02/25 09/02/25 06:59 14:59 22:59 Intake Total 480 / 720 1064.25 / 1064.25 Output Total 1350 / 2100 850 / 850 Balance -870 / -1380 214.25 / 214.25 Weight last 48 hrs Weight 88.768 kg Weight 89.3 kg Weight 98.883 kg Physical Exam 2 Const: COMMON NORMALS: no acute distress and patient oriented x3 Resp: COMMON NORMALS: normal respiratory effort, No retractions, No use of accessory muscles and clear to auscultation bilaterally AUSCULTATION: clear to auscultation bilaterally Cardio: COMMON NORMALS: regular rate, regular rhythm, S1 normal heart sound present and S2 normal heart sound present RATE: regular rate RHYTHM: r egular rhythm HEART SOUNDS: S1 normal heart sound present and S2 normal heart sound present GI: COMMON NORMALS: Normal to inspection, nondistended, normoactive bowel sounds present and non-tender Extremity: COMMON NORMALS: no pedal edema Neuro: COMMON NORMALS: patient oriented x3 Psych: COMMON NORMALS: mental status grossly normal Data 09/02/25 04:04 09/02/25 04:04 A&P Assessment and plan 1. CAD (coronary artery disease): 2. Chronic atrial fibrillation: 3. Chest pain: Plan: Chest pain Cardiac echo August 2025 CONCLUSIONS Moderately increased left ventricular cavity size. Moderately decreased left ventricular systolic function. Left ventricular ejection fraction is estimated at 45 %. Global left ventricular hypokinesis. Grade III/IV diastolic dysfunction (restrictive filling pattern), severely elevated filling pressures. Moderate biatrial enlargment Mildly thickened mitral valve. No mitral valve stenosis. Moderate mitral valve regurgitation. Mild aortic valve calcification. No aortic valve stenosis. Trace aortic valve regurgitation. Mild tricuspid valve regurgitation. There is no pericardial effusion. Right atrial pressure is around 5-10 mm of mercury. Plan -Serial EKGs, serial troponins, telemetry monitoring - D-dimer within normal limits - Venous ultrasound no DVT -CT chest abdomen pelvis, no evidence of pulmonary embolism -For possible pericarditis, start colchicine, also received muscle relaxer for chest wall pain, IV Dilaudid -Aspirin, statin - Protonix, Carafate for GI prophylaxis - Cardiology consulted - DNR/DNI, confirmed with patient, sister at bedside - DVT prophylaxis SCDs, Lovenox relatively contraindicated given history of GI bleed PDMP PDMP Reviewed: Not Reviewed Attestations 2 Medical Necessity Statement*: Patient requires hospitalization for chest pain Diagnoses CAD (coronary artery disease) I25.10 Chronic atrial fibrillation I48.20 Chest pain R07.9
[2025-09-02] MEDS: ATORVASTATIN 20 MG TABLET PO (16:20)
[2025-09-02] MEDS: HYDROmorphone 0.5 MG/0.5 ML INJ SUBCUT (18:32)
[2025-09-03 03:33] VITALS: BP 137/74; PULSE 64; RESP 20; TEMP 36.6; O2SAT 95
[2025-09-03] MEDS: HYDROmorphone 0.5 MG/0.5 ML INJ SUBCUT ×2 (03:42→11:25)
[2025-09-03 04:05] LABS: Hematocrit 33.5 % (37-53); Hemoglobin 11.20 g/dL (11.27-16.99); Mean Corpuscular HGB Conc 33.4 g/dL (30-55); Mean Corpuscular Hemoglobin 32.3 pg (27-33); Mean Corpuscular Volume 96.5 fl (82-101); Nucleated Red Blood Cells % 0 %; Platelet Count 146 10^3/cmm (157-399); Red Blood Count 3.47 10^6/uL (3.85-5.65); White Blood Count 3.86 10^3/uL (3.29-11.43)
[2025-09-03 04:28] LABS: Alanine Aminotransferase 14 U/L (0-41); Albumin Level 3.6 g/dL (3.5-5.2); Alkaline Phosphatase 83 U/L (40-130); Anion Gap 15.3 (5-19); Aspartate Amino Transferase 15 U/L (0-40); Blood Urea Nitrogen 13 mg/dL (8-23); Calcium 8.7 mg/dL (8.5-10.5); Carbon Dioxide 25 mmol/L (22-29); Chloride 98 mmol/L (98-107); Creatinine Clr Calc Pharmacy 84.0619; Globulin 2.6 g/dL (1.3-4.6); Glucose 109 mg/dL (65-115); Osmolality Calculated 279 mOsm/kg (285-295); Potassium 4.3 mmol/L (3.5-5.1); Sodium 134 mmol/L (136-145); Total Protein 6.2 g/dL (6.6-8.7)
[2025-09-03] MEDS: sucralfate 1 gm/10 mL Oral Liq UDC PO ×4 (05:03→21:58)
[2025-09-03 06:00] VITALS: BMI 27.7
[2025-09-03 08:00] VITALS: BP 151/78; PULSE 68; RESP 20; TEMP 36.6; O2SAT 93
--- NOTE | 2025-09-03 10:22 | P.PN_ITS ---
<Statement entered by Richar Ness M.D - 09/06/25 14:01> Patient was cared for in conjunction with an advanced practice practitioner.? I reviewed the chart and all pertinent data including imaging, telemetry, and laboratory results.? I discussed the patient in detail with the advanced practice practitioner.? Please see their note for progress note, testing results and agreed upon plan of care for the patient. Subjective 2 Subjective: He has some atrial fibrillation with slow ventricular response noted overnight while sleeping. He continues to have very tender left breast and back, does not note any improvement since starting colchicine. Vitals/I&O/Wt Last Vital Signs Temp 97.8 F 09/03/25 08:00 Pulse 68 09/03/25 08:00 Resp 20 H 09/03/25 08:00 BP 151/78 09/03/25 08:00 Pulse Ox 93 09/03/25 08:00 O2 Del Method Room Air 09/03/25 03:33 09/02/25 09/03/25 09/03/25 22:59 06:59 14:59 Intake Total 240 / 1304.25 Output Total 300 / 1150 600 / 600 Balance 240 / 154.25 -300 / 154.25 -600 / -600 Weight last 48 hrs Weight 204 lb 5.896 oz Weight 195 lb 11.2 oz Weight 196 lb 13.965 oz Weight 218 lb Physical Exam 2 Const: COMMON NORMALS: no acute distress and patient oriented x3 GENERAL APPEARANCE: cooperative and comfortable ORIENTATION/CONSCIOUSNESS: Yes awake, Yes oriented to person, Yes oriented to place and Yes oriented to time Chest: COMMONS NORMALS: normal inspection of the chest and normal palpation of entire chest wall CHEST: Yes Symmetrical chest wall rise Resp: COMMON NORMALS: normal respiratory effort, No retractions, No use of accessory muscles and clear to auscultation bilaterally EFFORT & INSPECTION: Yes symmetric chest movement AUSCULTATION: clear to auscultation bilaterally Cardio: COMMON NORMALS: regular rate, S1 normal heart sound present, S2 normal heart sound present, No gallops present (Cardio), No clicks present (Cardio), No murmurs present (Cardio) and No rub (Cardio) RATE: regular rate RHYTHM: a bnormal rhythm irregularly irregular HEART SOUNDS: S1 normal heart sound present and S2 normal heart sound present PERIPHERAL PULSES: radial pulses present Extremity: COMMON NORMALS: no pedal edema Neuro: COMMON NORMALS: patient oriented x3 and moves all extremities S ENSORIUM/ORIENTATION: Yes oriented to person, Yes oriented to place and Yes oriented to time Data 09/03/25 03:46 09/03/25 03:46 A&P Assessment and plan 1. Musculoskeletal chest pain: 2. Acute pain associated with herpes zoster: 3. Chronic atrial fibrillation: Plan: Reviewed Dr. Walls's note regarding shingles, since that is a more likely cause of the chest pain will discontinue colchicine. He has been started on acyclovir. No further cardiac workup recommended at this time. He has follow-up scheduled with [facility] for alternatives to watchman device which failed. LVEF is 50 to 55%, the septal hypokinesis could be due to conduction defect. He appears euvolemic. Continue diltiazem 120 mg daily, metoprolol 200 mg twice daily, aspirin, statin. PDMP PDMP Reviewed: Not Reviewed Attestations 2 Medical Necessity Statement*: Per hospitalist Coding Level of Care Code Acute Code for [facility] Diagnoses Musculoskeletal chest pain R07.89 Acute pain associated with herpes zoster B02.9 Chronic atrial fibrillation I48.20
[2025-09-03 10:39] LABS: Glucose Urine UA Negative (Normal); Nitrate Urine Negative (Negative); Specific Gravity, Urine 1.006 (1.005-1.030)
[2025-09-03 10:44] LABS: Add Urine Microscopic? YES
[2025-09-03] MEDS: methylPREDNISolone sod succ 125 mg/2 mL INJ IVP (11:22)
[2025-09-03 12:00] VITALS: BP 155/88; PULSE 76; RESP 25; TEMP 36.7; O2SAT 93
--- NOTE | 2025-09-03 12:32 | P.PN_ITS ---
Subjective 2 Subjective: Patient was seen this morning, reports pain along the left flank, left chest, tenderness to palpation under left breast, along T9 dermatome, he has 2-3 vesicular lesions, along T9 dermatome, 2 of the largest vesicular lesions are around the back, discussed the possibility of shingles, he reports a history of shingles in the past, discussed the likelihood of patient's chest wall pain, flank pain likely related to shingles outbreak Vitals/I&O/Wt Last Vital Signs Temp 97.8 F 09/03/25 08:00 Pulse 68 09/03/25 08:00 Resp 20 H 09/03/25 08:00 BP 151/78 09/03/25 08:00 Pulse Ox 93 09/03/25 08:00 O2 Del Method Room Air 09/03/25 03:33 09/02/25 09/03/25 09/03/25 22:59 06:59 14:59 Intake Total 240 / 1304.25 Output Total 300 / 1150 850 / 850 Balance 240 / 454.25 -300 / 154.25 -850 / -850 Weight last 48 hrs Weight 92.7 kg Weight 88.768 kg Weight 89.3 kg Weight 98.883 kg Physical Exam 2 Const: COMMON NORMALS: no acute distress and patient oriented x3 Resp: COMMON NORMALS: normal respiratory effort, No retractions, No use of accessory muscles and clear to auscultation bilaterally AUSCULTATION: clear to auscultation bilaterally Cardio: COMMON NORMALS: regular rate, regular rhythm, S1 normal heart sound present and S2 normal heart sound present RATE: regular rate RHYTHM: r egular rhythm HEART SOUNDS: S1 normal heart sound present and S2 normal heart sound present GI: COMMON NORMALS: Normal to inspection, nondistended, normoactive bowel sounds present and non-tender Extremity: COMMON NORMALS: no calf tenderness and no pedal edema Neuro: COMMON NORMALS: patient oriented x3 Psych: COMMON NORMALS: mental status grossly normal Skin: NARRATIVE SKIN EXAM: Left chest wall tenderness to palpation, tenderness to palpation under left breast Vesicular-like rash largest measuring 1 x 1 cm, satellite lesions along left T9 dermatome Data 09/03/25 03:46 09/03/25 03:46 A&P Assessment and plan 1. CAD (coronary artery disease): 2. Chronic atrial fibrillation: 3. Chest pain: 4. Acute pain associated with herpes zoster: 5. Shingles: Plan: Chest pain Cardiac echo August 2025 CONCLUSIONS Moderately increased left ventricular cavity size. Moderately decreased left ventricular systolic function. Left ventricular ejection fraction is estimated at 45 %. Global left ventricular hypokinesis. Grade III/IV diastolic dysfunction (restrictive filling pattern), severely elevated filling pressures. Moderate biatrial enlargment Mildly thickened mitral valve. No mitral valve stenosis. Moderate mitral valve regurgitation. Mild aortic valve calcification. No aortic valve stenosis. Trace aortic valve regurgitation. Mild tricuspid valve regurgitation. There is no pericardial effusion. Right atrial pressure is around 5-10 mm of mercury. Plan -Serial EKGs, serial troponins, telemetry monitoring - D-dimer within normal limits - Venous ultrasound no DVT -CT chest abdomen pelvis, no evidence of pulmonary embolism -For possible pericarditis, start colchicine, also received muscle relaxer for chest wall pain, IV Dilaudid -Aspirin, statin - Protonix, Carafate for GI prophylaxis - Cardiology consulted - DNR/DNI, confirmed with patient, sister at bedside - DVT prophylaxis SCDs, Lovenox relatively contraindicated given history of GI bleed Acute pain associated with herpes zoster, shingles rash Plan - Keep on isolation - Gabapentin 300 mg daily - Start acyclovir - 1 dose IV steroids - Keep lesion covered, clean and dry Full code SCDs for DVT prophylaxis PDMP PDMP Reviewed: Not Reviewed Attestations 2 Medical Necessity Statement*: Patient requires hospitalization for acute pain related to herpes zoster, shingles, chest pain Diagnoses CAD (coronary artery disease) I25.10 Chronic atrial fibrillation I48.20 Chest pain R07.9 Acute pain associated with herpes zoster B02.9 Shingles B02.9
[2025-09-03 16:00] VITALS: BP 155/88; PULSE 85; RESP 16; TEMP 36.7; O2SAT 96
[2025-09-03] MEDS: ATORVASTATIN 20 MG TABLET PO (18:12)
[2025-09-03] MEDS: dilTIAZem ER (12HR) 60 mg Capsule 120 MG PO (18:12)
[2025-09-03 20:00] VITALS: BP 134/79; PULSE 79; RESP 17; TEMP 36.6; O2SAT 95
[2025-09-04] VITALS: BP 117/75; PULSE 76; RESP 15; O2SAT 94
[2025-09-04 03:35] LABS: Hematocrit 33.3 % (37-53); Hemoglobin 11.20 g/dL (11.27-16.99); Mean Corpuscular HGB Conc 33.6 g/dL (30-55); Mean Corpuscular Hemoglobin 32.2 pg (27-33); Mean Corpuscular Volume 95.7 fl (82-101); Nucleated Red Blood Cells % 0 %; Platelet Count 140 10^3/cmm (157-399); Red Blood Count 3.48 10^6/uL (3.85-5.65); White Blood Count 4.72 10^3/uL (3.29-11.43)
[2025-09-04 04:00] VITALS: BP 155/95; PULSE 79; RESP 19; TEMP 36.7; O2SAT 98
[2025-09-04 04:03] LABS: Alanine Aminotransferase 15 U/L (0-41); Albumin Level 3.7 g/dL (3.5-5.2); Alkaline Phosphatase 84 U/L (40-130); Anion Gap 17.6 (5-19); Aspartate Amino Transferase 15 U/L (0-40); Blood Urea Nitrogen 12 mg/dL (8-23); Calcium 9.0 mg/dL (8.5-10.5); Carbon Dioxide 24 mmol/L (22-29); Chloride 99 mmol/L (98-107); Creatinine Clr Calc Pharmacy 85.6729; Globulin 2.6 g/dL (1.3-4.6); Glucose 146 mg/dL (65-115); Osmolality Calculated 284 mOsm/kg (285-295); Potassium 4.6 mmol/L (3.5-5.1); Sodium 136 mmol/L (136-145); Total Protein 6.3 g/dL (6.6-8.7)
[2025-09-04] MEDS: dilTIAZem ER (12HR) 60 mg Capsule 120 MG PO (05:10)
[2025-09-04] MEDS: sucralfate 1 gm/10 mL Oral Liq UDC PO ×2 (05:12→10:39)
[2025-09-04 08:00] VITALS: BP 142/79; PULSE 89; RESP 17; TEMP 36.6; O2SAT 92
[2025-09-04] MEDS: polyethylene glycol 3350 Pkt 17 gm PO (09:48)
--- NOTE | 2025-09-04 11:55 | P.DS_ITS ---
Discharge Providers Date of Admission: 09/01/25 15:58 Date of Discharge: September 04, 2025 Attending Provider at Admission: Hammad Walls MD Attending Provider at Discharge: Hammad Walls MD Primary Care Provider: Harrison Rendon MD Diagnoses at Discharge Discharge Diagnosis 1. Musculoskeletal chest pain: 2. Acute pain associated with herpes zoster: 3. Chronic atrial fibrillation: Reason for Visit Reason for Visit: CHEST PAIN Hospital Course Hospital Course Narciso Rider is a 80 year old male with a past medical history of GI bleed, taking off anticoagulant therapy, failure of implantation of Watchman device, history of CAD, who presents [facility] for left-sided chest pain. Currently patient is alert oriented x 3, following all commands, complaining of left-sided chest discomfort, denies any shortness of breath, no lightheadedness, dizziness, does report that the pain radiates down his left shoulder, nitroglycerin helps with his chest discomfort, denies any recent bloody black stools, no cough, no recent trauma, no calf pain, calf swelling, h emoptysis Chest pain Cardiac echo August 2025 CONCLUSIONS Moderately increased left ventricular cavity size. Moderately decreased left ventricular systolic function. Left ventricular ejection fraction is estimated at 45 %. Global left ventricular hypokinesis. Grade III/IV diastolic dysfunction (restrictive filling pattern), severely elevated filling pressures. Moderate biatrial enlargment Mildly thickened mitral valve. No mitral valve stenosis. Moderate mitral valve regurgitation. Mild aortic valve calcification. No aortic valve stenosis. Trace aortic valve regurgitation. Mild tricuspid valve regurgitation. There is no pericardial effusion. Right atrial pressure is around 5-10 mm of mercury. - CT angiogram negative for pulmonary embolism - Cardiology consulted - Concerns for possible pericarditis associated with recent failure of Watchman device placement question of manage of aspirin, colchicine, once shingles rash was discovered as an etiology this was discontinued Patient was found to have acute left chest wall pain, left flank pain related to herpes zoster, shingles rash eruption - He was managed as inpatient on gabapentin, acyclovir, IV steroids - Overall clinically improved - Pain well-controlled - Likely patient's chest wall pain, pain along dermatomal fashion from shingles - He was discharged on oral acyclovir, gabapentin, short course of steroids with close follow-up with primary care provider as outpatient - Patient was advised if he has any recurrent chest pain go to emergency room - For shingles rash keep rash clean and dry, keep lesions covered - Please avoid immunocompromised individuals, or nursing individuals, or children under the age of 11 years old or children that are not vaccinated - Follow-up with primary care provider about shingles vaccination Physical Exam Const: COMMON NORMALS: no acute distress and patient oriented x3 Resp: COMMON NORMALS: normal respiratory effort, No retractions, No use of accessory muscles and clear to auscultation bilaterally AUSCULTATION: clear to auscultation bilaterally Cardio: COMMON NORMALS: regular rate, regular rhythm, S1 normal heart sound present and S2 normal heart sound present RATE: regular rate RHYTHM: regular rhythm HEART SOUNDS: S1 normal heart sound present and S2 normal heart sound present GI: COMMON NORMALS: Normal to inspection, nondistended, normoactive bowel sounds present and non-tender Extremity: COMMON NORMALS: no pedal edema Neuro: COMMON NORMALS: patient oriented x3 Psych: COMMON NORMALS: mental status grossly normal Skin: NARRATIVE SKIN EXAM: Left dermatome, level of T11, has vesicular lesion, 3 distinct lesions, dermatomal fashion, crusted over Discharge Data Studies Completed and Pending Completed Studies During Hospitalization Category Date Time Status CT Angio Chest + Abdomen Pelvis w/ contrast; 17388 + Cat Scan 09/01/25 17:10 Completed 47100 Routine XR chest 1V portable [id number] Stat Exams 09/01/25 14:48 [place] [id number] Routine Ultrasound 09/01/25 16:35 Completed CV. echo lmt w/w contras [id number] Routine Ultrasound 09/02/25 08:51 Completed Radiology Impressions Chest X-Ray 09/01/25 14:48 IMPRESSION: Stable chest without acute abnormality. Venous Duplex 09/01/25 16:35 IMPRESSION: No evidence of deep vein thrombosis. Chest/Abdomen/Pelvis CT 09/01/25 17:10 IMPRESSION: 1. No definite significant pulmonary embolism or right heart strain. No definite acute infiltrate or effusion. 2. Ascending aortic aneurysm up to 4.2 cm at level of right main pulmonary artery. IMPRESSION: No definite acute abdominopelvic abnormality. COMMENTS: Consistent with the [employer]'s Incidental Findings Committee white paper (J Am Noa Radiol 2018): Any incidental renal lesion less than 1 cm or classified as too small to characterize, or any incidental cystic renal lesion characterized as simple-appearing, is likely benign. No follow-up imaging is recommended for these lesions per consensus recommendations based on imaging criteria. Laboratory Results WBC 4.72 10^3/uL (3.29-11.43) 09/04/25 03:15 RBC 3.48 10^6/uL (3.85-5.65) L 09/04/25 03:15 Hgb 11.20 g/dL (11.27-16.99) L 09/04/25 03:15 Hct 33.3 % (37-53) L 09/04/25 03:15 MCV 95.7 fl (82-101) 09/04/25 03:15 MCH 32.2 pg (27-33) 09/04/25 03:15 MCHC 33.6 g/dL (30-55) 09/04/25 03:15 RDW 14.7 % (12.1-15.1) 09/04/25 03:15 Plt Count 140 10^3/cmm (157-399) L 09/04/25 03:15 MPV 9.8 fL (7.4-10.4) 09/04/25 03:15 Neut % (Auto) 85.8 % 09/04/25 03:15 Lymph % (Auto) 11.7 % 09/04/25 03:15 Stanton % (Auto) 2.1 % 09/04/25 03:15 Eos % (Auto) 0.0 % 09/04/25 03:15 Baso % (Auto) 0.0 % 09/04/25 03:15 Neut # (Auto) 4.05 10^3/uL (1.8-7.7) 09/04/25 03:15 Lymph # (Auto) 0.6 10^3/uL (0.8-4.8) L 09/04/25 03:15 Stanton # (Auto) 0.1 10^3/uL (0.2-0.9) L 09/04/25 03:15 Eos # (Auto) 0.0 10^3/uL (0.0-0.8) 09/04/25 03:15 Baso # (Auto) 0.0 10^3/uL (0.0-0.1) 09/04/25 03:15 Nucleated RBC % (auto) 0 % 09/04/25 03:15 Nucleated RBCs # 0.0 /100WBC 09/04/25 03:15 D-Dimer 0.34 ug/mLFEU (0-0.59) 09/01/25 14:45 Sodium 136 mmol/L (136-145) 09/04/25 03:15 Potassium 4.6 mmol/L (3.5-5.1) 09/04/25 03:15 Chloride 99 mmol/L (98-107) 09/04/25 03:15 Carbon Dioxide 24 mmol/L (22-29) 09/04/25 03:15 Anion Gap 17.6 (5-19) 09/04/25 03:15 BUN 12 mg/dL (8-23) 09/04/25 03:15 Creatinine 0.7 mg/dL (0.7-1.2) 09/04/25 03:15 GFR Calculation Not Reportable 09/04/25 03:15 Glucose 146 mg/dL (65-115) H 09/04/25 03:15 Estimat Average Glucose 108 09/01/25 14:45 Hemoglobin A1c 5.4 % (4.0-6.0) 09/01/25 14:45 Calculated Osmolality 284 mOsm/kg (285-295) L 09/04/25 03:15 Calcium 9.0 mg/dL (8.5-10.5) 09/04/25 03:15 Total Bilirubin 0.2 mg/dL (0.15-1.2) 09/04/25 03:15 AST 15 U/L (0-40) 09/04/25 03:15 ALT 15 U/L (0-41) 09/04/25 03:15 Alkaline Phosphatase 84 U/L (40-130) 09/04/25 03:15 Troponin T Baseline 20 ng/L (0-15) H 09/01/25 14:45 Troponin T 120 Minute 18.91 ng/L (0-15) H 09/01/25 16:49 Delta Troponin T -1.09 ABS# (0-10) L 09/01/25 16:49 Troponin T Hi Sens 6Hr 18.03 ng/L (0-15) H 09/01/25 20:20 Troponin T Hi Sens 6Hr Delta -1.97 ng/L (0-12) L 09/01/25 20:20 NT-Pro-B Natriuret Pep 573 pg/mL (0-450) H 09/01/25 14:45 Total Protein 6.3 g/dL (6.6-8.7) L 09/04/25 03:15 Albumin 3.7 g/dL (3.5-5.2) 09/04/25 03:15 Globulin 2.6 g/dL (1.3-4.6) 09/04/25 03:15 Triglycerides 148 mg/dL (0-150) 09/01/25 14:45 Cholesterol 156 mg/dL (0-200) 09/01/25 14:45 LDL Cholesterol, Calc 68 mg/dL (50-129) 09/01/25 14:45 HDL Cholesterol 58 mg/dL (60-100) L 09/01/25 14:45 LDL/HDL Ratio 1.17 RATIO (0.00-3.22) 09/01/25 14:45 Cholesterol/HDL Ratio 2.69 mg/dL (1.0-5.00) 09/01/25 14:45 Urine Color Yellow (Yellow) 09/03/25 10:25 Urine Appearance Clear (CLEAR) 09/03/25 10:25 Urine pH 6.0 (5-7) 09/03/25 10:25 Ur Specific [place] 1.006 (1.005-1.030) 09/03/25 10:25 Urine Protein Negative (Negative) 09/03/25 10:25 Urine Glucose (UA) Negative (Normal) 09/03/25 10:25 Urine Ketones Negative (Negative) 09/03/25 10:25 Urine Blood 1+ (Negative) A 09/03/25 10:25 Urine Nitrate Negative (Negative) 09/03/25 10:25 Urine Bilirubin Negative (Negative) 09/03/25 10:25 Urine Urobilinogen 0.2 mg/dL (Negative) 09/03/25 10:25 Ur Leukocyte Esterase Negative (Negative) 09/03/25 10:25 Urine RBC 3-5 /hpf (0-2) 09/03/25 10:25 Urine WBC 0-5 /hpf (0-5) 09/03/25 10:25 Ur Squamous Epith Cells 0-5 /hpf (0-5) 09/03/25 10:25 Amorphous Sediment Not Reportable 09/03/25 10:25 Urine Bacteria None seen /hpf (NONE) 09/03/25 10:25 Hyaline Casts 0-4 /lpf H 09/03/25 10:25 Vitals Last Vital Signs Temp 97.8 F 09/04/25 08:00 Pulse 89 09/04/25 08:00 Resp 17 09/04/25 08:00 BP 142/79 09/04/25 08:00 Pulse Ox 92 09/04/25 08:00 O2 Del Method Room Air 09/04/25 04:00 Discharge Plan Discharge Patient Disposition: Home Condition: Stable Prescriptions: New gabapentin 300 mg Capsule 300 mg PO DAILY 30 Days Qty: 30 0RF prednisone 20 mg Tablet 40 mg PO DAILY 5 Days Qty: 10 0RF aspirin 81 mg Tablet,Delayed Release (Dr/Ec) 81 mg PO DAILY 30 Days Qty: 30 0RF acyclovir 800 mg Tablet 800 mg PO 5XD 7 Days Qty: 35 0RF Continued acetaminophen [Tylenol Extra Strength] 500 mg tablet 1,000 mg PO BID PRN (Reason: Pain) metoprolol tartrate 100 mg tablet 200 mg PO BID diltiazem HCl 120 mg capsule,extended release 12 hr 120 mg PO Q12H triamcinolone acetonide 0.1 % cream 1 applic topical BID PRN (Reason: Skin Irritation) cholecalciferol (vitamin D3) 1,250 mcg (50,000 unit) capsule 50,000 unit PO .weekly Qty: 8 0RF Rx Instructions: ferrous sulfate 325 mg (65 mg iron) tablet 325 mg PO DAILY finasteride 5 mg tablet 5 mg PO DAILY nitroglycerin 0.4 mg tablet, sublingual 0.4 mg sublingual Q5M PRN (Reason: Chest Pain) Qty: 30 2RF Rx Instructions: do not exceed 3 doses per episode lidocaine 1.8 % adhesive patch,medicated 1 patch topical Q24H Qty: 30 0RF Rx Instructions: leave on most painful area for up to 12 hrs omeprazole 40 mg capsule,delayed release(DR/EC) 40 mg PO BID atorvastatin 20 mg tablet 20 mg PO QPM clonidine HCl 0.1 mg tablet 0.1 mg PO DAILY PRN (Reason: hypertension) Qty: 20 0RF Rx Instructions: For Systolic >185 diastolic >100. 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: Cardiology Discharge Order = DC NOW: Discharge Order (Routine); Ordered 09/04/25 Ordered By: Hammad Walls Referrals: Harrison Rendon MD [Primary Care Provider, [facility]] - 09/08/25 8:45 am Discharge Diet: Advance as tolerated Discharge Activity: Resume usual activity Patient Instructions: Opioid Safety, Patient Portal & Roberto Instructions Activity Restrictions/Additional Instructions: - If any recurrent chest pain please go to emergency room Discharge Attestations Time Spent in Discharge Care*: greater than 30 min Quality Metrics Clinical Quality Measures [ No reported AMI, CVA or VTE this stay] Coding Level of Care Code 86387 Total time (in minutes) for Discharge: 45 Diagnoses Musculoskeletal chest pain R07.89 Acute pain associated with herpes zoster B02.9 Chronic atrial fibrillation I48.20
[2025-09-04 12:00] VITALS: BP 147/82; PULSE 73; RESP 24; O2SAT 96
[2025-09-04 14:26] VITALS: BP 147/82; PULSE 24; RESP 73; TEMP 36.6; O2SAT 96
--- NOTE | 2025-09-04 14:30 | PC.NURSE ---
Discharge Note Patient discharged to home via POV accompanied by daughter. Discharge instructions reviewed with patient and/or front office representative. Mobile pharmacy medications and/or prescriptions provided. Belongings/home medications returned.
== END 2025-09-04 14:31 | disposition home or self-care (01) ==
LOC: ER 15:53 → CSU 15:59
PROVIDERS: Admitting Provider Family Medicine; Emergency Provider Emergency Medicine; PCP Family Medicine; Visit Provider Family Medicine
DX: R07.89 Other chest pain (principal); B02.9 Zoster without complications; I48.20 Chronic atrial fibrillation, unspecified; K21.9 Gastro-esophageal reflux disease without esophagitis; Z66 Do not resuscitate; I25.10 Atherosclerotic heart disease of native coronary artery without angina pectoris; Z85.46 Personal history of malignant neoplasm of prostate; Z87.891 Personal history of nicotine dependence; Z82.49 Family history of ischemic heart disease and other diseases of the circulatory system; Z95.5 Presence of coronary angioplasty implant and graft; J44.9 Chronic obstructive pulmonary disease, unspecified
CPT/HCPCS: 36415; 71045; 71275; 74177; 80053; 80061; 81001; 83036; 83880; 84484; 85025; 85378; 93005; 93970; 96361; 96372; 96374; 96375; 99285; C8924; G0378; J1171; J2270; J2919; J7030; J7512; J8499; J9999

== ENCOUNTER → 2025-10-01 14:03 | Outpatient (BNVA) | payer MEDICARE, SELFPAY | PROVIDERS: PCP Family Medicine; Visit Provider Internal Medicine Cardiovascular Disease | DX: I48.20 Chronic atrial fibrillation, unspecified (principal); Z79.82 Long term (current) use of aspirin; I25.10 Atherosclerotic heart disease of native coronary artery without angina pectoris; I42.9 Cardiomyopathy, unspecified; I34.0 Nonrheumatic mitral (valve) insufficiency; Z95.5 Presence of coronary angioplasty implant and graft; Z87.891 Personal history of nicotine dependence; B02.9 Zoster without complications; B35.3 Tinea pedis; L82.1 Other seborrheic keratosis; L81.4 Other melanin hyperpigmentation; Z08 Encounter for follow-up examination after completed treatment for malignant neoplasm; Z85.828 Personal history of other malignant neoplasm of skin; L57.0 Actinic keratosis | CPT/HCPCS: 17000; 99213; 99214 ==

== ENCOUNTER 2025-10-30 09:25 | Oncology outpatient (recurring) (ONCR) | payer MEDICARE, SELFPAY ==
[2025-10-30 09:55] LABS: Hematocrit 40.4 % (37-53); Hemoglobin 13.30 g/dL (11.27-16.99); Mean Corpuscular HGB Conc 32.9 g/dL (30-55); Mean Corpuscular Hemoglobin 32.7 pg (27-33); Mean Corpuscular Volume 99.3 fl (82-101); Nucleated Red Blood Cells % 0 %; Platelet Count 168 10^3/cmm (157-399); Red Blood Count 4.07 10^6/uL (3.85-5.65); White Blood Count 4.42 10^3/uL (3.29-11.43)
[2025-10-30 10:39] LABS: Alanine Aminotransferase 12 U/L (0-41); Albumin Level 4.0 g/dL (3.5-5.2); Alkaline Phosphatase 106 U/L (40-130); Anion Gap 15.2 (5-19); Aspartate Amino Transferase 18 U/L (0-40); Blood Urea Nitrogen 16 mg/dL (8-23); Calcium 9.3 mg/dL (8.5-10.5); Carbon Dioxide 28 mmol/L (22-29); Chloride 100 mmol/L (98-107); Ferritin 43 ng/mL (30-400); Globulin 3.5 g/dL (1.3-4.6); Glucose 111 mg/dL (65-115); Iron 84 ug/dL (59-158); Osmolality Calculated 290 mOsm/kg (285-295); Potassium 4.2 mmol/L (3.5-5.1); Sodium 139 mmol/L (136-145); Total Iron Binding Capacity 364 mcg/dl; Total Protein 7.5 g/dL (6.6-8.7); Unsaturated Iron Binding 280 ug/dL (112-347); Vitamin B12 351 pg/mL (232-1245)
[2025-10-30 10:40] LABS: Prostate Specific Antigen < 0.014 ng/mL (0-4)
== END 2025-11-19 23:59 | disposition home or self-care (01) ==
PROVIDERS: Internal Medicine; PCP Family Medicine; Visit Provider Nurse Practitioner Family
DX: Z08 Encounter for follow-up examination after completed treatment for malignant neoplasm (principal); Z85.46 Personal history of malignant neoplasm of prostate; D64.9 Anemia, unspecified; E55.9 Vitamin D deficiency, unspecified; R97.20 Elevated prostate specific antigen [PSA]; I48.91 Unspecified atrial fibrillation; I10 Essential (primary) hypertension; Z92.3 Personal history of irradiation; Z87.891 Personal history of nicotine dependence; Z79.01 Long term (current) use of anticoagulants; Z92.21 Personal history of antineoplastic chemotherapy
CPT/HCPCS: 36415; 80053; 82607; 82728; 82746; 83010; 83540; 83550; 83615; 84153; 84403; 85025; 85045; 99213